=== PATIENT | female | born 1990 | race Caucasian/White ===

== ENCOUNTER 2016-12-24 16:10 | Emergency (ER) | payer OTHER ==
[~2016-12-24] VITALS: Ht 175.3 cm; Wt 129.2 kg
[2016-12-24 16:13] VITALS: BP 152/95; PULSE 90; TEMP 36.6; O2SAT 100; Ht 175.3 cm; Wt 129.2 kg
[2016-12-24] MEDS ORDERED: LIDO2SOL19 PO (16:28)
[2016-12-24] MEDS ORDERED: LIDOCAINE HCL 2% VISC SOLN 20 ML UDC MT ONE (17:00)
--- NOTE | 2016-12-25 18:35 | EMERGENCY ROOM VISIT NOTE ---
ED Visit Note First contact with patient: 16:19 CHIEF COMPLAINT: Left lower Dental pain HISTORY OF PRESENT ILLNESS: This 26-year-old white female patient has had persistent left lower gum pain for last 2 weeks. She denies any trauma. She had dental extractions approximate 2 weeks ago. She had a follow-up appointment with her dentist. She was told that the swelling in her gumline would go down. As it has come down, she has noticed that there is a white spot along her gumline. She believes there is a bone protruding from her gumline. She states it is painful and she can barely eat. She has not been back to see her dentist. She denies any drainage. No fevers or chills. The pain is now steady and severe. She denies facial swelling, chills, sweats, or fever. No nausea or vomiting. No foul taste. Pain is 8.5/10. REVIEW OF SYSTEMS: Head: No headache, injury or neck pain. Throat: No sore throat, dysphagia, or hoarseness. Neck: No stiffness, or swelling. Respiratory: No cough, change in sputum, wheezes, hemoptysis, shortness of breath, or stridor. PMH: Supplemental sheet was reviewed. Previous Surgeries: Dental surgery for extraction, wisdom tooth extraction, appendectomy Medical history: Significant for skin problems, asthma, and stomach ulcers Family history: Significant for diabetes, heart disease, hypertension, and cancer. Current medications: None Allergies: Penicillin SOCIAL HISTORY: Patient lives at home with her boyfriend. Employed at [employer]. Tobacco use of a pack per day. No EtOH use. PHYSICAL EXAM: Vital Signs: Temp 36.6 pulse 90 BP 152/95 respirations 18 O2 sat 100% on room air. General: Well-developed, well-nourished, obese young white female, in no acute distress. She does not appear in any discomfort. She is sitting on a bed. Alert and oriented. Skin: Warm and dry with good turgor. No rashes or lesions. No ecchymosis or erythema. The patient is not diaphoretic. No abrasions. HEENT: Normocephalic atraumatic. Eyes PERRLA, EOMI. No conjunctiva or scleral injection. Nares patent bilaterally without turbinate enlargement. No significant drainage. No epistaxis. Oropharynx without erythema or exudate. Uvula midline, oral mucosa moist. No lesions present. She is missing several teeth. Her left lower gum line has a well- healed surgical scar. There is a punctate area in the lower gumline where her tooth used to be. It does appear as though there is a small white spot that does not brush off. It is a pinhole-type lesion. Nothing is expressible. There is no drainage. No edema or pointing. It is nonfluctuant. Surrounding teeth are not loose. There is no facial swelling, cervical or submandibular lymphadenopathy. DIAGNOSIS: Dental pain DISCHARGE INSTRUCTIONS & TREATMENT: The patient was educated regarding today's findings. Conservative care measures were discussed. She was reassured that I do not suspect infection at this time. I am not sure what the white hole is related to. It does not seem likely that it would be the underlying mandible. She was prescribed lidocaine 2% viscous solution to be applied to the gumline up to 4 times a day for pain relief. Continue with Tylenol and Motrin. See her dentist as soon as possible for definitive care. [place] gargles after every meal. Continue to brush her teeth. Current/Historical Medications Scheduled Lidocaine Hcl (Mouth-Throat) (Lidocaine Viscous), 5 ML PO QID Vital Signs Date Time Temp Pulse Resp B/P Pulse Ox O2 Delivery O2 Flow Rate FiO2 12/24/16 16:13 36.6 90 18 152/95 100 Room Air Medications Administered Medications (Trade) Dose Ordered Sig/Cata Route Start Time Stop Time Status Last Admin Dose Admin Lidocaine HCl (Viscous Lidocaine 2% Soln) 20 ml NOW ONCE MT 12/24/16 17:00 12/24/16 17:00 DC 12/24/16 16:55 20 ML Departure Information Impression Primary Impression: Pain, dental Dispostion Home / Self-Care Condition GOOD Prescriptions Lidocaine Hcl (Mouth-Throat) (LIDOCAINE VISCOUS) 2 % Suzi 5 ML PO QID, #100 ML Prov: Jose Hoffman,P.A. 12/24/16 Forms WORK / SCHOOL INSTRUCTIONS, HOME CARE DOCUMENTATION FORM, MOTRIN USE, TYLENOL USE, IMPORTANT VISIT INFORMATION Patient Instructions My [facility] Additional Instructions Apply viscous lidocaine topically to the gumline every 6 hours as needed for pain Follow-up with your dentist or PCP this week for reexamination and to discuss further care You may elect to see a different dentist if desired
== END 2016-12-24 16:57 | disposition home or self-care (01) ==
LOC: C.EDB 16:12 → C.EDD 16:57
DX: K08.89 Other specified disorders of teeth and supporting structures (principal)

== ENCOUNTER → 2017-02-14 | Outpatient (CLI) | payer OTHER ==
[2017-02-14 16:37] LABS: BASO % 0.5 %; BASO ABS # 0.05 K/uL (0-0.2); COMPLETE YES; EOS % 2.8 %; HEMATOCRIT 39.4 % (37-47); IG% 0.2 %; LYMPH % 25.4 %; LYMPH ABS # 2.53 K/uL (1.2-3.4); MEAN CELL VOLUME 89.5 fL (80-100); MEAN CORPUSCULAR HEMOGLOBIN 29.1 pg (25-34); MEAN CORPUSCULAR HGB CONC 32.5 g/dl (32-36); MEAN PLATELET VOLUME 9.5 fL (7.4-10.4); MONO % 7.6 %; NEUT % 63.5 %; PLATELET COUNT 319 K/uL (130-400); WHITE BLOOD COUNT 9.98 K/uL (4.8-10.8)
== END | disposition home or self-care (01) ==
LOC: C.LAB1850 15:18
PROVIDERS: ATTEND Obstetrics & Gynecology
DX: O99.330 Smoking (tobacco) complicating pregnancy, unspecified trimester (principal); Z3A.00 Weeks of gestation of pregnancy not specified

== ENCOUNTER → 2017-02-14 | Outpatient (CLI) | payer OTHER ==
[2017-02-14 17:59] LABS: URINE APPEARANCE CLEAR (CLEAR); URINE BILIRUBIN NEG (NEG); URINE COLOR YELLOW; URINE NITRITE NEG (NEG); URINE PH 6.5 (4.5-7.5); UROBILINOGEN NEG (NEG)
[2017-02-14 18:01] LABS: MANUAL MICROSCOPIC REQUIRED? NO; REVIEW REQ? NO
[2017-02-17 02:00] LABS: CHLAMYDIA TRACH RNA*** DETECTED (NOT DETECTED); GC (NEIS GONORRHOEAE)RNA** NOT DETECTED (NOT DETECTED)
== END | disposition home or self-care (01) ==
LOC: C.LABSPEC 17:32
PROVIDERS: ATTEND Obstetrics & Gynecology
DX: O99.330 Smoking (tobacco) complicating pregnancy, unspecified trimester (principal); Z3A.00 Weeks of gestation of pregnancy not specified

== ENCOUNTER → 2017-03-14 | Outpatient (CLI) | payer OTHER ==
[2017-03-17 02:56] LABS: CHLAMYDIA TRACH RNA*** NOT DETECTED (NOT DETECTED); GC (NEIS GONORRHOEAE)RNA** NOT DETECTED (NOT DETECTED)
== END | disposition home or self-care (01) ==
LOC: C.LABSPEC 14:02
PROVIDERS: ATTEND Obstetrics & Gynecology
DX: O98.819 Other maternal infectious and parasitic diseases complicating pregnancy, unspecified trimester (principal)

== ENCOUNTER → 2017-04-18 | Outpatient (CLI) | payer OTHER ==
[2017-04-18 15:17] LABS: GTGD 50 Grams
[2017-04-20 15:09] LABS: AFP CONCENTRATION 31.8 NG/ML; AFP MULTIPLE OF MEDIAN 1.35; AFPTS GESTATIONAL AGE 16.4 WEEKS; AFPTS INSULIN DEP DIABETIC? NO; AFPTS MATERNAL WT 283 LBS; ALPHA-FETOPROTEIN RACE CAUCASIAN=W; ESTRIOL MULTIPLE OF MEDIAN 1.04; HISTORY OF NTD NO; INHIBIN A 231 PG/ML; REPEAT SAMPLE? NO; hCG MULTIPLE OF MEDIAN 1.49
== END | disposition home or self-care (01) ==
LOC: C.LAB1850 10:05
PROVIDERS: ATTEND Obstetrics & Gynecology
DX: Z34.02 Encounter for supervision of normal first pregnancy, second trimester (principal)

== ENCOUNTER → 2017-07-16 | Outpatient (CLI) | payer OTHER ==
[2017-07-16 18:02] LABS: HEMATOCRIT 34.8 % (37-47)
[2017-07-16 18:36] LABS: URINE APPEARANCE CLEAR (CLEAR); URINE BILIRUBIN NEG (NEG); URINE COLOR YELLOW; URINE EPITHELIAL CELL AUTO >30 /lpf (0-5); URINE NITRITE NEG (NEG); URINE SPECIFIC GRAVITY 1.017 (1.000-1.030); UROBILINOGEN NEG (NEG)
[2017-07-16 18:37] LABS: MANUAL MICROSCOPIC REQUIRED? NO; REVIEW REQ? NO
[2017-07-16 19:16] LABS: GTGD 50 Grams
== END | disposition home or self-care (01) ==
LOC: C.LAB1850 16:26
PROVIDERS: ATTEND Obstetrics & Gynecology
DX: Z34.02 Encounter for supervision of normal first pregnancy, second trimester (principal)

== ENCOUNTER → 2017-08-16 | Outpatient (CLI) | payer OTHER | END | disposition home or self-care (01) | LOC: C.CPL 10:11 | PROVIDERS: ATTEND Obstetrics & Gynecology | DX: O26.92 Pregnancy related conditions, unspecified, second trimester (principal); Z3A.00 Weeks of gestation of pregnancy not specified ==

== ENCOUNTER → 2017-08-29 | Outpatient (CLI) | payer BC | END | disposition home or self-care (01) | LOC: C.LAB1850 13:51 | PROVIDERS: ATTEND Obstetrics & Gynecology | DX: Z34.03 Encounter for supervision of normal first pregnancy, third trimester (principal) ==

== ENCOUNTER → 2017-09-12 | Outpatient (CLI) | payer BC | END | disposition home or self-care (01) | LOC: C.LABSPEC 15:51 | PROVIDERS: ATTEND Obstetrics & Gynecology | DX: Z34.03 Encounter for supervision of normal first pregnancy, third trimester (principal) ==

== ENCOUNTER 2017-09-21 10:26 | Inpatient (IN) | payer BC ==
[~2017-09-21] VITALS: Ht 170.2 cm; Wt 127.0 kg
[2017-09-21] MEDS ORDERED: LACTATED RINGER'S 1000ML 1,000 ML IV PRN (11:32)
[2017-09-21] MEDS ORDERED: LACTATED RINGER'S 1000ML 500 ML IV PRN ×2 (11:46→16:27)
[2017-09-21 11:57] LABS: HEMATOCRIT 34.9 % (37-47); HEMOGLOBIN 11.7 g/dL (12.0-16.0); MEAN CELL VOLUME 92.3 fL (80-100); MEAN CORPUSCULAR HGB CONC 33.5 g/dl (32-36); MEAN PLATELET VOLUME 11.1 fL (7.4-10.4); PLATELET COUNT 218 K/uL (130-400); RED CELL DISTRIBUTION WIDTH CV 13.5 % (11.5-14.5); RED CELL DISTRIBUTION WIDTH SD 45.4 fL (36.4-46.3); WHITE BLOOD COUNT 9.62 K/uL (4.8-10.8)
[2017-09-21] MEDS ORDERED: OXYTOCIN 30 UNITS/500ML NSS IV PRN (12:00)
[2017-09-21 12:09] VITALS: Ht 170.2 cm; Wt 127.0 kg
[2017-09-21] MEDS ORDERED: HYDR-3983 PO (12:11)
[2017-09-21] MEDS ORDERED: PRENTAB26 PO (12:11)
[2017-09-21] MEDS ORDERED: PENICILLIN G POTASSIUM IV 6 MU in DEXTROSE 5% 250ML 250 ML IV ONE (12:15)
[2017-09-21] MEDS: LACTATED RINGER'S 1000ML 1,000 ML IV SCH ×2 (12:34→16:09)
[2017-09-21] MEDS ORDERED: BUPIVACAINE 0.25% 30 ML VIAL ONE (15:12)
[2017-09-21] MEDS ORDERED: EpHEDrine SULFATE INJ 50 MG/ML AMP ONE (15:12)
[2017-09-21] MEDS ORDERED: FENTANYL CITRATE INJ 50 MCG/1 ML 2 ML VIAL ONE (15:12)
[2017-09-21] MEDS ORDERED: FENTANYL 2MCG/ML ROPIV 1.25MG/ML 100ML BAG EPI ONE (15:13)
[2017-09-21] MEDS ORDERED: NALOXONE HCL INJ 1 MG in SODIUM CHLORIDE 0.9% 1000ML 1,000 ML IV PRN (16:27)
[2017-09-21] MEDS ORDERED: DiphenhydrAMINE HCL 50 MG/ML VIAL IV PRN (16:30)
[2017-09-21] MEDS ORDERED: ONDANSETRON INJ 2 MG/ML 2 ML VIAL IV PRN (16:30)
[2017-09-21] MEDS ORDERED: EpHEDrine SULFATE INJ 50 MG/ML AMP IV PRN (16:30)
[2017-09-21] MEDS ORDERED: NALOXONE HCL INJ 0.4 MG/1 ML VIAL/CARP IV PRN (16:30)
[2017-09-21] MEDS ORDERED: PROMETHAZINE HCL INJ 6.25 MG in SODIUM CHLORIDE 0.9% 50ML 50 ML IV PRN (16:30)
[2017-09-21] MEDS ORDERED: NALBUPHINE HCL INJ 10 MG/ML AMP IV PRN (16:30)
[2017-09-21] MEDS: PENICILLIN G POTASSIUM IV 3 MU in DEXTROSE 5% 100ML 100 ML IV PRN ×2 (16:34→20:33)
[2017-09-21] MEDS: FENTANYL 2MCG/ML ROPIV 1.25MG/ML 100ML BAG EPI PRN ×2 (19:07→22:51)
[2017-09-21] MEDS ORDERED: ACETAMINOPHEN 500 MG TAB PO SCH (23:15)
[2017-09-22] MEDS: PENICILLIN G POTASSIUM IV 3 MU in DEXTROSE 5% 100ML 100 ML IV PRN (00:55)
[2017-09-22] MEDS: LACTATED RINGER'S 1000ML 1,000 ML IV SCH (03:32)
[2017-09-22] MEDS ORDERED: LANOLIN OINT EXT PRN (05:00)
[2017-09-22] MEDS ORDERED: IBUPROFEN 600 MG TAB PO PRN (05:00)
[2017-09-22] MEDS ORDERED: SUPERCREAM 0.870 % 15GM JAR EXT PRN (05:00)
[2017-09-22] MEDS ORDERED: BENZOCAINE 20% AER SPR 82.5 GM CAN EXT PRN (05:00)
[2017-09-22] MEDS ORDERED: HYDROCORTISONE ACETATE 25 MG SUPP PR PRN (05:00)
[2017-09-22] MEDS: OXYCODONE/ACETAMINOPHEN 5-325 TAB PO PRN ×4 (06:07→21:10)
--- NOTE | 2017-09-22 06:35 | Discharge Instructions ---
Discharge Instructions Date of Service Sep 22, 2017. Admission Reason for Admission: Spontaneous Rupture Of Amniotic Membranes Discharge Discharge Diagnosis / Problem: Vaginal Delivery Discharge Goals Goal(s): Routine recovery after delivery Medications Continue Dispensed Medications: supercream, dermaplast, tucks, lansinoh Activity Recommendations Activity Limitations: per Instructions/Follow-up section . Instructions / Follow-Up Instructions / Follow-Up ACTIVITY RECOMMENDATIONS: * Gradual return to full activity over the next 2-3 weeks. * No lifting - nothing heavier than baby over the next 2-3 weeks. * Do not engage in vigorous exercise, sexual activity or sports until cleared by your physician. * Do not drive or operate any motorized equipment until cleared by your physician. * You may shower/bathe daily. MEDICATIONS: For discomfort or pain, you may use Acetaminophen (Tylenol), Ibuprofen (Advil), or Naproxen (Aleve) following the package directions. For constipation you may use Colace following the package directions. BREAST CARE: If you are not breast feeding: * Wear a supportive bra 24 hours a day for one to two weeks. * Avoid stimulating your breasts and nipples as much as possible during the first few weeks after delivery. * When taking a shower, have the warm water hit your back, not breasts. * When your breasts feel full, apply ice packs. Usually three to four times a day helps ease the discomfort. * Take a mild pain medication (Tylenol / Motrin) when you are uncomfortable. If breast feeding: * Use breast milk to lubricate nipples. Lansinoh cream may be used for sore nipples. You do not need to remove cream prior to breast feeding. If using a different brand of cream, check the label for directions regarding removal of cream prior to nursing. * Wear a supportive bra. * If having problems with breasts or breast feeding, call a income tax consultant or your health care provider. EPISIOTOMY CARE: After delivery, if you have an episiotomy (stitches), the following steps will ease discomfort and aid healing. * For the first 24 hours after delivery, place ice packs next to your episiotomy to help reduce swelling. * After the first 24 hour-period, sitz baths, either portable or in the tub, are suggested. A shower with a shower arm sprayed over the episiotomy may be comforting. * [place] care should be done after each voiding and bowel movement. Squirt warm water from a plastic bottle over the perineum (region of the body between the anus and urinary opening) and pat dry. * Use Dermoplast to ease discomfort. Shake container. [place] directly over the episiotomy. Place a Tucks on a clean sanitary pad next to your episiotomy. SPECIAL CARE INSTRUCTIONS: When you are discharged from the hospital, it is important for you to follow the instructions listed below: * During the first week at home, you should be able to care for yourself and your baby. In addition, the usual light household activities are encouraged. * Limit your activities to the way you feel. Do not try to clean the house or move furniture. Be sensible. * If you actively engage in sports and have done so up until the time of your delivery, you may resume these activities as soon as you feel able. This may take up to one month or even longer. Use good judgment. * Continue to take your vitamins for at least six weeks after the of your baby. * Your diet need not be limited unless you were on a special diet before your delivery. Breast-feeding mothers need around 2500 calories per day and at least 64-80 ounces of fluid per day (8 to 10 glasses). * You should eat foods from the four major food groups. Crash diets or fad diets are to be avoided. Eating lean meats, fresh fruits and vegetables, low-fat dairy products, high fiber foods and a regular exercise program, will help you get back to your pre- weight without putting your health at risk. * Constipation is sometimes a problem after delivery. Take a mild laxative as needed. If breast feeding, Milk of Magnesia is acceptable to use. You may use a suppository or Fleets enema if no episiotomy. * A daily shower or tub bath is suggested. Be sure to thoroughly and gently dry the perineum. * A bloody vaginal discharge will usually continue until around four weeks post . A small amount of bleeding may continue for as long as six weeks. Vaginal discharge changes from the bright red bleeding after delivery to pink then brownish and finally yellowish-pink before becoming white and disappearing. * Bleeding may increase with activity. Your first period may come in 4-8 weeks. If you are breast feeding, your period may be delayed even longer. * [place] (sex) can begin whenever both you and your partner feel comfortable and do not have any form of genital infection. It is recommended that you wait at least six weeks for internal and external healing to occur. If you have questions, please talk to your health care practitioner. A condom should be used to prevent infection and . * Foreplay, gentle intercourse and lubrication is very important the first several times to prevent pain. A water-based lubricant such as K-Y jelly or Astroglide may be used. * If you have RH negative blood and your baby is RH positive, you will receive RHOGAM by injection prior to discharge. The nurse will give you a card to keep with you that has the date and place that you received RHOGAM after delivery. * During your care, you had a Rubella screen done to check for the presence of rubella antibodies in your blood. If your test was negative, you will receive a Rubella vaccine prior to discharge. This vaccine may cause a fever, soreness at the injection site and flu-like symptoms. If these symptoms persist, notify your health care practitioner. is not advised for one month after a Rubella vaccine. * Verbalizes understanding of car seat law as reviewed with patient nursing. * Car Seat hand-out given and reviewed with patient by nursing. * Shaken baby information reviewed with patient by nursing. Call you doctor if: * Heavy bleeding (saturating several pads an hour) or passing clots the size of your fist. * A fever >101 degrees F (38.3 degrees C) on two occasions four hours apart and /or chills. * Unusual pain in the pelvic or vaginal areas. * "Baby Blues" lasting longer than two weeks. If you have any questions or concerns, call your health care practitioner at . FOLLOW UP VISIT: * Please call the office at to schedule a 6 week examination. It is important you keep this appointment. It is important for you to make arrangements for either yearly or twice yearly check-ups thereafter. Current Hospital Diet Patient's current hospital diet: Regular OB Diet Discharge Diet Recommended Diet: Regular Diet Pending Studies Studies pending at discharge: no Medical Emergencies . Who to Call and When: Medical Emergencies: If at any time you feel your situation is an emergency, please call 911 immediately. . Non-Emergent Contact Non-Emergency issues call your: Primary Care Provider . . "Provider Documentation" section prepared by Tessy Hernandez. . VTE Core Measure Inpt VTE Proph given/why not?: Treatment not indicated
--- NOTE | 2017-09-22 07:05 | DELIVERY SUMMARY ---
DATE OF OPERATION: 09/22/2017 PRE-DELIVERY DIAGNOSES: 1. A 26-year-old G1, P0 at 38 weeks 6 days. 2. Patient reported outcome measures. 3. Group B strep carrier. 4. History of Chlamydia infection during . 5. Tobacco user. 6. Rubella nonimmune. 7. Noncompliance with care. DIAGNOSES: Same. PROCEDURE: Spontaneous vaginal delivery. FINDINGS: Viable female , Apgars 8 and 9, weight pending. Please see nursery records. SURGEON: Halle Denny DO. ESTIMATED BLOOD LOSS: 300 mL. DESCRIPTION OF DELIVERY: The patient presented after spontaneous rupture of membranes on September 21 at 7:00 a.m. She then elected to walk the hallways and wait for contractions. At 6 hours later, this did not started, so she was started on Pitocin. She then progressed to complete with epidural anesthesia and she began to push. After approximately 2-1/2 hours of pushing, she spontaneously vaginally delivered viable female from the cephalic presentation. The head delivered in the right occiput anterior position. The anterior shoulder and the posterior shoulder were delivered, followed by the body. Nuchal cord was wrapped around the body. The baby was placed on mother's abdomen. Spontaneous cry was heard. The cord was doubly clamped and cut. A segment was retained for cord gases. Cord blood was obtained. The placenta then delivered spontaneously intact with a 3-vessel cord. Pitocin was given. The uterus became firm. The uterus and vagina were cleared of all clots and debris. The cervix, vagina and perineum were inspected and no lacerations were noted except a small superficial left vaginal laceration that was bleeding and therefore was repaired with running stitches of 3-0 Vicryl. Excellent hemostasis was observed. The patient tolerated the delivery well. Sponge, instrument and needle counts were correct at the conclusion of the delivery x2. I attest to the content of the Intraoperative Record and any orders documented therein. Any exceptions are noted below. MTDD
--- NOTE | 2017-09-22 08:09 | Anesthesia Procedure Note ---
Anesthesia Epidural Removal Nt Date & Time Sep 22, 2017 at 08:08 Vital Signs Pain Intensity: 5.0 Notes Mental Status: alert / awake / arousable, participated in evaluation Nausea / Vomiting: adequately controlled Pain: adequately controlled Airway Patency, RR, SpO2: stable & adequate BP & HR: stable & adequate Hydration State: stable & adequate Neuraxial Anesthesia: was administered Anesthetic Complications: no major complications apparent, pt satisfied with anesthetic care Epidural: removed without complications, with tip intact
[2017-09-22 08:15] VITALS: BP 134/79; PULSE 86; TEMP 37
[2017-09-22] MEDS: DOCUSATE SODIUM 100 MG CAP PO SCH ×2 (08:30→20:00)
[2017-09-22] MEDS: PRENATAL VITAMIN TAB PO SCH (08:30)
[2017-09-22 13:30] VITALS: BP 143/87; PULSE 88; TEMP 36.8
[2017-09-22 15:30] VITALS: BP 134/83; PULSE 78; TEMP 36.4
[2017-09-22 19:00] VITALS: BP 135/87; PULSE 92; TEMP 36.5
[2017-09-22] MEDS ORDERED: NURSING VERBAL MED ORDER ONE (22:30)
[2017-09-22 23:25] VITALS: BP 115/73; PULSE 91; TEMP 36.6
[2017-09-23 04:20] VITALS: BP 120/75; PULSE 66; TEMP 36.5
[2017-09-23] MEDS: OXYCODONE/ACETAMINOPHEN 5-325 TAB PO PRN ×4 (05:19→23:26)
[2017-09-23 07:52] LABS: HEMATOCRIT 30.6 % (37-47); HEMOGLOBIN 10.3 g/dL (12.0-16.0)
[2017-09-23 08:15] VITALS: BP 118/74; PULSE 74; TEMP 36.9
[2017-09-23] MEDS: DOCUSATE SODIUM 100 MG CAP PO SCH ×2 (08:18→22:17)
[2017-09-23] MEDS: PRENATAL VITAMIN TAB PO SCH (08:18)
[2017-09-23] MEDS ORDERED: MEASLES, MUMPS & RUBELLA VIRUS VIAL SQ. ONE (09:00)
--- NOTE | 2017-09-23 09:36 | Progress Note ---
Subjective Sep 23, 2017. Subjective conversation w/ patient, physical exam Ambulation: ambulating normally Voiding: no voiding problems Diet Tolerance: Regular Diet Lochia: Small Feeding Type: Bottle Feeding Pain: no pain issues. Comment: concerned about baby not going home tomorrow due to concern made for withdrawal. she took 2 norco due to tooth pull about 10d before delivery. Objective Vital Signs Date Time Temp Pulse Resp B/P (MAP) Pulse Ox O2 Delivery O2 Flow Rate FiO2 09/23/17 04:20 36.5 66 16 120/75 (90) Room Air 09/22/17 23:25 Room Air 09/22/17 23:25 36.6 91 18 115/73 (87) Room Air 09/22/17 19:00 36.5 92 20 135/87 (103) Room Air 09/22/17 19:00 Room Air 09/22/17 15:30 36.4 78 18 134/83 (100) Room Air 09/22/17 15:30 Room Air 09/22/17 13:30 36.8 88 14 143/87 (105) Room Air Physical Exam General Appearance: WELL-APPEARING, WD/WN, NO APPARENT DISTRESS Respiratory/Chest: lungs clear Cardiovascular: regular rate, rhythm Abdomen: non tender, soft Fundus: Firm, Relation to Umbilicus (2 down) Extremities: non-tender Laboratory Results Last 24 Hours Test 09/23/17 07:19 Hemoglobin 10.3 g/dL Hematocrit 30.6 % Assessment and Plan Problem List Medical Problems: (1) Pain, dental Status: Acute Post- Day#: 1 Continue Routine Care: doing well, stable, discussed evaluation of baby and see will plan to just see what peds thinks tomorrow. she is a smoker but declined nictotine patches. routine care.
[2017-09-23 15:25] VITALS: BP 147/92; PULSE 66; TEMP 36.9
[2017-09-23] MEDS ORDERED: BISACODYL 5 MG TABEC PO SCH (20:00)
[2017-09-23 23:25] VITALS: BP 131/83; PULSE 85; TEMP 36.6; O2SAT 100
[2017-09-24] MEDS: OXYCODONE/ACETAMINOPHEN 5-325 TAB PO PRN ×2 (04:50→08:05)
--- NOTE | 2017-09-24 06:21 | Progress Note ---
Subjective Sep 24, 2017. Subjective conversation w/ patient (Patient seen and examined at bedside) Ambulation: ambulating normally Voiding: no voiding problems Diet Tolerance: Regular Diet Lochia: Small Feeding Type: Bottle Feeding Pain: Patient reports no constant pain, just mild occasional cramping. Review of Systems Constitutional: No fever, No chills, No sweats Respiratory: No cough, No shortness of breath Cardiac: No chest pain, No edema Abdomen: No pain, No nausea, No vomiting Female : No dysuria Objective Vital Signs Date Time Temp Pulse Resp B/P (MAP) Pulse Ox O2 Delivery O2 Flow Rate FiO2 09/23/17 23:25 36.6 85 16 131/83 (99) 100 Room Air 09/23/17 23:25 100 Room Air 09/23/17 15:25 Room Air 09/23/17 15:25 36.9 66 20 147/92 (110) Room Air 09/23/17 08:15 36.9 74 20 118/74 (89) Physical Exam General Appearance: WELL-APPEARING, WD/WN, NO APPARENT DISTRESS Respiratory/Chest: chest non-tender, lungs clear, normal breath sounds, no respiratory distress, no accessory muscle use Cardiovascular: regular rate, rhythm, no edema Abdomen: normal bowel sounds, non tender, soft Fundus: Firm, Non-Tender, Relation to Umbilicus (3 below) Extremities: normal inspection, no pedal edema, no calf tenderness Laboratory Results Last 24 Hours Test 09/23/17 07:19 Hemoglobin 10.3 g/dL Hematocrit 30.6 % Medications Current Inpatient Medications Medications (Trade) Dose Ordered Sig/Cata Route Start Time Stop Time Status Last Admin Dose Admin Lactated Ringer's 500 ml @ 999 mls/hr Q31M PRN IV 09/21/17 11:46 10/21/17 11:45 Benzocaine (Dermoplast Aero Spr) 1 appln PRN PRN EXT 09/22/17 05:00 10/22/17 04:59 Cocaine HCl (Supercream 0.870% Cr) BID PRN EXT 09/22/17 05:00 10/06/17 04:59 Hydrocortisone Acetate (Anusol Hc Supp) 25 mg BID PRN HI 09/22/17 05:00 10/22/17 04:59 Lanolin (Lanolin Oint) PRN PRN EXT 09/22/17 05:00 10/22/17 04:59 Prenat Multivit/ [place]/Iron/Folic Ac ( Vitamin Tab) 1 tab DAILY PO 09/22/17 08:00 10/22/17 07:59 09/23/17 08:18 1 TAB Ibuprofen (Motrin Tab) 600 mg Q4H PRN PO 09/22/17 05:00 10/22/17 04:59 09/23/17 08:18 600 MG Oxycodone/ Acetaminophen (Percocet 5-325mg Tab) 1 tab Q4H PRN PO 09/22/17 05:00 10/06/17 04:59 09/24/17 04:50 1 TAB Docusate Sodium (coLACE CAP) 100 mg BID PO 09/22/17 08:00 10/22/17 07:59 09/23/17 22:17 100 MG Assessment and Plan Problem List Medical Problems: (1) Pain, dental Status: Acute Post- Day#: 2 Continue Routine Care: 26 year old s/p NVD day 2 - patient doing very well clinically - A+, GBS +, rubella equivocal, chlamydia positive (treated with abx x2 days just before delivery) - MMR ordered - vitals reviewed and wnl - Hgb stable at 10.3 yesterday - continue to encourage ambulation, monitor lochia and analgesia prn - pt was concerned about possible withdrawal in baby given exposure to [place] 10 days before delivery (she took them for a tooth extraction) however she states her baby has been cleared by peds for d/c - discharge instructions reviewed as pt ready for d/c today Mary PGY 1 Resident Physician Supervision Note: I was present with Dr. Hernandez during the history and exam. I discussed the case with the resident and agree with the findings and plan as documented in the note. Any exceptions or clarifications are listed here: Doing well, ready for discharge. baby's disposition is per ped and pt knows it. instructions reviewed, f/u 6wks. enc pt to think about her control plan. Documented By: Brandee Lopez Resident Tracking Resident Involvement: Resident Care Provided Care Provided: OB Delivery
[2017-09-24 07:20] VITALS: BP 136/84; PULSE 74; TEMP 37.1; O2SAT 94
[2017-09-24] MEDS: DOCUSATE SODIUM 100 MG CAP PO SCH (08:05)
[2017-09-24] MEDS: PRENATAL VITAMIN TAB PO SCH (08:05)
== END 2017-09-24 11:45 | disposition home or self-care (01) | DRG 775 ==
LOC: C.OPB 10:26 → C.LD 10:28 → C.OPB 11:37 → C.LD 11:37 → C.OBG 09-22 06:56
PROVIDERS: ADMIT Obstetrics & Gynecology; ATTEND Obstetrics & Gynecology
PROC: 0HQ9XZZ Repair Perineum Skin, External Approach (ICD-10-PCS; principal; 2017-09-22)
PROC: 10E0XZZ Delivery of Products of Conception, External Approach (ICD-10-PCS; principal; 2017-09-22)
DX: O99.824 Streptococcus B carrier state complicating childbirth (principal); O69.81X0 Labor and delivery complicated by cord around neck, without compression, not applicable or unspecified; O70.0 First degree perineal laceration during delivery; Z3A.38 38 weeks gestation of pregnancy; Z37.0 Single live birth; O99.334 Smoking (tobacco) complicating childbirth; F17.200 Nicotine dependence, unspecified, uncomplicated

== ENCOUNTER 2017-10-14 12:10 | Emergency (ER) | payer BC, OTHER ==
[~2017-10-14] VITALS: Ht 172.7 cm; Wt 123.5 kg
[~2017-10-14 12:10] MED LIST: PRENTAB26 PO
[2017-10-14] MEDS ORDERED: KETAMINE HCL INJ 50 MG/ML 10 ML VIAL IV ONE (12:12)
[2017-10-14] MEDS ORDERED: ROCURONIUM BROMIDE 10 MG/ML 10 ML VIAL IV ONE (12:12)
[2017-10-14] MEDS ORDERED: CEFTRIAXONE SOD INJ 2,000 MG in DEXTROSE 5% 50ML 50 ML IV STA (12:41)
[2017-10-14] MEDS ORDERED: SODIUM CHLORIDE 0.9% 1000ML 2,000 ML IV STA (12:41)
[2017-10-14] MEDS ORDERED: VANCOMYCIN IV 1,000 MG in SODIUM CHLORIDE 0.9% 250ML 250 ML IV STA (12:41)
[2017-10-14] MEDS ORDERED: DEXAMETHASONE INJ 10 MG in SYRINGE 0 ML IV STA (12:41)
[2017-10-14] MEDS ORDERED: VANCOMYCIN CONSULT ACTIVE PRN ×2 (12:45→17:15)
--- NOTE | 2017-10-14 12:46 | EMERGENCY ROOM VISIT NOTE ---
History Report prepared by Joleen: Bk Weaver Under the Supervision of: Dr. Laci Ashby M.D. First contact with patient: 12:21 Chief Complaint: FEVER Stated Complaint: HEADPAIN History of Present Illness The patient is a 26 year old white female with a past medical history of recent and vaginal who presents to the ED with a cc of constant fever beginning yesterday. She rates her discomfort as an 8/10 in severity. The patient is accompanied by her mother who states that the patient developed headaches starting five days ago. She reports that the patient started to lose her appetite three days ago. Mom states the patient developed neck and back pain yesterday that worsened throughout the day. She reports that the patient started to went to [place] last night where she was given a shot. She reports the patient was also given Tramadol to go home, which she has been taking. Mom reports that when the patient got home she was "delusional". She reports the patient was able to walk but was wobbling. Mom reports the patient became confused today and did not know who her mother was. Positive fever, headache, pale, easily bruising, confused, slurred speech, influenza shot, tobacco use. Negative alcohol or drug use, abdominal pain. Mom reports the patient recently vaginally gave to a child a couple of weeks ago. She reports the baby did not have any problems following the delivery and was able to go home. Source of History: patient, family Onset: yesterday Position: other (weakness) Symptom Intensity: 8/10 Timing: constant Associated Symptoms: + fevers, + headache, + neck pain, + back pain, No abdominal pain Note: Associated symptoms: slurred speech, confusion, pale, easily bruising Review of Systems See HPI for pertinent positives and negatives. A total of ten systems were reviewed and were otherwise negative. Past Medical & Surgical Medical Problems: (1) Altered mental status (2) Positive GBS test (3) with 38 completed weeks gestation (4) Spontaneous rupture of amniotic membranes Family History Patient reports no known family medical history. Social History Smoking Status: Current Every Day Smoker Marital Status: single Housing Status: lives with family Current/Historical Medications No Active Prescriptions or Reported Meds Allergies Coded Allergies: NO KNOWN DRUG ALLERGIES (Verified Allergy, Unknown, none, 10/14/17) Physical Exam Vital Signs Date Time Temp Pulse Resp B/P (MAP) Pulse Ox O2 Delivery O2 Flow Rate FiO2 10/14/17 20:46 116 20 125/80 95 18 20:35 120 23 95 18 20:31 135/87 10/14/17 20:20 122 24 94 18 20:16 133/72 10/14/17 20:05 122 20 93 18 20:01 137/90 10/14/17 19:50 119 20 95 18 19:45 119 19 154/93 95 10/14/17 19:31 170/106 18 19:30 110 18 96 18 19:16 170/110 10/14/17 19:15 109 16 97 10/14/17 19:10 108 16 98 10/14/17 19:05 107 16 163/106 96 10/14/17 19:00 108 16 96 10/14/17 18:55 110 16 96 10/14/17 18:50 114 17 96 10/14/17 18:45 60 10/14/17 18:45 122 0 98 10/14/17 18:40 119 25 100 18 18:37 152/92 18 18:35 102 37 100 10/14/17 18:25 96 98 10/14/17 18:20 98 52 99 10/14/17 18:18 98 26 156/100 100 Nasal Cannula 2.0 10/14/17 18:16 156/100 10/14/17 18:15 101 52 99 10/14/17 18:10 101 28 99 10/14/17 18:05 100 42 98 10/14/17 18:01 160/92 18 18:00 101 28 98 18 17:30 97 30 149/98 96 Nasal Cannula 2.0 10/14/17 15:46 87 40 109/74 94 Nasal Cannula 2.0 10/14/17 15:13 36.8 94 30 121/71 95 Nasal Cannula 2.0 10/14/17 14:35 93 30 112/66 96 Nasal Cannula 2.0 10/14/17 14:13 37.0 103 32 121/55 97 Nasal Cannula 4.0 10/14/17 13:12 109 30 137/68 100 Nasal Cannula 4.0 10/14/17 12:59 100 Nasal Cannula 4.0 10/14/17 12:38 119 10/14/17 12:15 39.3 120 35 134/64 98 Nasal Cannula 4.0 Physical Exam GENERAL: Easily arousable, NAD HENT: Normocephalic, small bruise to R chin EYES: Normal conjunctiva. Sclera non-icteric. PERRL. Questionable effort with not moving b/l eyes to L or R well. No proptosis, no hyphema, no hypopyon. NECK:Nuchal rigidity present RESPIRATORY: CTAB, no rhonchi, wheezing, crackles CARDIAC: tachy, regular, no MRG ABDOMEN: Soft, NTND, BS+ MSK: No chest wall TTP, no LE edema NEURO: GCS 15, moves all 4s on command but w/ notable weakness of LUE and LLE compared to RUE/LLE, follows all commands, questionable dysarthria. SKIN: No rash or jaundice noted. PELVIC: Purulent foul smelling yellow discharge diffusely. Unable to visualize cervix. Mild CMT. Medical Decision & Procedures ER Provider Diagnostic Interpretation: Radiology results as stated below per my review and radiologist interpretation: CT HEAD WITHOUT CONTRAST (CT) CLINICAL HISTORY: Altered mental status FEVER COMPARISON STUDY: No previous studies for comparison. TECHNIQUE: Axial CT of the brain is performed from the vertex to the skull base. IV contrast was not administered for this examination. A dose lowering technique was utilized adhering to the principles of ALARA. CT DOSE: FINDINGS: No intra or extra-axial mass lesions are visualized. There is no CT evidence of acute cortical infarction. There is no evidence of midline shift. There is no acute hemorrhage. No calvarial fractures are visualized. There is no evidence of pathologic ventricular dilatation. There is no evidence of acute sinusitis IMPRESSION: No acute intracranial findings Electronically signed by: Suraj Jerome M.D. 10/14/2017 2:33 PM Dictated Date/Time: 10/14/2017 2:32 PM CHEST ONE VIEW PORTABLE CLINICAL HISTORY: Fever, sepsis COMPARISON STUDY: No previous studies for comparison. FINDINGS: The heart is normal in size. There is a suboptimal inspiration with bronchovascular crowding at the lung bases. There is no failure. There is no lobar consolidation. There are no pleural effusions.[ IMPRESSION: Suboptimal inspiration with hypoventilatory changes at the lung bases Electronically signed by: Suraj Jerome M.D. 10/14/2017 1:08 PM Dictated Date/Time: 10/14/2017 1:[address] SCAN OF THE ABDOMEN AND PELVIS WITHOUT CONTRAST CLINICAL HISTORY: Fever. Acute renal injury. patient. COMPARISON STUDY: No previous studies for comparison. TECHNIQUE: CT scan of the abdomen and pelvis was performed from the lung bases to the proximal femurs. Images are reviewed in the axial, sagittal, and coronal planes. IV contrast was not administered for this examination. A dose lowering technique was utilized adhering to the principles of ALARA. CT DOSE: 3194.13 mGy.cm FINDINGS: Lower chest: There are bibasal airspace opacities, atelectatic versus inflammatory Liver: The unenhanced liver is normal in size, contour, and attenuation. There is no intrahepatic biliary ductal dilatation. Gallbladder: Unremarkable. Spleen: The spleen is mildly enlarged measuring 13.6 cm Pancreas: Unremarkable. Adrenal glands: Unremarkable. Kidneys: No renal, ureteral, or bladder calculi are visualized. There is no hydronephrosis Bowel: There are no transition zones indicate bowel obstruction. There is no acute diverticulitis. There are no findings to indicate acute appendicitis. Peritoneum: There is no intraperitoneal free air or abdominal ascites. Vasculature: The abdominal aorta is normal in course and caliber. Adenopathy: None. Pelvic viscera: The uterus is enlarged. There are few air droplets present within the lower uterine segment. Skeletal structures: No destructive osseous lesions are seen. IMPRESSION: 1. No evidence of bowel obstruction. No evidence of free air 2. Mild splenomegaly 3. Bibasilar airspace opacities, atelectatic versus pneumonia 4. uterus. A few nonspecific air droplets are visualized within the lower uterine segment Electronically signed by: Suraj Jerome M.D. 10/14/2017 2:38 PM Dictated Date/Time: 10/14/2017 2:34 PM MRI OF THE BRAIN WITHOUT AND WITH IV CONTRAST CLINICAL HISTORY: Left upper extremity and lower extremity weakness. COMPARISON STUDY: Head CT October 14, 2017. TECHNIQUE: Utilizing a 1.5 Marissa magnet and dedicated coil, multiplanar, multiecho imaging of the brain was performed pre and postcontrast administration. IV administration of 12.5 mL of Gadavist contrast was uneventful. FINDINGS: The diffusion-weighted sequence demonstrates innumerable small foci of increased signal intensity, predominantly within the bilateral cerebellar hemispheres as well as the bilateral occipital lobes. The small size of these foci may correlation with the ADC map difficult. However, at least several of these appear to represent true restricted diffusion. Note is made of a 5 mm hyperintense focus within the right frontal lobe which demonstrates restricted diffusion. No abnormal enhancement is identified within these foci. There is minimal mass effect with slight sulcal swelling. There is no evidence for hemorrhagic conversion. There is a focus of restricted diffusion within the splenium of the corpus callosum. Note is made of a 1.6 cm T2 hyperintense nonenhancing focus within the left thalamus. There is no abnormal parenchymal enhancement. There is also increased T2 signal within the brainstem with multiple foci of signal abnormality. There is trace fluid within the bilateral mastoid air cells. There is apparent loss of flow-void of the left vertebral artery. Calvarial signal is maintained. A left maxillary sinus mucous retention cyst is noted. Ventricular system is normal. Basilar cisterns are patent. There are no extraaxial collections. IMPRESSION: Innumerable foci of signal abnormality predominantly within the bilateral occipital lobes and bilateral cerebellar hemispheres with involvement of the brainstem, left thalamus and splenium of the corpus callosum. Several of these foci demonstrate restricted diffusion without enhancement. Apparent loss of the left vertebral artery flow-void raises the possibility of vessel occlusion/dissection. A CTA of the head and neck is recommended. The findings within the brain could reflect varying ages of infarcts and a vascular etiology such as thrombosis/dissection or vasculitis is favored. However, ADEM is within the differential as well as posterior reversible encephalopathy syndrome. Additionally, an infectious process such as Listeria rhomboencephalitis could have this appearance. Discussed with Dr. Ashby at time of dictation. Electronically signed by: Pierre Foster M.D. 10/14/2017 6:31 PM Dictated Date/Time: 10/14/2017 5:26 PM CHEST ONE VIEW PORTABLE CLINICAL HISTORY: post intubation COMPARISON STUDY: Chest radiograph October 14, 2017 at 12:58 PM. FINDINGS: Tip of endotracheal tube is 2.2 cm above the lewis. There is no pneumothorax or pleural effusion. Lung volumes remain diminished. There are increased perihilar and bibasilar markings. There is no evidence for pulmonary edema. IMPRESSION: 1. Tip of endotracheal tube 2.2 cm above the lewis. 2. Apparent perihilar and bibasilar opacities which could represent normal vessels or atelectasis on this hypoventilatory study. However, an infectious process could appear similar. Electronically signed by: Pierre Foster M.D. 10/14/2017 7:22 PM Dictated Date/Time: 10/14/2017 7:20 PM Laboratory Results 10/14/17 12:25 Red Blood Count 3.86, Mean Corpuscular Volume 84.5, Mean Corpuscular Hemoglobin 30.3, Mean Corpuscular Hemoglobin Concent 35.9, Mean Platelet Volume 12.6, Neutrophils (%) (Auto) 90.3, Lymphocytes (%) (Auto) 4.3, Monocytes (%) (Auto) 4.7, Eosinophils (%) (Auto) 0.0, Basophils (%) (Auto) 0.1, Neutrophils # (Auto) 8.81, Lymphocytes # (Auto) 0.42, Monocytes # (Auto) 0.46, Eosinophils # (Auto) 0.00, Basophils # (Auto) 0.01 10/14/17 12:25 Test 10/14/17 12:25 10/14/17 12:27 10/14/17 12:39 10/14/17 12:41 White Blood Count 9.76 K/uL (4.8-10.8) Red Blood Count 3.86 M/uL (4.2-5.4) Hemoglobin 11.7 g/dL (12.0-16.0) Hematocrit 32.6 % (37-47) Mean Corpuscular Volume 84.5 fL (80-100) Mean Corpuscular Hemoglobin 30.3 pg (25-34) Mean Corpuscular Hemoglobin Concent 35.9 g/dl (32-36) Platelet Count 55 K/uL (130-400) Mean Platelet Volume 12.6 fL (7.4-10.4) Neutrophils (%) (Auto) 90.3 % Lymphocytes (%) (Auto) 4.3 % Monocytes (%) (Auto) 4.7 % Eosinophils (%) (Auto) 0.0 % Basophils (%) (Auto) 0.1 % Neutrophils # (Auto) 8.81 K/uL (1.4-6.5) Lymphocytes # (Auto) 0.42 K/uL (1.2-3.4) Monocytes # (Auto) 0.46 K/uL (0.11-0.59) Eosinophils # (Auto) 0.00 K/uL (0-0.5) Basophils # (Auto) 0.01 K/uL (0-0.2) RDW Standard Deviation 41.7 fL (36.4-46.3) RDW Coefficient of Variation 13.5 % (11.5-14.5) Immature Granulocyte % (Auto) 0.6 % Immature Granulocyte # (Auto) 0.06 K/uL (0.00-0.02) Toxic Granulation 1+ Toxic Vacuolation 2+ Dohle Bodies 1+ Platelet Estimate DECREASED Prothrombin Time 12.3 SECONDS (9.0-12.0) Prothromb Time International Ratio 1.2 (0.9-1.1) Activated Partial Thromboplast Time 30.7 SECONDS (21.0-31.0) Partial Thromboplastin Ratio 1.2 Est Creatinine Clear Calc Drug Dose 64.2 ml/min Estimated GFR () 46.4 Estimated GFR (Non- 40.0 BUN/Creatinine Ratio 16.4 (10-20) Calcium Level 8.1 mg/dl (8.5-10.1) Total Bilirubin 1.1 mg/dl (0.2-1) Direct Bilirubin 0.8 mg/dl (0-0.2) Aspartate Amino Transf (AST/SGOT) 89 U/L (15-37) Alanine Aminotransferase (ALT/SGPT) 54 U/L (12-78) Alkaline Phosphatase 228 U/L (45-117) Total Creatine Kinase 984 U/L (26-192) Troponin I < 0.015 ng/ml (0-0.045) Total Protein 6.5 gm/dl (6.4-8.2) Albumin 2.1 gm/dl (3.4-5.0) Lipase 59 U/L (73-393) Bedside Lactic Acid Venous 2.61 mmol/L (0.90-1.70) Bedside Hemoglobin 11.2 g/dl (12.0-16.0) Bedside Hematocrit 33 % (37-47) Bedside Sodium 131 mEq/L (135-144) Bedside Potassium 3.0 mEq/L (3.3-5.0) Bedside Chloride 90 mEq/L (101-112) Bedside Total CO2 27 mEq/l (24-31) Anion Gap 18.0 mmol/L (16-25) Bedside Blood Urea Nitrogen 29 mg/dl (7-18) Bedside Creatinine 1.8 mg/dl (0.6-1.3) Bedside Glucose (other) 123 mg/dl (70-99) Bedside Ionized Calcium (Jennifer) 1.01 mmol/l (1.12-1.32) Urine Color DK YELLOW Urine Appearance CLOUDY (CLEAR) Urine pH 5.0 (4.5-7.5) Urine Specific [place] 1.019 (1.000-1.030) Urine Protein 2+ (NEG) Urine Glucose (UA) NEG (NEG) Urine Ketones TRACE (NEG) Urine Occult Blood 3+ (NEG) Urine Nitrite POS (NEG) Urine Bilirubin NEG (NEG) Urine Urobilinogen POS (NEG) Urine Leukocyte Esterase SMALL (NEG) Urine WBC (Auto) 5-10 /hpf (0-5) Urine RBC (Auto) 5-10 /hpf (0-4) Urine Hyaline Casts (Auto) 10-30 /lpf (0-5) Urine Epithelial Cells (Auto) 20-30 /lpf (0-5) Urine Bacteria (Auto) 4+ (NEG) Urine Crystals TALC (NONE PRSENT) Urine Pathogenic Casts 0-3 GRANULAR CASTS /lpf (0) Test 10/14/17 12:48 10/14/17 14:42 10/14/17 16:33 10/14/17 17:02 Influenza Type A Antigen Neg for Influ A (NEG) Influenza Type B Antigen Neg for Influ B (NEG) Lactic Acid Level 1.5 mmol/L (0.4-2.0) Urine Opiates Screen NEG (NEG) Urine Methadone, Qualitative NEG (NEG) Urine Barbiturates NEG (NEG) Urine Phencyclidine (PCP) Level NEG (NEG) Ur Amphetamine/Methamphetamine NEG (NEG) MDMA (Ecstasy) Screen NEG (NEG) Urine Benzodiazepines Screen NEG (NEG) Urine Cocaine Metabolite NEG (NEG) Urine Marijuana (THC) NEG (NEG) Test 10/14/17 19:36 Venous Blood pH 7.35 (7.36-7.41) Venous Blood Partial Pressure CO2 48 mmHg (38.0-50.0) Venous Blood Partial Pressure O2 198 mmHg Venous Blood HCO3 26 mmol/L Venous Blood Oxygen Saturation 99.3 % Venous Blood Base Excess 0.1 mEq/L Date/Time Source Procedure Growth Status 10/14/17 15:40 Cervix Swab Trichomonas Preparation - Final Complete Laboratory results reviewed by me Medications Administered Medications (Trade) Dose Ordered Sig/Cata Route Start Time Stop Time Status Last Admin Dose Admin Vancomycin HCl 1000 mg/Sodium Chloride 270 ml @ 125 mls/hr ONE STAT IV 10/14/17 12:41 10/14/17 14:50 DC 10/14/17 13:58 125 MLS/HR Sodium Chloride 2,000 ml @ 999 mls/hr Q2H1M STAT IV 10/14/17 12:41 10/14/17 14:41 DC 10/14/17 12:52 999 MLS/HR Dexamethasone Sodium Phosphate 10 mg/Syringe 2.5 ml @ 1 mls/min NOW STAT IV 10/14/17 12:41 10/14/17 12:45 DC 10/14/17 13:07 1 MLS/MIN Ceftriaxone Sodium 2000 mg/ Dextrose 70 ml @ 100 mls/hr NOW STAT IV 10/14/17 12:41 10/14/17 13:22 DC 10/14/17 13:07 100 MLS/HR Lorazepam (Ativan Inj) 2 mg STK-MED ONCE .ROUTE 10/14/17 17:10 10/14/17 17:11 DC 10/14/17 17:10 1 MG Potassium Chloride 10 meq/ Prmx 100 ml @ 100 mls/hr Q1H IV 10/14/17 20:30 10/15/17 00:29 10/14/17 20:41 100 MLS/HR Miscellaneous (Rapid Sequence Induction Bag) 1 ea STK-MED ONCE N/A 10/14/17 18:25 10/14/17 18:26 DC 10/14/17 18:25 1 EA Ketamine HCl (Ketalar Steri-Vial Inj) 100 mg NOW STAT IV 10/14/17 18:44 10/14/17 18:48 DC 10/14/17 18:39 100 MG Rocuronium [place] (Zemuron Inj) 100 mg ONE STAT IV 10/14/17 18:44 10/14/17 18:48 DC 10/14/17 18:39 100 MG Fentanyl Citrate 250 ml @ 50 mls/hr Q5H PRN IV 10/14/17 18:45 10/28/17 18:44 10/14/17 19:38 50 MLS/HR Clindamycin Phosphate 600 mg/ Dextrose 54 ml @ 100 mls/hr 2000 ONCE IV 10/14/17 20:00 10/14/17 20:32 DC 10/14/17 19:38 100 MLS/HR Midazolam HCl 250 ml @ 0 mls/hr Q0M STAT IV 10/14/17 19:07 10/14/17 19:09 DC 10/14/17 19:37 4 MLS/HR Procedure Endotracheal Intubation Indication altered mental status. The patient was on 100% oxygen via NRB prior to the procedure. Suction, airway equipment, RSI drugs, respiratory equipment, and appropriate personnel were prepared prior to the initiation of the procedure. A time out was taken. Induction was performed with 100 mg of Ketamine and paralyzed with 100 mg of Rocuronium. After observing the clinical benefit of the medications, the airway was easily visualized utilizing a mac 4 blade. A 7.5 size ETT tube was placed atraumatically to 23 cm using standard technique. The cuff inflated without signs of malfunction. There were bilateral breath sounds, positive colormetric change, no gastric sounds, a good capnography waveform, and post procedure pulse oximetry was 89%. Improved with bagging to 100% Post intubation sedation and paralysis was administered using Fentanyl Citrate. There were no complications. ECG Per My Interpretation Indication: altered mental status Rate (beats per minute): 110 Rhythm: sinus tachycardia Findings: other (Normal intervals, normal axis, No STS or TWI changes) ED Course 1235: The patient was evaluated in room B08. A complete history and physical exam was performed. 1517: I reevaluated the patient and she still has left sided weakness. 1523: I discussed the patients condition with Dr. Rodrigues, [facility] Hospitalist. She reports that an LP can be done later and to have a tox screen done first. She understands the patients conditions and agrees to evaluate the patient. 1546: I discussed the patients case with Dr. Lomas, [facility] RECOATER. She reports the patient may have endomyometritis. She is concerned about the patients condition given the signs and symptoms. Dr. Lomas suggests giving Gentamicin and will be on consult. 1556: I discussed the patients case with Dr. Conde, [facility] Neurology. He reports to get an MRI and to continue a broad spectrum. He reports to hold off on the LP. 1745: I discussed the patients case with Dr. Foster [facility] Sheet Mill Supervisor. He reports the patient could be experiencing a dissection and thrombosis infarct. 1807: I reevaluated the patient and I will perform an intubation. 1837: I performed an endotracheal intubation. See procedure notes for further detail. 1907: I reevaluated the patient and her vitals are stable. 1924: I discussed the patients case with Dr. Myers, [facility] Sheet [employer] Supervisor. He understands the patients condition and agrees to accept the patient. The patient will be further evaluated. Medical Decision Triage Nursing notes reviewed. The patient is a 26 year old white female with a past medical history of recent and vaginal who presents to the ED with a cc of constant fever beginning yesterday. The patient's presentation and history were concerning for etiologies such as viral syndrome, otitis, pharyngitis, pneumonia, influenza, meningitis, urinary tract infection, sepsis, bacteremia, as well as others were entertained. Patient seen and evaluated at the bedside. Patient w/ noted dysarthria and L sided deficits. Family concerned for gait instability yesterday. Given ill defined time of onset patient not a candidate for tPA. Patient w/ fever, back pain, neck pain. Patient w/ mild lower ab TTP. Cath urine obtained. Patient covered w/ BS abx at meningitic doses, blood/urine clx, blood work, CT brain, CXR. Patient blood work shows chronic stable anemia. Thrombocytopenia noted. No spontaneous bleeding by scant bruising noted. ZOILA vs ZOILA on CKD, no baseline noted. Patient recently post 3 weeks prior, , was GBS and chlamydia + prior. noted, no complications and no complication to mother/child. Pelvic performed, speculum inserted and noted diffuse foul smelling discharge. Concern for post- infection. UA also grossly + for infection. Ob consulted. Recommend additional coverage to cover for endomyometritis. After further discussion possible HELLP syndrome given the constellation of symptoms and lab results. Hospitalist and neuro involved. Neuro agreed w/ MRI. Avoided CTAs initially given kidney dysfunction. Patient w/ worsening resp status. Suctioned and repositioned. I did discuss the patient's case w/ the glass curvature gauger. Believes patient should be transferred and intubated. Patient moved to B1 w/ RT and nursing. patient intubated on first pass w/o complication w/ 7.5 ETT at 23cm at the teeth. Patient did desat even in this short time to 89 % but improved to 100% w/ baggin. Placed on the vent. CXR, vbg and fentanyl/ versed gtts ordered. Patient VBG looks well. No resp acidosis or hypercarbia. O2 titrated to prevent hyperoxia. MRI concernign for multiple areas of subacute/ acute infarct. Did discuss w/ glass curvature gauger again who suggested TTP more likely than HELLP. I did initiate transfer to [facility]. I spoke w/ glass curvature gauger who agreed to accept patient. Potassium repleted. Patient transferred to [facility]. Medication Reconcilliation Current Medication List: was personally reviewed by me Blood Pressure Screening Patient's blood pressure: Elevated blood pressure Referred to Hospitalist Consults Time Called: 152 Consulting Physician: Dr. Rodrigues, [facility] Hospitalist Returned Call: [phone] I discussed the patients condition with Dr. Rodrigues [facility] Hospitalist. She reports that an LP can be done later and to have a tox screen done first. She understands the patients conditions and agrees to evaluate the patient. Additional Consults: Time Called: 1546 Consulted Physician: Dr. Lomas, [facility] RECOATER Returned Call: [phone] Additional Comments: I discussed the patients case with Dr. Lomas, [facility] RECOATER. She reports the patient may have endomyometritis. She is concerned about the patients condition given the signs and symptoms. Dr. Lomas suggests giving Gentamicin and will be on consult. Time Called: 1553 Consulted Physician: Dr. Conde, [facility] Neurology Returned Call: [phone] Additional Comments: I discussed the patients case with Dr. Conde, [facility] Neurology. He reports to get an MRI and to continue a broad spectrum. He reports to hold off on the LP. 1744: I discussed the patients case with Dr. Foster [facility] [employer] Supervisor. He reports the patient could be experiencing a dissection and thrombosis infarct. 1924: [facility]. He understands the patients condition and agrees to accept the patient. The patient will be further evaluated. Impression Primary Impression: CVA (cerebral vascular accident) Additional Impressions: HELLP (hemolytic anemia/elev liver enzymes/low platelets in ) Thrombocytopenia TTP (thrombotic thrombocytopenic purpura) Vaginal discharge Anemia Hypokalemia Critical Care I have personally spent greater than 125 minutes of critical care time in the direct management of this patient. This includes bedside care, interpretation of diagnostic studies, and testing, discussion with consultants, patient, and family members, and other required patient management activities. This 125 minutes is in excess of all separately billable procedures. Scribe Attestation The scribe's documentation has been prepared under my direction and personally reviewed by me in its entirety. I confirm that the note above accurately reflects all work, treatment, procedures, and medical decision making performed by me. Departure Information Dispostion Transfer Acute Care Facility Prescriptions No Active Prescriptions or Reported Meds Referrals No Doctor, Assigned (PCP) Patient Instructions [facility] Problem Qualifiers Primary Impression: CVA (cerebral vascular accident) CVA mechanism: embolism Precerebral and cerebral artery: unspecified precerebral artery Qualified Codes: I63.10 - Cerebral infarction due to embolism of unspecified precerebral artery Additional Impressions: HELLP (hemolytic anemia/elev liver enzymes/low platelets in ) Trimester: unspecified trimester Qualified Codes: O14.20 - HELLP syndrome ( HELLP), unspecified trimester Anemia Anemia type: unspecified type Qualified Codes: D64.9 - Anemia, unspecified
[2017-10-14 12:51] LABS: ISTAT CREATININE 1.8 mg/dl (0.6-1.3); ISTAT IONIZED CALCIUM 1.01 mmol/l (1.12-1.32)
[2017-10-14 12:58] LABS: ALBUMIN 2.1 gm/dl (3.4-5.0); ALT/SGPT 54 U/L (12-78); BLOOD UREA NITROGEN 29 mg/dl (7-18); CALCIUM 8.1 mg/dl (8.5-10.1); CARBON DIOXIDE 28 mmol/L (21-32); CREATININE 1.74 mg/dl (0.60-1.20); GLUCOSE 115 mg/dl (70-99); LIPASE 59 U/L (73-393); SODIUM 130 mmol/L (136-145)
[2017-10-14 12:59] VITALS: O2SAT 100
[2017-10-14 13:01] LABS: INR 1.2 (0.9-1.1); PTT PATIENT 30.7 SECONDS (21.0-31.0)
[2017-10-14 13:03] LABS: ALKALINE PHOSPHATASE 228 U/L (45-117); AST/SGOT 89 U/L (15-37); TOTAL PROTEIN 6.5 gm/dl (6.4-8.2)
--- NOTE | 2017-10-14 13:09 | DIAGNOSTIC IMAGING REPORT ---
CHEST ONE VIEW PORTABLE CLINICAL HISTORY: Fever, sepsis COMPARISON STUDY: No previous studies for comparison. FINDINGS: The heart is normal in size. There is a suboptimal inspiration with bronchovascular crowding at the lung bases. There is no failure. There is no lobar consolidation. There are no pleural effusions.[ IMPRESSION: Suboptimal inspiration with hypoventilatory changes at the lung bases Electronically signed by: Suraj Jerome M.D. 10/14/2017 1:08 PM Dictated Date/Time: 10/14/2017 1:08 PM
[2017-10-14 13:10] LABS: HEMATOCRIT 32.6 % (37-47); HEMOGLOBIN 11.7 g/dL (12.0-16.0); MEAN CELL VOLUME 84.5 fL (80-100); MEAN CORPUSCULAR HEMOGLOBIN 30.3 pg (25-34); MEAN CORPUSCULAR HGB CONC 35.9 g/dl (32-36); MEAN PLATELET VOLUME 12.6 fL (7.4-10.4); PLATELET COUNT 55 K/uL (130-400); RED CELL DISTRIBUTION WIDTH CV 13.5 % (11.5-14.5); RED CELL DISTRIBUTION WIDTH SD 41.7 fL (36.4-46.3); WHITE BLOOD COUNT 9.76 K/uL (4.8-10.8)
[2017-10-14 13:13] LABS: BASO % 0.1 %; BASO ABS # 0.01 K/uL (0-0.2); IG# 0.06 K/uL (0.00-0.02); LYMPH % 4.3 %; LYMPH ABS # 0.42 K/uL (1.2-3.4); MONO % 4.7 %; MONO ABS # 0.46 K/uL (0.11-0.59); NEUT % 90.3 %; NEUT ABS # 8.81 K/uL (1.4-6.5)
[2017-10-14 13:26] VITALS: Ht 172.7 cm; Wt 123.5 kg
[2017-10-14 14:34] LABS: INFLUENZA B ANTIGEN Neg for Influ B (NEG)
--- NOTE | 2017-10-14 14:34 | DIAGNOSTIC IMAGING REPORT ---
CT HEAD WITHOUT CONTRAST (CT) CLINICAL HISTORY: Altered mental status FEVER COMPARISON STUDY: No previous studies for comparison. TECHNIQUE: Axial CT of the brain is performed from the vertex to the skull base. IV contrast was not administered for this examination. A dose lowering technique was utilized adhering to the principles of ALARA. CT DOSE: FINDINGS: No intra or extra-axial mass lesions are visualized. There is no CT evidence of acute cortical infarction. There is no evidence of midline shift. There is no acute hemorrhage. No calvarial fractures are visualized. There is no evidence of pathologic ventricular dilatation. There is no evidence of acute sinusitis IMPRESSION: No acute intracranial findings Electronically signed by: Suraj Jerome M.D. 10/14/2017 2:33 PM Dictated Date/Time: 10/14/2017 2:32 PM
--- NOTE | 2017-10-14 14:39 | DIAGNOSTIC IMAGING REPORT ---
CT SCAN OF THE ABDOMEN AND PELVIS WITHOUT CONTRAST CLINICAL HISTORY: Fever. Acute renal injury. patient. COMPARISON STUDY: No previous studies for comparison. TECHNIQUE: CT scan of the abdomen and pelvis was performed from the lung bases to the proximal femurs. Images are reviewed in the axial, sagittal, and coronal planes. IV contrast was not administered for this examination. A dose lowering technique was utilized adhering to the principles of ALARA. CT DOSE: 3194.13 mGy.cm FINDINGS: Lower chest: There are bibasal airspace opacities, atelectatic versus inflammatory Liver: The unenhanced liver is normal in size, contour, and attenuation. There is no intrahepatic biliary ductal dilatation. Gallbladder: Unremarkable. Spleen: The spleen is mildly enlarged measuring 13.6 cm Pancreas: Unremarkable. Adrenal glands: Unremarkable. Kidneys: No renal, ureteral, or bladder calculi are visualized. There is no hydronephrosis Bowel: There are no transition zones indicate bowel obstruction. There is no acute diverticulitis. There are no findings to indicate acute appendicitis. Peritoneum: There is no intraperitoneal free air or abdominal ascites. Vasculature: The abdominal aorta is normal in course and caliber. Adenopathy: None. Pelvic viscera: The uterus is enlarged. There are few air droplets present within the lower uterine segment. Skeletal structures: No destructive osseous lesions are seen. IMPRESSION: 1. No evidence of bowel obstruction. No evidence of free air 2. Mild splenomegaly 3. Bibasilar airspace opacities, atelectatic versus pneumonia 4. uterus. A few nonspecific air droplets are visualized within the lower uterine segment Electronically signed by: Suraj Jerome M.D. 10/14/2017 2:38 PM Dictated Date/Time: 10/14/2017 2:34 PM
[2017-10-14] MEDS ORDERED: D5NSS + 20MEQ KCL 1,000 ML IV SCH (16:57)
[2017-10-14] MEDS ORDERED: PHARMACIST DISCHARGE MED REC CONSULT PRN (17:00)
[2017-10-14] MEDS ORDERED: ONDANSETRON INJ 2 MG/ML 2 ML VIAL IV PRN (17:00)
[2017-10-14] MEDS ORDERED: MAGNESIUM HYDROXIDE SUSP 30 ML UDC PO PRN (17:00)
[2017-10-14] MEDS ORDERED: ACETAMINOPHEN 325 MG TAB PO PRN (17:00)
[2017-10-14] MEDS ORDERED: GENTAMICIN INJ 440 MG in DEXTROSE 5% 100ML 100 ML IV ONE (17:00)
[2017-10-14] MEDS ORDERED: LORAZEPAM 2 MG/ML 1 ML VIAL ONE (17:10)
[2017-10-14] MEDS ORDERED: CEFTRIAXONE SOD INJ 1 GM in DEXTROSE 5% ADD-VANTAGE 50ML 50 ML IV SCH (17:15)
[2017-10-14] MEDS ORDERED: DEXTROSE 5% IV SCH (17:15)
[2017-10-14] MEDS ORDERED: GENTAMICIN CONSULT ACTIVE PRN (17:15)
[2017-10-14] MEDS ORDERED: GENTAMICIN IV SCH (17:15)
[2017-10-14] MEDS ORDERED: CLINDAMYCIN IV 600 MG in DEXTROSE 5% 50ML 50 ML IV SCH (17:30)
--- NOTE | 2017-10-14 17:33 | History and Physical ---
History & Physical Date & Time of Service: Oct 14, 2017 at 17:04 Chief Complaint: Headpain Primary Care Physician: No Doctor, Assigned History of Present Illness Source: family 26 y/o F who was brought to the ED by her family for L sided weakness. Pt is s/ p on 09/22 at [facility]. She had a usual course of labor and she and baby were d/ c'd home healthy and without complications. Pt was noted to be a GBS carrier and mother states that she received an IV abx pre-delivery. It is noted in the chart that there was a dx of chlamydia, however family was not aware of this and mother states that pt did not take any abx during her and that she went to pt's appts with her and did not hear mention of any abx use. Family states that early this week, pt noted that she was having back and neck pain. She felt that she had "slept wrong" initially, however this persisted so her boyfriend took her to [facility] ED last night. She was given "some sort of shot for pain, maybe a muscle relaxer" and d/c'd home with a script for toradol which she has been taking today. When they arrived home, boyfriend said pt could not walk well and he had to "practically carry her" into the house. He states that she walked into the ED at [facility] herself. During the night, pt complained of being cold, however around 6am her boyfriend noted that she was hot and sweating. Mother states pt has been pale for the last 2 days. She has not eaten much. Boyfriend says she was drinking fluids today but that her last meal was Sunday night at [email or web address] for dinner. He states she was having difficulty swallowing last night. Today, mother noted that her speech was slurred and soft. Pt started to not be able to use her L hand. Pt was also confused. Pt did not have any sort of tears or excessive blood loss with . She is not . She continues to smoke. Pt was not able to contribute to this conversation. Family denies pt c/o SOB, chest pain, abd pain, n/v/c/d, LE pain or swelling. ED reports foul smelling vaginal discharge on exam. Per [employer], pt was chlamydia + on 02/14/17. She was prescribed abx and her SERENITY was later neg. On dx, it was recommended that boyfriend be treated as well. Pt was again noted + for chlamydia on 09/12/17 and was again given abx and advised for partner to be treated. Past Medical/Surgical History Chlamydia in 09/22/17 Family History Family history was reviewed; no changes noted. Social History Smoking Status: Current Every Day Smoker Alcohol Use: none Drug Use: none Marital Status: single Allergies Coded Allergies: NO KNOWN DRUG ALLERGIES (Verified Allergy, Unknown, none, 10/14/17) Home Medications No Active Prescriptions or Reported Meds Review of Systems Pertinent positives and negatives reviewed in HPI--all others negative Physical Exam Vital Signs Date Time Temp Pulse Resp B/P (MAP) Pulse Ox O2 Delivery O2 Flow Rate FiO2 10/14/17 15:46 87 40 109/74 94 Nasal Cannula 2.0 10/14/17 15:13 36.8 94 30 121/71 95 Nasal Cannula 2.0 10/14/17 14:35 93 30 112/66 96 Nasal Cannula 2.0 10/14/17 14:13 37.0 103 32 121/55 97 Nasal Cannula 4.0 10/14/17 13:12 109 30 137/68 100 Nasal Cannula 4.0 10/14/17 12:59 100 Nasal Cannula 4.0 10/14/17 12:38 119 10/14/17 12:15 39.3 120 35 134/64 98 Nasal Cannula 4.0 General Appearance: no apparent distress, + obese Head: normocephalic, atraumatic Eyes: normal inspection, sclerae normal Respiratory/Chest: normal breath sounds, no respiratory distress Cardiovascular: regular rate, rhythm, no edema Abdomen/GI: non tender, soft Extremities/Musculoskelatal: no calf tenderness, no pedal edema Neurologic/Psych: + pertinent finding (pt attempted to answer "yes" when asked if she was Ms Villavicencio, attempted to stick out tongue. No effort for b/l au pair strength testing, no gaze alteration when spoken to) Skin: warm/dry, + pallor Diagnostics Laboratory Results Results Past 24 Hours Test 10/14/17 12:25 10/14/17 12:27 10/14/17 12:39 10/14/17 12:41 Range/Units White Blood Count 9.76 4.8-10.8 K/uL Red Blood Count 3.86 4.2-5.4 M/uL Hemoglobin 11.7 12.0-16.0 g/dL Hematocrit 32.6 37-47 % Mean Corpuscular Volume 84.5 80-100 fL Mean Corpuscular Hemoglobin 30.3 25-34 pg Mean Corpuscular Hemoglobin Concent 35.9 32-36 g/dl Platelet Count 55 130-400 K/uL Mean Platelet Volume 12.6 7.4-10.4 fL Neutrophils (%) (Auto) 90.3 % Lymphocytes (%) (Auto) 4.3 % Monocytes (%) (Auto) 4.7 % Eosinophils (%) (Auto) 0.0 % Basophils (%) (Auto) 0.1 % Neutrophils # (Auto) 8.81 1.4-6.5 K/uL Lymphocytes # (Auto) 0.42 1.2-3.4 K/uL Monocytes # (Auto) 0.46 0.11-0.59 K/uL Eosinophils # (Auto) 0.00 0-0.5 K/uL Basophils # (Auto) 0.01 0-0.2 K/uL RDW Standard Deviation 41.7 36.4-46.3 fL RDW Coefficient of Variation 13.5 11.5-14.5 % Immature Granulocyte % (Auto) 0.6 % Immature Granulocyte # (Auto) 0.06 0.00-0.02 K/uL Toxic Granulation 1+ Toxic Vacuolation 2+ Dohle Bodies 1+ Platelet Estimate DECREASED Prothrombin Time 12.3 9.0-12.0 SECONDS Prothromb Time International Ratio 1.2 0.9-1.1 Activated Partial Thromboplast Time 30.7 21.0-31.0 SECONDS Partial Thromboplastin Ratio 1.2 Sodium Level 130 136-145 mmol/L Potassium Level 3.0 3.5-5.1 mmol/L Chloride Level 92 98-107 mmol/L Carbon Dioxide Level 28 21-32 mmol/L Anion Gap 9.0 18.0 16-25 mmol/L Blood Urea Nitrogen 29 7-18 mg/dl Creatinine 1.74 0.60-1.20 mg/dl Est Creatinine Clear Calc Drug Dose 64.2 ml/min Estimated GFR () 46.4 Estimated GFR (Non- 40.0 BUN/Creatinine Ratio 16.4 10-20 Random Glucose 115 70-99 mg/dl Calcium Level 8.1 8.5-10.1 mg/dl Total Bilirubin 1.1 0.2-1 mg/dl Direct Bilirubin 0.8 0-0.2 mg/dl Aspartate Amino Transf (AST/SGOT) 89 15-37 U/L Alanine Aminotransferase (ALT/SGPT) 54 12-78 U/L Alkaline Phosphatase 228 45-117 U/L Total Creatine Kinase 984 26-192 U/L Troponin I < 0.015 0-0.045 ng/ml Total Protein 6.5 6.4-8.2 gm/dl Albumin 2.1 3.4-5.0 gm/dl Lipase 59 73-393 U/L Bedside Lactic Acid Venous 2.61 0.90-1.70 mmol/L Bedside Hemoglobin 11.2 12.0-16.0 g/dl Bedside Hematocrit 33 37-47 % Bedside Sodium 131 135-144 mEq/L Bedside Potassium 3.0 3.3-5.0 mEq/L Bedside Chloride 90 101-112 mEq/L Bedside Total CO2 27 24-31 mEq/l Bedside Blood Urea Nitrogen 29 7-18 mg/dl Bedside Creatinine 1.8 0.6-1.3 mg/dl Bedside Glucose (other) 123 70-99 mg/dl Bedside Ionized Calcium (Jennifer) 1.01 1.12-1.32 mmol/l Urine Color DK YELLOW Urine Appearance CLOUDY CLEAR Urine pH 5.0 4.5-7.5 Urine Specific [place] 1.019 1.000-1.030 Urine Protein 2+ NEG Urine Glucose (UA) NEG NEG Urine Ketones TRACE NEG Urine Occult Blood 3+ NEG Urine Nitrite POS NEG Urine Bilirubin NEG NEG Urine Urobilinogen POS NEG Urine Leukocyte Esterase SMALL NEG Urine WBC (Auto) 5-10 0-5 /hpf Urine RBC (Auto) 5-10 0-4 /hpf Urine Hyaline Casts (Auto) 10-30 0-5 /lpf Urine Epithelial Cells (Auto) 20-30 0-5 /lpf Urine Bacteria (Auto) 4+ NEG Urine Crystals TALC NONE PRSENT Urine Pathogenic Casts 0-3 GRANULAR CASTS 0 /lpf Test 10/14/17 12:48 10/14/17 14:42 10/14/17 16:57 10/14/17 17:02 Range/Units Influenza Type A Antigen Neg for Influ A NEG Influenza Type B Antigen Neg for Influ B NEG Venous Blood pH 7.48 7.36-7.41 Venous Blood Partial Pressure CO2 34 38.0-50.0 mmHg Venous Blood Partial Pressure O2 68 mmHg Venous Blood HCO3 24 mmol/L Venous Blood Oxygen Saturation 92.7 % Venous Blood Base Excess 1.1 mEq/L Lactic Acid Level 1.5 0.4-2.0 mmol/L Microbiology Results 10/14/17 Blood Culture, Received Pending 10/14/17 Blood Culture, Received Pending 10/14/17 Urine Culture, Received Pending Diagnostic Radiology CT AP neg for acute CT head: neg for acute CXR: neg for acute Impression Assessment and Plan 26 y/o F who was admitted on 10/14 for AMS AMS: infectious vs post- CVA Multiple dx of chlamydia during with foul smelling vaginal discharge noted, unclear whether boyfriend was treated however family states they do not think pt was on any abx during her Neck/back pain and trouble swallowing, unable to obtain LP due to low platelets Monitor on vanco/ceftriaxone for now, OB recs for gentamicin for possible endomyometritis UTI noted, cx pending Blood cx pending CT head neg, MRI pending OB and neuro c/s pending ECHO pending t/c MRA, CTA however renal function will not allow at this time Flu neg, trop neg Hb is stable Neuro checks Lactic acid elevated on arrival, however WNL s/p IVF Febrile with WBC WNL HypoK, hypoNa: replace and monitor ARF: IVF and monitor Thrombocytopenia: in the setting of recent , monitor Other: SCDs for DVT proph given above NPO for now Level of Care Telemetry VTE Prophylaxis VTE Risk Assessment Done? Y/N: Yes Risk Level: Low
[2017-10-14] MEDS ORDERED: RAPID SEQUENCE INDUCTION BAG ONE (18:25)
--- NOTE | 2017-10-14 18:33 | DIAGNOSTIC IMAGING REPORT ---
MRI OF THE BRAIN WITHOUT AND WITH IV CONTRAST CLINICAL HISTORY: Left upper extremity and lower extremity weakness. COMPARISON STUDY: Head CT October 14, 2017. TECHNIQUE: Utilizing a 1.5 Marissa magnet and dedicated coil, multiplanar, multiecho imaging of the brain was performed pre and postcontrast administration. IV administration of 12.5 mL of Gadavist contrast was uneventful. FINDINGS: The diffusion-weighted sequence demonstrates innumerable small foci of increased signal intensity, predominantly within the bilateral cerebellar hemispheres as well as the bilateral occipital lobes. The small size of these foci may correlation with the ADC map difficult. However, at least several of these appear to represent true restricted diffusion. Note is made of a 5 mm hyperintense focus within the right frontal lobe which demonstrates restricted diffusion. No abnormal enhancement is identified within these foci. There is minimal mass effect with slight sulcal swelling. There is no evidence for hemorrhagic conversion. There is a focus of restricted diffusion within the splenium of the corpus callosum. Note is made of a 1.6 cm T2 hyperintense nonenhancing focus within the left thalamus. There is no abnormal parenchymal enhancement. There is also increased T2 signal within the brainstem with multiple foci of signal abnormality. There is trace fluid within the bilateral mastoid air cells. There is apparent loss of flow-void of the left vertebral artery. Calvarial signal is maintained. A left maxillary sinus mucous retention cyst is noted. Ventricular system is normal. Basilar cisterns are patent. There are no extraaxial collections. IMPRESSION: Innumerable foci of signal abnormality predominantly within the bilateral occipital lobes and bilateral cerebellar hemispheres with involvement of the brainstem, left thalamus and splenium of the corpus callosum. Several of these foci demonstrate restricted diffusion without enhancement. Apparent loss of the left vertebral artery flow-void raises the possibility of vessel occlusion/dissection. A CTA of the head and neck is recommended. The findings within the brain could reflect varying ages of infarcts and a vascular etiology such as thrombosis/dissection or vasculitis is favored. However, ADEM is within the differential as well as posterior reversible encephalopathy syndrome. Additionally, an infectious process such as Listeria rhomboencephalitis could have this appearance. Discussed with Dr. Ashby at time of dictation. Electronically signed by: Pierre Foster M.D. 10/14/2017 6:31 PM Dictated Date/Time: 10/14/2017 5:26 PM
[2017-10-14] MEDS ORDERED: FENTANYL CITRATE INJ 50 MCG/1 ML 2 ML VIAL ONE (18:43)
[2017-10-14] MEDS ORDERED: KETAMINE HCL INJ 50 MG/ML 10 ML VIAL IV STA (18:44)
[2017-10-14] MEDS ORDERED: ROCURONIUM BROMIDE 10 MG/ML 5 ML VIAL IV STA (18:44)
[2017-10-14] MEDS ORDERED: MIDAZOLAM HCL 5 MG/ML 2ML VIAL ONE (18:44)
[2017-10-14] MEDS ORDERED: MIDAZOLAM HCL 1 MG/ML 2ML VIAL IV STA (18:44)
[2017-10-14] MEDS ORDERED: FENTANYL 1250MCG/250ML NSS 250 ML IV PRN (18:45)
--- NOTE | 2017-10-14 18:58 | Critical Care Consultation ---
Critical Care Consultation Date of Consultation: Oct 14, 2017. Attending Physician: Reason for Consultation: Altered mental status History of Present Illness Dear Dr. Ashby: Thank you for your kind referral of Mrs. stoll to critical care service. This is a 26-year-old young female who is 3 weeks , presented earlier to an outside hospital with neck pain accompanied also with fever at home. The patient according to the family who were at the bedside, received an injection which they did not know what it was. The patient was sent home in which for the past 24 hours his mental status has been noted to be more confused and the patient started becoming more weak and unable even to move her right side. The patient was brought to the ED for further evaluation. In the ED the patient was literally unresponsive, barely arousable to tactile but not to verbal, she was not verbal and aphasic. The patient underwent workup in the ED including full chemistry labs as well as CBC UA and MRI. The patient could not give me a review of system. According to the family who were at the bedside, the patient was completely healthy up until a few days ago. The patient did not have any nausea or vomiting, she does not complain of any abdominal pain, she did have weakness on her part of her body, focal neurologic deficits was noted, the patient did not have any dysuria, pyuria. But she does have history of UTIs in the past. Her workup in the ED also revealed UTI, vulvar infection, possible thrombophlebitis noted. The patient underwent an MRI of the head for altered mental status, and the results were pending at the time of this dictation. The family were at the bedside and requested transferring her to [facility]. However, the patient mental status does not allow her to be transferred without secured airway. The patient was having difficulty even clearing up her secretions and the patient is in need for intubation. Family History Patient reports no known family medical history. Social History Smoking Status: Current Every Day Smoker Alcohol Use: none Drug Use: none Marital Status: single Housing Status: lives with family Allergies Coded Allergies: NO KNOWN DRUG ALLERGIES (Verified Allergy, Unknown, none, 10/14/17) Home Medications No Active Prescriptions or Reported Meds Current Inpatient Medications Current Inpatient Medications Medications (Trade) Dose Ordered Sig/Cata Route Start Time Stop Time Status Last Admin Dose Admin Miscellaneous Information (Consult) 1 ea UD PRN N/A 10/14/17 12:45 11/13/17 12:44 Miscellaneous Information (Pharmacist Discharge Med Rec Consult) 1 ea UD PRN N/A 10/14/17 17:00 11/13/17 16:59 Potassium Chloride/Dextrose/ Sod Cl 1,000 ml @ 125 mls/hr Q8H IV 10/14/17 16:57 11/13/17 16:56 UNV Acetaminophen (Tylenol Tab) 650 mg Q4H PRN PO 10/14/17 17:00 11/13/17 16:59 Magnesium Hydroxide (Milk Of Magnesia Susp) 30 ml Q12H PRN PO 10/14/17 17:00 11/13/17 16:59 Ondansetron HCl (Zofran Inj) 4 mg Q6H PRN IV 10/14/17 17:00 11/13/17 16:59 Clindamycin Phosphate 600 mg/ Dextrose 54 ml @ 100 mls/hr Q8H IV 10/14/17 17:30 10/24/17 17:29 UNV Vancomycin HCl 1000 mg/Sodium Chloride 270 ml @ 125 mls/hr Q12 IV 10/14/17 21:00 10/24/17 20:59 UNV Miscellaneous Information (Consult) 1 [facility] PRN N/A 10/14/17 17:15 11/13/17 17:14 Ceftriaxone Sodium 1 gm/ Dextrose 50 ml @ 100 mls/hr Q24H IV 10/14/17 17:15 10/24/17 17:14 UNV Gentamicin Sulfate 125 mg/ Dextrose 103.125 ml @ 100 mls/ hr Q8H IV 10/14/17 17:15 10/24/17 17:14 UNV Miscellaneous Information (Consult) 1 ea PRN N/A 10/14/17 17:15 11/13/17 17:14 Potassium Chloride 40 meq/ Prmx 100 ml @ 50 mls/hr NOW STAT IV 10/14/17 17:30 10/14/17 19:29 UNV Review of Systems Not obtainable at this point. Physical Exam Date Time Temp Pulse Resp B/P (MAP) Pulse Ox O2 Delivery O2 Flow Rate FiO2 10/14/17 18:18 98 26 156/100 100 Nasal Cannula 2.0 10/14/17 17:30 97 30 149/98 96 Nasal Cannula 2.0 10/14/17 15:46 87 40 109/74 94 Nasal Cannula 2.0 10/14/17 15:13 36.8 94 30 121/71 95 Nasal Cannula 2.0 10/14/17 14:35 93 30 112/66 96 Nasal Cannula 2.0 10/14/17 14:13 37.0 103 32 121/55 97 Nasal Cannula 4.0 10/14/17 13:12 109 30 137/68 100 Nasal Cannula 4.0 10/14/17 12:59 100 Nasal Cannula 4.0 10/14/17 12:38 119 10/14/17 12:15 39.3 120 35 134/64 98 Nasal Cannula 4.0 General Appearance: moderate distress Eyes: PERRLA ENT: other (gurgling upper airway from secretions.) Neck: other (painful neck to movement. Meningismus was noted.) Respiratory: rhonchi Cardiovasular: regular rate/rhythm, normal S1S2, no M/G/R Abdomen: non tender, no masses, no guarding Upper Extremities: other (edema noted) Neuro: other (confused does not respond except to tactile, aphasic at the moment, she does have significant weakness on the right.) Reflexes: patellar (R) (2+), patellar (L) (2+) Laboratory Results Last 24 Hours Test 10/14/17 12:25 10/14/17 12:27 10/14/17 12:39 10/14/17 12:41 White Blood Count 9.76 K/uL Red Blood Count 3.86 M/uL Hemoglobin 11.7 g/dL Hematocrit 32.6 % Mean Corpuscular Volume 84.5 fL Mean Corpuscular Hemoglobin 30.3 pg Mean Corpuscular Hemoglobin Concent 35.9 g/dl Platelet Count 55 K/uL Mean Platelet Volume 12.6 fL Neutrophils (%) (Auto) 90.3 % Lymphocytes (%) (Auto) 4.3 % Monocytes (%) (Auto) 4.7 % Eosinophils (%) (Auto) 0.0 % Basophils (%) (Auto) 0.1 % Neutrophils # (Auto) 8.81 K/uL Lymphocytes # (Auto) 0.42 K/uL Monocytes # (Auto) 0.46 K/uL Eosinophils # (Auto) 0.00 K/uL Basophils # (Auto) 0.01 K/uL RDW Standard Deviation 41.7 fL RDW Coefficient of Variation 13.5 % Immature Granulocyte % (Auto) 0.6 % Immature Granulocyte # (Auto) 0.06 K/uL Toxic Granulation 1+ Toxic Vacuolation 2+ Dohle Bodies 1+ Platelet Estimate DECREASED Prothrombin Time 12.3 SECONDS Prothromb Time International Ratio 1.2 Activated Partial Thromboplast Time 30.7 SECONDS Partial Thromboplastin Ratio 1.2 Sodium Level 130 mmol/L Potassium Level 3.0 mmol/L Chloride Level 92 mmol/L Carbon Dioxide Level 28 mmol/L Anion Gap 9.0 mmol/L 18.0 mmol/L Blood Urea Nitrogen 29 mg/dl Creatinine 1.74 mg/dl Est Creatinine Clear Calc Drug Dose 64.2 ml/min Estimated GFR () 46.4 Estimated GFR (Non- 40.0 BUN/Creatinine Ratio 16.4 Random Glucose 115 mg/dl Calcium Level 8.1 mg/dl Total Bilirubin 1.1 mg/dl Direct Bilirubin 0.8 mg/dl Aspartate Amino Transf (AST/SGOT) 89 U/L Alanine Aminotransferase (ALT/SGPT) 54 U/L Alkaline Phosphatase 228 U/L Total Creatine Kinase 984 U/L Troponin I < 0.015 ng/ml Total Protein 6.5 gm/dl Albumin 2.1 gm/dl Lipase 59 U/L Bedside Lactic Acid Venous 2.61 mmol/L Bedside Hemoglobin 11.2 g/dl Bedside Hematocrit 33 % Bedside Sodium 131 mEq/L Bedside Potassium 3.0 mEq/L Bedside Chloride 90 mEq/L Bedside Total CO2 27 mEq/l Bedside Blood Urea Nitrogen 29 mg/dl Bedside Creatinine 1.8 mg/dl Bedside Glucose (other) 123 mg/dl Bedside Ionized Calcium (Jennifer) 1.01 mmol/l Urine Color DK YELLOW Urine Appearance CLOUDY Urine pH 5.0 Urine Specific [place] 1.019 Urine Protein 2+ Urine Glucose (UA) NEG Urine Ketones TRACE Urine Occult Blood 3+ Urine Nitrite POS Urine Bilirubin NEG Urine Urobilinogen POS Urine Leukocyte Esterase SMALL Urine WBC (Auto) 5-10 /hpf Urine RBC (Auto) 5-10 /hpf Urine Hyaline Casts (Auto) 10-30 /lpf Urine Epithelial Cells (Auto) 20-30 /lpf Urine Bacteria (Auto) 4+ Urine Crystals TALC Urine Pathogenic Casts 0-3 GRANULAR CASTS /lpf Test 10/14/17 12:48 10/14/17 14:42 10/14/17 16:33 10/14/17 17:02 Influenza Type A Antigen Neg for Influ A Influenza Type B Antigen Neg for Influ B Venous Blood pH 7.48 Venous Blood Partial Pressure CO2 34 mmHg Venous Blood Partial Pressure O2 68 mmHg Venous Blood HCO3 24 mmol/L Venous Blood Oxygen Saturation 92.7 % Venous Blood Base Excess 1.1 mEq/L Lactic Acid Level 1.5 mmol/L Urine Opiates Screen NEG Urine Methadone, Qualitative NEG Urine Barbiturates NEG Urine Phencyclidine (PCP) Level NEG Ur Amphetamine/Methamphetamine NEG MDMA (Ecstasy) Screen NEG Urine Benzodiazepines Screen NEG Urine Cocaine Metabolite NEG Urine Marijuana (THC) NEG Diagnostic Results Labs are consistent with platelets of 55, UA is positive sediment, BUN/ creatinine are elevated, LFTs slightly elevated, normal coags, MRI is pending. Assessment & Plan #1 this is HELLP syndrome versus HUS versus TTP until proven otherwise. The patient has 4 out of 5 of the pentad. #2 UTI, concerns for Escherichia coli which usually precipitate HUS. The patient presented also with what appeared to be pelvic inflammatory disease. #3 3 weeks with elevated BUN/creatinine consistent with the above. Plan: #1 intubated the patient, the patient could not maintain her airways at this point. #2 obtained ADAMST 13 level. #3 the patient will need treatment with plasmapheresis versus IVIG . #4 obtain LDH. #5 in case of worsening kidney function and patient become oliguric, CVVHD will be needed. #6 agree with broad-spectrum antibiotics, targeting gram-negative bacilli such as Escherichia coli. #7 monitor her platelets closely. #8 most of her thrombotic events could be related to TTP versus HUS. #9 she would need ICU monitoring. #10 due to lack of some of the services mentioned above, and family request, agree with transferring the patient to [facility]. Case discussed with Dr. Ashby, with the ER staff, with the family, critical care time spent with the patient was 45 minutes.
[2017-10-14] MEDS ORDERED: MIDAZOLAM 125MG/250ML D5W 250 ML IV STA (19:07)
--- NOTE | 2017-10-14 19:23 | DIAGNOSTIC IMAGING REPORT ---
CHEST ONE VIEW PORTABLE CLINICAL HISTORY: post intubation COMPARISON STUDY: Chest radiograph October 14, 2017 at 12:58 PM. FINDINGS: Tip of endotracheal tube is 2.2 cm above the lewis. There is no pneumothorax or pleural effusion. Lung volumes remain diminished. There are increased perihilar and bibasilar markings. There is no evidence for pulmonary edema. IMPRESSION: 1. Tip of endotracheal tube 2.2 cm above the lewis. 2. Apparent perihilar and bibasilar opacities which could represent normal vessels or atelectasis on this hypoventilatory study. However, an infectious process could appear similar. Electronically signed by: Pierre Foster M.D. 10/14/2017 7:22 PM Dictated Date/Time: 10/14/2017 7:20 PM
[2017-10-14] MEDS ORDERED: GENTAMICIN IV ONE (19:30)
[2017-10-14] MEDS ORDERED: DEXTROSE 5% IV ONE (19:30)
--- NOTE | 2017-10-14 19:40 | GYNECOLOGICAL CONSULTATION ---
DATE OF CONSULTATION: 10/14/2017 CHIEF COMPLAINT: Headache, blurry vision and altered mental status. HISTORY OF PRESENT ILLNESS: This is a 26-year-old G1, P1, recently delivered by normal spontaneous vaginal delivery on 09/22/2017 here at [facility]. She is brought in today by her parents and boyfriend with the above acute complaints. She was delivered by Dr. Denny with whom I have spoken this evening. Her course of care shortly stated involved PPROM with GBS+ status , followed by 6 hours of expectant management with ambulation, treatment with appropriate antibiotics for the GBS, followed by induction of labor, followed by an uncomplicated spontaneous vaginal delivery without significant lacerations, without hemorrhages or unusual course. The patient and were both discharged in good condition with the usual discharge instructions on day 2. The patient's family including her mother and father and her partner accompany her here today. The family provides history as Naima is currently nonverbal. I am told she was recently medicated with ativan 1mg for an MRI and was previously able to speak. Discussion in the room reveals that Naima felt well when she went home from her delivery. She and her partner did have unprotected sex multiple times between going home and now. The boyfriend admits to awareness of the chlamydial infection that was detected and treated multiple times during the antecedent . The family states that Naima had begun feeling relatively unwell about five days prior, starting with complaints of headache, upper back ache, and blurred vision. The last food she had taken in was [employer] on Sunday night, almost 48 hours ago, and she has had no appetite since. Yesterday evening the boyfriend took Naima to [facility], and although we do not have records to review today, they relate that she was given a shot which they believe was for pain and might have been either toradol or a muscle relaxer. They admit that they became frustrated with the long time it took to receive care and left AMA. However they also tell me they were given a paper that showed the working diagnosis as "whiplash." After arriving home from [place], the boyfriend stated that the patient worsened, becoming unable to walk with a steady gait. This was a change, as she had walked herself into the ER at [place]. The patient was also diaphoretic, pale, complaining of difficulty swallowing, noticing slurred soft speech, and she then became unable to use her left hand as well as experienced some confusion and inability to identify family members. Therefore, the family brought the patient here to [facility]. They specifically deny witnessing any tonic-clonic seizures at home. Note that a code sepsis was called overhead when the patient arrived here (at the time I was in the hospital for other reasons and was not involved in her care, but I did hear the overhead page). She was initially worked up by the Emergency Department. I was contacted by the Emergency Department at 1546 and I spoke with Dr. Laci Ashby at that time. His presentation to me was focused on his working diagnosis of endomyometritis complicated by sepsis with possible secondary renal and neurologic injury. We discussed at that time that typically we manage endomyometritis with triple antibiotics including Gentamicin. However, given the finding of acute kidney injury in this patient, I ultimately recommended using clindamycin with vancomycin and avoiding gentamicin to take her renal function into account. A short while later after the patient was returned to her room from MRI, I was able to physically examine the patient myself in the ER. PAST MEDICAL HISTORY: Includes a recent term spontaneous vaginal delivery complicated by premature rupture of membranes, group B strep positivity and recurring Chlamydia infection. H/O varicella and appendicitis. PAST SURGICAL HISTORY: Appendectomy, wisdom tooth extraction. FAMILY HISTORY: Diabetes, father with hypertension and mother with renal tumor. SOCIAL HISTORY: This is a current everyday smoker, living at home with her 3-week-old baby and her boyfriend. CURRENT MEDICATIONS: PNV. Note that course of azithromycin was the most recent treatment for her Chlamydia. CURRENT ALLERGIES: None are known. PHYSICAL EXAMINATION: Review of vital signs here in the Emergency Department shows that the patient has had 2-4L of oxygen and pulse ox ranging from 94-100% on room air, generally trending downwards. She has become both more tachypneic and less saturated over her admission. Her blood pressure has gradually been dropping from 134/64 to now 109/74, her pulse has also gradually been dropping from 120 down to 87, her temperature initially was 39.3 and following medication is currently afebrile at 36.8. The patient's lab results are reviewed and they are notable for a white count of 9.76, hemoglobin of 11.7 and platelets notably low at 55. The patient's comprehensive metabolic panel shows significant kidney injury with a creatinine of 1.74 and a BUN of 29. She is hyponatremic and hypokalemic as well. Her AST is elevated to 89, her ALT is normal at 54. Her venous gases are significantly abnormal. A cath urine sample also shows trace ketones, significant occult blood, nitrites and significant numbers of both red and white blood cells. Here in the ER, she did receive a dose of ceftriaxone as well as vancomycin. Additionally, she was given dexamethasone and sodium chloride solution. Exam - Please note that at the time of my exam, the patient had recently been medicated with 1mg Ativan for her MRI. GENERAL: She is seated semi-Kwong's with her eyes closed, but partially opens them to aggressive vocal or tactile stimuli. She is resting limp and not emoting or interacting verbally. SKIN: Warm, dry, without obvious rash. HEART: She has a normal pulse and regular rhythm. LUNGS: She has significant upper airway rattles and is demonstrating a deep wet cough which the patient's family states is new. It is not productive of sputum and the nurse states that she has just recently provided suction to assist with secretion management, which the patient seems to be struggling with. ABDOMEN: Soft. There are no palpable masses; however, with palpation of the midline lower quadrants, there is a grimace elicited on the patient's face and purposeful movement of the right upper extremity to push me away. VAGINA: Deferred due to patient condition and inability to cooperate at this time. However, there is a mild notable odor in the pelvic region. The Emergency Department exam performed earlier was also notable for copious foul discharge from the vagina per Dr. Ashby. Imaging is reviewed and shows tiny foci of air in the MAYDA which are nonspecific for either normal findings vs infectious process. There is small lochia on the pads. NEUROLOGIC: The patient is either significantly compromised or medicated and it is difficult to discern which; however, she is able to respond to a sternal rub with purposeful movement of the right upper extremity to brush me away. There is no purposeful movement of the LUE at the time of my exam. She produces a moan in response to painful stimuli but is nonverbal. Reflex testing shows upgoing Babinski on the left and downgoing in the right foot. The patient's ability to participate in the neuro exam at this time is limited at best. I am therefore unable to meaningfully assess matchbook maker strength. Imaging is reviewed. To summarize jiménez findings, chest shows atelectasis but no consolidating PNA and no PE. Abdomen shows vs infectious findings in the uterus which are relatively nonspecific, and does not identify pelvic thrombi. MRI of the brain shows multiple focal ischemic infarcts, primarily concentrated in the posterior (cerebellum and occipital) regions, but including at least some frontal and temporal events. There is midline shift. There is also question of a filling defect representing embolus in one vertebral artery. ASSESSMENT AND PLAN: This is a 26-year-old G1, P1, delivered 22 days ago via normal spontaneous vaginal delivery, presents currently with concerns for a diffuse vs lateralizing neurologic event. There are many possible etiologies. I cannot r/ o endomyometritis, urinary tract infection, possible sepsis. She may have had an embolic event, given her status and being a smoker. However in my opinion the greatest concern is for HELLP / severe preeclampsia that had actually begun several days ago, and gone unrecognized until now, leading to PRES with significant cerebral edema and compromised neurologic status. Her laboratory abnormalities including the low platelets and abnormalities in the liver and kidney functions suggest that as long ago at 5 or 6 days when she first began reporting headaches, she was experiencing the onset of hypertensive disease. Records of what occurred at [place] are not available to me, so I cannot compare labs or vitals from yesterday to today; however, one possibility is that the patient developed severe preeclampsia and HELLP syndrome which then led to PRES. Sepsis could also be a cause of multi-organ damage, and she was febrile, however I feel it's more likely that the fever was a secondary response to brain injury as the WBC is normal, and fever is often produced as an early symptom of acute brain injury. Septic pelvic thrombophlebitis is also not excluded at this time, and as stated above, the patient does have clot risk factors. It may be worth considering doppler studies if there is truly felt to be an embolus in the vertebral artery , to allow for endovascular basket placement. I have discussed the patient in depth with the Emergency Department staff including Dr. Laci Ashby. I have shared with him my differential, and my opinion that this patient merits transfer to a tertiary center that can provide neurosurgical care. I have also contacted Dr. Denny, the delivering physician, to ask if she has any insights that can be added to the current situation. At this time, from a gynecologic perspective, I feel I am limited to providing such broad-spectrum antibiotic coverage as would be compatible with her renal function, to ensure that any endometritis that might present is addressed, and will defer to the neurologic specialists for management of what is likely her most pressing issue; namely HELLP with PRES. MTDD
[2017-10-14] MEDS ORDERED: CLINDAMYCIN IV 600 MG in DEXTROSE 5% 50ML 50 ML IV ONE (20:00)
[2017-10-14] MEDS ORDERED: POTASSIUM CHLR 10 MEQ / WTR 10 MEQ in PREMIXED WATER 100 ML IV SCH (20:30)
[2017-10-14] MEDS ORDERED: VANCOMYCIN IV 1,000 MG in SODIUM CHLORIDE 0.9% 250ML 250 ML IV SCH (21:00)
[2017-10-14 22:30] VITALS: BP 144/90; PULSE 108; TEMP 36.8; O2SAT 98
[2017-10-15 07:19] LABS: HEMOGLOBIN A1C 5.7 % (4.5-5.6)
--- NOTE | 2017-10-16 13:08 | Pharmacy Progress Note ---
ED Pharmacist Culture FollowUp Date of Service: Oct 16, 2017. Patient presented to [facility] with fever, headache, neck pain, back pain, confusion and unsteady gait and She had recently given on 09/22/17 She was initially admitted to [facility] for infectious vs post- CVA, thrombocytopenia, endomyometritis, sepsis, possible HELLP syndrome, possible PRES Ultimately she was transferred to [facility]. ED real estate legal secretary forwarded latest culture results to me today (gram stain of genital cx and urine cx results) I contacted [facility] and spoke with Michelle. The patient is still located there in the ICU and she gave me the fax number for the unit and requested the results be faxed over: fax # [phone]. I faxed over the urine cx, genital gram stain, blood cx's and trich prep results to the above fax number.
== END 2017-10-14 22:30 | disposition short-term general hospital (02) ==
LOC: EDBD 12:10 → C.EDB 12:11 → ENRESERV 17:29 → CANBEDREQ 19:08 → C.EDB 22:30
DX: O14.25 HELLP syndrome, complicating the puerperium (principal); O99.43 Diseases of the circulatory system complicating the puerperium; I67.83 Posterior reversible encephalopathy syndrome; F17.210 Nicotine dependence, cigarettes, uncomplicated; O99.335 Smoking (tobacco) complicating the puerperium; M31.1 Thrombotic microangiopathy; O86.13 Vaginitis following delivery; D64.9 Anemia, unspecified; O99.03 Anemia complicating the puerperium; E87.6 Hypokalemia; O99.285 Endocrine, nutritional and metabolic diseases complicating the puerperium; O86.20 Urinary tract infection following delivery, unspecified

== ENCOUNTER 2017-11-10 09:46 | Inpatient (IN) | payer BC, OTHER ==
[~2017-11-10] VITALS: Ht 172.7 cm; Wt 103.3 kg
[2017-11-10] MEDS ORDERED: SODIUM CHLORIDE 0.9% 1000ML 1,000 ML IV STA (09:53)
[2017-11-10] MEDS ORDERED: ONDANSETRON INJ 2 MG/ML 2 ML VIAL IV STA (09:53)
[2017-11-10 10:07] LABS: BASO % 0.2 %; BASO ABS # 0.01 K/uL (0-0.2); EOS % 2.5 %; EOS ABS # 0.11 K/uL (0-0.5); HEMATOCRIT 35.7 % (37-47); HEMOGLOBIN 11.9 g/dL (12.0-16.0); IG# 0.01 K/uL (0.00-0.02); LYMPH % 27.1 %; LYMPH ABS # 1.17 K/uL (1.2-3.4); MEAN CORPUSCULAR HGB CONC 33.3 g/dl (32-36); MEAN PLATELET VOLUME 9.2 fL (7.4-10.4); MONO ABS # 0.39 K/uL (0.11-0.59); NEUT ABS # 2.63 K/uL (1.4-6.5); PLATELET COUNT 256 K/uL (130-400); RED CELL DISTRIBUTION WIDTH SD 50.7 fL (36.4-46.3); WHITE BLOOD COUNT 4.32 K/uL (4.8-10.8)
--- NOTE | 2017-11-10 10:22 | DIAGNOSTIC IMAGING REPORT ---
CHEST ONE VIEW PORTABLE CLINICAL HISTORY: ABDOMINAL PAIN/GI pain COMPARISON STUDY: 10/14/2017 FINDINGS: Small left perihilar parenchymal infiltrate. Lungs otherwise appear clear. Diaphragms are smooth. IMPRESSION: Small left perihilar parenchymal infiltrate. Lungs otherwise are clear. The above report was generated using voice recognition software. It may contain grammatical, syntax or spelling errors. Electronically signed by: Dhruv Albert M.D. 11/10/2017 10:21 AM Dictated Date/Time: 11/10/2017 10:20 AM
[2017-11-10] MEDS ORDERED: ALUMSUS2 PO (10:27)
[2017-11-10] MEDS ORDERED: GABA100C13 PO (10:27)
[2017-11-10] MEDS ORDERED: MELA1TAB5 PO (10:27)
[2017-11-10] MEDS ORDERED: HPRIS5MX SC (10:27)
[2017-11-10] MEDS ORDERED: LCTX PO (10:27)
[2017-11-10] MEDS ORDERED: SODIINJ24 IV (10:27)
[2017-11-10] MEDS ORDERED: TRAM-10 PO (10:27)
[2017-11-10] MEDS ORDERED: PARO1TAB27 PO (10:27)
[2017-11-10] MEDS ORDERED: ACET-1256 PO (10:27)
[2017-11-10] MEDS ORDERED: MERO1INJ2 IV (10:27)
[2017-11-10 10:34] LABS: ALBUMIN 2.4 gm/dl (3.4-5.0); ALKALINE PHOSPHATASE 922 U/L (45-117); ALT/SGPT 515 U/L (12-78); AST/SGOT 488 U/L (15-37); BLOOD UREA NITROGEN 8 mg/dl (7-18); CALCIUM 8.7 mg/dl (8.5-10.1); CARBON DIOXIDE 27 mmol/L (21-32); CREATININE 0.45 mg/dl (0.60-1.20); GLUCOSE 78 mg/dl (70-99); LIPASE 491 U/L (73-393); POTASSIUM 4.2 mmol/L (3.5-5.1); SODIUM 139 mmol/L (136-145)
[2017-11-10 10:35] LABS: TOTAL PROTEIN 6.6 gm/dl (6.4-8.2)
--- NOTE | 2017-11-10 11:09 | DIAGNOSTIC IMAGING REPORT ---
GALLBLADDER-ABD LIMITED CLINICAL HISTORY: ABDOMINAL PAIN/GI pain TECHNIQUE: Ultrasound COMPARISON STUDY: None FINDINGS: Fatty infiltration of liver. Mild intrahepatic biliary ductal prominence. Gallbladder contains multiple gallstones. Mild gallbladder wall edema. Trace pericholecystic fluid. Common bile duct 12 mm. Right kidney is negative for necrosis. IMPRESSION: 1. Multiple gallstones. 2. Trace pericholecystic fluid. 3. Biliary ductal dilatation raising the possibility of choledocholithiasis 4. Fatty infiltration of liver. The above report was generated using voice recognition software. It may contain grammatical, syntax or spelling errors. Electronically signed by: Dhruv Albert M.D. 11/10/2017 11:08 AM Dictated Date/Time: 11/10/2017 11:06 AM
[2017-11-10] MEDS ORDERED: PIPERACILLIN/TAZOBACTAM 3.375 GM/100ML D5W IV STA (11:55)
[2017-11-10 12:30] VITALS: O2SAT 96; Ht 172.7 cm; Wt 103.3 kg
--- NOTE | 2017-11-10 12:59 | History and Physical ---
History & Physical Date & Time of Service: Nov 10, 2017 at 12:42 Chief Complaint: Abd Pain Primary Care Physician: Jose Gan D.O. History of Present Illness Source: patient, family 26 years old female who had an uneventful delivery on September 22, 2017. Patient was discharged home after her delivery and 3 weeks later she developed severe headache pain. 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 Patient had multiple bilateral septic emboli to the brain with left-sided weakness, ataxia and diplopia. Patient was admitted to the hospital MRI of cervical spine showed osteomyelitis C1-5. Patient was placed on meropenem 1 g every 8 hours and discharged to rehab. She was advancing appropriately in rehab until last night. She developed abdominal pain stabbing in character moderate to severe in intensity. She said that her pain was all over her belly was not localized on the right upper quadrant. Pain was referred to her back no other associated symptoms. No relieving or aggravating factors. Patient was brought to the hospital and imaging showed a possible early evolving cholecystitis with gallbladder stone. Past Medical/Surgical History Medical Problems: (1) Altered mental status (2) Pain, dental (3) Positive GBS test (4) with 38 completed weeks gestation (5) Spontaneous rupture of amniotic membranes Family History Patient reports no known family medical history. Social History Smoking Status: Never Smoker Drug Use: none Marital Status: single Allergies Coded Allergies: NO KNOWN DRUG ALLERGIES (Verified Allergy, Unknown, none, 10/14/17) Home Medications Scheduled Acetaminophen (Tylenol), 500 MG PO Q4H Gabapentin (Neurontin), 100 MG PO HS Heparin Sod (Porcine) (Heparin Sq), 5,000 UNITS SC BID Lactobacillus Acidophilus (Floranex), 1 TAB PO BIDM Melatonin (Kp Melatonin), 3 MG PO HS Meropenem (Meropenem), 2,000 MG IV Q8 Paroxetine (Paxil), 20 MG PO DAILY Sodium Chloride Flush (Normal Saline I.v. Flush), 10 ML IV QS Scheduled PRN Aluminum/Magnesium/Simeth (Maalox Max Susp), 30 ML PO Q4 PRN for GAS Tramadol (Ultram), 50 MG PO Q6H PRN for Pain Review of Systems Review of system Constitutional: No fever / no chills / no sweats / no weakness / no fatigue Eyes: no blurring of vision / no eye pain / no discharge / no redness ENT: no hearing loss / no epistaxis /no swallowing problems Respiratory: no cough / no wheezing / no SOB / no hemoptysis Cardiovascular: no Chest pain / no lower extremity edema / no palpitation Abdomen: Abdominal pain as described in HPI Musculoskeletal: no joint pain / no muscle pain / no joint swelling Genitourinary: no dysuria / no incontinence / no urinary retention Neurologic: no focal weakness / no numbness/tingling / no ataxia Psychiatric: no depression symptoms / no anxiety / no insomnia Endocrine: no excessive thirst / no excessive urination Hematologic: no abnormal bleeding / no bruising / no LN swelling Skin: No rash / no pallor Physical Exam Vital Signs Date Time Temp Pulse Resp B/P (MAP) Pulse Ox O2 Delivery O2 Flow Rate FiO2 11/10/17 10:15 77 18 128/70 96 Room Air 11/10/17 10:06 36.9 88 18 125/76 95 Room Air 11/10/17 09:52 80 Physical examination General patient appears to be comfortable, not in acute distress HEENT: Atraumatic , normocephalic /no jaundice /no pallor /anicteric /no dry mucous membrane /normal external ear inspection Neck: Supple /no swelling /central trach Heart: S1/S2 normal/regular rate and rhythm/no gallop /no rub /no murmur Lungs: Clear to auscultation bilaterally/normal chest with expansion/no rhonchi/ no rales/no wheezing/no use of accessory muscles of respiration Abdomen: Soft/nontender/no guarding/no rebound/no organomegaly/no pulsatile mass (she already received pain medications and her abdominal exam is completely normal) Musculoskeletal: No swelling/no edema/no tenderness/normal range of motion Neuro exam: Awake alert oriented 3/cranial nerves II through XII appear to be intact left pupil is 1 mm bigger than right pupil, both are adequately reactive to light, patient does have left-sided weakness strength is 3/5 in lower extremity and 1/5 left upper extremity Psychiatric evaluation: No depressed mood/normal affect Skin: No rash on exposed skin area/no erythema Extremity: Normal pulse/no pitting edema/no clubbing or cyanosis Endocrine/lymphatic: No obvious lymphadenopathy /no lymphedema Diagnostics Laboratory Results Results Past 24 Hours Test 11/10/17 10:00 11/10/17 12:20 Range/Units White Blood Count 4.32 4.8-10.8 K/uL Red Blood Count 3.84 4.2-5.4 M/uL Hemoglobin 11.9 12.0-16.0 g/dL Hematocrit 35.7 37-47 % Mean Corpuscular Volume 93.0 80-100 fL Mean Corpuscular Hemoglobin 31.0 25-34 pg Mean Corpuscular Hemoglobin Concent 33.3 32-36 g/dl Platelet Count 256 130-400 K/uL Mean Platelet Volume 9.2 7.4-10.4 fL Neutrophils (%) (Auto) 61.0 % Lymphocytes (%) (Auto) 27.1 % Monocytes (%) (Auto) 9.0 % Eosinophils (%) (Auto) 2.5 % Basophils (%) (Auto) 0.2 % Neutrophils # (Auto) 2.63 1.4-6.5 K/uL Lymphocytes # (Auto) 1.17 1.2-3.4 K/uL Monocytes # (Auto) 0.39 0.11-0.59 K/uL Eosinophils # (Auto) 0.11 0-0.5 K/uL Basophils # (Auto) 0.01 0-0.2 K/uL RDW Standard Deviation 50.7 36.4-46.3 fL RDW Coefficient of Variation 15.0 11.5-14.5 % Immature Granulocyte % (Auto) 0.2 % Immature Granulocyte # (Auto) 0.01 0.00-0.02 K/uL Sodium Level 139 136-145 mmol/L Potassium Level 4.2 3.5-5.1 mmol/L Chloride Level 106 98-107 mmol/L Carbon Dioxide Level 27 21-32 mmol/L Anion Gap 6.0 3-11 mmol/L Blood Urea Nitrogen 8 7-18 mg/dl Creatinine 0.45 0.60-1.20 mg/dl Est Creatinine Clear Calc Drug Dose 240.3 ml/min Estimated GFR () > 150.0 Estimated GFR (Non- 139.3 BUN/Creatinine Ratio 18.3 10-20 Random Glucose 78 70-99 mg/dl Calcium Level 8.7 8.5-10.1 mg/dl Total Bilirubin 0.8 0.2-1 mg/dl Direct Bilirubin 0.5 0-0.2 mg/dl Aspartate Amino Transf (AST/SGOT) 488 15-37 U/L Alanine Aminotransferase (ALT/SGPT) 515 12-78 U/L Alkaline Phosphatase 922 45-117 U/L Total Protein 6.6 6.4-8.2 gm/dl Albumin 2.4 3.4-5.0 gm/dl Lipase 491 73-393 U/L Urine Color YELLOW Urine Appearance CLEAR CLEAR Urine pH 8.0 4.5-7.5 Urine Specific [place] 1.011 1.000-1.030 Urine Protein NEG NEG Urine Glucose (UA) NEG NEG Urine Ketones NEG NEG Urine Occult Blood NEG NEG Urine Nitrite NEG NEG Urine Bilirubin NEG NEG Urine Urobilinogen NEG NEG Urine Leukocyte Esterase SMALL NEG Urine WBC (Auto) 1-5 0-5 /hpf Urine RBC (Auto) 0-4 0-4 /hpf Urine Hyaline Casts (Auto) 1-5 0-5 /lpf Urine Epithelial Cells (Auto) 20-30 0-5 /lpf Urine Bacteria (Auto) NEG NEG Urine Test NEG NEG Diagnostic Radiology GALLBLADDER-ABD LIMITED CLINICAL HISTORY: ABDOMINAL PAIN/GI pain TECHNIQUE: Ultrasound COMPARISON STUDY: None FINDINGS: Fatty infiltration of liver. Mild intrahepatic biliary ductal prominence. Gallbladder contains multiple gallstones. Mild gallbladder wall edema. Trace pericholecystic fluid. Common bile duct 12 mm. Right kidney is negative for necrosis. IMPRESSION: 1. Multiple gallstones. 2. Trace pericholecystic fluid. 3. Biliary ductal dilatation raising the possibility of choledocholithiasis 4. Fatty infiltration of liver. The above report was generated using voice recognition software. It may contain grammatical, syntax or spelling errors. Impression Assessment and Plan 26 years old female with a recent history of bilateral multiple embolic stroke and osteomyelitis C1-5. Presented from rehab with abdominal pain, ultrasound showed Multiple gallstones with Biliary ductal dilatation raising the possibility of choledocholithiasis and possible early evolving cholecystitis. 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 difficile prevention Pain management Antiemetic DVT prophylaxis Pepcid for GI prophylaxis Resuscitation Status VTE Prophylaxis Will order VTE Prophylaxis: Yes
[2017-11-10] MEDS ORDERED: ALUMINUM/MAGNESIUM/SIMETH (MAALOX MAX) 30 ML UDC PO PRN ×2 (13:00→14:15)
[2017-11-10] MEDS ORDERED: FAMOTIDINE 20MG/5ML IV PUSH IV STA (13:05)
[2017-11-10] MEDS ORDERED: ONDANSETRON INJ 2 MG/ML 2 ML VIAL IV PRN ×2 (13:15→14:15)
--- NOTE | 2017-11-10 13:49 | EMERGENCY ROOM VISIT NOTE ---
History Report prepared by Joleen: Chaz Dao Under the Supervision of: Dr. Christopher Atwood D.O. First contact with patient: 09:57 Stated Complaint: ABD PAIN History of Present Illness The patient is a 26 year old female who presents to the Emergency Room with complaints of abdominal pain that began 12 hours ago. She was given Maalox with minimal improvement of her pain. She reports diffuse abdominal tenderness to palpation and nausea. She was seen on 10/14/2017 for a fever and headache. She was transferred to [facility] and diagnosed with infectious thromboembolic disease either related to her recent dental infection or giving . She was sent over from [facility] where she has been at since 11/03/2017. Dr. 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 He reported that her alkaline phosphatase was elevated yesterday but she has not had a fever or elevated WBC count. She was having some right sided abdominal pain but this has resolved. He sent the patient over for ultrasound of the gallbladder. Per her parents, the patient has a hole in her heart and states that the patient might have preeclampsia when she was seen at [facility]. At [facility], they were unable to determine the timeline of her meningitis and strokes. Source of History: patient Onset: 12 hours ago Position: abdomen Quality: other (tenderness) Timing: constant Modifying Factors (Relieving): other (minimal improvement with Maalox) Associated Symptoms: + fevers, + headache, + nausea, + abdominal pain Review of Systems See HPI for pertinent positives & negatives. A total of 10 systems reviewed and were otherwise negative. Past Medical & Surgical Medical Problems: (1) Altered mental status (2) Positive GBS test (3) with 38 completed weeks gestation (4) Spontaneous rupture of amniotic membranes Family History Patient reports no known family medical history. Social History Smoking Status: Current Every Day Smoker Drug Use: none Marital Status: single Housing Status: lives with family Current/Historical Medications Scheduled Acetaminophen (Tylenol), 500 MG PO Q4H Gabapentin (Neurontin), 100 MG PO HS Heparin Sod (Porcine) (Heparin Sq), 5,000 UNITS SC BID Lactobacillus Acidophilus (Floranex), 1 TAB PO BIDM Melatonin (Kp Melatonin), 3 MG PO HS Meropenem (Meropenem), 2,000 MG IV Q8 Paroxetine (Paxil), 20 MG PO DAILY Sodium Chloride Flush (Normal Saline I.v. Flush), 10 ML IV QS Scheduled PRN Aluminum/Magnesium/Simeth (Maalox Max Susp), 30 ML PO Q4 PRN for GAS Tramadol (Ultram), 50 MG PO Q6H PRN for Pain Allergies Coded Allergies: NO KNOWN DRUG ALLERGIES (Verified Allergy, Unknown, none, 10/14/17) Physical Exam Vital Signs Date Time Temp Pulse Resp B/P (MAP) Pulse Ox O2 Delivery O2 Flow Rate FiO2 11/10/17 13:05 71 11/10/17 12:48 74 16 121/69 97 Room Air 11/10/17 12:30 96 Room Air 11/10/17 10:15 77 18 128/70 96 Room Air 11/10/17 10:06 36.9 88 18 125/76 95 Room Air 11/10/17 09:52 80 Physical Exam CONSTITUTIONAL/VITAL SIGNS: Reviewed / noted above. GENERAL: Non-toxic in appearance. INTEGUMENTARY: Warm, dry, and [place]. HEAD: Normocephalic. EYES: without scleral icterus or trauma. ENT/OROPHARYNX: clear and moist. LYMPHADENOPATHY/NECK: Is supple without lymphadenopathy or meningismus. RESPIRATORY: Lungs clear and equal. CARDIOVASCULAR: Regular rate and rhythm. GI/ABDOMEN: Soft and mildly tender diffusely. No organomegaly or pulsatile mass. No rebound or guarding. Normal bowel sounds. EXTREMITIES: Warm and well perfused. BACK: No CVA tenderness. NEUROLOGICAL: Intact without focal deficits. PSYCHIATRIC: normal affect. MUSCULOSKELETAL: Normally developed with good muscle tone. Medical Decision & Procedures ER Provider Diagnostic Interpretation: Radiology results as stated below per my review and radiologist interpretation: CHEST ONE VIEW PORTABLE CLINICAL HISTORY: ABDOMINAL PAIN/GI pain COMPARISON STUDY: 10/14/2017 FINDINGS: Small left perihilar parenchymal infiltrate. Lungs otherwise appear clear. Diaphragms are smooth. IMPRESSION: Small left perihilar parenchymal infiltrate. Lungs otherwise are clear. The above report was generated using voice recognition software. It may contain grammatical, syntax or spelling errors. Electronically signed by: Dhruv Albert M.D. 11/10/2017 10:21 AM Dictated Date/Time: 11/10/2017 10:20 AM GALLBLADDER-ABD LIMITED CLINICAL HISTORY: ABDOMINAL PAIN/GI pain TECHNIQUE: Ultrasound COMPARISON STUDY: None FINDINGS: Fatty infiltration of liver. Mild intrahepatic biliary ductal prominence. Gallbladder contains multiple gallstones. Mild gallbladder wall edema. Trace pericholecystic fluid. Common bile duct 12 mm. Right kidney is negative for necrosis. IMPRESSION: 1. Multiple gallstones. 2. Trace pericholecystic fluid. 3. Biliary ductal dilatation raising the possibility of choledocholithiasis 4. Fatty infiltration of liver. The above report was generated using voice recognition software. It may contain grammatical, syntax or spelling errors. Electronically signed by: Dhruv Albert M.D. 11/10/2017 11:08 AM Dictated Date/Time: 11/10/2017 11:06 AM Laboratory Results 11/10/17 10:00 Red Blood Count 3.84, Mean Corpuscular Volume 93.0, Mean Corpuscular Hemoglobin 31.0, Mean Corpuscular Hemoglobin Concent 33.3, Mean Platelet Volume 9.2, Neutrophils (%) (Auto) 61.0, Lymphocytes (%) (Auto) 27.1, Monocytes (%) (Auto) 9.0, Eosinophils (%) (Auto) 2.5, Basophils (%) (Auto) 0.2, Neutrophils # (Auto) 2.63, Lymphocytes # (Auto) 1.17, Monocytes # (Auto) 0.39, Eosinophils # (Auto) 0.11, Basophils # (Auto) 0.01 11/10/17 10:00 Test 11/10/17 10:00 11/10/17 12:20 White Blood Count 4.32 K/uL (4.8-10.8) Red Blood Count 3.84 M/uL (4.2-5.4) Hemoglobin 11.9 g/dL (12.0-16.0) Hematocrit 35.7 % (37-47) Mean Corpuscular Volume 93.0 fL (80-100) Mean Corpuscular Hemoglobin 31.0 pg (25-34) Mean Corpuscular Hemoglobin Concent 33.3 g/dl (32-36) Platelet Count 256 K/uL (130-400) Mean Platelet Volume 9.2 fL (7.4-10.4) Neutrophils (%) (Auto) 61.0 % Lymphocytes (%) (Auto) 27.1 % Monocytes (%) (Auto) 9.0 % Eosinophils (%) (Auto) 2.5 % Basophils (%) (Auto) 0.2 % Neutrophils # (Auto) 2.63 K/uL (1.4-6.5) Lymphocytes # (Auto) 1.17 K/uL (1.2-3.4) Monocytes # (Auto) 0.39 K/uL (0.11-0.59) Eosinophils # (Auto) 0.11 K/uL (0-0.5) Basophils # (Auto) 0.01 K/uL (0-0.2) RDW Standard Deviation 50.7 fL (36.4-46.3) RDW Coefficient of Variation 15.0 % (11.5-14.5) Immature Granulocyte % (Auto) 0.2 % Immature Granulocyte # (Auto) 0.01 K/uL (0.00-0.02) Anion Gap 6.0 mmol/L (3-11) Est Creatinine Clear Calc Drug Dose 240.3 ml/min Estimated GFR () > 150.0 Estimated GFR (Non- 139.3 BUN/Creatinine Ratio 18.3 (10-20) Calcium Level 8.7 mg/dl (8.5-10.1) Total Bilirubin 0.8 mg/dl (0.2-1) Direct Bilirubin 0.5 mg/dl (0-0.2) Aspartate Amino Transf (AST/SGOT) 488 U/L (15-37) Alanine Aminotransferase (ALT/SGPT) 515 U/L (12-78) Alkaline Phosphatase 922 U/L (45-117) Total Protein 6.6 gm/dl (6.4-8.2) Albumin 2.4 gm/dl (3.4-5.0) Lipase 491 U/L (73-393) Urine Color YELLOW Urine Appearance CLEAR (CLEAR) Urine pH 8.0 (4.5-7.5) Urine Specific [place] 1.011 (1.000-1.030) Urine Protein NEG (NEG) Urine Glucose (UA) NEG (NEG) Urine Ketones NEG (NEG) Urine Occult Blood NEG (NEG) Urine Nitrite NEG (NEG) Urine Bilirubin NEG (NEG) Urine Urobilinogen NEG (NEG) Urine Leukocyte Esterase SMALL (NEG) Urine WBC (Auto) 1-5 /hpf (0-5) Urine RBC (Auto) 0-4 /hpf (0-4) Urine Hyaline Casts (Auto) 1-5 /lpf (0-5) Urine Epithelial Cells (Auto) 20-30 /lpf (0-5) Urine Bacteria (Auto) NEG (NEG) Urine Test NEG (NEG) Laboratory results as stated above per my review. Medications Administered Medications (Trade) Dose Ordered Sig/Cata Route Start Time Stop Time Status Last Admin Dose Admin Sodium Chloride 1,000 ml @ 999 mls/hr Q1H1M STAT IV 11/10/17 09:53 11/10/17 10:53 DC 11/10/17 10:14 999 MLS/HR Piperacillin Sod/ Tazobactam Sod (Zosyn Iv) 3.375 gm NOW STAT IV 11/10/17 11:55 11/10/17 11:56 DC 11/10/17 12:09 3.375 GM ED Course 0953: Zofran Inj 4mg IV; Sodium Chloride 1000 ml @ 999 mls/hr IV. 0957: Previous medical records were reviewed. The patient was evaluated in room A12. A complete history and physical examination was performed. 1140: I checked on the patient and she is resting comfortably. I informed her of her radiographic findings and lab results. 1155: Zosyn Iv 3.375 gm IV. 1220: Discussed the patient's case with Dr. Hood. The patient will be evaluated for further treatment and disposition. 1230: On reevaluation, the patient is resting comfortably. I discussed the results and findings with the patient. She verbalized agreement of the treatment plan. I spoke with Dr. Hood of the [facility] Hospitalist Service. The patient will be evaluated for further management and care. Medical Decision Differential considered: pancreatitis, hepatitis, or acute cholecystitis, AAA, UTI, pyelonephritis, kidney stones, appendicitis, diverticulitis, shingles, bowel obstruction mesenteric ischemia, intussusception,hernia, ovarian torsion, ruptured ovarian cyst,ectopic , . This is a 26-year-old female who presents to the ED from [facility] was concerned about a gallbladder issue. The patient presents with some right upper quadrant abdominal pain. This is been going on for a couple of days now. She actually reports that her pain is now subsided. Her physical exam as noted above. She has some mild tenderness diffusely but otherwise no significant abnormalities. Ultrasound of the gallbladder reveals trace pericholecystic fluid as well as gallstones and biliary ductal dilatation concerning for choledocholithiasis. CBC is unremarkable, liver function tests and alkaline phosphatase are elevated. The patient will be seen by the hospitalist service for further inpatient evaluation and care. She was treated with IV Zosyn, IV fluids and IV Zofran. Medication Reconcilliation Current Medication List: was personally reviewed by me Blood Pressure Screening Patient's blood pressure: Normal blood pressure Blood pressure disposition: Did not require urgent referral Consults Time Called: 1218 Consulting Physician: Dr. Hood Returned Call: 1220 Discussed the patient's case. The patient will be evaluated for further treatment and disposition. Impression Primary Impression: Choledocholithiasis with acute cholecystitis with obstruction Scribe Attestation The scribe's documentation has been prepared under my direction and personally reviewed by me in its entirety. I confirm that the note above accurately reflects all work, treatment, procedures, and medical decision making performed by me. Departure Information Referrals No Doctor, Assigned (PCP)
[2017-11-10] MEDS ORDERED: MEROPENEM IV SCH (14:00)
[2017-11-10] MEDS ORDERED: ACETAMINOPHEN 325 MG TAB PO PRN (14:15)
[2017-11-10] MEDS ORDERED: MAGNESIUM HYDROXIDE SUSP 30 ML UDC PO PRN (14:15)
[2017-11-10] MEDS ORDERED: ZOLPIDEM TARTRATE 5 MG TAB PO PRN ×2 (14:15)
[2017-11-10] MEDS ORDERED: POLYETHYLENE (MIRALAX) 17 GM PACK PO PRN (15:45)
[2017-11-10] MEDS ORDERED: SODIUM CHLORIDE 0.9% 10ML FLUSH IV SCH (16:00)
[2017-11-10] MEDS ORDERED: FAMOTIDINE IV INJ 20 MG in SYRINGE 3 ML IV SCH (16:00)
[2017-11-10 16:40] VITALS: O2SAT 97
--- NOTE | 2017-11-10 16:42 | DIAGNOSTIC IMAGING REPORT ---
MRCP CLINICAL HISTORY: gaall stones choledocholithiasis TECHNIQUE: Multiaxial MRI acquisition COMPARISON STUDY: Gallbladder ultrasound 11/10/2017 FINDINGS: Multiple gallstones within the gallbladder lumen. Moderate wall edema of the gallbladder Liver is uniform. Spleen kidneys are unremarkable. There is mild biliary ductal distention of the intra as well as extrahepatic bile ducts. Reformatted images suggests possibility of 1 and/or 2 small gallstones in the distal common bile duct. Bowel pattern is nonobstructive. Pancreas is uniform. There is no dilatation of the pancreatic duct. IMPRESSION: 1. Findings consistent with gallstones within a thickened or edematous gallbladder wall. 2. Appearance is consistent with that of acute cholecystitis. 3. Biliary ductal prominence with probable distal common duct choledocholithiasis. The above report was generated using voice recognition software. It may contain grammatical, syntax or spelling errors. Electronically signed by: Dhruv Albert M.D. 11/10/2017 4:41 PM Dictated Date/Time: 11/10/2017 4:37 PM
[2017-11-10] MEDS: LACTOBACILLUS ACIDOPHILUS (FLORANEX) TAB PO SCH (16:47)
[2017-11-10] MEDS: ACETAMINOPHEN 500 MG TAB PO SCH ×3 (16:47→23:39)
[2017-11-10] MEDS: OXYCODONE/ACETAMINOPHEN 5-325 TAB PO PRN ×2 (18:52→23:48)
[2017-11-10] MEDS: IMIPENEM/CILASTATIN IV 500 MG in D5W 100ML IV SCH ×2 (19:15→23:39)
[2017-11-10 19:45] VITALS: O2SAT 97
[2017-11-10] MEDS ORDERED: NON-FORMULARY MEDICATION (Melatonin (Kp Melatonin) 3 MG) PO SCH (21:00)
[2017-11-10] MEDS: GABAPENTIN 100 MG CAP PO SCH (21:04)
[2017-11-10] MEDS: HEPARIN SOD 5000 UNIT/0.5 ML CARP SC SCH (21:11)
[2017-11-10 23:14] VITALS: BP 125/82; PULSE 88; TEMP 36.9; O2SAT 95
[2017-11-11] MEDS: ACETAMINOPHEN 500 MG TAB PO SCH ×6 (04:21→23:30)
[2017-11-11] MEDS: TRAMADOL HCL 50 MG TAB PO PRN ×3 (04:37→16:26)
[2017-11-11] MEDS: IMIPENEM/CILASTATIN IV 500 MG in D5W 100ML IV SCH ×4 (05:40→23:30)
[2017-11-11 06:13] LABS: BASO % 0.6 %; BASO ABS # 0.03 K/uL (0-0.2); EOS % 3.7 %; EOS ABS # 0.18 K/uL (0-0.5); HEMATOCRIT 32.2 % (37-47); HEMOGLOBIN 10.8 g/dL (12.0-16.0); IG# 0.03 K/uL (0.00-0.02); LYMPH % 49.4 %; LYMPH ABS # 2.39 K/uL (1.2-3.4); MEAN CELL VOLUME 92.8 fL (80-100); MEAN CORPUSCULAR HEMOGLOBIN 31.1 pg (25-34); MEAN CORPUSCULAR HGB CONC 33.5 g/dl (32-36); MEAN PLATELET VOLUME 8.9 fL (7.4-10.4); MONO % 9.1 %; MONO ABS # 0.44 K/uL (0.11-0.59); NEUT % 36.6 %; NEUT ABS # 1.77 K/uL (1.4-6.5); PLATELET COUNT 260 K/uL (130-400); RED CELL DISTRIBUTION WIDTH SD 50.7 fL (36.4-46.3); WHITE BLOOD COUNT 4.84 K/uL (4.8-10.8)
[2017-11-11 06:50] LABS: ALBUMIN 2.4 gm/dl (3.4-5.0); ALT/SGPT 520 U/L (12-78); AST/SGOT 376 U/L (15-37); BLOOD UREA NITROGEN 8 mg/dl (7-18); CALCIUM 8.5 mg/dl (8.5-10.1); CARBON DIOXIDE 26 mmol/L (21-32); CREATININE 0.47 mg/dl (0.60-1.20); GLUCOSE 89 mg/dl (70-99); POTASSIUM 4.1 mmol/L (3.5-5.1); SODIUM 140 mmol/L (136-145); TOTAL PROTEIN 6.5 gm/dl (6.4-8.2)
[2017-11-11 06:51] LABS: ALKALINE PHOSPHATASE 920 U/L (45-117)
[2017-11-11 07:40] VITALS: BP 134/84; PULSE 86; TEMP 36.6; O2SAT 95
[2017-11-11] MEDS: LACTOBACILLUS ACIDOPHILUS (FLORANEX) TAB PO SCH ×2 (08:25→16:25)
[2017-11-11] MEDS: PAROXETINE 20 MG TAB PO SCH (08:25)
[2017-11-11] MEDS: OXYCODONE/ACETAMINOPHEN 5-325 TAB PO PRN ×2 (08:25→23:30)
[2017-11-11] MEDS: FAMOTIDINE IV INJ 20 MG in SYRINGE 3 ML IV SCH (08:26)
[2017-11-11] MEDS: HEPARIN SOD 5000 UNIT/0.5 ML CARP SC SCH ×2 (08:30→19:48)
--- NOTE | 2017-11-11 10:04 | Pre-Operative Consultation ---
History General Date of Service: Nov 11, 2017. HPI HPI: The patient is a 26 year old female being seen with CBD stones and elevated LFTs with possible cholecystitis. Currently she does not complain of pain. She came to ED complaining of abdominal pain that began yesterday. She also has associated nausea without vomiting. 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 Her pain was right sided abdominal pain but this has resolved. He sent the patient over for ultrasound of the gallbladder which showed likely CBD stones and cholecystitis. Historian: patient, parent Procedure Urgency: Acute Risk Assessment Daily beta kristy use?: No Problem List Medical Problems: (1) Choledocholithiasis with acute cholecystitis with obstruction Status: Acute (2) Pain, dental Status: Acute Medical & Surgical History Past Medical History: CVA/TIA/stroke (septic emboli via PFO), other (pre- eclampsia; h/o meningitis with possible absecss) Past Surgical History: appendectomy Family History Family History: gallbladder disease Social History Hx Tobacco Use In Past Year?: Yes Smoking Status: Current Every Day Smoker Drug Use: none Marital status: single Allergies Allergies: Coded Allergies: NO KNOWN DRUG ALLERGIES (Verified Allergy, Unknown, none, 10/14/17) Medications Current Inpatient Medications Current Inpatient Medications Medications (Trade) Dose Ordered Sig/Cata Route Start Time Stop Time Status Last Admin Dose Admin Acetaminophen (Tylenol Tab) 500 mg Q4 PO 11/10/17 16:00 12/10/17 15:59 11/11/17 04:21 500 MG Al Hydrox/Mg Hydrox/Simethicone (Maalox Max Susp) 30 ml Q4H PRN PO 11/10/17 13:00 12/10/17 12:59 Gabapentin (Neurontin Cap) 100 mg HS PO 11/10/17 21:00 12/10/17 20:59 11/10/17 21:04 100 MG Heparin Sodium (Porcine) (Heparin Sq 5000 Unit/0.5ml) 5,000 unit BID SC 11/10/17 21:00 12/10/17 20:59 11/11/17 08:30 5,000 UNIT Lactobacillus Acidophilus (Floranex Tab) 1 tab BIDM PO 11/10/17 17:45 12/10/17 17:59 3/25/18 08:25 1 TAB Paroxetine HCl (pAXil TAB) 20 mg DAILY PO 11/11/17 09:00 12/11/17 08:59 11/11/17 08:25 20 MG Tramadol HCl (Ultram Tab) 50 mg Q6H PRN PO 11/10/17 13:00 12/10/17 12:59 11/11/17 04:37 50 MG Acetaminophen (Tylenol Tab) 650 mg Q8H PRN PO 11/10/17 14:15 12/10/17 14:14 Al Hydrox/Mg Hydrox/Simethicone (Maalox Max Susp) 15 ml Q4H PRN PO 11/10/17 14:15 12/10/17 14:14 Magnesium Hydroxide (Milk Of Magnesia Susp) 30 ml Q6H PRN PO 11/10/17 14:15 12/10/17 14:14 Polyethylene (Miralax Powder Packet) 17 gm DAILY PRN PO 11/10/17 15:45 12/10/17 15:44 Zolpidem Tartrate (Ambien Tab) 5 mg HSZ PRN PO 11/10/17 14:15 12/10/17 14:14 Ondansetron HCl (Zofran Inj) 4 mg Q6H PRN IV 11/10/17 14:15 12/10/17 14:14 Zolpidem Tartrate (Ambien Tab) 5 mg HSZ PRN PO 11/10/17 14:15 12/10/17 14:14 Morphine Sulfate (MoRPHine SULFATE INJ) 2 mg Q4H PRN IV 11/10/17 14:15 11/24/17 14:14 Oxycodone/ Acetaminophen (Percocet 5-325mg Tab) 1 tab Q4H PRN PO 11/10/17 14:15 11/24/17 14:14 11/11/17 08:25 1 TAB Famotidine 20 mg/ Syringe 5 ml @ 2.5 mls/min DAILY IV 11/11/17 09:00 12/11/17 08:59 11/11/17 08:26 2.5 MLS/MIN Imipenem/ Cilastatin Sodium 500 mg/Dextrose 110 ml @ 110 mls/hr Q6 IV 11/10/17 18:45 11/26/17 23:59 11/11/17 05:40 110 MLS/HR Heparin Sodium (Porcine) (Heparin 10 Unit/ ml 5 ml Flush) 5 ml PRN PRN FLUSH 11/10/17 21:00 12/10/17 20:59 11/11/17 08:30 5 ML Review of Systems Review of Systems Constitutional: denies chills, denies diaphoresis, denies fever, weakness Eyes: reports: no symptoms ENT: reports: no symptoms reported Cardiovascular: denies: chest pain, chest tightness, chest pressure Respiratory: denies: cough, short of breath, stridor, cyanosis Gastrointestinal: abdominal pain, denies constipation, denies diarrhea, nausea , denies vomiting Genitourinary - Female: reports: no symptoms Musculoskeletal: back pain, denies joint pain, denies joint swelling Integumentary: denies change in hair/nails, denies dryness, denies lumps, denies rash Neurologic: reports: focal weakness Psychiatric: reports: no symptoms Endocrine: no symptoms Hematologic / Lymphatic: no symptoms Allergic / Immunologic: no symptoms Physical Exam Physical Exam General Appearance: + WD/WN, No distress Ears, Nose, Throat: + normal ENT inspection Neck: No tracheal deviation, No lymphadenophy, No stiffness, No tenderness Respiratory: No decreased breath sounds, No rhonchi, No stridor, No wheezing Cardiovascular: + systolic murmur, No tachycardia, No gallop/S3, No diastolic murmur, No gallop/S4, No bradycardia Abdomen: No abnormal bowel sounds, No rebound, No tenderness, No distension, No hernia, No organomegaly, No guarding Extremities: No deformity, No swelling, No calf tenderness, No inflammation Neurologic/Psychiatric: + motor deficit/weakness, No disorientation, No sensory deficit Skin Characteristics: No diaphoresis, No pallor, No jaundice, No rash Lymphatic: No abnormal adenopathy Diagnostics Labs Labs Results Past 24 Hours Test 11/10/17 10:00 11/10/17 12:20 11/11/17 06:05 Range/Units White Blood Count 4.32 4.84 4.8-10.8 K/uL Red Blood Count 3.84 3.47 4.2-5.4 M/uL Hemoglobin 11.9 10.8 12.0-16.0 g/dL Hematocrit 35.7 32.2 37-47 % Mean Corpuscular Volume 93.0 92.8 80-100 fL Mean Corpuscular Hemoglobin 31.0 31.1 25-34 pg Mean Corpuscular Hemoglobin Concent 33.3 33.5 32-36 g/dl Platelet Count 256 260 130-400 K/uL Mean Platelet Volume 9.2 8.9 7.4-10.4 fL Neutrophils (%) (Auto) 61.0 36.6 % Lymphocytes (%) (Auto) 27.1 49.4 % Monocytes (%) (Auto) 9.0 9.1 % Eosinophils (%) (Auto) 2.5 3.7 % Basophils (%) (Auto) 0.2 0.6 % Neutrophils # (Auto) 2.63 1.77 1.4-6.5 K/uL Lymphocytes # (Auto) 1.17 2.39 1.2-3.4 K/uL Monocytes # (Auto) 0.39 0.44 0.11-0.59 K/uL Eosinophils # (Auto) 0.11 0.18 0-0.5 K/uL Basophils # (Auto) 0.01 0.03 0-0.2 K/uL RDW Standard Deviation 50.7 50.7 36.4-46.3 fL RDW Coefficient of Variation 15.0 15.0 11.5-14.5 % Immature Granulocyte % (Auto) 0.2 0.6 % Immature Granulocyte # (Auto) 0.01 0.03 0.00-0.02 K/uL Sodium Level 139 140 136-145 mmol/L Potassium Level 4.2 4.1 3.5-5.1 mmol/L Chloride Level 106 107 98-107 mmol/L Carbon Dioxide Level 27 26 21-32 mmol/L Anion Gap 6.0 7.0 3-11 mmol/L Blood Urea Nitrogen 8 8 7-18 mg/dl Creatinine 0.45 0.47 0.60-1.20 mg/dl Est Creatinine Clear Calc Drug Dose 240.3 230.1 ml/min Estimated GFR () > 150.0 > 150.0 Estimated GFR (Non- 139.3 137.3 BUN/Creatinine Ratio 18.3 17.4 10-20 Random Glucose 78 89 70-99 mg/dl Calcium Level 8.7 8.5 8.5-10.1 mg/dl Total Bilirubin 0.8 0.8 0.2-1 mg/dl Direct Bilirubin 0.5 0-0.2 mg/dl Aspartate Amino Transf (AST/SGOT) 488 376 15-37 U/L Alanine Aminotransferase (ALT/SGPT) 515 520 12-78 U/L Alkaline Phosphatase 922 920 45-117 U/L Total Protein 6.6 6.5 6.4-8.2 gm/dl Albumin 2.4 2.4 3.4-5.0 gm/dl Lipase 491 73-393 U/L Urine Color YELLOW Urine Appearance CLEAR CLEAR Urine pH 8.0 4.5-7.5 Urine Specific [place] 1.011 1.000-1.030 Urine Protein NEG NEG Urine Glucose (UA) NEG NEG Urine Ketones NEG NEG Urine Occult Blood NEG NEG Urine Nitrite NEG NEG Urine Bilirubin NEG NEG Urine Urobilinogen NEG NEG Urine Leukocyte Esterase SMALL NEG Urine WBC (Auto) 1-5 0-5 /hpf Urine RBC (Auto) 0-4 0-4 /hpf Urine Hyaline Casts (Auto) 1-5 0-5 /lpf Urine Epithelial Cells (Auto) 20-30 0-5 /lpf Urine Bacteria (Auto) NEG NEG Urine Test NEG NEG Lactic Acid Level 0.9 0.4-2.0 mmol/L Magnesium Level 2.3 1.8-2.4 mg/dl Globulin 4.1 2.5-4.0 gm/dl Albumin/Globulin Ratio 0.6 0.9-2 Diagnostic Radiology Diagnostic Radiology GALLBLADDER-ABD LIMITED CLINICAL HISTORY: ABDOMINAL PAIN/GI pain TECHNIQUE: Ultrasound COMPARISON STUDY: None FINDINGS: Fatty infiltration of liver. Mild intrahepatic biliary ductal prominence. Gallbladder contains multiple gallstones. Mild gallbladder wall edema. Trace pericholecystic fluid. Common bile duct 12 mm. Right kidney is negative for necrosis. IMPRESSION: 1. Multiple gallstones. 2. Trace pericholecystic fluid. 3. Biliary ductal dilatation raising the possibility of choledocholithiasis 4. Fatty infiltration of liver. MRCP CLINICAL HISTORY: gaall stones choledocholithiasis TECHNIQUE: Multiaxial MRI acquisition COMPARISON STUDY: Gallbladder ultrasound 11/10/2017 FINDINGS: Multiple gallstones within the gallbladder lumen. Moderate wall edema of the gallbladder Liver is uniform. Spleen kidneys are unremarkable. There is mild biliary ductal distention of the intra as well as extrahepatic bile ducts. Reformatted images suggests possibility of 1 and/or 2 small gallstones in the distal common bile duct. Bowel pattern is nonobstructive. Pancreas is uniform. There is no dilatation of the pancreatic duct. IMPRESSION: 1. Findings consistent with gallstones within a thickened or edematous gallbladder wall. 2. Appearance is consistent with that of acute cholecystitis. 3. Biliary ductal prominence with probable distal common duct choledocholithiasis. Impression Assessment and Plan Assessment and Plan Cholecystitis w/CBD stone --will need duct cleared with ERCP; if planned for AM may be able to coordinate simultaneous procedure depending on schedules of Juan Pablo BERNARD abx -NPO until seen by GI -no pain currently -suggest anesthesia evaluation with complex history; has had care in [place]
--- NOTE | 2017-11-11 12:01 | Family Medicine Progress Note ---
Progress Note Date of Service Nov 11, 2017. Subjective Pt evaluation today including: conversation w/ patient, conversation w/ family Spoke at length with pt and family, discussed results of MRCP that she does in fact have stone in the common bile duct and will need ERCP. Also discussed the cholecystitis, was in the room while Gen Mika Morris spoke with her, who will be coordinating lap choly in 1-3 days. Discussed her care at [place] where she was for a month dealing with her UTI with gram negative bacteremia and septic emboli to the brain 2/2 her PFO. Pt does not desire to go to [place] at this time. Pain is controlled on tramadol and percocet. Is NPO for now and says she is hungry. Otherwise no other complaints at this time, denies emesis or nausea, diarrhea or constipation. ROS See HPI for pertinent positives and negatives. Medications Current Inpatient Medications Medications (Trade) Dose Ordered Sig/Cata Route Start Time Stop Time Status Last Admin Dose Admin Acetaminophen (Tylenol Tab) 500 mg Q4 PO 11/10/17 16:00 12/10/17 15:59 11/11/17 04:21 500 MG Al Hydrox/Mg Hydrox/Simethicone (Maalox Max Susp) 30 ml Q4H PRN PO 11/10/17 13:00 12/10/17 12:59 Gabapentin (Neurontin Cap) 100 mg HS PO 11/10/17 21:00 12/10/17 20:59 11/10/17 21:04 100 MG Heparin Sodium (Porcine) (Heparin Sq 5000 Unit/0.5ml) 5,000 unit BID SC 11/10/17 21:00 12/10/17 20:59 11/11/17 08:30 5,000 UNIT Lactobacillus Acidophilus (Floranex Tab) 1 tab BIDM PO 11/10/17 17:45 12/10/17 17:59 11/11/17 08:25 1 TAB Paroxetine HCl (pAXil TAB) 20 mg DAILY PO 11/11/17 09:00 12/11/17 08:59 11/11/17 08:25 20 MG Tramadol HCl (Ultram Tab) 50 mg Q6H PRN PO 11/10/17 13:00 12/10/17 12:59 11/11/17 04:37 50 MG Acetaminophen (Tylenol Tab) 650 mg Q8H PRN PO 11/10/17 14:15 12/10/17 14:14 Al Hydrox/Mg Hydrox/Simethicone (Maalox Max Susp) 15 ml Q4H PRN PO 11/10/17 14:15 12/10/17 14:14 Magnesium Hydroxide (Milk Of Magnesia Susp) 30 ml Q6H PRN PO 11/10/17 14:15 12/10/17 14:14 Polyethylene (Miralax Powder Packet) 17 gm DAILY PRN PO 11/10/17 15:45 12/10/17 15:44 Zolpidem Tartrate (Ambien Tab) 5 mg HSZ PRN PO 11/10/17 14:15 12/10/17 14:14 Ondansetron HCl (Zofran Inj) 4 mg Q6H PRN IV 11/10/17 14:15 12/10/17 14:14 Zolpidem Tartrate (Ambien Tab) 5 mg HSZ PRN PO 11/10/17 14:15 12/10/17 14:14 Morphine Sulfate (MoRPHine SULFATE INJ) 2 mg Q4H PRN IV 11/10/17 14:15 11/24/17 14:14 Oxycodone/ Acetaminophen (Percocet 5-325mg Tab) 1 tab Q4H PRN PO 11/10/17 14:15 11/24/17 14:14 11/11/17 08:25 1 TAB Famotidine 20 mg/ Syringe 5 ml @ 2.5 mls/min DAILY IV 11/11/17 09:00 12/11/17 08:59 11/11/17 08:26 2.5 MLS/MIN Imipenem/ Cilastatin Sodium 500 mg/Dextrose 110 ml @ 110 mls/hr Q6 IV 11/10/17 18:45 11/26/17 23:59 11/11/17 05:40 110 MLS/HR Heparin Sodium (Porcine) (Heparin 10 Unit/ ml 5 ml Flush) 5 ml PRN PRN FLUSH 11/10/17 21:00 12/10/17 20:59 11/11/17 08:30 5 ML Objective Vital Signs Date Time Temp Pulse Resp B/P (MAP) Pulse Ox O2 Delivery O2 Flow Rate FiO2 11/11/17 07:45 Room Air 11/11/17 07:40 36.6 86 16 134/84 (101) 95 Room Air 11/10/17 23:30 Room Air 11/10/17 23:14 36.9 88 16 125/82 (96) 95 Room Air 11/10/17 19:45 97 Room Air 11/10/17 16:40 97 Room Air 11/10/17 14:49 36.9 103 19 125/71 97 18 14:41 103 19 125/71 11/10/17 14:36 72 16 11/10/17 14:31 73 15 11/10/17 14:26 63 15 11/10/17 14:21 72 16 11/10/17 14:16 72 16 11/10/17 14:11 68 14 11/10/17 14:06 76 14 11/10/17 14:01 66 19 11/10/17 13:56 63 14 11/10/17 13:51 72 18 11/10/17 13:46 68 16 11/10/17 13:41 66 17 11/10/17 13:36 68 16 11/10/17 13:31 70 19 11/10/17 13:26 72 18 11/10/17 13:21 71 17 11/10/17 13:16 70 18 11/10/17 13:11 70 17 11/10/17 13:06 72 17 11/10/17 13:05 71 11/10/17 12:48 74 16 121/69 97 Room Air 11/10/17 12:43 121/69 11/10/17 12:30 96 Room Air Physical Exam Notes: GENERAL: Awake, alert, well-appearing, in no distress HENT: Normocephalic, atraumatic. EYES: Normal conjunctiva. Sclera non-icteric. NECK: Supple. FROM. No JVD. RESPIRATORY: Clear to auscultation. CARDIAC: Regular rate, normal rhythm. Extremities warm and well perfused. Pulses equal. ABDOMEN: Soft, non-distended. No tenderness to palpation. No rebound or guarding. No masses. NEURO: Residual left arm and leg weakness. SKIN: No rash or jaundice noted. Laboratory Results 11/11/17 06:05 Red Blood Count 3.47, Mean Corpuscular Volume 92.8, Mean Corpuscular Hemoglobin 31.1, Mean Corpuscular Hemoglobin Concent 33.5, Mean Platelet Volume 8.9, Neutrophils (%) (Auto) 36.6, Lymphocytes (%) (Auto) 49.4, Monocytes (%) (Auto) 9.1, Eosinophils (%) (Auto) 3.7, Basophils (%) (Auto) 0.6, Neutrophils # (Auto) 1.77, Lymphocytes # (Auto) 2.39, Monocytes # (Auto) 0.44, Eosinophils # (Auto) 0.18, Basophils # (Auto) 0.03 11/11/17 06:05 Test 11/10/17 12:20 11/11/17 06:05 Urine Color YELLOW Urine Appearance CLEAR (CLEAR) Urine pH 8.0 (4.5-7.5) Urine Specific [place] 1.011 (1.000-1.030) Urine Protein NEG (NEG) Urine Glucose (UA) NEG (NEG) Urine Ketones NEG (NEG) Urine Occult Blood NEG (NEG) Urine Nitrite NEG (NEG) Urine Bilirubin NEG (NEG) Urine Urobilinogen NEG (NEG) Urine Leukocyte Esterase SMALL (NEG) Urine WBC (Auto) 1-5 /hpf (0-5) Urine RBC (Auto) 0-4 /hpf (0-4) Urine Hyaline Casts (Auto) 1-5 /lpf (0-5) Urine Epithelial Cells (Auto) 20-30 /lpf (0-5) Urine Bacteria (Auto) NEG (NEG) Urine Test NEG (NEG) White Blood Count 4.84 K/uL (4.8-10.8) Red Blood Count 3.47 M/uL (4.2-5.4) Hemoglobin 10.8 g/dL (12.0-16.0) Hematocrit 32.2 % (37-47) Mean Corpuscular Volume 92.8 fL (80-100) Mean Corpuscular Hemoglobin 31.1 pg (25-34) Mean Corpuscular Hemoglobin Concent 33.5 g/dl (32-36) Platelet Count 260 K/uL (130-400) Mean Platelet Volume 8.9 fL (7.4-10.4) Neutrophils (%) (Auto) 36.6 % Lymphocytes (%) (Auto) 49.4 % Monocytes (%) (Auto) 9.1 % Eosinophils (%) (Auto) 3.7 % Basophils (%) (Auto) 0.6 % Neutrophils # (Auto) 1.77 K/uL (1.4-6.5) Lymphocytes # (Auto) 2.39 K/uL (1.2-3.4) Monocytes # (Auto) 0.44 K/uL (0.11-0.59) Eosinophils # (Auto) 0.18 K/uL (0-0.5) Basophils # (Auto) 0.03 K/uL (0-0.2) RDW Standard Deviation 50.7 fL (36.4-46.3) RDW Coefficient of Variation 15.0 % (11.5-14.5) Immature Granulocyte % (Auto) 0.6 % Immature Granulocyte # (Auto) 0.03 K/uL (0.00-0.02) Anion Gap 7.0 mmol/L (3-11) Est Creatinine Clear Calc Drug Dose 230.1 ml/min Estimated GFR () > 150.0 Estimated GFR (Non- 137.3 BUN/Creatinine Ratio 17.4 (10-20) Lactic Acid Level 0.9 mmol/L (0.4-2.0) Calcium Level 8.5 mg/dl (8.5-10.1) Magnesium Level 2.3 mg/dl (1.8-2.4) Total Bilirubin 0.8 mg/dl (0.2-1) Aspartate Amino Transf (AST/SGOT) 376 U/L (15-37) Alanine Aminotransferase (ALT/SGPT) 520 U/L (12-78) Alkaline Phosphatase 920 U/L (45-117) Total Protein 6.5 gm/dl (6.4-8.2) Albumin 2.4 gm/dl (3.4-5.0) Globulin 4.1 gm/dl (2.5-4.0) Albumin/Globulin Ratio 0.6 (0.9-2) Assessment and Plan 26F here for intractable abdominal pain, admitted from rehab, ultrasound shows multiple gallstones with biliary ductal dilatation. MRCP confirms biliary ductal prominence with probably distal common duct choledocholithiasis. 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 Acute/early cholecystitis - Gen surg consulted -- plan for operation in 1-3 days pending anesthesia consult. If surgery not done tomorrow, there's a chance that removing the stone alone could aid in resolution of inflammation. Follow. - Anesthesia also consulted to review [facility] records. 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 ERCP tomorrow. NPO after midnight. Currently on clears diet. Resident Physician Supervision Note: I interviewed and examined the patient. Discussed with Dr. New and agree with findings and plan as documented in the note. Any exceptions or clarifications are listed here: None Documented By: Collin Byrne no pain no nausea, really wants geovanny treva. wasn't quite sure of what was going on - just noted "i have to have a surgery tomorrow" explained to pt and family in depth with drawings regarding current situation they expressed understanding vitals noted nad breathing unlabored no pallor or icterus, no abdominal pain no RUQ ttp cholecystitis/choledocholithiasis -stable -for ERCP and choley- GI and surgery planning otherwise as above Continued [facility] stay due to: other (awaiting surgery) Discharge planning: rehab hospital Resident Tracking Resident Involvement: Resident Care Provided Care Provided: Adult Hospital Medicine
--- NOTE | 2017-11-11 12:24 | Gastrointestinal Consultation ---
Gastrointestinal Consultation Date of Consultation: Nov 11, 2017 Attending Physician: Dr. Byrne Consulting Physician: Dr. Yepez Reason for Consultation: choledocholithiasis History of Present Illness Patient is a 26 year old female with a complicated history of post- (2017) septic embolic event with resultant CVA and osteomyelitis with some residual weakness who has been slowly improving ( on IV antibiotics - meropenam) until the day of presentation to the ER when she developed worsening abdominal pain. Labs and imaging workup in the ER are consistent with choledocholithiasis and cholecystitis. She is now pain free. No nausea or vomiting. On IV antibiotics. Seen by surgery who plan for possible cholecystectomy tomorrow if can be coordinated at time of the ERCP. Past Medical/Surgical History Medical Problems: (1) Choledocholithiasis with acute cholecystitis with obstruction Status: Acute (2) Pain, dental Status: Acute Past Medical History: as noted in HPI Past Surgical History: non-contributory Family History Patient reports no known family medical history. Social History Smoking Status: Current Every Day Smoker Drug Use: none Marital Status: single Housing Status: lives with family Allergies Coded Allergies: NO KNOWN DRUG ALLERGIES (Verified Allergy, Unknown, none, 10/14/17) Current Medications Home Meds and Scripts Medications Dose Route/Sig Max Daily Dose Days Date Category Dose Instructions Maalox Max Susp (Al Hydrox/Mg Hydrox/Simethicone) Susp 30 Ml PO Q4 PRN 11/10/17 Reported Neurontin (Gabapentin) 100 Mg Cap 100 Mg PO HS 11/10/17 Reported Heparin Sq (Heparin Sod (Porcine)) 5,000 Unit/0.5 Ml Inj 5,000 Units SC BID 11/10/17 Reported Normal Saline I.v. Flush (Sodium Chloride Flush) 0.9 % Inj 10 Ml IV QS 11/10/17 Reported Meropenem 1 Gm Inj 2,000 Mg IV Q8 11/10/17 Reported START DATE 11-03-17 STOP DATE 11-26-17 INFUSE OVER 30 MIN Paxil (Paroxetine HCl) 20 Mg Tab 20 Mg PO DAILY 11/10/17 Reported Floranex (Lactobacillus Acidophilus) 1 Tab Tab 1 Tab PO BIDM 11/10/17 Reported Ultram (Tramadol HCl) 50 Mg Tab 50 Mg PO Q6H PRN 11/10/17 Reported Kp Melatonin (Melatonin) 3 Mg Tab 3 Mg PO HS 11/10/17 Reported Tylenol (Acetaminophen) 500 Mg Tab 500 Mg PO Q4H 11/10/17 Reported Review of Systems 12 systems reviewed and negative except as noted Physical Exam Date Time Temp Pulse Resp B/P (MAP) Pulse Ox O2 Delivery O2 Flow Rate FiO2 11/11/17 07:45 Room Air 11/11/17 07:40 36.6 86 16 134/84 (101) 95 Room Air 11/10/17 23:30 Room Air 11/10/17 23:14 36.9 88 16 125/82 (96) 95 Room Air 11/10/17 19:45 97 Room Air 11/10/17 16:40 97 Room Air 11/10/17 14:49 36.9 103 19 125/71 97 11/10/17 14:41 103 19 125/71 11/10/17 14:36 72 16 11/10/17 14:31 73 15 11/10/17 14:26 63 15 11/10/17 14:21 72 16 11/10/17 14:16 72 16 11/10/17 14:11 68 14 11/10/17 14:06 76 14 11/10/17 14:01 66 19 11/10/17 13:56 63 14 11/10/17 13:51 72 18 11/10/17 13:46 68 16 11/10/17 13:41 66 17 11/10/17 13:36 68 16 11/10/17 13:31 70 19 11/10/17 13:26 72 18 11/10/17 13:21 71 17 11/10/17 13:16 70 18 11/10/17 13:11 70 17 11/10/17 13:06 72 17 11/10/17 13:05 71 11/10/17 12:48 74 16 121/69 97 Room Air 11/10/17 12:43 121/69 11/10/17 12:30 96 Room Air General Appearance: WD/WN, no apparent distress Eyes: normal inspection, PERRL ENT: normal ENT inspection, hearing grossly normal, pharynx normal Neck: supple, no adenopathy, no JVD Respiratory/Chest: chest non-tender, lungs clear, normal breath sounds Cardiovascular: regular rate, rhythm, no edema Abdomen: normal bowel sounds, non tender, soft Extremities: normal range of motion, non-tender, normal inspection, no pedal edema Neurologic/Psych: financial center manager II-XII nml as tested, alert, normal mood/affect, oriented x 3 Skin: normal color, no jaundice, warm/dry, no rash Laboratory Results Last 24 Hours Test 11/10/17 12:20 11/11/17 06:05 Urine Color YELLOW Urine Appearance CLEAR Urine pH 8.0 Urine Specific [place] 1.011 Urine Protein NEG Urine Glucose (UA) NEG Urine Ketones NEG Urine Occult Blood NEG Urine Nitrite NEG Urine Bilirubin NEG Urine Urobilinogen NEG Urine Leukocyte Esterase SMALL Urine WBC (Auto) 1-5 /hpf Urine RBC (Auto) 0-4 /hpf Urine Hyaline Casts (Auto) 1-5 /lpf Urine Epithelial Cells (Auto) 20-30 /lpf Urine Bacteria (Auto) NEG Urine Test NEG White Blood Count 4.84 K/uL Red Blood Count 3.47 M/uL Hemoglobin 10.8 g/dL Hematocrit 32.2 % Mean Corpuscular Volume 92.8 fL Mean Corpuscular Hemoglobin 31.1 pg Mean Corpuscular Hemoglobin Concent 33.5 g/dl Platelet Count 260 K/uL Mean Platelet Volume 8.9 fL Neutrophils (%) (Auto) 36.6 % Lymphocytes (%) (Auto) 49.4 % Monocytes (%) (Auto) 9.1 % Eosinophils (%) (Auto) 3.7 % Basophils (%) (Auto) 0.6 % Neutrophils # (Auto) 1.77 K/uL Lymphocytes # (Auto) 2.39 K/uL Monocytes # (Auto) 0.44 K/uL Eosinophils # (Auto) 0.18 K/uL Basophils # (Auto) 0.03 K/uL RDW Standard Deviation 50.7 fL RDW Coefficient of Variation 15.0 % Immature Granulocyte % (Auto) 0.6 % Immature Granulocyte # (Auto) 0.03 K/uL Sodium Level 140 mmol/L Potassium Level 4.1 mmol/L Chloride Level 107 mmol/L Carbon Dioxide Level 26 mmol/L Anion Gap 7.0 mmol/L Blood Urea Nitrogen 8 mg/dl Creatinine 0.47 mg/dl Est Creatinine Clear Calc Drug Dose 230.1 ml/min Estimated GFR () > 150.0 Estimated GFR (Non- 137.3 BUN/Creatinine Ratio 17.4 Random Glucose 89 mg/dl Lactic Acid Level 0.9 mmol/L Calcium Level 8.5 mg/dl Magnesium Level 2.3 mg/dl Total Bilirubin 0.8 mg/dl Aspartate Amino Transf (AST/SGOT) 376 U/L Alanine Aminotransferase (ALT/SGPT) 520 U/L Alkaline Phosphatase 920 U/L Total Protein 6.5 gm/dl Albumin 2.4 gm/dl Globulin 4.1 gm/dl Albumin/Globulin Ratio 0.6 Impression Patient is a 26 year old female with recent complicated post- (2/3) course including 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 Plan - Continue IV antibiotics. - NPO after MN tonight for ERCP tomorrow.l - Gi consult team will discuss timing with surgery tomorrow AM.
[2017-11-11 15:47] VITALS: BP 129/80; PULSE 91; TEMP 36.8; O2SAT 94
--- NOTE | 2017-11-11 19:01 | Progress Note ---
Progress Note Date of Service Nov 11, 2017. Progress Note Pt is a 26yo female who presented with RUQ abdominal pain who was found to have choledocholithiasis/acute cholecystitis and is scheduled for ERCP/Lap cholecystectomy tomorrow. Pt has a complicated medical history. She recently had an uncomplicated vaginal delivery on 09/22/17, but 3 weeks developed sepsis due to UTI, along with cervical spine c1-5 osteomyelitis, meningitis and abscess causing multiple septic emboli/infarct to brain secondary to PFO. Patient was hospitalized in [place] and was intubated for about 2 weeks. Tracheostomy was not done since she was able to be weaned off the vent. Pt now has left sided deficit/weakness of lower and upper extremities and only able to ambulate with assistance. No current airway/respiratory problems since her recent intubation. Pt and parents were unaware of PFO prior to this episode. She is currently anticoagulated with heparin and treated with superintendent container terminal Primaxin for her infection. Pt was seen at bedside along with her parents. Per parents, JUAN CARLOS was done in [place]. Spoke to hospitalist team who is trying to request her hospitalization/[facility] CARLOS records from [place]. Explained to parents that her [facility] CARLOS record would be helpful in giving us a better idea of her cardiac status prior to GA. Discussed with parents and patient plan of general anesthesia, placing arterial line, possible post-op intubation, for both ERCP and lap ashanti, including her high risk due to her recent stroke. Parents and patient understand the urgent nature of her condition and her comorbidities and agree to proceed. Consent was obtained. Pt was advised to be NPO after midnight except for sips of water with meds.
[2017-11-11] MEDS: GABAPENTIN 100 MG CAP PO SCH (19:49)
[2017-11-11 22:50] VITALS: BP 136/88; PULSE 82; TEMP 36.8; O2SAT 95
[2017-11-12] MEDS: ACETAMINOPHEN 500 MG TAB PO SCH ×6 (03:53→23:32)
[2017-11-12] MEDS: IMIPENEM/CILASTATIN IV 500 MG in D5W 100ML IV SCH ×4 (05:37→23:31)
[2017-11-12 06:41] LABS: BASO % 0.9 %; BASO ABS # 0.05 K/uL (0-0.2); EOS ABS # 0.23 K/uL (0-0.5); HEMATOCRIT 34.1 % (37-47); HEMOGLOBIN 11.4 g/dL (12.0-16.0); IG# 0.03 K/uL (0.00-0.02); LYMPH ABS # 2.29 K/uL (1.2-3.4); MEAN CELL VOLUME 92.4 fL (80-100); MEAN CORPUSCULAR HEMOGLOBIN 30.9 pg (25-34); MEAN CORPUSCULAR HGB CONC 33.4 g/dl (32-36); MEAN PLATELET VOLUME 9.2 fL (7.4-10.4); MONO % 9.4 %; MONO ABS # 0.54 K/uL (0.11-0.59); NEUT % 45.2 %; NEUT ABS # 2.59 K/uL (1.4-6.5); PLATELET COUNT 318 K/uL (130-400); RED CELL DISTRIBUTION WIDTH CV 14.9 % (11.5-14.5); RED CELL DISTRIBUTION WIDTH SD 50.1 fL (36.4-46.3); WHITE BLOOD COUNT 5.73 K/uL (4.8-10.8)
[2017-11-12] MEDS ORDERED: DiphenhydrAMINE INJ 25 MG in SYRINGE 0 ML IV PRN (07:00)
[2017-11-12 07:07] LABS: ALBUMIN 2.4 gm/dl (3.4-5.0); CALCIUM 8.8 mg/dl (8.5-10.1); CREATININE 0.57 mg/dl (0.60-1.20)
[2017-11-12 07:11] LABS: TOTAL PROTEIN 6.6 gm/dl (6.4-8.2)
[2017-11-12] MEDS: DiphenhydrAMINE HCL 50 MG/ML VIAL IV PRN (07:34)
[2017-11-12 07:41] VITALS: BP 135/91; PULSE 79; TEMP 36.8; O2SAT 95
--- NOTE | 2017-11-12 09:22 | Family Medicine Progress Note ---
Progress Note Date of Service Nov 12, 2017. Subjective Pt evaluation today including: conversation w/ patient, conversation w/ family Met with patient, mom, and dad this morning. Patient notes minimal to no pain at present. Denies any N/V. Says her left-sided weakness feels at (new) baseline. No particular patient concerns. Mother asks about the scheduling of the ERCP in combination with potential gallbladder surgery. Father asks about if the patient's low back rash is due to a change in antibiotics upon arrival here from [facility]. Otherwise no other particular parental concerns. Constitutional: No fever, No chills Respiratory: No cough, No shortness of breath Cardiovascular: No chest pain, No edema Abdomen: No pain (denies), No nausea, No vomiting Neurologic: + weakness (left-sided, baseline) Psychiatric: + depression symptoms (baseline) Skin: + rash (lower back) Medications Current Inpatient Medications Medications (Trade) Dose Ordered Sig/Cata Route Start Time Stop Time Status Last Admin Dose Admin Acetaminophen (Tylenol Tab) 500 mg Q4 PO 11/10/17 16:00 12/10/17 15:59 11/12/17 07:34 500 MG Al Hydrox/Mg Hydrox/Simethicone (Maalox Max Susp) 30 ml Q4H PRN PO 11/10/17 13:00 12/10/17 12:59 Gabapentin (Neurontin Cap) 100 mg HS PO 11/10/17 21:00 12/10/17 20:59 11/11/17 19:49 100 MG Heparin Sodium (Porcine) (Heparin Sq 5000 Unit/0.5ml) 5,000 unit BID SC 11/10/17 21:00 12/10/17 20:59 11/11/17 19:48 5,000 UNIT Lactobacillus Acidophilus (Floranex Tab) 1 tab BIDM PO 11/10/17 17:45 12/10/17 17:59 11/11/17 16:25 1 TAB Paroxetine HCl (pAXil TAB) 20 mg DAILY PO 11/11/17 09:00 12/11/17 08:59 11/11/17 08:25 20 MG Tramadol HCl (Ultram Tab) 50 mg Q6H PRN PO 11/10/17 13:00 12/10/17 12:59 11/11/17 16:26 50 MG Acetaminophen (Tylenol Tab) 650 mg Q8H PRN PO 11/10/17 14:15 12/10/17 14:14 Al Hydrox/Mg Hydrox/Simethicone (Maalox Max Susp) 15 ml Q4H PRN PO 11/10/17 14:15 12/10/17 14:14 Magnesium Hydroxide (Milk Of Magnesia Susp) 30 ml Q6H PRN PO 11/10/17 14:15 12/10/17 14:14 Polyethylene (Miralax Powder Packet) 17 gm DAILY PRN PO 11/10/17 15:45 12/10/17 15:44 Zolpidem Tartrate (Ambien Tab) 5 mg HSZ PRN PO 11/10/17 14:15 12/10/17 14:14 Ondansetron HCl (Zofran Inj) 4 mg Q6H PRN IV 11/10/17 14:15 12/10/17 14:14 Zolpidem Tartrate (Ambien Tab) 5 mg HSZ PRN PO 11/10/17 14:15 12/10/17 14:14 Morphine Sulfate (MoRPHine SULFATE INJ) 2 mg Q4H PRN IV 11/10/17 14:15 11/24/17 14:14 Oxycodone/ Acetaminophen (Percocet 5-325mg Tab) 1 tab Q4H PRN PO 11/10/17 14:15 11/24/17 14:14 11/11/17 23:30 1 TAB Famotidine 20 mg/ Syringe 5 ml @ 2.5 mls/min DAILY IV 11/11/17 09:00 12/11/17 08:59 11/11/17 08:26 2.5 MLS/MIN Imipenem/ Cilastatin Sodium 500 mg/Dextrose 110 ml @ 110 mls/hr Q6 IV 11/10/17 18:45 11/26/17 23:59 11/12/17 05:37 110 MLS/HR Heparin Sodium (Porcine) (Heparin 10 Unit/ ml 5 ml Flush) 5 ml PRN PRN FLUSH 11/10/17 21:00 12/10/17 20:59 11/12/17 07:43 5 ML Diphenhydramine HCl (Benadryl Cap) 25 mg Q6 PRN PO 11/11/17 19:30 12/11/17 19:29 Diphenhydramine HCl (Benadryl Inj) 25 mg BID PRN IV 11/12/17 07:00 12/12/17 06:59 11/12/17 07:34 25 MG Objective Vital Signs Date Time Temp Pulse Resp B/P (MAP) Pulse Ox O2 Delivery O2 Flow Rate FiO2 11/12/17 07:41 36.8 79 16 135/91 (106) 95 Room Air 11/11/17 23:35 Room Air 11/11/17 22:50 36.8 82 16 136/88 (104) 95 Room Air 11/11/17 15:47 36.8 91 18 129/80 (96) 94 Room Air 11/11/17 15:20 Room Air Physical Exam Notes: General Appearance: Awake, alert & oriented, sitting up and getting hair combed , comfortable in general, NAD. CV: +S1S2 RRR, no murmur. No peripheral edema. Pulm: Clear to auscultation throughout. Abdomen: +BS, soft, very minimal RUQ tender to palpation, non-tender to percussion, non-distended. Extremities: No pedal edema or calf tenderness. Moving all extremities naturally and easily. Neuro: Minimal to no sanitation inspector strength in left hand but sensation grossly present. Right hand sanitation inspector strength fair. Can move toes bilaterally. Lines: PIV. Laboratory Results 11/12/17 05:40 Red Blood Count 3.69, Mean Corpuscular Volume 92.4, Mean Corpuscular Hemoglobin 30.9, Mean Corpuscular Hemoglobin Concent 33.4, Mean Platelet Volume 9.2, Neutrophils (%) (Auto) 45.2, Lymphocytes (%) (Auto) 40.0, Monocytes (%) (Auto) 9.4, Eosinophils (%) (Auto) 4.0, Basophils (%) (Auto) 0.9, Neutrophils # (Auto) 2.59, Lymphocytes # (Auto) 2.29, Monocytes # (Auto) 0.54, Eosinophils # (Auto) 0.23, Basophils # (Auto) 0.05 11/12/17 05:40 Test 11/12/17 05:40 White Blood Count 5.73 K/uL (4.8-10.8) Red Blood Count 3.69 M/uL (4.2-5.4) Hemoglobin 11.4 g/dL (12.0-16.0) Hematocrit 34.1 % (37-47) Mean Corpuscular Volume 92.4 fL (80-100) Mean Corpuscular Hemoglobin 30.9 pg (25-34) Mean Corpuscular Hemoglobin Concent 33.4 g/dl (32-36) Platelet Count 318 K/uL (130-400) Mean Platelet Volume 9.2 fL (7.4-10.4) Neutrophils (%) (Auto) 45.2 % Lymphocytes (%) (Auto) 40.0 % Monocytes (%) (Auto) 9.4 % Eosinophils (%) (Auto) 4.0 % Basophils (%) (Auto) 0.9 % Neutrophils # (Auto) 2.59 K/uL (1.4-6.5) Lymphocytes # (Auto) 2.29 K/uL (1.2-3.4) Monocytes # (Auto) 0.54 K/uL (0.11-0.59) Eosinophils # (Auto) 0.23 K/uL (0-0.5) Basophils # (Auto) 0.05 K/uL (0-0.2) RDW Standard Deviation 50.1 fL (36.4-46.3) RDW Coefficient of Variation 14.9 % (11.5-14.5) Immature Granulocyte % (Auto) 0.5 % Immature Granulocyte # (Auto) 0.03 K/uL (0.00-0.02) Anion Gap 7.0 mmol/L (3-11) Est Creatinine Clear Calc Drug Dose 189.7 ml/min Estimated GFR () 149.3 Estimated GFR (Non- 128.8 BUN/Creatinine Ratio 15.9 (10-20) Calcium Level 8.8 mg/dl (8.5-10.1) Total Bilirubin 0.8 mg/dl (0.2-1) Aspartate Amino Transf (AST/SGOT) 292 U/L (15-37) Alanine Aminotransferase (ALT/SGPT) 515 U/L (12-78) Alkaline Phosphatase 931 U/L (45-117) Total Protein 6.6 gm/dl (6.4-8.2) Albumin 2.4 gm/dl (3.4-5.0) Globulin 4.2 gm/dl (2.5-4.0) Albumin/Globulin Ratio 0.6 (0.9-2) Lipase 282 U/L (73-393) Assessment and Plan 26 yo female admitted on 10Nov2017 from [facility] for intractable abdominal pain. PMH: Recent multiple septic brain emboli with residual left sided weakness, Cervical spine osteomyelitis C1-5 Choledocholithiasis, cholecystitis: As noted on 24Oct MRCP. LFTs have serially improved. GI onboard, on track for ERCP today. Surgery onboard, they wish to defer cholecystectomy for 2-3 weeks s/p ERCP (see their note). - Tramadol prn and percocet prn for pain. Recent multiple septic brain emboli with residual left sided weakness; Cervical spine osteomyelitis C1-5: S/p [id number] post-. Reportedly total planned antibiotic course for eight weeks (mid-November) but possible MRI before this. H& P notes she was on meropenem 2 grams IV q8h but this morning on turnover is on Imipenem/Cilastatin IV q6h. Patient and father wonder if new mild rash is related to this antibiotic switch. - Consulted ID for their antibiotic advice going forward. - Benadryl prn for mild rash. Monitoring the same. - Gabapentin q HS. Depression: On home paroxetine. Code status: Full code. Diet: NPO prior to ERCP. DVT prophy: Heparin BID. PT/OT: OT recommended continued rehab.. PT eval pending. Disbo: Pending GI and ID eval. Case management onboard. Likely back to [facility] upon discharge. Resident Tracking Resident Involvement: Resident Care Provided Care Provided: Adult Hospital Medicine (inpatient) Assessment/Plan Resident Physician Supervision Note: I was present with Dr. Nelson during the history and exam. I discussed the case with the resident and agree with the findings and plan as documented in the note. Any exceptions or clarifications are listed here. Pt complains of mild diffuse abdominal pain and loose BM. Family concerned re: scheduling of procedures in the setting of anesthesia, but per GI/Surgical consultation, will do ERCP and abstain from surgery if possible. At present, will continue abx therapy, but C/S ID to determine more appropriate regimen in the face of ?reaction v. new onset dermatitis of other origin.
[2017-11-12] MEDS: PAROXETINE 20 MG TAB PO SCH (09:46)
[2017-11-12] MEDS: FAMOTIDINE IV INJ 20 MG in SYRINGE 3 ML IV SCH (09:46)
[2017-11-12] MEDS: LACTOBACILLUS ACIDOPHILUS (FLORANEX) TAB PO SCH ×2 (09:46→17:45)
[2017-11-12] MEDS: HEPARIN SOD 5000 UNIT/0.5 ML CARP SC SCH ×2 (09:52→21:40)
[2017-11-12] MEDS ORDERED: INDOMETHACIN 50 MG SUPP PR SCH (10:40)
--- NOTE | 2017-11-12 12:57 | Surgery Progress Note ---
Surgery Progress Note Date of Service Nov 12, 2017. Subjective + feeling well F/U CBD stone possible cholecystitis, pt denies abdominal pain, no nausea, no vomiting, pt tolerated regular diet, Objective Vital Signs: Date Time Temp Pulse Resp B/P (MAP) Pulse Ox O2 Delivery O2 Flow Rate FiO2 11/12/17 07:41 36.8 79 16 135/91 (106) 95 Room Air 11/12/17 07:15 Room Air 11/11/17 23:35 Room Air 11/11/17 22:50 36.8 82 16 136/88 (104) 95 Room Air 11/11/17 15:47 36.8 91 18 129/80 (96) 94 Room Air 11/11/17 15:20 Room Air General Appearance: WD/WN, no apparent distress Head: normocephalic Neck: supple, no JVD Respiratory/Chest: chest non-tender, lungs clear Cardiovascular: regular rate, rhythm, no edema, no gallop, no JVD, no murmur Abdomen: normal bowel sounds, non tender, non distended, soft, no organomegaly Extremities: normal range of motion (left side body weakness), non-tender, normal inspection Laboratory Results: Results Past 24 Hours Test 11/12/17 05:40 Range/Units White Blood Count 5.73 4.8-10.8 K/uL Red Blood Count 3.69 4.2-5.4 M/uL Hemoglobin 11.4 12.0-16.0 g/dL Hematocrit 34.1 37-47 % Mean Corpuscular Volume 92.4 80-100 fL Mean Corpuscular Hemoglobin 30.9 25-34 pg Mean Corpuscular Hemoglobin Concent 33.4 32-36 g/dl Platelet Count 318 130-400 K/uL Mean Platelet Volume 9.2 7.4-10.4 fL Neutrophils (%) (Auto) 45.2 % Lymphocytes (%) (Auto) 40.0 % Monocytes (%) (Auto) 9.4 % Eosinophils (%) (Auto) 4.0 % Basophils (%) (Auto) 0.9 % Neutrophils # (Auto) 2.59 1.4-6.5 K/uL Lymphocytes # (Auto) 2.29 1.2-3.4 K/uL Monocytes # (Auto) 0.54 0.11-0.59 K/uL Eosinophils # (Auto) 0.23 0-0.5 K/uL Basophils # (Auto) 0.05 0-0.2 K/uL RDW Standard Deviation 50.1 36.4-46.3 fL RDW Coefficient of Variation 14.9 11.5-14.5 % Immature Granulocyte % (Auto) 0.5 % Immature Granulocyte # (Auto) 0.03 0.00-0.02 K/uL Sodium Level 141 136-145 mmol/L Potassium Level 4.0 3.5-5.1 mmol/L Chloride Level 107 98-107 mmol/L Carbon Dioxide Level 27 21-32 mmol/L Anion Gap 7.0 3-11 mmol/L Blood Urea Nitrogen 9 7-18 mg/dl Creatinine 0.57 0.60-1.20 mg/dl Est Creatinine Clear Calc Drug Dose 189.7 ml/min Estimated GFR () 149.3 Estimated GFR (Non- 128.8 BUN/Creatinine Ratio 15.9 10-20 Random Glucose 75 70-99 mg/dl Calcium Level 8.8 8.5-10.1 mg/dl Total Bilirubin 0.8 0.2-1 mg/dl Aspartate Amino Transf (AST/SGOT) 292 15-37 U/L Alanine Aminotransferase (ALT/SGPT) 515 12-78 U/L Alkaline Phosphatase 931 45-117 U/L Total Protein 6.6 6.4-8.2 gm/dl Albumin 2.4 3.4-5.0 gm/dl Globulin 4.2 2.5-4.0 gm/dl Albumin/Globulin Ratio 0.6 0.9-2 Lipase 282 73-393 U/L Assessment & Plan base on pt have no abdominal pain, normal WBC, I talked to GI doctor, who will do ERCP today, Hold cholecystectomy now, pt is high risks for ERCP + lap ashanti a same time. pt and her family members also want to do ERCP first, wait 2-3 weeks to do cholecystectomy, They agree with the plan, will F/U
[2017-11-12] MEDS ORDERED: GLYCOPYRROLATE INJ 0.2 MG/ML VIAL ONE (13:07)
[2017-11-12] MEDS ORDERED: FENTANYL CITRATE INJ 50 MCG/1 ML 2 ML VIAL ONE (13:07)
[2017-11-12] MEDS ORDERED: PROPOFOL IV EMULSION 10 MG/ML 20 ML VIAL IV ONE (13:07)
[2017-11-12] MEDS ORDERED: LIDOCAINE HCL 2% 2 ML VIAL (20MG/ML) ONE (13:07)
[2017-11-12] MEDS ORDERED: MIDAZOLAM HCL 1 MG/ML 2ML VIAL ONE ×2 (13:07→14:31)
[2017-11-12] MEDS ORDERED: DEXAMETHASONE SOD INJ 4 MG/ML VIAL ONE (13:07)
[2017-11-12] MEDS ORDERED: NEOSTIGMINE METHYLSULFATE 5 MG/5 ML SYR ONE (13:07)
[2017-11-12] MEDS ORDERED: ONDANSETRON INJ 2 MG/ML 2 ML VIAL ONE (13:07)
[2017-11-12] MEDS ORDERED: PHENYLEPHRINE HCL INJ 10 MG/ML VIAL ONE (13:43)
[2017-11-12] MEDS ORDERED: ONDANSETRON INJ 2 MG/ML 2 ML VIAL IV PRN (13:45)
[2017-11-12] MEDS ORDERED: ATROPINE SULFATE 0.1 MG/ML 5ML SYR IV PRN (13:45)
[2017-11-12] MEDS ORDERED: FENTANYL CITRATE INJ 50 MCG/1 ML 2 ML VIAL IV PRN (13:45)
[2017-11-12] MEDS ORDERED: EpHEDrine SULFATE INJ 50 MG/ML AMP IV PRN (13:45)
[2017-11-12] MEDS ORDERED: HYDROmorphone INJ 1 MG/ML SYR IV PRN (13:45)
--- NOTE | 2017-11-12 14:05 | History & Physical Bridge Note ---
H&P Re-Evaluation Bridge Note: I have examined the patient, reviewed the History & Physical and in the interval since the performance of the History & Physical I have noted the following changes of clinical significance: No changes noted. Explained to the patient in details regarding risk, benefit and alternatives of ERCP and she agreed.
[2017-11-12] MEDS ORDERED: DexMEDEtomidine HCL IV 100 MCG/ML VIAL IV ONE (14:26)
[2017-11-12] MEDS ORDERED: INDOMETHACIN 50 MG SUPP PR STA (14:38)
--- NOTE | 2017-11-12 15:04 | Progress Note ---
Progress Note Date of Service Nov 12, 2017. Progress Note Arterial line placed in OR 3 prior to full sedation in preparation for ERCP with Dr. Grullon. Right wrist prepped with chlorhexidine and draped with sterile towels. Site infiltrated with 1 cc of 1% lidocaine. 20 G angiocath placed under sterile technique utilizing sterile gloves, surgical hats and masks. Catheter threaded using seldinger technique with return of pulsatile, bright red blood. Site covered with occlusive dressing and taped in place. Waveform consistent with correct arterial placement. After placement, fingers of right hand had normal perfusion. Patient tolerated procedure well without complications. Celine Godoy MD, PhD Anesthesiology
[2017-11-12] MEDS ORDERED: SODIUM CHLORIDE 0.9% INJ 10 ML VIAL ONE (15:23)
--- NOTE | 2017-11-12 15:30 | GI REPORT ---
Procedure Date: 11/12/2017 1:55 PM Procedure: ERCP Indications: For therapy of bile duct stone(s), Elevated liver enzymes Medicines: Monitored Anesthesia Care Complications: No immediate complications. Estimated Blood Loss: Estimated blood loss: none. Procedure: Pre-Anesthesia Assessment: - Prior to the procedure, a History and Physical was performed, and patient medications and allergies were reviewed. The patient is competent. The risks and benefits of the procedure and the sedation options and risks were discussed with the patient. All questions were answered and informed consent was obtained. Patient identification and proposed procedure were verified by the physician and the nurse in the procedure room. Mental Status Examination: alert and oriented. Airway Examination: normal oropharyngeal airway and neck mobility. Respiratory Examination: clear to auscultation. CV Examination: normal. ASA Grade Assessment: IV - A patient with severe systemic disease that is a constant threat to life. After reviewing the risks and benefits, the patient was deemed in satisfactory condition to undergo the procedure. The anesthesia plan was to use monitored anesthesia care (MAC). Immediately prior to administration of medications, the patient was re-assessed for adequacy to receive sedatives. The heart rate, respiratory rate, oxygen saturations, blood pressure, adequacy of pulmonary ventilation, and response to care were monitored throughout the procedure. The physical status of the patient was re-assessed after the procedure. After obtaining informed consent, the scope was passed under direct vision. Throughout the procedure, the patient's blood pressure, pulse, and oxygen saturations were monitored continuously. The Scope was introduced through the mouth, and advanced to the duodenum and used to inject contrast into the bile duct. The ERCP was accomplished without difficulty. The patient tolerated the procedure well. Findings: The cryptoanalysis teacher film was normal. The esophagus was successfully intubated under direct vision. The scope was advanced to a normal major papilla in the descending duodenum without detailed examination of the pharynx, larynx and associated structures, and upper GI tract. The upper GI tract was grossly normal. A Fusion Ultrashort (Acrobat) 0.035 inch x 185 cm wire was passed initially into the ventral pancreatic duct. The wire was kept in place. Another Fusion Ultrashort (Acrobat) 0.035 inch x 185 cm wire was passed into the biliary tree. The Fusion OMNI sphincterotome was passed over the guidewire and the bile duct was then deeply cannulated. Contrast was injected. The main bile duct was moderately dilated. The largest diameter was 10 mm. The middle third of the main bile duct contained filling defect(s) thought to be a stone. Biliary sphincterotomy was made with a monofilament Fusion OMNI sphincterotome using ERBE electrocautery. There was no post-sphincterotomy bleeding. The biliary tree was swept with a 10 mm balloon starting at the bifurcation. Many stones were removed. No stones remained. One 5 Fr by 7 cm plastic stent with a 3/4 external pigtail and no internal flaps was placed into the ventral pancreatic duct. Clear fluid flowed through the stent. The stent was in good position. One 10 Fr by 9 cm plastic stent with a single external flap and a single internal flap was placed into the common bile duct. Bile flowed through the stent. The stent was in good position. PD was not injected with contrast. Indomethacin 100mg rectally given after the procedure. Impression: - The entire main bile duct was moderately dilated. - A filling defect consistent with a stone was seen on the cholangiogram. - A biliary sphincterotomy was performed. - Choledocholithiasis was found. Complete removal was accomplished by biliary sphincterotomy and balloon extraction. - One plastic stent was placed into the ventral pancreatic duct. - One plastic stent was placed into the common bile duct. Recommendation: - [facility]. - Clear liquid diet today. - Follow up with surgery for cholecystectomy. - Monitor LFTs. - Repeat ERCP after Lap Adrienne likely in 8 weeks to remove stent. - Obtain Abdominal Xray in one week to assure spontaneous passage of the PD stent. Romario Grullon MD 11/12/2017 3:29:51 PM This report has been signed electronically. Note Initiated On: 11/12/2017 1:55 PM I attest to the content of the Intraoperative Record and orders documented therein, exceptions below
--- NOTE | 2017-11-12 15:39 | DIAGNOSTIC IMAGING REPORT ---
ERCP BILIARY DUCTAL CLINICAL HISTORY: 26 years-old Female presenting with EXPLORE DUCTS. TECHNIQUE: Fluoroscopy was provided for an intraoperative cholangiogram status post cholecystectomy. Contrast was injected through the cystic duct remnant. COMPARISON: MRCP from 11/10/2017. FINDINGS: The common bile duct is mildly dilated with evidence of a filling defect consistent with choledocholithiasis. Moderate diffuse intrahepatic biliary ductal dilatation. A common bile duct stent was placed at the conclusion of the procedure. Fluoroscopy dosage (mGy): 22.67. Fluoroscopy time: 77.1 seconds. Number of fluoroscopic spot images: 7. IMPRESSION: Fluoroscopy provided for an intraoperative cholangiogram demonstrating choledocholithiasis with intrahepatic and extra hepatic biliary ductal dilatation. Electronically signed by: Zafar Prajapati M.D. 11/12/2017 3:38 PM Dictated Date/Time: 11/12/2017 3:35 PM
--- NOTE | 2017-11-12 15:55 | Anesthesiology Progress Note ---
Anesthesia Post Op Note Date & Time Nov 12, 2017 at 15:53 Vital Signs Pain Intensity: 0 Vital Signs Past 12 Hours Date Time Temp Pulse Resp B/P (MAP) Pulse Ox O2 Delivery O2 Flow Rate FiO2 11/12/17 15:45 77 15 117/78 95 Nasal Cannula 2 11/12/17 15:36 36.5 80 18 121/74 96 Nasal Cannula 2 11/12/17 07:41 36.8 79 16 135/91 (106) 95 Room Air 11/12/17 07:15 Room Air Notes Mental Status: alert / awake / arousable, participated in evaluation Pt Amnestic to Procedure: Yes Nausea / Vomiting: adequately controlled Pain: adequately controlled Airway Patency, RR, SpO2: stable & adequate BP & HR: stable & adequate Hydration State: stable & adequate Anesthetic Complications: no major complications apparent Anesthetic Complications: Patient tolerated procedure extremely well without any concerning drops in blood pressure. Vital signs excellent in PACU and patient awake and conversant. Mentating appropriately and moving both LE and right upper extremity. Able to move 2 fingers on left upper extremity (preoperative baseline). Arterial line removed without complication.
--- NOTE | 2017-11-12 16:44 | [facility] Post Operative Brief Note ---
Immediate Operative Summary Operative Date Nov 12, 2017. Pre-Operative Diagnosis Common Bile Duct Stones Post-Operative Diagnosis Common Bile Duct Stones Procedure(s) Performed Endoscopic Retrograde Cholangiopancreatography with stent placement and stone removal Surgeon Dr. Grullon Exhibition Organiser Surgeon(s) none Estimated Blood Loss 0ml Findings Consistent with Post-Op Diagnosis Specimens none per surgeon Anesthesia Type MAC
--- NOTE | 2017-11-12 16:46 | Gastroenterology Progress Note ---
Gastroenterology Progress Note Patient underwent ERCP, CBD stones removed and plastic stent placed. Recommendations: Follow up with surgery for cholecystectomy. Repeat ERCP for stent removal after surgery will be arranged as outpatient.
[2017-11-12 16:50] VITALS: BP 107/75; PULSE 72; TEMP 36.4; O2SAT 97
[2017-11-12 17:19] VITALS: BP 114/76; PULSE 69; TEMP 36.5; O2SAT 99
[2017-11-12 18:21] VITALS: BP 112/72; PULSE 69; TEMP 36.7; O2SAT 99
[2017-11-12 19:05] VITALS: BP 110/72; PULSE 56; TEMP 36.4; O2SAT 97
[2017-11-12] MEDS ORDERED: NURSING VERBAL MED ORDER ONE (19:15)
[2017-11-12] MEDS: SODIUM CHLORIDE 0.9% 1000ML 1,000 ML IV SCH (19:26)
[2017-11-12] MEDS: GABAPENTIN 100 MG CAP PO SCH (21:38)
[2017-11-12] MEDS: OXYCODONE/ACETAMINOPHEN 5-325 TAB PO PRN (21:39)
[2017-11-12 23:05] VITALS: BP 113/72; PULSE 62; TEMP 36.5; O2SAT 95
[2017-11-13] MEDS: ACETAMINOPHEN 500 MG TAB PO SCH ×5 (03:35→21:19)
[2017-11-13 04:01] VITALS: BP 108/67; PULSE 67; TEMP 36.9; O2SAT 93
[2017-11-13] MEDS: IMIPENEM/CILASTATIN IV 500 MG in D5W 100ML IV SCH ×4 (05:43→23:29)
[2017-11-13] MEDS: SODIUM CHLORIDE 0.9% 1000ML 1,000 ML IV SCH ×2 (05:44→17:06)
[2017-11-13 07:28] VITALS: BP 123/76; PULSE 78; TEMP 36.8; O2SAT 92
[2017-11-13 07:42] LABS: BASO % 0.4 %; BASO ABS # 0.02 K/uL (0-0.2); EOS % 3.4 %; EOS ABS # 0.16 K/uL (0-0.5); HEMATOCRIT 32.7 % (37-47); HEMOGLOBIN 11.3 g/dL (12.0-16.0); IG# 0.02 K/uL (0.00-0.02); LYMPH % 41.6 %; LYMPH ABS # 1.94 K/uL (1.2-3.4); MEAN CELL VOLUME 90.8 fL (80-100); MEAN CORPUSCULAR HEMOGLOBIN 31.4 pg (25-34); MEAN CORPUSCULAR HGB CONC 34.6 g/dl (32-36); MONO % 9.9 %; MONO ABS # 0.46 K/uL (0.11-0.59); NEUT % 44.3 %; NEUT ABS # 2.06 K/uL (1.4-6.5); PLATELET COUNT 296 K/uL (130-400); RED CELL DISTRIBUTION WIDTH CV 14.6 % (11.5-14.5); RED CELL DISTRIBUTION WIDTH SD 48.1 fL (36.4-46.3); WHITE BLOOD COUNT 4.66 K/uL (4.8-10.8)
[2017-11-13 08:21] LABS: ALBUMIN 2.3 gm/dl (3.4-5.0); ALT/SGPT 318 U/L (12-78); BLOOD UREA NITROGEN 7 mg/dl (7-18); CARBON DIOXIDE 28 mmol/L (21-32); CREATININE 0.48 mg/dl (0.60-1.20); GLUCOSE 85 mg/dl (70-99); POTASSIUM 3.9 mmol/L (3.5-5.1); SODIUM 139 mmol/L (136-145)
[2017-11-13 08:24] LABS: ALKALINE PHOSPHATASE 794 U/L (45-117); AST/SGOT 92 U/L (15-37); TOTAL PROTEIN 6.3 gm/dl (6.4-8.2)
[2017-11-13] MEDS: LACTOBACILLUS ACIDOPHILUS (FLORANEX) TAB PO SCH ×2 (08:30→17:13)
[2017-11-13] MEDS: PAROXETINE 20 MG TAB PO SCH (08:30)
[2017-11-13] MEDS: HEPARIN SOD 5000 UNIT/0.5 ML CARP SC SCH ×2 (08:37→21:23)
[2017-11-13] MEDS: FAMOTIDINE IV INJ 20 MG in SYRINGE 3 ML IV SCH (08:38)
--- NOTE | 2017-11-13 08:52 | Family Medicine Progress Note ---
Progress Note Date of Service Nov 13, 2017. Subjective Pt evaluation today including: conversation w/ patient, conversation w/ family (mother) Found patient resting comfortably this morning. Says she is pain-free, including for her abdomen. Denies any N/V with PO intake. Says that the rash on her back and face still itches, is not painful, but benadryl seems to make it resolve. She does not volunteer any concerns, but on ROS says she has a mild generalized headache. No other acute c/o. Constitutional: No fever, No chills Respiratory: No cough, No shortness of breath Cardiovascular: No chest pain, No edema Abdomen: No pain, No nausea, No vomiting, No diarrhea Neurologic: + see HPI, + weakness (baseline) Skin: + rash Medications Current Inpatient Medications Medications (Trade) Dose Ordered Sig/Cata Route Start Time Stop Time Status Last Admin Dose Admin Acetaminophen (Tylenol Tab) 500 mg Q4 PO 11/10/17 16:00 12/10/17 15:59 11/13/17 07:09 500 MG Al Hydrox/Mg Hydrox/Simethicone (Maalox Max Susp) 30 ml Q4H PRN PO 11/10/17 13:00 12/10/17 12:59 Gabapentin (Neurontin Cap) 100 mg HS PO 11/10/17 21:00 12/10/17 20:59 11/12/17 21:38 100 MG Heparin Sodium (Porcine) (Heparin Sq 5000 Unit/0.5ml) 5,000 unit BID SC 11/10/17 21:00 12/10/17 20:59 11/13/17 08:37 5,000 UNIT Lactobacillus Acidophilus (Floranex Tab) 1 tab BIDM PO 11/10/17 17:45 12/10/17 17:59 11/13/17 08:30 1 TAB Paroxetine HCl (pAXil TAB) 20 mg DAILY PO 11/11/17 09:00 12/11/17 08:59 11/13/17 08:30 20 MG Tramadol HCl (Ultram Tab) 50 mg Q6H PRN PO 11/10/17 13:00 12/10/17 12:59 11/11/17 16:26 50 MG Acetaminophen (Tylenol Tab) 650 mg Q8H PRN PO 11/10/17 14:15 12/10/17 14:14 Magnesium Hydroxide (Milk Of Magnesia Susp) 30 ml Q6H PRN PO 11/10/17 14:15 12/10/17 14:14 Polyethylene (Miralax Powder Packet) 17 gm DAILY PRN PO 11/10/17 15:45 12/10/17 15:44 Zolpidem Tartrate (Ambien Tab) 5 mg HSZ PRN PO 11/10/17 14:15 12/10/17 14:14 Ondansetron HCl (Zofran Inj) 4 mg Q6H PRN IV 11/10/17 14:15 12/10/17 14:14 Zolpidem Tartrate (Ambien Tab) 5 mg HSZ PRN PO 11/10/17 14:15 12/10/17 14:14 Morphine Sulfate (MoRPHine SULFATE INJ) 2 mg Q4H PRN IV 11/10/17 14:15 11/24/17 14:14 Oxycodone/ Acetaminophen (Percocet 5-325mg Tab) 1 tab Q4H PRN PO 11/10/17 14:15 11/24/17 14:14 11/12/17 21:39 1 TAB Famotidine 20 mg/ Syringe 5 ml @ 2.5 mls/min DAILY IV 11/11/17 09:00 12/11/17 08:59 11/13/17 08:38 2.5 MLS/MIN Imipenem/ Cilastatin Sodium 500 mg/Dextrose 110 ml @ 110 mls/hr Q6 IV 11/10/17 18:45 11/26/17 23:59 11/13/17 05:43 110 MLS/HR Heparin Sodium (Porcine) (Heparin 10 Unit/ ml 5 ml Flush) 5 ml PRN PRN FLUSH 11/10/17 21:00 12/10/17 20:59 11/12/17 09:58 5 ML Diphenhydramine HCl (Benadryl Cap) 25 mg Q6 PRN PO 11/11/17 19:30 12/11/17 19:29 11/13/17 07:09 25 MG Diphenhydramine HCl (Benadryl Inj) 25 mg BID PRN IV 11/12/17 07:00 12/12/17 06:59 11/12/17 07:34 25 MG Sodium Chloride 1,000 ml @ 100 mls/hr Q10H IV 11/12/17 16:15 12/12/17 16:14 11/13/17 05:44 100 MLS/HR Objective Vital Signs Date Time Temp Pulse Resp B/P (MAP) Pulse Ox O2 Delivery O2 Flow Rate FiO2 11/13/17 08:15 Room Air 11/13/17 07:28 36.8 78 16 123/76 (92) 92 Room Air 11/13/17 04:01 36.9 67 17 108/67 (81) 93 Room Air 11/12/17 23:35 Room Air 11/12/17 23:05 36.5 62 17 113/72 (86) 95 Room Air 11/12/17 19:05 36.4 56 18 110/72 (85) 97 Room Air 11/12/17 18:21 36.7 69 14 112/72 (85) 99 Nasal Cannula 2.0 11/12/17 17:19 36.5 69 16 114/76 (89) 99 11/12/17 16:50 36.4 72 16 107/75 (86) 97 Ambu-Bag 2.0 11/12/17 16:10 Nasal Cannula 2.0 11/12/17 16:10 Nasal Cannula 2.0 11/12/17 15:55 36.5 76 16 107/73 96 Nasal Cannula 2 11/12/17 15:45 77 15 117/78 95 Nasal Cannula 2 11/12/17 15:36 36.5 80 18 121/74 96 Nasal Cannula 2 Physical Exam Notes: General Appearance: Awake, alert & oriented, comfortable in general, NAD. CV: +S1S2 RRR, no murmur. No peripheral edema. Pulm: Clear to auscultation throughout. Abdomen: +BS, soft, non-tender to palpation and percussion, non-distended. Extremities: No pedal edema or calf tenderness. Neuro: Minimal to no desktop publisher strength in left hand but sensation grossly present. Right hand desktop publisher strength fair. Can move toes bilaterally. Lines: PIV. Laboratory Results 11/13/17 07:13 Red Blood Count 3.60, Mean Corpuscular Volume 90.8, Mean Corpuscular Hemoglobin 31.4, Mean Corpuscular Hemoglobin Concent 34.6, Mean Platelet Volume 9.0, Neutrophils (%) (Auto) 44.3, Lymphocytes (%) (Auto) 41.6, Monocytes (%) (Auto) 9.9, Eosinophils (%) (Auto) 3.4, Basophils (%) (Auto) 0.4, Neutrophils # (Auto) 2.06, Lymphocytes # (Auto) 1.94, Monocytes # (Auto) 0.46, Eosinophils # (Auto) 0.16, Basophils # (Auto) 0.02 11/13/17 07:13 Test 11/13/17 07:13 White Blood Count 4.66 K/uL (4.8-10.8) Red Blood Count 3.60 M/uL (4.2-5.4) Hemoglobin 11.3 g/dL (12.0-16.0) Hematocrit 32.7 % (37-47) Mean Corpuscular Volume 90.8 fL (80-100) Mean Corpuscular Hemoglobin 31.4 pg (25-34) Mean Corpuscular Hemoglobin Concent 34.6 g/dl (32-36) Platelet Count 296 K/uL (130-400) Mean Platelet Volume 9.0 fL (7.4-10.4) Neutrophils (%) (Auto) 44.3 % Lymphocytes (%) (Auto) 41.6 % Monocytes (%) (Auto) 9.9 % Eosinophils (%) (Auto) 3.4 % Basophils (%) (Auto) 0.4 % Neutrophils # (Auto) 2.06 K/uL (1.4-6.5) Lymphocytes # (Auto) 1.94 K/uL (1.2-3.4) Monocytes # (Auto) 0.46 K/uL (0.11-0.59) Eosinophils # (Auto) 0.16 K/uL (0-0.5) Basophils # (Auto) 0.02 K/uL (0-0.2) RDW Standard Deviation 48.1 fL (36.4-46.3) RDW Coefficient of Variation 14.6 % (11.5-14.5) Immature Granulocyte % (Auto) 0.4 % Immature Granulocyte # (Auto) 0.02 K/uL (0.00-0.02) Anion Gap 6.0 mmol/L (3-11) Est Creatinine Clear Calc Drug Dose 225.3 ml/min Estimated GFR () > 150.0 Estimated GFR (Non- 136.3 BUN/Creatinine Ratio 13.6 (10-20) Calcium Level 9.0 mg/dl (8.5-10.1) Total Bilirubin 0.5 mg/dl (0.2-1) Aspartate Amino Transf (AST/SGOT) 92 U/L (15-37) Alanine Aminotransferase (ALT/SGPT) 318 U/L (12-78) Alkaline Phosphatase 794 U/L (45-117) Total Protein 6.3 gm/dl (6.4-8.2) Albumin 2.3 gm/dl (3.4-5.0) Globulin 4.0 gm/dl (2.5-4.0) Albumin/Globulin Ratio 0.6 (0.9-2) Assessment and Plan 26 yo female admitted on [id number] from [facility] for intractable abdominal pain. 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 LFTs have serially improved. Underwent ERCP on , now s/p CBD stones removed and plastic stent placement. - Will need outpatient follow up and eventual stent replacement. - Surgery onboard, they wish to defer cholecystectomy for 2-3 weeks s/p ERCP ( see their note). - Tramadol prn and percocet prn for pain. 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 Reportedly total planned antibiotic course for eight weeks (mid-November) but possible MRI before this (if ID chooses a prolonged course). H&P notes she was on meropenem 2 grams IV q8h but this morning on turnover is on Imipenem/Cilastatin IV q6h. Patient and father wonder if new mild rash is related to this antibiotic switch. - Consulted ID for their antibiotic advice going forward. They recommended obtaining CT head and c-spine as part of prior workup, so ordered the same. --- Specifically would also like thoughts on if a -penem will cover for cholecystitis as well. Thank you! - Benadryl prn for mild rash. Monitoring the same. - Gabapentin q HS. Depression: On home paroxetine. Code status: Full code. Diet: Low fat diet. DVT prophy: Heparin BID. PT/OT: OT recommended continued rehab.. PT eval pending. Disbo: Pending GI and ID eval. Case management onboard. Likely back to [facility] upon discharge. Resident Tracking Resident Involvement: Resident Care Provided Care Provided: Adult Hospital Medicine (inpatient) Assessment/Plan Resident Physician Supervision Note: I was present with Dr. Nelson during the history and exam. I discussed the case with the resident and agree with the findings and plan as documented in the note. Any exceptions or clarifications are listed here. Pt states that abdominal pain has resolved. Slight b/l frontal headache this AM which has also resolved. Not requiring pain medications today. Tolerating diet well, would like chips. Continue abx therapy for septic emboli and repeat CT ID recommendations.
--- NOTE | 2017-11-13 09:25 | Medical Consult ---
Consultation Date of Consultation: Nov 13, 2017. Attending Physician: Oneil Christianson MD Reason for Consultation: Antibiotic recommendations, history of septic emboli History of Present Illness 26-year-old female with complicated medical history since September after uneventful delivery, when after several weeks patient developed severe headaches and was found to have positive blood cultures for fusobacterium, urinary tract infection with Enterobacter, and evidence of septic RN HEMO DIALYSIS emboli. She was transferred to [facility], and was treated for bacterial meningitis as well as for cervical spine osteomyelitis, organisms not known at present time, and was discharged to [facility] for further management. She has been maintained on meropenem since [facility] admission. Over the day or 2 prior to her admission, she developed severe right upper quadrant pain, and was subsequently found to have evidence of cholecystitis and biliary obstruction. She has now undergone ERCP with stent placement, with significant improvement in her abdominal pain. She has been treated with IV imipenem. She has developed a rash on her lower back, now receiving Benadryl. Feeling much improved, eating well, and is afebrile. Past Medical/Surgical History Medical Problems: (1) Choledocholithiasis with acute cholecystitis with obstruction Status: Acute (2) Pain, dental Status: Acute Medical Problems: (1) Altered mental status (2) Positive GBS test (3) with 38 completed weeks gestation (4) Spontaneous rupture of amniotic membranes Family History Patient reports no known family medical history. Social History Smoking Status: Current Every Day Smoker Drug Use: none Marital Status: single Housing Status: lives with family Allergies Coded Allergies: NO KNOWN DRUG ALLERGIES (Verified Allergy, Unknown, none, 10/14/17) Current Inpatient Medications Current Inpatient Medications Medications (Trade) Dose Ordered Sig/Cata Route Start Time Stop Time Status Last Admin Dose Admin Acetaminophen (Tylenol Tab) 500 mg Q4 PO 11/10/17 16:00 12/10/17 15:59 11/13/17 07:09 500 MG Al Hydrox/Mg Hydrox/Simethicone (Maalox Max Susp) 30 ml Q4H PRN PO 11/10/17 13:00 12/10/17 12:59 Gabapentin (Neurontin Cap) 100 mg HS PO 11/10/17 21:00 12/10/17 20:59 11/12/17 21:38 100 MG Heparin Sodium (Porcine) (Heparin Sq 5000 Unit/0.5ml) 5,000 unit BID SC 11/10/17 21:00 12/10/17 20:59 11/13/17 08:37 5,000 UNIT Lactobacillus Acidophilus (Floranex Tab) 1 tab BIDM PO 11/10/17 17:45 12/10/17 17:59 11/13/17 08:30 1 TAB Paroxetine HCl (pAXil TAB) 20 mg DAILY PO 11/11/17 09:00 12/11/17 08:59 11/13/17 08:30 20 MG Tramadol HCl (Ultram Tab) 50 mg Q6H PRN PO 11/10/17 13:00 12/10/17 12:59 11/11/17 16:26 50 MG Acetaminophen (Tylenol Tab) 650 mg Q8H PRN PO 11/10/17 14:15 12/10/17 14:14 Magnesium Hydroxide (Milk Of Magnesia Susp) 30 ml Q6H PRN PO 11/10/17 14:15 12/10/17 14:14 Polyethylene (Miralax Powder Packet) 17 gm DAILY PRN PO 11/10/17 15:45 12/10/17 15:44 Zolpidem Tartrate (Ambien Tab) 5 mg HSZ PRN PO 11/10/17 14:15 12/10/17 14:14 Ondansetron HCl (Zofran Inj) 4 mg Q6H PRN IV 11/10/17 14:15 12/10/17 14:14 Zolpidem Tartrate (Ambien Tab) 5 mg HSZ PRN PO 11/10/17 14:15 12/10/17 14:14 Morphine Sulfate (MoRPHine SULFATE INJ) 2 mg Q4H PRN IV 11/10/17 14:15 11/24/17 14:14 Oxycodone/ Acetaminophen (Percocet 5-325mg Tab) 1 tab Q4H PRN PO 11/10/17 14:15 11/24/17 14:14 11/12/17 21:39 1 TAB Famotidine 20 mg/ Syringe 5 ml @ 2.5 mls/min DAILY IV 11/11/17 09:00 12/11/17 08:59 11/13/17 08:38 2.5 MLS/MIN Imipenem/ Cilastatin Sodium 500 mg/Dextrose 110 ml @ 110 mls/hr Q6 IV 11/10/17 18:45 11/26/17 23:59 11/13/17 05:43 110 MLS/HR Heparin Sodium (Porcine) (Heparin 10 Unit/ ml 5 ml Flush) 5 ml PRN PRN FLUSH 11/10/17 21:00 12/10/17 20:59 11/12/17 09:58 5 ML Diphenhydramine HCl (Benadryl Cap) 25 mg Q6 PRN PO 11/11/17 19:30 12/11/17 19:29 11/13/17 07:09 25 MG Diphenhydramine HCl (Benadryl Inj) 25 mg BID PRN IV 11/12/17 07:00 12/12/17 06:59 11/12/17 07:34 25 MG Sodium Chloride 1,000 ml @ 100 mls/hr Q10H IV 11/12/17 16:15 12/12/17 16:14 11/13/17 05:44 100 MLS/HR Review of Systems All systems were reviewed and are negative except as per HPI Physical Exam Date Time Temp Pulse Resp B/P (MAP) Pulse Ox O2 Delivery O2 Flow Rate FiO2 11/13/17 08:15 Room Air 11/13/17 07:28 36.8 78 16 123/76 (92) 92 Room Air 11/13/17 04:01 36.9 67 17 108/67 (81) 93 Room Air 11/12/17 23:35 Room Air 11/12/17 23:05 36.5 62 17 113/72 (86) 95 Room Air 11/12/17 19:05 36.4 56 18 110/72 (85) 97 Room Air 11/12/17 18:21 36.7 69 14 112/72 (85) 99 Nasal Cannula 2.0 11/12/17 17:19 36.5 69 16 114/76 (89) 99 11/12/17 16:50 36.4 72 16 107/75 (86) 97 Ambu-Bag 2.0 11/12/17 16:10 Nasal Cannula 2.0 11/12/17 16:10 Nasal Cannula 2.0 11/12/17 15:55 36.5 76 16 107/73 96 Nasal Cannula 2 11/12/17 15:45 77 15 117/78 95 Nasal Cannula 2 11/12/17 15:36 36.5 80 18 121/74 96 Nasal Cannula 2 General Appearance: WD/WN, no apparent distress Head: normocephalic, atraumatic Eyes: normal inspection, EOMI, sclerae normal ENT: normal ENT inspection, hearing grossly normal, pharynx normal Neck: supple, no adenopathy, thyroid normal, trachea midline Respiratory/Chest: chest non-tender, lungs clear, normal breath sounds, no respiratory distress Cardiovascular: regular rate, rhythm, no gallop, no murmur Abdomen/GI: normal bowel sounds, soft, no organomegaly, + tenderness (Right upper quadrant) Back: normal inspection, no CVA tenderness Extremities/Musculoskelatal: normal inspection, no calf tenderness, non-tender Neurologic/Psych: alert, normal mood/affect, oriented x 3 Skin: normal color, warm/dry, + pertinent finding (Maculopapular rash on lower back) Lymphatic: no adenopathy Laboratory Results Last 24 Hours Test 11/13/17 07:13 White Blood Count 4.66 K/uL Red Blood Count 3.60 M/uL Hemoglobin 11.3 g/dL Hematocrit 32.7 % Mean Corpuscular Volume 90.8 fL Mean Corpuscular Hemoglobin 31.4 pg Mean Corpuscular Hemoglobin Concent 34.6 g/dl Platelet Count 296 K/uL Mean Platelet Volume 9.0 fL Neutrophils (%) (Auto) 44.3 % Lymphocytes (%) (Auto) 41.6 % Monocytes (%) (Auto) 9.9 % Eosinophils (%) (Auto) 3.4 % Basophils (%) (Auto) 0.4 % Neutrophils # (Auto) 2.06 K/uL Lymphocytes # (Auto) 1.94 K/uL Monocytes # (Auto) 0.46 K/uL Eosinophils # (Auto) 0.16 K/uL Basophils # (Auto) 0.02 K/uL RDW Standard Deviation 48.1 fL RDW Coefficient of Variation 14.6 % Immature Granulocyte % (Auto) 0.4 % Immature Granulocyte # (Auto) 0.02 K/uL Sodium Level 139 mmol/L Potassium Level 3.9 mmol/L Chloride Level 105 mmol/L Carbon Dioxide Level 28 mmol/L Anion Gap 6.0 mmol/L Blood Urea Nitrogen 7 mg/dl Creatinine 0.48 mg/dl Est Creatinine Clear Calc Drug Dose 225.3 ml/min Estimated GFR () > 150.0 Estimated GFR (Non- 136.3 BUN/Creatinine Ratio 13.6 Random Glucose 85 mg/dl Calcium Level 9.0 mg/dl Total Bilirubin 0.5 mg/dl Aspartate Amino Transf (AST/SGOT) 92 U/L Alanine Aminotransferase (ALT/SGPT) 318 U/L Alkaline Phosphatase 794 U/L Total Protein 6.3 gm/dl Albumin 2.3 gm/dl Globulin 4.0 gm/dl Albumin/Globulin Ratio 0.6 Patient Name: MAGDA SELLERS Unit Number: [id number] Dictated: 11/10/171105 Transcribed: 11/10/17 110 MS Printed Date/Time: [~ rep prt dt]/[~ rep prt tm] [~ rep ct labl] - [~ rep ct ivnm] [facility] [place] [address] Dictated: 11/10/171105 Transcribed: 11/10/17 1106 MS Printed Date/Time: [~ rep prt dt]/[~ rep prt tm] [~ rep ct labl] - [~ rep ct ivnm] GALLBLADDER-ABD LIMITED CLINICAL HISTORY: ABDOMINAL PAIN/GI pain TECHNIQUE: Ultrasound COMPARISON STUDY: None FINDINGS: Fatty infiltration of liver. Mild intrahepatic biliary ductal prominence. Gallbladder contains multiple gallstones. Mild gallbladder wall edema. Trace pericholecystic fluid. Common bile duct 12 mm. Right kidney is negative for necrosis. IMPRESSION: 1. Multiple gallstones. 2. Trace pericholecystic fluid. 3. Biliary ductal dilatation raising the possibility of choledocholithiasis 4. Fatty infiltration of liver. The above report was generated using voice recognition software. It may contain grammatical, syntax or spelling errors. Electronically signed by: Dhruv Albert M.D. 11/10/2017 11:08 AM Dictated Date/Time: 11/10/2017 11:06 AM The status of this report is Signed. Draft = Not yet reviewed or approved by Radiologist. Signed = Reviewed and approved by Radiologist. <AttendingPhy></AttendingPhy> <FamilyPhy>Jose Gan D.O.</FamilyPhy> < PrimaryPhy>Jose Gan D.O.</PrimaryPhy> <UnitNumber>[id number]</UnitNumber > <VisitNumber>[id number]</VisitNumber> <PatientName>MAGDA SELLERS</ PatientName> <DateOfBirth>1990</DateOfBirth> <Location>[facility]</Location> < ServiceDate>11/10/17</ServiceDate> <MNE>ESINDI</MNE> <OrderingPhy>Christopher Atwood D.O.</OrderingPhy> <OrderingPhyMNE>f rep ord dr marin</OrderingPhyMNE> < DictatingPhyMNE>f rep dict dr marin</DictatingPhyMNE> <CCListMNE>f rep ct mne</ CCListMNE> <AdmittingPhyMNE>f pt admit dr marin</AdmittingPhyMNE> <AttendingPhyMNE >f pt attend dr marin</AttendingPhyMNE> <ConsultingPhyMNE>f pt consult dr marin</ConsultingPhyMNE> <FamilyPhyMNE>f pt fam dr marin</FamilyPhyMNE> <OtherPhyMNE>f pt other dr marin</OtherPhyMNE> < PrimaryPhyMNE>f pt prim care dr marin</PrimaryPhyMNE> <ReferringPhyMNE>f pt referring dr marin</ReferringPhyMNE> Assessment & Plan 26-year-old female with complicated recent past medical history including septic RN HEMO DIALYSIS emboli, bacterial meningitis, osteomyelitis of the cervical spine, on therapy with meropenem, now with biliary obstruction and cholecystitis status post ERCP and stenting. Patient can be continued on imipenem which will provide same coverage as her prior meropenem. Would continue Benadryl and follow rash for now is does not seem to be spreading. Patient needs follow-up CT scanning of the head and cervical spine to assess response to her therapy. Would consider obtaining this while in hospital. Will discuss with all involved. Will follow.
--- NOTE | 2017-11-13 11:18 | Surgery Progress Note ---
Surgery Progress Note Date of Service Nov 13, 2017. Subjective Post OP Day: 1 (s/p ERCP with biliary stent and pancreatic stent placement with sphincterotomy) + feeling well, + diet (tolerated clear liquids), No complaints, No chest pain, No SOB, No bowel movement, No flatus, No nausea, No vomiting Objective Vital Signs: Date Time Temp Pulse Resp B/P (MAP) Pulse Ox O2 Delivery O2 Flow Rate FiO2 11/13/17 08:15 Room Air 11/13/17 07:28 36.8 78 16 123/76 (92) 92 Room Air 11/13/17 04:01 36.9 67 17 108/67 (81) 93 Room Air 11/12/17 23:35 Room Air 11/12/17 23:05 36.5 62 17 113/72 (86) 95 Room Air 11/12/17 19:05 36.4 56 18 110/72 (85) 97 Room Air 11/12/17 18:21 36.7 69 14 112/72 (85) 99 Nasal Cannula 2.0 11/12/17 17:19 36.5 69 16 114/76 (89) 99 11/12/17 16:50 36.4 72 16 107/75 (86) 97 Ambu-Bag 2.0 11/12/17 16:10 Nasal Cannula 2.0 11/12/17 16:10 Nasal Cannula 2.0 11/12/17 15:55 36.5 76 16 107/73 96 Nasal Cannula 2 11/12/17 15:45 77 15 117/78 95 Nasal Cannula 2 11/12/17 15:36 36.5 80 18 121/74 96 Nasal Cannula 2 General Appearance: WD/WN, no apparent distress Head: normocephalic, atraumatic Neck: trachea midline Respiratory/Chest: lungs clear, normal breath sounds, no respiratory distress, no accessory muscle use Cardiovascular: regular rate, rhythm, no murmur Abdomen: normal bowel sounds, non tender, non distended, soft, no organomegaly Laboratory Results: Results Past 24 Hours Test 11/13/17 07:13 Range/Units White Blood Count 4.66 4.8-10.8 K/uL Red Blood Count 3.60 4.2-5.4 M/uL Hemoglobin 11.3 12.0-16.0 g/dL Hematocrit 32.7 37-47 % Mean Corpuscular Volume 90.8 80-100 fL Mean Corpuscular Hemoglobin 31.4 25-34 pg Mean Corpuscular Hemoglobin Concent 34.6 32-36 g/dl Platelet Count 296 130-400 K/uL Mean Platelet Volume 9.0 7.4-10.4 fL Neutrophils (%) (Auto) 44.3 % Lymphocytes (%) (Auto) 41.6 % Monocytes (%) (Auto) 9.9 % Eosinophils (%) (Auto) 3.4 % Basophils (%) (Auto) 0.4 % Neutrophils # (Auto) 2.06 1.4-6.5 K/uL Lymphocytes # (Auto) 1.94 1.2-3.4 K/uL Monocytes # (Auto) 0.46 0.11-0.59 K/uL Eosinophils # (Auto) 0.16 0-0.5 K/uL Basophils # (Auto) 0.02 0-0.2 K/uL RDW Standard Deviation 48.1 36.4-46.3 fL RDW Coefficient of Variation 14.6 11.5-14.5 % Immature Granulocyte % (Auto) 0.4 % Immature Granulocyte # (Auto) 0.02 0.00-0.02 K/uL Sodium Level 139 136-145 mmol/L Potassium Level 3.9 3.5-5.1 mmol/L Chloride Level 105 98-107 mmol/L Carbon Dioxide Level 28 21-32 mmol/L Anion Gap 6.0 3-11 mmol/L Blood Urea Nitrogen 7 7-18 mg/dl Creatinine 0.48 0.60-1.20 mg/dl Est Creatinine Clear Calc Drug Dose 225.3 ml/min Estimated GFR () > 150.0 Estimated GFR (Non- 136.3 BUN/Creatinine Ratio 13.6 10-20 Random Glucose 85 70-99 mg/dl Calcium Level 9.0 8.5-10.1 mg/dl Total Bilirubin 0.5 0.2-1 mg/dl Aspartate Amino Transf (AST/SGOT) 92 15-37 U/L Alanine Aminotransferase (ALT/SGPT) 318 12-78 U/L Alkaline Phosphatase 794 45-117 U/L Total Protein 6.3 6.4-8.2 gm/dl Albumin 2.3 3.4-5.0 gm/dl Globulin 4.0 2.5-4.0 gm/dl Albumin/Globulin Ratio 0.6 0.9-2 Assessment & Plan POD # 1 s/p ERCP with sphincterotomy, biliary and pancreatic stent placement for Choledocholithiasis -vitals stable -improvement in LFTS, t. bili wnl - no abdominal pain, afebrile, no leukocytosis Plan: Plan for outpatient cholecystectomy in a few weeks, follow-up in surgical office with Dr. Guaman in 2 weeks to schedule cholecystectomy Return to [facility] as soon as possible to resume PT Advance diet per GI Continue current medical management Our services signing off, call with concerns Dr. Guaman has seen and examined patient, agrees with above
--- NOTE | 2017-11-13 11:19 | Consultant Recommendations ---
Service Engineer Recommendations Date of Service Nov 13, 2017. Service Engineer Recommendations Follow-up surgical office with Dr. Guaman in 2 weeks, please call office at [phone] to make an appointment to discuss scheduling of outpatient cholecystectomy. Plan for cholecystectomy prior to biliary stent removal (GI recommends removal in 8 weeks) Avoid fatty/greasy meals up until gallbladder removal.
--- NOTE | 2017-11-13 11:32 | Gastroenterology Progress Note ---
Progress Note Date of Service: Nov 13, 2017 Subjective Pt evaluation today including: conversation w/ patient, physical exam, chart review, lab review, review of studies, review of inpatient medication list Ms. Villavicencio is a 26 yr old female patient who is one day post ERCP with sphincterotomy and stone extraction. Also with acute cholecystitis and surgery is following. No pain since prior to admission. Hungry. LFTs improved today: T Bili 0.5, AST 92 (down from 488), ALT 18 (down from 520 ), Alk Phos 794 (down from 922). Review of Systems Constitutional: No fever Respiratory: No cough Cardiac: No chest pain Abdomen: + see HPI, No pain, No nausea, No vomiting, No diarrhea, No constipation, No GI bleeding Female : No dysuria Neuro: No memory loss Psych: No depression symptoms Heme: No abnormal bleeding/bruising Endo: No fatigue Skin: No rash, No jaundice Medications Current Inpatient Medications Medications (Trade) Dose Ordered Sig/Acta Route Start Time Stop Time Status Last Admin Dose Admin Acetaminophen (Tylenol Tab) 500 mg Q4 PO 11/10/17 16:00 12/10/17 15:59 11/13/17 07:09 500 MG Al Hydrox/Mg Hydrox/Simethicone (Maalox Max Susp) 30 ml Q4H PRN PO 11/10/17 13:00 12/10/17 12:59 Gabapentin (Neurontin Cap) 100 mg HS PO 11/10/17 21:00 12/10/17 20:59 11/12/17 21:38 100 MG Heparin Sodium (Porcine) (Heparin Sq 5000 Unit/0.5ml) 5,000 unit BID SC 11/10/17 21:00 12/10/17 20:59 11/13/17 08:37 5,000 UNIT Lactobacillus Acidophilus (Floranex Tab) 1 tab BIDM PO 11/10/17 17:45 12/10/17 17:59 11/13/17 08:30 1 TAB Paroxetine HCl (pAXil TAB) 20 mg DAILY PO 11/11/17 09:00 12/11/17 08:59 11/13/17 08:30 20 MG Tramadol HCl (Ultram Tab) 50 mg Q6H PRN PO 11/10/17 13:00 12/10/17 12:59 11/11/17 16:26 50 MG Acetaminophen (Tylenol Tab) 650 mg Q8H PRN PO 11/10/17 14:15 12/10/17 14:14 Magnesium Hydroxide (Milk Of Magnesia Susp) 30 ml Q6H PRN PO 11/10/17 14:15 12/10/17 14:14 Polyethylene (Miralax Powder Packet) 17 gm DAILY PRN PO 11/10/17 15:45 12/10/17 15:44 Zolpidem Tartrate (Ambien Tab) 5 mg HSZ PRN PO 11/10/17 14:15 12/10/17 14:14 Ondansetron HCl (Zofran Inj) 4 mg Q6H PRN IV 11/10/17 14:15 12/10/17 14:14 Zolpidem Tartrate (Ambien Tab) 5 mg HSZ PRN PO 11/10/17 14:15 12/10/17 14:14 Morphine Sulfate (MoRPHine SULFATE INJ) 2 mg Q4H PRN IV 11/10/17 14:15 11/24/17 14:14 Oxycodone/ Acetaminophen (Percocet 5-325mg Tab) 1 tab Q4H PRN PO 11/10/17 14:15 11/24/17 14:14 11/12/17 21:39 1 TAB Famotidine 20 mg/ Syringe 5 ml @ 2.5 mls/min DAILY IV 11/11/17 09:00 12/11/17 08:59 11/13/17 08:38 2.5 MLS/MIN Imipenem/ Cilastatin Sodium 500 mg/Dextrose 110 ml @ 110 mls/hr Q6 IV 11/10/17 18:45 11/26/17 23:59 11/13/17 05:43 110 MLS/HR Heparin Sodium (Porcine) (Heparin 10 Unit/ ml 5 ml Flush) 5 ml PRN PRN FLUSH 11/10/17 21:00 12/10/17 20:59 11/12/17 09:58 5 ML Diphenhydramine HCl (Benadryl Cap) 25 mg Q6 PRN PO 11/11/17 19:30 12/11/17 19:29 11/13/17 07:09 25 MG Diphenhydramine HCl (Benadryl Inj) 25 mg BID PRN IV 11/12/17 07:00 12/12/17 06:59 11/12/17 07:34 25 MG Sodium Chloride 1,000 ml @ 100 mls/hr Q10H IV 11/12/17 16:15 12/12/17 16:14 11/13/17 05:44 100 MLS/HR Objective Vital Signs Date Time Temp Pulse Resp B/P (MAP) Pulse Ox O2 Delivery O2 Flow Rate FiO2 11/13/17 08:15 Room Air 11/13/17 07:28 36.8 78 16 123/76 (92) 92 Room Air 11/13/17 04:01 36.9 67 17 108/67 (81) 93 Room Air 11/12/17 23:35 Room Air 11/12/17 23:05 36.5 62 17 113/72 (86) 95 Room Air 11/12/17 19:05 36.4 56 18 110/72 (85) 97 Room Air 11/12/17 18:21 36.7 69 14 112/72 (85) 99 Nasal Cannula 2.0 11/12/17 17:19 36.5 69 16 114/76 (89) 99 11/12/17 16:50 36.4 72 16 107/75 (86) 97 Ambu-Bag 2.0 11/12/17 16:10 Nasal Cannula 2.0 11/12/17 16:10 Nasal Cannula 2.0 11/12/17 15:55 36.5 76 16 107/73 96 Nasal Cannula 2 11/12/17 15:45 77 15 117/78 95 Nasal Cannula 2 11/12/17 15:36 36.5 80 18 121/74 96 Nasal Cannula 2 Physical Exam General Appearance: no apparent distress Neck: thyroid normal, no JVD Respiratory/Chest: chest non-tender Cardiovascular: regular rate, rhythm, no JVD, no murmur Abdomen: non tender, soft Extremities: non-tender, no pedal edema Neurologic/Psych: alert, normal mood/affect, oriented x 3 Skin: no jaundice Laboratory Results Last 24 Hours Test 11/13/17 07:13 White Blood Count 4.66 K/uL Red Blood Count 3.60 M/uL Hemoglobin 11.3 g/dL Hematocrit 32.7 % Mean Corpuscular Volume 90.8 fL Mean Corpuscular Hemoglobin 31.4 pg Mean Corpuscular Hemoglobin Concent 34.6 g/dl Platelet Count 296 K/uL Mean Platelet Volume 9.0 fL Neutrophils (%) (Auto) 44.3 % Lymphocytes (%) (Auto) 41.6 % Monocytes (%) (Auto) 9.9 % Eosinophils (%) (Auto) 3.4 % Basophils (%) (Auto) 0.4 % Neutrophils # (Auto) 2.06 K/uL Lymphocytes # (Auto) 1.94 K/uL Monocytes # (Auto) 0.46 K/uL Eosinophils # (Auto) 0.16 K/uL Basophils # (Auto) 0.02 K/uL RDW Standard Deviation 48.1 fL RDW Coefficient of Variation 14.6 % Immature Granulocyte % (Auto) 0.4 % Immature Granulocyte # (Auto) 0.02 K/uL Sodium Level 139 mmol/L Potassium Level 3.9 mmol/L Chloride Level 105 mmol/L Carbon Dioxide Level 28 mmol/L Anion Gap 6.0 mmol/L Blood Urea Nitrogen 7 mg/dl Creatinine 0.48 mg/dl Est Creatinine Clear Calc Drug Dose 225.3 ml/min Estimated GFR () > 150.0 Estimated GFR (Non- 136.3 BUN/Creatinine Ratio 13.6 Random Glucose 85 mg/dl Calcium Level 9.0 mg/dl Total Bilirubin 0.5 mg/dl Aspartate Amino Transf (AST/SGOT) 92 U/L Alanine Aminotransferase (ALT/SGPT) 318 U/L Alkaline Phosphatase 794 U/L Total Protein 6.3 gm/dl Albumin 2.3 gm/dl Globulin 4.0 gm/dl Albumin/Globulin Ratio 0.6 Assessment and Plan Ms. Villavicencio is a 26 yr old female with acute cholecystitis, who is post procedure day #1 from ERCP with sphincterotomy and stone extraction. Plan: 1. Should be on total 10 days of antibiotics for acute cholecystitis - but will defer to surgery and primary hospitalist. 2. Low fat, regular consistency diet. 3. If tolerates eating then no GI contraindication to discharge. Would follow LFTs as an OP in 1-2 weeks and continue to follow periodically to resolution. I performed a history and physical examination of the patient, including specifically on physical exam - no abdominal tenderness. I have discussed the patient's management with SHARLA Dawson. Please refer to the nurse practitioner's note for the documented findings and plan of care. Will arrange for repeat ERCP as outpatient once cholecystectomy is done. Will get abdomen Xray in 1-2 weeks to check for passage of the PD stent.
[2017-11-13 12:04] VITALS: BP 131/81; PULSE 85; O2SAT 97
[2017-11-13 15:08] VITALS: BP 116/66; PULSE 85; TEMP 36.7; O2SAT 95
--- NOTE | 2017-11-13 16:11 | DIAGNOSTIC IMAGING REPORT ---
HEAD WITHOUT CONTRAST (CT) CT DOSE: 1037.66 mGy.cm HISTORY: Mental status change Hx septic emboli with CVA, interval eval TECHNIQUE: Multiaxial CT images of the head were performed without the use of intravenous contrast. A dose lowering technique was utilized adhering to the principles of ALARA. Comparison: 10/14/2017 Findings: The paranasal sinuses and mastoid air cells are clear. The calvarium is intact. Interval development of low density lesions involving the right frontal and left posterior parietal lobe. There is also involvement of the left occipital lobe out. There is no significant vasogenic edema. There is no midline shift. The ventricular system remains unremarkable. Impression: 1. Interval development of low density lesions involving the right frontal, left posterior parietal and left occipital lobe. 2. No evidence for acute intracranial hemorrhage. 3. No evidence for midline shift. 4. Differential is as noted previously, including multifocal infarcts, vasculitis, or a number of additional possibilities described previously. The above report was generated using voice recognition software. It may contain grammatical, syntax or spelling errors. Electronically signed by: Dhruv Albert M.D. 11/13/2017 4:10 PM Dictated Date/Time: 11/13/2017 4:05 PM
--- NOTE | 2017-11-13 16:15 | DIAGNOSTIC IMAGING REPORT ---
CT OF THE CERVICAL SPINE CLINICAL HISTORY: Neurological deficit. COMPARISON STUDY: No previous studies for comparison. CT DOSE: TECHNIQUE: CT scan of the cervical spine was performed from the skull base to the thoracic inlet. Images are reviewed in the axial, sagittal, and coronal planes. IV contrast was not administered for this examination. A dose lowering technique was utilized adhering to the principles of ALARA. FINDINGS: There are bilateral mastoid effusions The visualized portions of the lung apices reveal no evidence of pneumothorax. The prevertebral soft tissues are normal. No fractures or subluxations are visualized. There is a 5 mm sclerotic lesion within the posterior elements of the C2 vertebra, likely are presenting a bone island. There is slight straightening of the normal cervical lordosis. If there is clinical concern over the presence of cord or disc pathology, an MRI would be recommended in follow-up IMPRESSION: 1. No evidence of acute fracture or traumatic subluxation 2. No evidence of bony foraminal stenosis. No evidence of bony spinal stenosis. 3. Bilateral mastoid effusions Electronically signed by: Suraj Jerome M.D. 11/13/2017 4:14 PM Dictated Date/Time: 11/13/2017 4:08 PM
[2017-11-13] MEDS: OXYCODONE/ACETAMINOPHEN 5-325 TAB PO PRN ×2 (17:12→21:19)
[2017-11-13] MEDS: GABAPENTIN 100 MG CAP PO SCH (21:19)
[2017-11-13 23:18] VITALS: BP 116/69; PULSE 87; TEMP 36.9; O2SAT 93
[2017-11-14] MEDS ORDERED: NURSING DECISION MEDICATION ORDER SCH (02:00)
[2017-11-14] MEDS: ACETAMINOPHEN 500 MG TAB PO SCH ×6 (03:45→20:00)
[2017-11-14] MEDS: SODIUM CHLORIDE 0.9% 1000ML 1,000 ML IV SCH ×2 (04:40→16:21)
[2017-11-14] MEDS: IMIPENEM/CILASTATIN IV 500 MG in D5W 100ML IV SCH ×3 (05:31→18:00)
[2017-11-14] MEDS: OXYCODONE/ACETAMINOPHEN 5-325 TAB PO PRN ×3 (05:31→17:45)
--- NOTE | 2017-11-14 06:13 | Family Medicine Progress Note ---
Progress Note Date of Service Nov 14, 2017. Subjective Pt evaluation today including: conversation w/ patient, conversation w/ family (mother) Found patient resting comfortably in the bedside chair. She denies any acute concerns, including any abdominal pain or N/V. Says her generalized headache remains but is improved with tylenol, perhaps overall improved from yesterday. Denies any new focal weakness, numbness, or tingling. Says her abdomen continues to be pain-free and that she is hungry. No other acute patient concerns. Constitutional: No fever, No chills Respiratory: No cough, No shortness of breath Cardiovascular: No chest pain, No edema Abdomen: No pain, No nausea, No vomiting Neurologic: + weakness, + numbness/tingling Medications Current Inpatient Medications Medications (Trade) Dose Ordered Sig/Cata Route Start Time Stop Time Status Last Admin Dose Admin Acetaminophen (Tylenol Tab) 500 mg Q4 PO 11/10/17 16:00 12/10/17 15:59 11/13/17 21:19 500 MG Al Hydrox/Mg Hydrox/Simethicone (Maalox Max Susp) 30 ml Q4H PRN PO 11/10/17 13:00 12/10/17 12:59 Gabapentin (Neurontin Cap) 100 mg HS PO 11/10/17 21:00 12/10/17 20:59 11/13/17 21:19 100 MG Heparin Sodium (Porcine) (Heparin Sq 5000 Unit/0.5ml) 5,000 unit BID SC 11/10/17 21:00 12/10/17 20:59 11/13/17 21:23 5,000 UNIT Lactobacillus Acidophilus (Floranex Tab) 1 tab BIDM PO 11/10/17 17:45 12/10/17 17:59 11/13/17 17:13 1 TAB Paroxetine HCl (pAXil TAB) 20 mg DAILY PO 11/11/17 09:00 12/11/17 08:59 11/13/17 08:30 20 MG Tramadol HCl (Ultram Tab) 50 mg Q6H PRN PO 11/10/17 13:00 12/10/17 12:59 11/11/17 16:26 50 MG Acetaminophen (Tylenol Tab) 650 mg Q8H PRN PO 11/10/17 14:15 12/10/17 14:14 Magnesium Hydroxide (Milk Of Magnesia Susp) 30 ml Q6H PRN PO 11/10/17 14:15 12/10/17 14:14 Polyethylene (Miralax Powder Packet) 17 gm DAILY PRN PO 11/10/17 15:45 12/10/17 15:44 Zolpidem Tartrate (Ambien Tab) 5 mg HSZ PRN PO 11/10/17 14:15 12/10/17 14:14 Ondansetron HCl (Zofran Inj) 4 mg Q6H PRN IV 11/10/17 14:15 12/10/17 14:14 Zolpidem Tartrate (Ambien Tab) 5 mg HSZ PRN PO 11/10/17 14:15 12/10/17 14:14 Morphine Sulfate (MoRPHine SULFATE INJ) 2 mg Q4H PRN IV 11/10/17 14:15 11/24/17 14:14 Oxycodone/ Acetaminophen (Percocet 5-325mg Tab) 1 tab Q4H PRN PO 11/10/17 14:15 11/24/17 14:14 11/14/17 05:31 1 TAB Famotidine 20 mg/ Syringe 5 ml @ 2.5 mls/min DAILY IV 11/11/17 09:00 12/11/17 08:59 11/13/17 08:38 2.5 MLS/MIN Imipenem/ Cilastatin Sodium 500 mg/Dextrose 110 ml @ 110 mls/hr Q6 IV 11/10/17 18:45 11/26/17 23:59 11/14/17 05:31 110 MLS/HR Heparin Sodium (Porcine) (Heparin 10 Unit/ ml 5 ml Flush) 5 ml PRN PRN FLUSH 11/10/17 21:00 12/10/17 20:59 11/12/17 09:58 5 ML Diphenhydramine HCl (Benadryl Cap) 25 mg Q6 PRN PO 11/11/17 19:30 12/11/17 19:29 11/14/17 05:31 25 MG Diphenhydramine HCl (Benadryl Inj) 25 mg BID PRN IV 11/12/17 07:00 12/12/17 06:59 11/12/17 07:34 25 MG Sodium Chloride 1,000 ml @ 100 mls/hr Q10H IV 11/12/17 16:15 12/12/17 16:14 11/14/17 04:40 100 MLS/HR Objective Vital Signs Date Time Temp Pulse Resp B/P (MAP) Pulse Ox O2 Delivery O2 Flow Rate FiO2 11/13/17 23:30 Room Air 11/13/17 23:18 36.9 87 18 116/69 (85) 93 Room Air 11/13/17 15:45 Room Air 11/13/17 15:08 36.7 85 18 116/66 (83) 95 Room Air 11/13/17 12:04 85 18 131/81 (98) 97 Room Air 11/13/17 08:15 Room Air 11/13/17 07:28 36.8 78 16 123/76 (92) 92 Room Air Physical Exam Notes: General Appearance: Awake, alert & oriented, comfortable in general, NAD. CV: +S1S2 RRR, no murmur. No peripheral edema. Pulm: Clear to auscultation throughout. Abdomen: +BS, soft, non-tender to palpation and percussion, non-distended. Extremities: No pedal edema or calf tenderness. Neuro: Minimal to no rubble placer strength in left hand but sensation grossly present. Right hand rubble placer strength fair. Can move toes bilaterally. Lines: PIV. Laboratory Results 11/14/17 06:02 Red Blood Count 3.35, Mean Corpuscular Volume 92.5, Mean Corpuscular Hemoglobin 31.3, Mean Corpuscular Hemoglobin Concent 33.9, Mean Platelet Volume 9.0, Neutrophils (%) (Auto) 40.0, Lymphocytes (%) (Auto) 45.8, Monocytes (%) (Auto) 9.4, Eosinophils (%) (Auto) 3.8, Basophils (%) (Auto) 0.6, Neutrophils # (Auto) 1.91, Lymphocytes # (Auto) 2.19, Monocytes # (Auto) 0.45, Eosinophils # (Auto) 0.18, Basophils # (Auto) 0.03 11/14/17 06:02 Test 11/14/17 06:02 White Blood Count 4.78 K/uL (4.8-10.8) Red Blood Count 3.35 M/uL (4.2-5.4) Hemoglobin 10.5 g/dL (12.0-16.0) Hematocrit 31.0 % (37-47) Mean Corpuscular Volume 92.5 fL (80-100) Mean Corpuscular Hemoglobin 31.3 pg (25-34) Mean Corpuscular Hemoglobin Concent 33.9 g/dl (32-36) Platelet Count 278 K/uL (130-400) Mean Platelet Volume 9.0 fL (7.4-10.4) Neutrophils (%) (Auto) 40.0 % Lymphocytes (%) (Auto) 45.8 % Monocytes (%) (Auto) 9.4 % Eosinophils (%) (Auto) 3.8 % Basophils (%) (Auto) 0.6 % Neutrophils # (Auto) 1.91 K/uL (1.4-6.5) Lymphocytes # (Auto) 2.19 K/uL (1.2-3.4) Monocytes # (Auto) 0.45 K/uL (0.11-0.59) Eosinophils # (Auto) 0.18 K/uL (0-0.5) Basophils # (Auto) 0.03 K/uL (0-0.2) RDW Standard Deviation 49.0 fL (36.4-46.3) RDW Coefficient of Variation 14.6 % (11.5-14.5) Immature Granulocyte % (Auto) 0.4 % Immature Granulocyte # (Auto) 0.02 K/uL (0.00-0.02) Anion Gap 7.0 mmol/L (3-11) Est Creatinine Clear Calc Drug Dose 220.7 ml/min Estimated GFR () > 150.0 Estimated GFR (Non- 135.4 BUN/Creatinine Ratio 19.1 (10-20) Calcium Level 8.4 mg/dl (8.5-10.1) Total Bilirubin 0.5 mg/dl (0.2-1) Aspartate Amino Transf (AST/SGOT) 36 U/L (15-37) Alanine Aminotransferase (ALT/SGPT) 199 U/L (12-78) Alkaline Phosphatase 634 U/L (45-117) Total Protein 6.0 gm/dl (6.4-8.2) Albumin 2.3 gm/dl (3.4-5.0) Globulin 3.7 gm/dl (2.5-4.0) Albumin/Globulin Ratio 0.6 (0.9-2) Assessment and Plan 26 yo female admitted on 10Nov2017 from [facility] for intractable abdominal pain. 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 LFTs have serially improved. Underwent ERCP on , now s/p CBD stones removed and plastic stent placement. - Will need outpatient follow up and eventual stent replacement. - Surgery onboard, they wish to defer cholecystectomy for 2-3 weeks s/p ERCP ( see their note). - Tramadol prn (last ) and percocet prn (overnight) for pain. 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 Reportedly total planned antibiotic course for eight weeks (mid-November) but possible MRI before this (if ID chooses a prolonged course). H&P notes she was on meropenem 2 grams IV q8h but this morning on turnover is on Imipenem/Cilastatin IV q6h. Patient and father wonder if new mild rash is related to this antibiotic switch. - Consulted ID for their antibiotic advice going forward. They recommended the following imaging as part of ongoing workup: CT c-spine noted some mastoid effusions but the remainder was unremarkable. CT head noted interval development of multiple lesions (which were discussed with patient and her mother). Symptomatically patient has a mild headache but no noted new focal neuro deficits. Will need continued ID and neuro follow-up while in rehab. --- Specifically would also like thoughts on if a -[facility] will cover for cholecystitis as well. Thank you! - Benadryl prn for mild rash. Monitoring the same. - Gabapentin q HS. Depression: On home paroxetine. Code status: Full code. Diet: Low fat diet. DVT prophy: Heparin BID. PT/OT: Both recommended continued rehab. Disbo: Likely back to [facility] upon discharge, per case management working on insurance authorization. Resident Tracking Resident Involvement: Resident Care Provided Care Provided: Adult Hospital Medicine (inpatient) Assessment/Plan Resident Physician Supervision Note: I was present with Dr. Nelson during the history and exam. I discussed the case with the resident and agree with the findings and plan as documented in the note. Any exceptions or clarifications are listed here. Abdominal pain remains resolved and pt tolerated a handful of potato chips overnight without issue. Mild b/l frontal headache resolved with pain medication this AM. Repeat CT head shows further areas of embolisation, family expresses concern regarding presence of PFO. Reviewed initial causes of symptoms and suspected cervical source. Per ID recommendations, continue abx therapy for septic emboli and monitor.
[2017-11-14 06:33] LABS: BASO % 0.6 %; BASO ABS # 0.03 K/uL (0-0.2); EOS % 3.8 %; EOS ABS # 0.18 K/uL (0-0.5); HEMOGLOBIN 10.5 g/dL (12.0-16.0); IG# 0.02 K/uL (0.00-0.02); LYMPH % 45.8 %; LYMPH ABS # 2.19 K/uL (1.2-3.4); MEAN CELL VOLUME 92.5 fL (80-100); MEAN CORPUSCULAR HEMOGLOBIN 31.3 pg (25-34); MEAN CORPUSCULAR HGB CONC 33.9 g/dl (32-36); MONO % 9.4 %; MONO ABS # 0.45 K/uL (0.11-0.59); NEUT ABS # 1.91 K/uL (1.4-6.5); PLATELET COUNT 278 K/uL (130-400); RED CELL DISTRIBUTION WIDTH CV 14.6 % (11.5-14.5); WHITE BLOOD COUNT 4.78 K/uL (4.8-10.8)
[2017-11-14 07:09] LABS: ALBUMIN 2.3 gm/dl (3.4-5.0); ALT/SGPT 199 U/L (12-78); AST/SGOT 36 U/L (15-37); BLOOD UREA NITROGEN 9 mg/dl (7-18); CALCIUM 8.4 mg/dl (8.5-10.1); CARBON DIOXIDE 24 mmol/L (21-32); CREATININE 0.49 mg/dl (0.60-1.20); GLUCOSE 94 mg/dl (70-99); POTASSIUM 3.9 mmol/L (3.5-5.1); SODIUM 141 mmol/L (136-145)
[2017-11-14 07:12] LABS: ALKALINE PHOSPHATASE 634 U/L (45-117)
[2017-11-14 07:27] VITALS: BP 130/82; PULSE 70; TEMP 36.9; O2SAT 95
[2017-11-14] MEDS: PAROXETINE 20 MG TAB PO SCH (09:00)
[2017-11-14] MEDS: LACTOBACILLUS ACIDOPHILUS (FLORANEX) TAB PO SCH ×2 (09:00→17:45)
[2017-11-14] MEDS: HEPARIN SOD 5000 UNIT/0.5 ML CARP SC SCH ×2 (09:05→21:30)
[2017-11-14] MEDS: FAMOTIDINE IV INJ 20 MG in SYRINGE 3 ML IV SCH (09:29)
--- NOTE | 2017-11-14 09:45 | Discharge Instructions ---
Discharge Instructions Date of Service Nov 14, 2017. Admission Reason for Admission: Choledocholithiasis With Acute Cholecystitis Discharge Discharge Diagnosis / Problem: Choledocholithiasis, Acute cholecystitis Discharge Goals Goal(s): Decrease discomfort, Learn about illness Activity Recommendations Activity Limitations: per Instructions/Follow-up section . Instructions / Follow-Up Instructions / Follow-Up You were admitted to the hospital for choledocholithiasis (gallstones within a tube that can cause a lot of pain and inflammation) and acute cholecystitis ( inflammation of your gallbladder). You underwent a procedure called an ERCP by the gastroenterologists (GI doctors) to help remove these stones, including placement of a stent. You were also seen by general surgery who recommends you have your gallbladder removed in the near future. Because of your ongoing headaches and concerns for new findings on your head CT and MRI scans, you are being transferred to [facility] in [place] for further evaluation and care. General background information from this hospitalization: - You are recommended to be on a low fat, regular consistency diet. The GI doctors recommend you get repeat blood work (LFTs) and abdominal x-ray in 1-2 weeks after discharge. They also recommend you remain on antibiotics for your gallbladder, though that may be covered by the antibiotics for your previously- diagnosed septic emboli. Please follow up in their clinic for further care of your gallbladder. - The general surgeon recommended to have your gallbladder removed. Please follow up with Dr. Guaman in two weeks (from date of your ERCP) to arrange for this. - The infectious disease doctors saw you and recommended you have CT scans here. The scan of your head showed evidence of new emboli in your head. It is very important that you continue to follow up with infectious disease and neurology for monitoring and care of this. - Return to the emergency department if you have any new severe abdominal pains , ongoing vomiting or diarrhea, any new neurological symptoms (such as new weakness or numbness or difficulty moving an extremity), or any other emergent concerns. Current Hospital Diet Patient's current hospital diet: Low Fat Diet Discharge Diet Recommended Diet: Low Fat Diet Procedures Procedures Performed: Endoscopic Retrograde Cholangiopancreatography with stent placement and stone removal Pending Studies Studies pending at discharge: no Laboratory Results Hemoglobin A1c Test 10/14/17 12:25 Range/Units Estimated Average Glucose 117 mg/dl Hemoglobin A1c 5.7 H 4.5-5.6 % Medical Emergencies . Who to Call and When: Medical Emergencies: If at any time you feel your situation is an emergency, please call 911 immediately. . Non-Emergent Contact Non-Emergency issues call your: Primary Care Provider, Neurologist . Certified Control Systems Technician Recommendations Certified Control Systems Technician Recommendations: Follow-up surgical office with Dr. Guaman in 2 weeks, please call office at to make an appointment to discuss scheduling of outpatient cholecystectomy. Plan for cholecystectomy prior to biliary stent removal (GI recommends removal in 8 weeks) Avoid fatty/greasy meals up until gallbladder removal.
[2017-11-14 15:07] VITALS: BP 123/77; PULSE 81; TEMP 36.9; O2SAT 95
[2017-11-14] MEDS ORDERED: MoRPHine SULFATE 4 MG/ML 1 ML CARP\\VIAL ONE (19:53)
[2017-11-14] MEDS: GABAPENTIN 100 MG CAP PO SCH (21:30)
[2017-11-14] MEDS: DiphenhydrAMINE HCL 50 MG/ML VIAL IV PRN (22:00)
[2017-11-14 22:56] VITALS: BP 120/76; PULSE 84; TEMP 36.9; O2SAT 95
[2017-11-15] MEDS: IMIPENEM/CILASTATIN IV 500 MG in D5W 100ML IV SCH ×3 (00:13→11:31)
[2017-11-15] MEDS: ACETAMINOPHEN 500 MG TAB PO SCH ×5 (00:14→15:46)
[2017-11-15] MEDS ORDERED: GADAVIST IV PRN (03:15)
[2017-11-15] MEDS: SODIUM CHLORIDE 0.9% 1000ML 1,000 ML IV SCH (04:22)
[2017-11-15] MEDS ORDERED: NURSING VERBAL MED ORDER ONE (05:00)
--- NOTE | 2017-11-15 06:44 | DIAGNOSTIC IMAGING REPORT ---
CT HEAD WITHOUT CONTRAST (CT) CLINICAL HISTORY: Severe headache COMPARISON STUDY: 11/13/2017 TECHNIQUE: Axial CT of the brain is performed from the vertex to the skull base. IV contrast was not administered for this examination. A dose lowering technique was utilized adhering to the principles of ALARA. CT DOSE: 679.75 mGycm FINDINGS: There are areas of white matter edema within the right frontal lobe and left occipital lobe. These remain similar to the preceding study. Mild generalized cerebral edema cannot be excluded as there is sulcal effacement. There is no midline shift. There is no acute hemorrhage. An MRI is recommended in follow-up. There is no evidence of pathologic ventricular dilatation. There are trace mastoid effusions IMPRESSION: 1. New areas of vasogenic edema within the right frontal lobe and left occipital lobe. Given that these were not present on the 2017 study, these are unlikely neoplastic. An infectious etiology must be considered. MRI is recommended in follow-up. Electronically signed by: Suraj Jerome M.D. 11/15/2017 6:43 AM Dictated Date/Time: 11/15/2017 6:40 AM
[2017-11-15 07:37] VITALS: BP 135/86; PULSE 80; TEMP 36.8; O2SAT 95
[2017-11-15] MEDS: MoRPHine SULFATE 2 MG/ML CARP IV PRN ×2 (07:57→13:13)
--- NOTE | 2017-11-15 08:06 | DIAGNOSTIC IMAGING REPORT ---
BRAIN COMBO CLINICAL HISTORY: new acute onset left frontal KULKARNI, recommended by radiologist COMPARISON STUDY: 10/14/2017. TECHNIQUE: Utilizing a 1.5 Marissa magnet and dedicated coil, multiplanar, multiecho imaging of the brain was performed pre and postcontrast administration. IV administration of 9.5 mL of Gadavist contrast was uneventful. FINDINGS: Significant variable appearance compared to the prior study. Diffusion-weighted images show persistent foci of subacute restricted diffusion primarily of the left occipital region, bilateral cerebellar hemispheres, and right periventricular region. The T2 images show multiple foci of increased signal grossly similar in distribution although a somewhat progressive in the left occipital and right periventricular region. There is no significant midline shift. Postcontrast images are significantly different compared to the prior study. There are multiple foci of diffuse punctate postcontrast enhancement throughout both cerebellar hemispheres, pontine medullary region, occipital lobes as well as right paraventricular region. There is no significant and/or only a trace amount of meningeal enhancement. There are findings of mild mucosal thickening of the mastoid air cells. There is trace amount of mucosal thickening of the left lateral frontal sinuses. Diagnostic considerations are as noted previously. Possibility of a nonspecific infectious process, however must perhaps be increased in likelihood. A neoplastic process is considered unlikely given this appearance. An atypical demyelinating disorder is to be less likely as well given this appearance. IMPRESSION: 1. Waxing and waning foci of increased signal throughout the brainstem, cerebellar hemispheres, as well as brain 2. The overall study, however suggests a considerable progression of enhancing foci throughout the brain 3. The appearance is nonspecific, although a multifocal process of infectious etiology must initially be the diagnosis of exclusion, to include atypical infectious etiology such as a fungal entity. A demyelinating or neoplastic process is considered much less likely, with all additional entities noted on the prior study remaining as diagnostic possibilities. 4. If not already performed, consideration may be given to a potential lumbar puncture for diagnostic purposes. The above report was generated using voice recognition software. It may contain grammatical, syntax or spelling errors. Electronically signed by: Dhruv Albert M.D. 11/15/2017 8:04 AM Dictated Date/Time: 11/15/2017 7:39 AM
--- NOTE | 2017-11-15 08:11 | Family Medicine Progress Note ---
Progress Note Date of Service Nov 15, 2017. Subjective Pt evaluation today including: conversation w/ patient, conversation w/ family (mother) Found patient resting comfortably in the bed. Reviewed last evening's and overnight events / imaging. This morning, patient notes no acute pains or concerns. Says her headache has completely resolved. Denies any new focal neuro deficits, e.g. weakness or numbness or facial/swallow/speak issues. Says her abdomen also remains pain-free, denying any N/V and says she can tolerate PO well. Her mother asks about what is the next step in workup given the patient's neuro imaging overnight. Constitutional: No fever, No chills Respiratory: No cough, No shortness of breath Cardiovascular: No chest pain, No edema Abdomen: No pain, No nausea, No vomiting, No diarrhea Neurologic: + weakness, + numbness/tingling Medications Current Inpatient Medications Medications (Trade) Dose Ordered Sig/Cata Route Start Time Stop Time Status Last Admin Dose Admin Acetaminophen (Tylenol Tab) 500 mg Q4 PO 11/10/17 16:00 12/10/17 15:59 11/15/17 04:22 500 MG Al Hydrox/Mg Hydrox/Simethicone (Maalox Max Susp) 30 ml Q4H PRN PO 11/10/17 13:00 12/10/17 12:59 Gabapentin (Neurontin Cap) 100 mg HS PO 11/10/17 21:00 12/10/17 20:59 11/14/17 21:30 100 MG Heparin Sodium (Porcine) (Heparin Sq 5000 Unit/0.5ml) 5,000 unit BID SC 11/10/17 21:00 12/10/17 20:59 11/14/17 09:05 5,000 UNIT Lactobacillus Acidophilus (Floranex Tab) 1 tab BIDM PO 11/10/17 17:45 12/10/17 17:59 11/14/17 09:00 1 TAB Paroxetine HCl (pAXil TAB) 20 mg DAILY PO 11/11/17 09:00 12/11/17 08:59 11/14/17 09:00 20 MG Tramadol HCl (Ultram Tab) 50 mg Q6H PRN PO 11/10/17 13:00 12/10/17 12:59 11/11/17 16:26 50 MG Acetaminophen (Tylenol Tab) 650 mg Q8H PRN PO 11/10/17 14:15 12/10/17 14:14 Magnesium Hydroxide (Milk Of Magnesia Susp) 30 ml Q6H PRN PO 11/10/17 14:15 12/10/17 14:14 Polyethylene (Miralax Powder Packet) 17 gm DAILY PRN PO 11/10/17 15:45 12/10/17 15:44 Zolpidem Tartrate (Ambien Tab) 5 mg HSZ PRN PO 11/10/17 14:15 12/10/17 14:14 Ondansetron HCl (Zofran Inj) 4 mg Q6H PRN IV 11/10/17 14:15 12/10/17 14:14 11/14/17 19:55 4 MG Zolpidem Tartrate (Ambien Tab) 5 mg HSZ PRN PO 11/10/17 14:15 12/10/17 14:14 Morphine Sulfate (MoRPHine SULFATE INJ) 2 mg Q4H PRN IV 11/10/17 14:15 11/24/17 14:14 11/15/17 07:57 2 MG Oxycodone/ Acetaminophen (Percocet 5-325mg Tab) 1 tab Q4H PRN PO 11/10/17 14:15 11/24/17 14:14 11/14/17 17:45 1 TAB Famotidine 20 mg/ Syringe 5 ml @ 2.5 mls/min DAILY IV 11/11/17 09:00 12/11/17 08:59 11/14/17 09:29 2.5 MLS/MIN Imipenem/ Cilastatin Sodium 500 mg/Dextrose 110 ml @ 110 mls/hr Q6 IV 11/10/17 18:45 11/26/17 23:59 11/15/17 05:56 110 MLS/HR Heparin Sodium (Porcine) (Heparin 10 Unit/ ml 5 ml Flush) 5 ml PRN PRN FLUSH 11/10/17 21:00 12/10/17 20:59 11/12/17 09:58 5 ML Diphenhydramine HCl (Benadryl Cap) 25 mg Q6 PRN PO 11/11/17 19:30 12/11/17 19:29 11/14/17 16:25 25 MG Diphenhydramine HCl (Benadryl Inj) 25 mg BID PRN IV 11/12/17 07:00 12/12/17 06:59 11/14/17 22:00 25 MG Sodium Chloride 1,000 ml @ 100 mls/hr Q10H IV 11/12/17 16:15 12/12/17 16:14 11/15/17 04:22 100 MLS/HR Gadobutrol (Gadavist) 10 mmol UD PRN IV 11/15/17 03:15 11/19/17 03:14 Objective Vital Signs Date Time Temp Pulse Resp B/P (MAP) Pulse Ox O2 Delivery O2 Flow Rate FiO2 11/15/17 07:37 36.8 80 19 135/86 (102) 95 Room Air 11/15/17 00:30 Room Air 11/14/17 22:56 36.9 84 16 120/76 (91) 95 Room Air 11/14/17 15:25 Room Air 11/14/17 15:07 36.9 81 16 123/77 (92) 95 Room Air Physical Exam Notes: General Appearance: Awake, alert & oriented, smiling, comfortable in general, NAD. CV: +S1S2 RRR, no murmur. No peripheral edema. Pulm: Clear to auscultation throughout. Abdomen: +BS, soft, non-tender to palpation and percussion, non-distended. Extremities: No pedal edema or calf tenderness. Neuro: Minimal to no doper strength in left hand but sensation grossly present. Right hand doper strength fair. Can move legs bilaterally. Lines: PIV. Laboratory Results 11/15/17 08:06 Red Blood Count 3.47, Mean Corpuscular Volume 91.4, Mean Corpuscular Hemoglobin 30.8, Mean Corpuscular Hemoglobin Concent 33.8, Mean Platelet Volume 8.9, Neutrophils (%) (Auto) 49.2, Lymphocytes (%) (Auto) 37.9, Monocytes (%) (Auto) 8.3, Eosinophils (%) (Auto) 3.4, Basophils (%) (Auto) 0.8, Neutrophils # (Auto) 2.60, Lymphocytes # (Auto) 2.00, Monocytes # (Auto) 0.44, Eosinophils # (Auto) 0.18, Basophils # (Auto) 0.04 11/15/17 08:06 Test 11/15/17 08:06 White Blood Count 5.28 K/uL (4.8-10.8) Red Blood Count 3.47 M/uL (4.2-5.4) Hemoglobin 10.7 g/dL (12.0-16.0) Hematocrit 31.7 % (37-47) Mean Corpuscular Volume 91.4 fL (80-100) Mean Corpuscular Hemoglobin 30.8 pg (25-34) Mean Corpuscular Hemoglobin Concent 33.8 g/dl (32-36) Platelet Count 271 K/uL (130-400) Mean Platelet Volume 8.9 fL (7.4-10.4) Neutrophils (%) (Auto) 49.2 % Lymphocytes (%) (Auto) 37.9 % Monocytes (%) (Auto) 8.3 % Eosinophils (%) (Auto) 3.4 % Basophils (%) (Auto) 0.8 % Neutrophils # (Auto) 2.60 K/uL (1.4-6.5) Lymphocytes # (Auto) 2.00 K/uL (1.2-3.4) Monocytes # (Auto) 0.44 K/uL (0.11-0.59) Eosinophils # (Auto) 0.18 K/uL (0-0.5) Basophils # (Auto) 0.04 K/uL (0-0.2) RDW Standard Deviation 48.3 fL (36.4-46.3) RDW Coefficient of Variation 14.5 % (11.5-14.5) Immature Granulocyte % (Auto) 0.4 % Immature Granulocyte # (Auto) 0.02 K/uL (0.00-0.02) Anion Gap 6.0 mmol/L (3-11) Est Creatinine Clear Calc Drug Dose 230.1 ml/min Estimated GFR () > 150.0 Estimated GFR (Non- 137.3 BUN/Creatinine Ratio 10.8 (10-20) Calcium Level 8.5 mg/dl (8.5-10.1) Total Bilirubin 0.4 mg/dl (0.2-1) Aspartate Amino Transf (AST/SGOT) 26 U/L (15-37) Alanine Aminotransferase (ALT/SGPT) 136 U/L (12-78) Alkaline Phosphatase 564 U/L (45-117) Total Protein 6.2 gm/dl (6.4-8.2) Albumin 2.3 gm/dl (3.4-5.0) Globulin 3.9 gm/dl (2.5-4.0) Albumin/Globulin Ratio 0.6 (0.9-2) Assessment and Plan IN PROGRESS 26 yo female admitted on [id number] from [facility] for intractable abdominal pain. 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 LFTs have serially improved. Underwent ERCP on , now s/p CBD stones removed and plastic stent placement. Recommended 10 total days of antibiotic coverage for the cholecystitis - Will need outpatient follow up and eventual stent replacement, as well as outpatient x-ray 1-2 weeks s/p ERCP (see their note). - Surgery onboard, they wish to defer cholecystectomy for 2-3 weeks s/p ERCP ( see their note). - Tramadol prn (last ) and percocet prn (last ) for pain. 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 Reportedly total planned antibiotic course for eight weeks (mid-November). H&P notes she was on meropenem 2 grams IV q8h prior to admit, here is on Imipenem/Cilastatin IV q6h. Did develop a mild rash around same time of start, but controlled with benadryl prn. - Consulted ID (see their notes) who recommended CT head and CT C-spine (see reads from scans on ). Evidence of new lesions on head, though c-spine rather unremarkable. On evening of patient had a severe headache, so repeat CT head then MRI obtained, the latter showing evidence of new focal edema of possible infectious origin (see reads). Patient received morphine for her KULKARNI, which subsequently completely resolved. No new focal neuro deficits. - Neuro consulted on for their expert opinion given acute findings. Also considering transfer to [facility] as well. Depression: On home paroxetine. Code status: Full code. Diet: Low fat diet. DVT prophy: Heparin BID. PT/OT: Both recommended continued rehab. Disbo: Pending, possible transfer to [place] vs [facility]. Case management has been working on insurance authorization for latter. Resident Tracking Resident Involvement: Resident Care Provided Care Provided: Adult Hospital Medicine (inpatient)
[2017-11-15] MEDS: LACTOBACILLUS ACIDOPHILUS (FLORANEX) TAB PO SCH (08:29)
[2017-11-15] MEDS: PAROXETINE 20 MG TAB PO SCH (08:29)
--- NOTE | 2017-11-15 08:29 | Discharge Summary ---
Discharge Summary Date of Service Nov 13, 2017. Discharge Summary Admission Date: Nov 10, 2017 at 14:04 Discharge Date: Nov 15, 2017 Discharge Disposition: Acute care facility Principal Diagnosis: Choledocholithiasis Problems/Secondary Diagnoses: - Acute cholecystitis - S/p septic emboli and left sided weakness - Depression Procedures: 10Nov2017 - GALLBLADDER-ABD LIMITED IMPRESSION: 1. Multiple gallstones. 2. Trace pericholecystic fluid. 3. Biliary ductal dilatation raising the possibility of choledocholithiasis 4. Fatty infiltration of liver. 10Nov2017 - CHEST ONE VIEW PORTABLE IMPRESSION: Small left perihilar parenchymal infiltrate. Lungs otherwise are clear. 10Nov2017 - MRCP IMPRESSION: 1. Findings consistent with gallstones within a thickened or edematous gallbladder wall. 2. Appearance is consistent with that of acute cholecystitis. 3. Biliary ductal prominence with probable distal common duct choledocholithiasis. 10Nov2017 - ERCP Impression: - The entire main bile duct was moderately dilated. - A filling defect consistent with a stone was seen on the cholangiogram. - A biliary sphincterotomy was performed. - Choledocholithiasis was found. Complete removal was accomplished by biliary sphincterotomy and balloon extraction. - One plastic stent was placed into the ventral pancreatic duct. - One plastic stent was placed into the common bile duct. 13Nov2017 - HEAD WITHOUT CONTRAST (CT) Impression: 1. Interval development of low density lesions involving the right frontal, left posterior parietal and left occipital lobe. 2. No evidence for acute intracranial hemorrhage. 3. No evidence for midline shift. 4. Differential is as noted previously, including multifocal infarcts, vasculitis, or a number of additional possibilities described previously. 13Nov2017 - CT OF THE CERVICAL SPINE IMPRESSION: 1. No evidence of acute fracture or traumatic subluxation 2. No evidence of bony foraminal stenosis. No evidence of bony spinal stenosis. 3. Bilateral mastoid effusions 15Nov2017 - MRI BRAIN COMBO TECHNIQUE: Utilizing a 1.5 Marissa magnet and dedicated coil, multiplanar, multiecho imaging of the brain was performed pre and postcontrast administration. IV administration of 9.5 mL of Gadavist contrast was uneventful. IMPRESSION: 1. Waxing and waning foci of increased signal throughout the brainstem, cerebellar hemispheres, as well as brain 2. The overall study, however suggests a considerable progression of enhancing foci throughout the brain 3. The appearance is nonspecific, although a multifocal process of infectious etiology must initially be the diagnosis of exclusion, to include atypical infectious etiology such as a fungal entity. A demyelinating or neoplastic process is considered much less likely, with all additional entities noted on the prior study remaining as diagnostic possibilities. 4. If not already performed, consideration may be given to a potential lumbar puncture for diagnostic purposes. [id number] - CAROTID DOPPLER NECK ART IMPRESSION: No hemodynamically significant stenosis seen within the carotid arteries. Consultations: Gastroenterology Assessment and Plan on 11/13/171734 Ms. Villavicencio is a 26 yr old female with acute cholecystitis, who is post procedure day #1 from ERCP with sphincterotomy and stone extraction. Plan: 1. Should be on total 10 days of antibiotics for acute cholecystitis - but will defer to surgery and primary hospitalist. 2. Low fat, regular consistency diet. 3. If tolerates eating then no GI contraindication to discharge. Would follow LFTs as an OP in 1-2 weeks and continue to follow periodically to resolution. I performed a history and physical examination of the patient, including specifically on physical exam - no abdominal tenderness. I have discussed the patient's management with SHARLA Dawson. Please refer to the nurse practitioner's note for the documented findings and plan of care. Will arrange for repeat ERCP as outpatient once cholecystectomy is done. Will get abdomen Xray in 1-2 weeks to check for passage of the PD stent. <Electronically signed by Parris Thorne> <Electronically signed by Romario Grullon M.D.> Signed: 11/13/171131 Signed: 11/13/171734 General surgery Assessment & Plan on 11/13/17 1134 POD # 1 s/p ERCP with sphincterotomy, biliary and pancreatic stent placement for Choledocholithiasis -vitals stable -improvement in LFTS, t. bili wnl - no abdominal pain, afebrile, no leukocytosis Plan: Plan for outpatient cholecystectomy in a few weeks, follow-up in surgical office with Dr. Guaman in 2 weeks to schedule cholecystectomy Return to [facility] as soon as possible to resume PT Advance diet per GI Continue current medical management Our services signing off, call with concerns Dr. Guaman has seen and examined patient, agrees with above <Electronically signed by Estela Dent PA-C> <Electronically signed by Madisyn Guaman MD> Signed: 11/13/17 1118 Signed: 11/13/17 1134 Infectious Disease note on Nov 13, 2017 History of Present Illness 26-year-old female with complicated medical history since September after uneventful delivery, when after several weeks patient developed severe headaches and was found to have positive blood cultures for fusobacterium, urinary tract infection with Enterobacter, and evidence of septic STORY[employer]IST emboli. She was transferred to [facility], and was treated for bacterial meningitis as well as for cervical spine osteomyelitis, organisms not known at present time, and was discharged to [facility] for further management. She has been maintained on meropenem since our [facility] admission. Over the day or 2 prior to her admission, she developed severe right upper quadrant pain, and was subsequently found to have evidence of cholecystitis and biliary obstruction. She has now undergone ERCP with stent placement, with significant improvement in her abdominal pain. She has been treated with IV imipenem. She has developed a rash on her lower back, now receiving Benadryl. Feeling much improved, eating well, and is afebrile. Assessment & Plan 26-year-old female with complicated recent past medical history including septic ST[employer]IST emboli, bacterial meningitis, osteomyelitis of the cervical spine, on therapy with meropenem, now with biliary obstruction and cholecystitis status post ERCP and stenting. Patient can be continued on imipenem which will provide same coverage as her prior meropenem. Would continue Benadryl and follow rash for now is does not seem to be spreading. Patient needs follow-up CT scanning of the head and cervical spine to assess response to her therapy. Would consider obtaining this while in hospital. Will discuss with all involved. Will follow. 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 Plan Recommended to treating resident this morning to get a follow-up transthoracic echocardiogram to rule out cardiac vegetations for continued source of septic emboli. If echocardiogram is unremarkable, then would proceed with a transesophageal echocardiogram. Also recommended ultrasound of the carotids for stroke workup Recommend having infectious disease consult follow-up regarding management and further investigation for septic emboli source and treatment. May need to consider repeating blood cultures and lumbar puncture to make sure that we are treating underlying cause correctly, but would leave this up to infectious disease consult at this time. Need to get additional records from [facility] to document what treatment and investigation has been previously done. Specifically any cultures (blood or CSF ), CTA or MRA of the head and neck, and any other testing that they have done. Patient likely needs a repeat CTA of her head and neck regardless considering that the mother reports that there may have been a dissection previously noted. Considering that her underlying etiology is likely septic emboli, there is no clear recommendations regarding antiplatelets or anticoagulation, and ischemic strokes from septic emboli are at high risk for hemorrhagic conversion, making antiplatelets and anticoagulation relatively contraindicated unless there is another indication for those medications. I will place some additional labs including workup for anticardiolipin antibodies, homocystine and lupus anticoagulants for other causes for easy clotting in the setting of septic emboli. Thank you for allowing me to participate in this patient's care. If there is any questions or concerns, feel free to call/page me. Addendum: Spoke with treating physician resident regarding care and recommendations. He also spoke to infectious disease consult Dr. Gomez. Overall feeling is due to the complexity of her case and the fact that her original workup was at [facility], it is felt that she would be best treated and cared for at [facility]. Medication Reconciliation New Medications: Diphenhydramine HCl (Diphenhydramine HCl) 50 Mg/Ml Inj 25 MG IV BID PRN for ITCHING for 30 Days, #30 UNITS 0 Refills Continued Medications: Acetaminophen (Tylenol) 500 Mg Tab 500 MG PO Q4H Gabapentin (Neurontin) 100 Mg Cap 100 MG PO HS Melatonin (Kp Melatonin) 3 Mg Tab 3 MG PO HS Meropenem (Meropenem) 1 Gm Inj 2000 MG IV Q8 START DATE 11-03-17 STOP DATE 11-26-17 INFUSE OVER 30 MIN Paroxetine (Paxil) 20 Mg Tab 20 MG PO DAILY Tramadol (Ultram) 50 Mg Tab 50 MG PO Q6H PRN for Pain Discontinued Medications: Aluminum/Magnesium/Simeth (Maalox Max Susp) Susp 30 ML PO Q4 PRN for GAS Heparin Sod (Porcine) (Heparin Sq) 5,000 Unit/0.5 Ml Inj 5000 UNITS SC BID Lactobacillus Acidophilus (Floranex) 1 Tab Tab 1 TAB PO BIDM Sodium Chloride Flush (Normal Saline I.v. Flush) 0.9 % Inj 10 ML IV QS Discharge Exam General Appearance: Awake, alert & oriented, smiling, comfortable in general, NAD. CV: +S1S2 RRR, no murmur. No peripheral edema. Pulm: Clear to auscultation throughout. Abdomen: +BS, soft, non-tender to palpation and percussion, non-distended. Extremities: No pedal edema or calf tenderness. Neuro: Minimal to no women's apparel salesperson strength in left hand but sensation grossly present. Right hand women's apparel salesperson strength fair. Can move legs bilaterally. Lines: PIV. Review of Systems: Constitutional: No fever, No chills Respiratory: No cough, No shortness of breath Cardiovascular: No edema Abdomen: No nausea, No vomiting, No diarrhea Neurologic: + weakness, + numbness/tingling Hospital Course HPI at time of admission on Nov 10, 2017 at 12:42 26 years old female who had an uneventful delivery on September 22, 2017. Patient was discharged home after her delivery and 3 weeks later she developed severe headache pain. 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 Patient had multiple bilateral septic emboli to the brain with left-sided weakness, ataxia and diplopia. Patient was admitted to the hospital MRI of cervical spine showed osteomyelitis C1-5. Patient was placed on meropenem 1 g every 8 hours and discharged to rehab. She was advancing appropriately in rehab until last night. She developed abdominal pain stabbing in character moderate to severe in intensity. She said that her pain was all over her belly was not localized on the right upper quadrant. Pain was referred to her back no other associated symptoms. No relieving or aggravating factors. Patient was brought to the hospital and imaging showed a possible early evolving cholecystitis with gallbladder stone. Transfer summary on morning of 15Nov2017 26 yo female admitted on 10Nov[address] [facility] for intractable abdominal pain. 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 LFTs have serially improved. Underwent ERCP on , now s/p CBD stones removed and plastic stent placement. Recommended 10 total days of antibiotic coverage for the cholecystitis - Will need outpatient follow up and eventual stent replacement, as well as outpatient x-ray 1-2 weeks s/p ERCP (see their note). - Surgery onboard, they wish to defer cholecystectomy for 2-3 weeks s/p ERCP ( see their note). - Tramadol prn (last ) and Percocet prn (last ) for pain. Recent multiple septic brain emboli with residual left sided weakness; Cervical spine osteomyelitis C1-5: S/p [id number] post-. Reportedly total planned antibiotic course for eight weeks (mid-November). H&P notes she was on meropenem 2 grams IV q8h prior to admit, here is on Imipenem/Cilastatin IV q6h. Did develop a mild rash around same time of start, but controlled with benadryl prn. - Consulted ID (see their notes) who recommended CT head and CT C-spine (see reads from scans on ). Evidence of new lesions on head, though c-spine rather unremarkable. On evening of patient had a severe headache, so repeat CT head then MRI obtained, the latter showing evidence of new focal edema of possible infectious origin (see imaging reads). Patient received morphine for her KULKARNI, which subsequently completely resolved. No new focal neuro deficits. Concerns about where her septic emboli are coming from with worsening neuro swelling. - On discussion with ID on morning of transfer, they recommended transfer for higher level of care, back to [facility] where her prior workup and related medical records are available. - Neuro consulted on for their expert opinion given acute findings, though their workup had not yet started at time of transfer. Also considering transfer to [facility] as well. Depression: On home paroxetine. Total Time Spent: Greater than 30 minutes This includes examination of the patient, discharge planning, medication reconciliation, and communication with other providers. Discharge Instructions Please refer to the electronic Patient Visit Report (Discharge Instructions) for additional information. Additional Copies To Romario Grullon M.D.; Jose Gan D.O.; Madisyn Guaman .MD Resident Tracking Resident Involvement: Resident Care Provided Care Provided: Adult [facility] (inpatient) Assessment/Plan Resident Physician Supervision Note: I was present with Dr. Nelson during the history and exam. I discussed the case with the resident and agree with the findings and plan as documented in the note. Any exceptions or clarifications are listed here. Overnight, patient complained of 13/10 headache, prompting repeat of imaging from previous. CT shows new vasogenic edema and the MRI shows concerning lesions similar to previous. After discussion w/ ID and neurology, decision was made that further evaluation and management at the tertiary center of initial evaluation under same neurology service (Dr. Camacho) would be warranted and transfer engaged. Family concerned about PFO on echocardiogram and potential involvement in worsening symptoms. Clinically, pt appears well with stable left sided weakness LUE > LLE and no abdominal TTP, tolerating POI well. Agree w/ transfer for further assessment of underlying condition. Continue present abx regimen.
[2017-11-15] MEDS: FAMOTIDINE IV INJ 20 MG in SYRINGE 3 ML IV SCH (08:30)
[2017-11-15 08:31] LABS: BASO % 0.8 %; BASO ABS # 0.04 K/uL (0-0.2); EOS % 3.4 %; EOS ABS # 0.18 K/uL (0-0.5); HEMATOCRIT 31.7 % (37-47); HEMOGLOBIN 10.7 g/dL (12.0-16.0); IG# 0.02 K/uL (0.00-0.02); LYMPH % 37.9 %; MEAN CELL VOLUME 91.4 fL (80-100); MEAN CORPUSCULAR HEMOGLOBIN 30.8 pg (25-34); MEAN CORPUSCULAR HGB CONC 33.8 g/dl (32-36); MEAN PLATELET VOLUME 8.9 fL (7.4-10.4); MONO % 8.3 %; MONO ABS # 0.44 K/uL (0.11-0.59); NEUT % 49.2 %; PLATELET COUNT 271 K/uL (130-400); RED CELL DISTRIBUTION WIDTH CV 14.5 % (11.5-14.5); RED CELL DISTRIBUTION WIDTH SD 48.3 fL (36.4-46.3); WHITE BLOOD COUNT 5.28 K/uL (4.8-10.8)
[2017-11-15] MEDS: HEPARIN SOD 5000 UNIT/0.5 ML CARP SC SCH (08:38)
[2017-11-15 08:57] LABS: ALBUMIN 2.3 gm/dl (3.4-5.0); ALT/SGPT 136 U/L (12-78); BLOOD UREA NITROGEN 5 mg/dl (7-18); CALCIUM 8.5 mg/dl (8.5-10.1); CARBON DIOXIDE 27 mmol/L (21-32); CREATININE 0.47 mg/dl (0.60-1.20); GLUCOSE 76 mg/dl (70-99); POTASSIUM 3.8 mmol/L (3.5-5.1); SODIUM 141 mmol/L (136-145)
[2017-11-15 09:00] LABS: ALKALINE PHOSPHATASE 564 U/L (45-117); AST/SGOT 26 U/L (15-37); TOTAL PROTEIN 6.2 gm/dl (6.4-8.2)
--- NOTE | 2017-11-15 09:54 | DIAGNOSTIC IMAGING REPORT ---
CAROTID DOPPLER NECK ART HISTORY: Mental status change new septic emboli COMPARISON: None. TECHNIQUE: Real-time, grayscale, and color Doppler sonography of the carotid arteries was performed. Imaging reviewed in the transverse and longitudinal planes. All measurements were calculated based on NASCET criteria. FINDINGS: Antegrade flow is seen in the bilateral vertebral arteries. The brachial pressures are hemodynamically similar. The peak systolic velocity within the right ICA is 93. The right systolic ratio is 0.9. The peak systolic velocity within the left ICA is 121. The left systolic ratio is 1.2. IMPRESSION: No hemodynamically significant stenosis seen within the carotid arteries. The above report was generated using voice recognition software. It may contain grammatical, syntax or spelling errors. Electronically signed by: Dhruv Albert M.D. 11/15/2017 9:53 AM Dictated Date/Time: 11/15/2017 9:51 AM
--- NOTE | 2017-11-15 10:04 | Neurology Consultation ---
Neurology Consultation Date of Consultation: Nov 15, 2017. Attending Physician: Oneil Christianson MD Primary Care Physician: Jose Gan D.O. Reason for Consultation: Consultation for progressive septic emboli ischemic stroke History of Present Illness Source: patient, parent, hospital records This is a 26-year-old female who presented with signs and symptoms of acute cholecystitis. Patient had recently been evaluated in September for septic emboli ischemic strokes 3 weeks . At that time she had left hemiplegia and ataxia. Unfortunately do not have all the reports from [facility] to review where the majority of her workup was done. Mother did provide discharge summary for me to review. At [facility] she was noted to have cervical epidural fluid and multiple abscesses in the cervical spine and brain consistent with septic emboli. Reports at least one of her cultures grew out fusobactrem. Mother also reports that some cultures grew out bacteria consistent with dental caries which the patient did have a tooth pulled 3 days before delivery. Per discharge summary from [facility], JUAN CARLOS was unremarkable with no signs of vegetations. The patient was noted to have a PFO. 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 [facility] also did a MRI of the T-spine which was unremarkable. MRI of L-spine was reported to have enhancement of the cauda equina at L4-L5 consistent with infection. MRI of the pelvis was unremarkable. The patient was treated with meropenem. Per [facility] H&P patient reportedly had a lumbar puncture that was positive for meningitis with her I do not have the specific results to review and do not know specifically what was grown out. [facility] report says that a CTA noted a left vertebral occlusion, although the mother reports that she was told that she had a vertebral dissection. 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 Patient was also noted to have an enterococcus UTI and septic arthritis. Mother reports that patient seemed to have recurrence of headaches and fevers starting about a week ago. MRI of the brain done this morning report and images reviewed by myself and reviewed with MRI October 14. There does appear to be progression of septic emboli ischemic changes. Overall appearance does appear to be consistent with septic emboli or infection with very rounded lesions in multiple territories. Recent labs of noted LFTs trending down. Platelets are unremarkable. Past Medical/Surgical History Medical Problems: (1) Choledocholithiasis with acute cholecystitis with obstruction Status: Acute (2) Pain, dental Status: Acute Before recent event no significant medical history Family History Denies any significant family history Social History Patient is staying with her parents. Boyfriend is reportedly no longer in the picture. History of tobacco use. No reported current alcohol or drug use. Drug Use: none Marital Status: single Housing Status: lives with family Allergies Coded Allergies: NO KNOWN DRUG ALLERGIES (Verified Allergy, Unknown, none, 10/14/17) Current Inpatient Medications Current Inpatient Medications Medications (Trade) Dose Ordered Sig/Cata Route Start Time Stop Time Status Last Admin Dose Admin Acetaminophen (Tylenol Tab) 500 mg Q4 PO 11/10/17 16:00 12/10/17 15:59 11/15/17 04:22 500 MG Al Hydrox/Mg Hydrox/Simethicone (Maalox Max Susp) 30 ml Q4H PRN PO 11/10/17 13:00 12/10/17 12:59 Gabapentin (Neurontin Cap) 100 mg HS PO 11/10/17 21:00 12/10/17 20:59 11/14/17 21:30 100 MG Heparin Sodium (Porcine) (Heparin Sq 5000 Unit/0.5ml) 5,000 unit BID SC 11/10/17 21:00 12/10/17 20:59 11/15/17 08:38 5,000 UNIT Lactobacillus Acidophilus (Floranex Tab) 1 tab BIDM PO 11/10/17 17:45 12/10/17 17:59 11/15/17 08:29 1 TAB Paroxetine HCl (pAXil TAB) 20 mg DAILY PO 11/11/17 09:00 12/11/17 08:59 11/15/17 08:29 20 MG Tramadol HCl (Ultram Tab) 50 mg Q6H PRN PO 11/10/17 13:00 12/10/17 12:59 11/11/17 16:26 50 MG Acetaminophen (Tylenol Tab) 650 mg Q8H PRN PO 11/10/17 14:15 12/10/17 14:14 Magnesium Hydroxide (Milk Of Magnesia Susp) 30 ml Q6H PRN PO 11/10/17 14:15 12/10/17 14:14 Polyethylene (Miralax Powder Packet) 17 gm DAILY PRN PO 11/10/17 15:45 12/10/17 15:44 Zolpidem Tartrate (Ambien Tab) 5 mg HSZ PRN PO 11/10/17 14:15 12/10/17 14:14 Ondansetron HCl (Zofran Inj) 4 mg Q6H PRN IV 11/10/17 14:15 12/10/17 14:14 11/14/17 19:55 4 MG Zolpidem Tartrate (Ambien Tab) 5 mg HSZ PRN PO 11/10/17 14:15 12/10/17 14:14 Morphine Sulfate (MoRPHine SULFATE INJ) 2 mg Q4H PRN IV 11/10/17 14:15 11/24/17 14:14 11/15/17 07:57 2 MG Oxycodone/ Acetaminophen (Percocet 5-325mg Tab) 1 tab Q4H PRN PO 11/10/17 14:15 11/24/17 14:14 11/14/17 17:45 1 TAB Famotidine 20 mg/ Syringe 5 ml @ 2.5 mls/min DAILY IV 11/11/17 09:00 12/11/17 08:59 11/15/17 08:30 2.5 MLS/MIN Imipenem/ Cilastatin Sodium 500 mg/Dextrose 110 ml @ 110 mls/hr Q6 IV 11/10/17 18:45 11/26/17 23:59 11/15/17 05:56 110 MLS/HR Heparin Sodium (Porcine) (Heparin 10 Unit/ ml 5 ml Flush) 5 ml PRN PRN FLUSH 11/10/17 21:00 12/10/17 20:59 11/12/17 09:58 5 ML Diphenhydramine HCl (Benadryl Cap) 25 mg Q6 PRN PO 11/11/17 19:30 12/11/17 19:29 11/14/17 16:25 25 MG Diphenhydramine HCl (Benadryl Inj) 25 mg BID PRN IV 11/12/17 07:00 12/12/17 06:59 11/14/17 22:00 25 MG Sodium Chloride 1,000 ml @ 100 mls/hr Q10H IV 11/12/17 16:15 12/12/17 16:14 11/15/17 04:22 100 MLS/HR Gadobutrol (Gadavist) 10 mmol UD PRN IV 11/15/17 03:15 11/19/17 03:14 Review of Systems Complete review of systems otherwise negative except for the above-noted in HPI Physical Exam Vital Signs (Past 24 Hrs): Date Time Temp Pulse Resp B/P (MAP) Pulse Ox O2 Delivery O2 Flow Rate FiO2 11/15/17 07:37 36.8 80 19 135/86 (102) 95 Room Air 11/15/17 00:30 Room Air 11/14/17 22:56 36.9 84 16 120/76 (91) 95 Room Air 11/14/17 15:25 Room Air 11/14/17 15:07 36.9 81 16 123/77 (92) 95 Room Air Gen.: Patient is alert and oriented in no acute distress lying in bed Heart: Regular rate and rhythm Extremities: No gross deformities or rashes noted Neurological examination: Mental status: Patient is alert and oriented to person place and time. Able to give his own history. Attention concentration normal for the situation. Remote and recent memory intact Speech is fluent without any dysarthria or aphasia noted Cranial nerves: Funduscopic examination was difficult to visualize, but no papilledema seen. Pupils equally round and reactive to light. Extraocular muscles intact without nystagmus. No facial asymmetry noted. Facial sensation intact. Tongue deviates to the left and there is signs of muscle atrophy on the left. Good palatal elevation. Good shoulder shrug bilaterally. Hearing grossly intact voice. Strength: 5/5 both proximal and distal in right upper and lower extremity. Left upper extremity proximally is 0/5. 3/5 in wrist extension and flexion. Finger flexion and extension 2/5 with some flexion contraction of the fingers. Left lower extremity proximal strength 3/5 and distally 4/5. Sensation: Grossly intact to light touch in all extremities Deep tendon reflexes: +1 in bilateral biceps and patellar. Coordination: Patient has good finger to nose without dysmetria on the right and was unable to perform on the left due to severe weakness. Good heel to esteban bilaterally. Station within the bed is normal. Laboratory Results Past 24 Hours: 11/15/17 08:06 Red Blood Count 3.47, Mean Corpuscular Volume 91.4, Mean Corpuscular Hemoglobin 30.8, Mean Corpuscular Hemoglobin Concent 33.8, Mean Platelet Volume 8.9, Neutrophils (%) (Auto) 49.2, Lymphocytes (%) (Auto) 37.9, Monocytes (%) (Auto) 8.3, Eosinophils (%) (Auto) 3.4, Basophils (%) (Auto) 0.8, Neutrophils # (Auto) 2.60, Lymphocytes # (Auto) 2.00, Monocytes # (Auto) 0.44, Eosinophils # (Auto) 0.18, Basophils # (Auto) 0.04 11/15/17 08:06 Test 11/15/17 08:06 White Blood Count 5.28 K/uL (4.8-10.8) Red Blood Count 3.47 M/uL (4.2-5.4) Hemoglobin 10.7 g/dL (12.0-16.0) Hematocrit 31.7 % (37-47) Mean Corpuscular Volume 91.4 fL (80-100) Mean Corpuscular Hemoglobin 30.8 pg (25-34) Mean Corpuscular Hemoglobin Concent 33.8 g/dl (32-36) Platelet Count 271 K/uL (130-400) Mean Platelet Volume 8.9 fL (7.4-10.4) Neutrophils (%) (Auto) 49.2 % Lymphocytes (%) (Auto) 37.9 % Monocytes (%) (Auto) 8.3 % Eosinophils (%) (Auto) 3.4 % Basophils (%) (Auto) 0.8 % Neutrophils # (Auto) 2.60 K/uL (1.4-6.5) Lymphocytes # (Auto) 2.00 K/uL (1.2-3.4) Monocytes # (Auto) 0.44 K/uL (0.11-0.59) Eosinophils # (Auto) 0.18 K/uL (0-0.5) Basophils # (Auto) 0.04 K/uL (0-0.2) RDW Standard Deviation 48.3 fL (36.4-46.3) RDW Coefficient of Variation 14.5 % (11.5-14.5) Immature Granulocyte % (Auto) 0.4 % Immature Granulocyte # (Auto) 0.02 K/uL (0.00-0.02) Anion Gap 6.0 mmol/L (3-11) Est Creatinine Clear Calc Drug Dose 230.1 ml/min Estimated GFR () > 150.0 Estimated GFR (Non- 137.3 BUN/Creatinine Ratio 10.8 (10-20) Calcium Level 8.5 mg/dl (8.5-10.1) Total Bilirubin 0.4 mg/dl (0.2-1) Aspartate Amino Transf (AST/SGOT) 26 U/L (15-37) Alanine Aminotransferase (ALT/SGPT) 136 U/L (12-78) Alkaline Phosphatase 564 U/L (45-117) Total Protein 6.2 gm/dl (6.4-8.2) Albumin 2.3 gm/dl (3.4-5.0) Globulin 3.9 gm/dl (2.5-4.0) Albumin/Globulin Ratio 0.6 (0.9-2) Imaging As noted above in HPI Impression This is a 26-year-old female with progression of septic emboli and complication of multi-territory ischemic stroke secondary to septic emboli. Plan Recommended to treating resident this morning to get a follow-up transthoracic echocardiogram to rule out cardiac vegetations for continued source of septic emboli. If echocardiogram is unremarkable, then would proceed with a transesophageal echocardiogram. Also recommended ultrasound of the carotids for stroke workup Recommend having infectious disease consult follow-up regarding management and further investigation for septic emboli source and treatment. May need to consider repeating blood cultures and lumbar puncture to make sure that we are treating underlying cause correctly, but would leave this up to infectious disease consult at this time. Need to get additional records from [facility] to document what treatment and investigation has been previously done. Specifically any cultures (blood or CSF ), CTA or MRA of the head and neck, and any other testing that they have done. Patient likely needs a repeat CTA of her head and neck regardless considering that the mother reports that there may have been a dissection previously noted. Considering that her underlying etiology is likely septic emboli, there is no clear recommendations regarding antiplatelets or anticoagulation, and ischemic strokes from septic emboli are at high risk for hemorrhagic conversion, making antiplatelets and anticoagulation relatively contraindicated unless there is another indication for those medications. I will place some additional labs including workup for anticardiolipin antibodies, homocystine and lupus anticoagulants for other causes for easy clotting in the setting of septic emboli. Thank you for allowing me to participate in this patient's care. If there is any questions or concerns, feel free to call/page me. Addendum: Spoke with treating physician resident regarding care and recommendations. He also spoke to infectious disease consult Dr. Gomez. Overall feeling is due to the complexity of her case and the fact that her original workup was at [facility], it is felt that she would be best treated and cared for at [facility].
[2017-11-15] MEDS ORDERED: OPTIRAY 320 IV PRN (10:15)
[2017-11-15] MEDS ORDERED: [UNRECOGNIZED DRUG - OTHER] IV (10:19)
[2017-11-15] MEDS: OXYCODONE/ACETAMINOPHEN 5-325 TAB PO PRN ×2 (11:34→15:45)
[2017-11-15 14:08] VITALS: BP 135/86; PULSE 80; TEMP 36.8; O2SAT 95
[2017-11-15] MEDS ORDERED: PERFLUTREN LIPID MICROSPHERE (DEFINITY) IV ONE (14:56)
[2017-11-15 15:10] VITALS: BP 135/88; PULSE 79; TEMP 36.7; O2SAT 97
--- NOTE | 2017-11-15 15:20 | ECHOCARDIOGRAM REPORT ---
*NOTICE TO RECEIVING LIBERTARIAN AGENCY This information is strictly Confidential and protected under [place] law. [place] law prohibits you from making any further disclosure of this information unless further disclosure is expressly permitted by the written consent of the person to whom it pertains or is authorized by law. A general authorization for the release of medical or other information is not sufficient for this purpose. Hospital accepts no responsibility if the information is made available to any other person, INCLUDING THE PATIENT. Interpretation Summary * Name: MAGDA SELLERS Study Date: 11/15/2017 02:09 PM BP: 135/86 mmHg * Patient Location: C.SYNTHETIC PLASTERER\S\W355\S\2 HR: 80 * : 1990 (M/d/yyyy) Gender: Female Height: 67 in * Age: 26 yrs Ethnicity: CA Weight: 227 lb * Ordering Physician: Lian Doty * Referring Physician: Self, Referred * Performed By: Frances Raymundo RDCS * * Reason For Study: Septic Emboli * BSA: 2.1 m2 * -- Conclusions -- * 1. Normal LV size. Mild concentric LVH. * 2. Normal LV systolic function. LVEF 55-60 %. No regional wall motion abnormalities. No LV thrombus. * 3. Normal RV size and function. * 4. No significant valvular pathology. * 5. Saline contrast study limited but no clear intra-atrial shunt. Procedure Details * A complete two-dimensional transthoracic echocardiogram was performed (2D, M-mode, Doppler and color flow Doppler). * The study was technically difficult. * The study was technically difficult, but visualization was adequate with the administration of Definity ultrasound contrast. * There were technical limitations due to patient'spoor positioning * A saline contrast injection was performed to assess for cardiac shunting. * The injection was performed through an intravenous line in the left arm. * The attending nurse who injected the saline contrast was Katrina Napoles RN. * A total of 20 cc of agitated saline was given. * A contrast injection of Definity was performed to improve assessment of LV function. * Contrast was injected into an intravenous site in the left arm. * One vial of Definity ultrasound contrast was diluted in normal saline to a total volume of 10 ml. A total of '2' ml of solution was administered during imaging. * Lot # [id number] of Definity utilized for procedure. * Expiration date 1Apr19. * The attending nurse who injected the contrast agent was Katrina Napoles RN. Left Ventricle * The left ventricle is grossly normal size. * There is mild concentric left ventricular hypertrophy. * Ejection Fraction = 55-60%. * No regional wall motion abnormalities noted. Right Ventricle * The right ventricle is grossly normal size. * The right ventricular systolic function is normal as assessed by tricuspid annular plane systolic excursion (TAPSE) (normal >1.5 cm). Mitral Valve * The mitral valve is grossly normal. * There is no vegetation seen on the mitral valve. * There is no mitral valve stenosis. * There is trace mitral regurgitation. Tricuspid Valve * There is trace tricuspid regurgitation. Aortic Valve * The aortic valve opens well. * The aortic valve is trileaflet. * There is no aortic valvular vegetation. * No hemodynamically significant valvular aortic stenosis. * There is no significant aortic regurgitation. Pulmonic Valve * The pulmonary valve is inadequately visualized, but the Doppler data is adequate for interpretation. * Pulmonic stenosis is absent. Pericardium/Pleural * There is no pericardial effusion. MMode 2D Measurements and Calculations IVSd 1.1 cm IVSs 1.2 cm LVIDd 4.2 cm LVIDs 2.8 cm LVPWd 1.3 cm LVPWs 1.8 cm IVS/LVPW 0.82 FS 32.9 % EDV(Teich) 80.6 ml ESV(Teich) 30.8 ml EF(Teich) 61.8 % EDV(cubed) 76.5 ml ESV(cubed) 23.1 ml EF(cubed) 69.8 % % IVS thick 10.9 % % LVPW thick 32.6 % LV mass(C)d 182.4 grams LV mass(C)dI 85.5 grams/m\S\2 LV mass(C)s 144.6 grams LV mass(C)sI 67.8 grams/m\S\2 SV(Teich) 49.7 ml SI(Teich) 23.3 ml/m\S\2 SV(cubed) 53.4 ml SI(cubed) 25.0 ml/m\S\2 Ao root diam 2.9 cm Ao root area 6.6 cm\S\2 ACS 2.0 cm LA dimension 3.4 cm LA/Ao 1.2 LVAd ap4 33.0 cm\S\2 LVLd ap4 8.1 cm EDV(MOD-sp4) 113.6 ml EDV(sp4-el) 114.8 ml LVAs ap4 15.7 cm\S\2 LVLs ap4 6.7 cm ESV(MOD-sp4) 31.1 ml ESV(sp4-el) 31.3 ml EF(MOD-sp4) 72.6 % EF(sp4-el) 72.8 % LVAd ap2 31.5 cm\S\2 LVLd ap2 7.8 cm EDV(MOD-sp2) 104.9 ml EDV(sp2-el) 108.0 ml LVAs ap2 13.9 cm\S\2 LVLs ap2 6.6 cm ESV(MOD-sp2) 24.6 ml ESV(sp2-el) 24.7 ml EF(MOD-sp2) 76.6 % EF(sp2-el) 77.2 % LVLd %diff -3.48 % EDV(MOD-bp) 109.2 ml LVLs %diff -1.11 % ESV(MOD-bp) 27.7 ml EF(MOD-bp) 74.7 % SV(MOD-sp4) 82.5 ml SI(MOD-sp4) 38.7 ml/m\S\2 SV(MOD-sp2) 80.3 ml SI(MOD-sp2) 37.6 ml/m\S\2 SV(MOD-bp) 81.5 ml SI(MOD-bp) 38.2 ml/m\S\2 SV(sp4-el) 83.6 ml SI(sp4-el) 39.2 ml/m\S\2 SV(sp2-el) 83.3 ml SI(sp2-el) 39.1 ml/m\S\2 Doppler Measurements and Calculations MV E max margaret 108.5 cm/sec MV A max margaret 80.1 cm/sec MV E/A 1.4 MV dec time 0.29 sec Ao V2 max 164.8 cm/sec Ao max PG 10.9 mmHg Ao max PG (full) 6.1 mmHg LV V1 max PG 4.8 mmHg LV V1 max 109.6 cm/sec PA V2 max 120.4 cm/sec PA max PG 5.8 mmHg TR max margaret 234.9 cm/sec
[2017-11-17 23:31] LABS: ANTICARDIOLIPID AB IGA <11 APL (< = 11)
--- NOTE | 2017-12-07 07:11 | EDITING REQUIRED CODING QUERY ---
CODING QUERY To promote full compliance with coding requirements relating to patient care, provider participation is requested in all cases of military professional uncertainty. Please assist us with the question(s) below: Coding Question(s): There is documentation on the Progress Note beginning 11/14/17 and on the 11/15/17 Neurology Consult and on the Discharge Summary of headache and repeat CT imaging with findings. There is documentation of previous ischemic stroke and it is not clear if there is possible new ischemic stroke. Please clarify below, in your clinical opinion. ( X ) There is possible new stroke ( ) There is no new stroke Physician's Response(s): Possible new stroke. Thank you Stephanie Horn Principal Diagnosis: "_that condition established after study, to be chiefly responsible for occasioning the admission of the patient to the hospital for care." Co-Existing Principal Diagnosis: "_when two or more diagnoses equally meet the criteria for principal diagnosis as determined by the circumstances of admission, diagnostic work up, and/or therapy provided, and the Alphabetic Index, Tabular List, or another coding guideline does not provide sequencing direction, any one of the diagnoses may be sequenced first." "When the physician has documented what appears to be a current diagnosis in the body of the record, but has not included the diagnosis in the final diagnostic statement, the physician should be asked whether the diagnosis should be added." (Source Coding [facility] 2 QTR90. p3-4)
== END 2017-11-15 16:30 | disposition short-term general hospital (02) | DRG 444 ==
LOC: C.EDA 09:46 → EDBD 09:46 → C.MSW 14:04 → ENRESERV 14:17
PROVIDERS: ADMIT Internal Medicine; ATTEND Family Medicine
PROC: BF11YZZ Fluoroscopy of Biliary and Pancreatic Ducts using Other Contrast (ICD-10-PCS; 2017-11-12)
PROC: 03HY33Z Insertion of Infusion Device into Upper Artery, Percutaneous Approach (ICD-10-PCS; 2017-11-12)
PROC: 0FC98ZZ Extirpation of Matter from Common Bile Duct, Via Natural or Artificial Opening Endoscopic (ICD-10-PCS; principal; 2017-11-12 19:45)
PROC: 0F798DZ Dilation of Common Bile Duct with Intraluminal Device, Via Natural or Artificial Opening Endoscopic (ICD-10-PCS; principal; 2017-11-12 19:45)
PROC: 0F7D8DZ Dilation of Pancreatic Duct with Intraluminal Device, Via Natural or Artificial Opening Endoscopic (ICD-10-PCS; principal; 2017-11-12 19:45)
DX: K80.43 Calculus of bile duct with acute cholecystitis with obstruction (principal); I63.8 Other cerebral infarction; G93.6 Cerebral edema; I69.354 Hemiplegia and hemiparesis following cerebral infarction affecting left non-dominant side; M46.22 Osteomyelitis of vertebra, cervical region; Q21.1 Atrial septal defect; I76 Septic arterial embolism; I74.8 Embolism and thrombosis of other arteries; R51 Headache; R21 Rash and other nonspecific skin eruption; F32.9 Major depressive disorder, single episode, unspecified; F17.200 Nicotine dependence, unspecified, uncomplicated; Z51.81 Encounter for therapeutic drug level monitoring; Z79.899 Other long term (current) drug therapy; Z79.01 Long term (current) use of anticoagulants; Z79.2 Long term (current) use of antibiotics; Z86.69 Personal history of other diseases of the nervous system and sense organs; Z87.440 Personal history of urinary (tract) infections; Z86.19 Personal history of other infectious and parasitic diseases; Z22.330 Carrier of Group B streptococcus; Z87.59 Personal history of other complications of pregnancy, childbirth and the puerperium

== ENCOUNTER → 2018-03-20 | Outpatient (CLI) | payer OTHER ==
[~2018-03-20] MED LIST changes: +ACET-1256 PO
[2018-03-20 16:16] LABS: BASO % 0.3 %; BASO ABS # 0.03 K/uL (0-0.2); EOS % 3.8 %; EOS ABS # 0.37 K/uL (0-0.5); HEMATOCRIT 33.3 % (37-47); HEMOGLOBIN 11.5 g/dL (12.0-16.0); IG# 0.03 K/uL (0.00-0.02); LYMPH % 25.1 %; LYMPH ABS # 2.42 K/uL (1.2-3.4); MEAN CELL VOLUME 86.3 fL (80-100); MEAN CORPUSCULAR HEMOGLOBIN 29.8 pg (25-34); MEAN CORPUSCULAR HGB CONC 34.5 g/dl (32-36); MONO % 7.2 %; NEUT % 63.3 %; NEUT ABS # 6.11 K/uL (1.4-6.5); PLATELET COUNT 296 K/uL (130-400); RED CELL DISTRIBUTION WIDTH CV 14.8 % (11.5-14.5); RED CELL DISTRIBUTION WIDTH SD 45.7 fL (36.4-46.3); WHITE BLOOD COUNT 9.66 K/uL (4.8-10.8)
== END | disposition home or self-care (01) ==
LOC: C.LAB1850 14:54
PROVIDERS: ATTEND Obstetrics & Gynecology
DX: Z34.81 Encounter for supervision of other normal pregnancy, first trimester (principal)

== ENCOUNTER → 2018-03-20 | Outpatient (CLI) | payer OTHER | END | disposition home or self-care (01) | LOC: C.PAPS 18:08 | PROVIDERS: ATTEND Obstetrics & Gynecology | DX: Z12.4 Encounter for screening for malignant neoplasm of cervix (principal) ==

== ENCOUNTER → 2018-04-11 | Outpatient (CLI) | payer OTHER ==
[2018-04-11 16:41] LABS: ALBUMIN 2.9 gm/dl (3.4-5.0); ALKALINE PHOSPHATASE 83 U/L (45-117); ALT/SGPT 13 U/L (12-78); AST/SGOT 7 U/L (15-37); BLOOD UREA NITROGEN 9 mg/dl (7-18); CALCIUM 8.5 mg/dl (8.5-10.1); CARBON DIOXIDE 23 mmol/L (21-32); GLUCOSE 81 mg/dl (70-99); SODIUM 138 mmol/L (136-145); TOTAL PROTEIN 6.7 gm/dl (6.4-8.2)
== END | disposition home or self-care (01) ==
LOC: C.LAB 13:08
PROVIDERS: ATTEND Obstetrics & Gynecology
DX: Z86.73 Personal history of transient ischemic attack (TIA), and cerebral infarction without residual deficits (principal)

== ENCOUNTER 2020-01-26 07:38 | Inpatient (IN) ==
[2020-01-26] MEDS ORDERED: OXYTOCIN 30 UNITS/500 ML BAG IV PRN ×3 (08:05→23:32)
--- NOTE | 2020-01-26 08:20 | History & Physical Report ---
Date of Service January 26, 2020 Assessment & Plan (1) Supervision of high risk , antepartum: Patient is a 29 yo here for elective IOL. -Patients history is complicated by non-compliance with appointments. -GBS -, Bloodtype A+ -Pitocin for contraction augmentation -Patient desires epidural; will consult anaesthesia when contractions become painful -Anticipate vaginal delivery. History of Present Illness Chief Complaint: IOL Primary Care Provider: Jose Carroll Patient is a 29 year old at 39w 2d by 12 week US 07/22/19 presenting today for elective induction of labor. Patient has had a complicated by non-compliance to attend OB appointments, Cardiology, or Neurology appointments. She had no showed multiple appointments to [facility] for follow- up echo which she finally completed on 12/30/19 which was WNL. She has been taking prenatals and Flonase for her allergies. She continues to feel baby move. She has not had any contractions, loss/gush of fluid, vaginal blood loss. 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 Labs -Blood type: A+ -Antibody screen: Negative -Hgb: 11.5 -Hct: 34.6 -Rubella: Immune -VDRL/RPR: Nonreactive -Gonorrhea: Not detected -Chlamydia: Not detected -HIV: Negative -HbSAg: Negative -GBS: Negative -Glucose tolerance x2: GTT 1 hour 160 -Cell Free DNA Screening: Negative -Maternal Serum AFP: Negative Allergies Allergy/AdvReac Type Severity Reaction Status Date / Time Penicillins AdvReac Mild NAUSEA/VOMI Verified 01/26/20 08:25 TING Home Medications Home Medications Medication Instructions Recorded Confirmed Type acetone (urine) test #50 ea 08/21/19 01/15/20 Rx blood sugar diagnostic #120 ea 08/21/19 01/15/20 Rx blood-glucose meter #1 ea 08/21/19 01/15/20 Rx lancets 33 gauge #100 ea 08/21/19 01/15/20 Rx prenat.vits,sujata,[id number]-[id number]-[id number] 1 tab PO DAILY #90 tab 09/18/19 01/26/20 Rx Patient History Social History Preferred Language: Tamaz[place] Communication Ability: Effective Centrifuge Separator Tender Required: No Beliefs That Will Affect Care: None marital status: Single marital status details: fob Remy Feliz (22) Current Living Situation: Parent Current Living Situation Comment: lives with parents and 2 children. parents have custody of oldest daughter current occupational status: unemployed Other Information That Helps Us Care for You: No Feels Safe at Home: Yes Safety Concerns: Feels Safe At This Time Smoking Status: Current every day smoker Tobacco Type: cigarettes ; Age Started Using Tobacco: 14 ; Cigarettes Per Day: 1/2 pack daily ; Do You Dip or Chew Tobacco: No ; Second Hand Exposure: No ; Tobacco Cessation Education Requested by Patient: No Hx Alcohol Use: No Hx Substance Use: No Review of Systems no fever, no chills and no weakness no worsening vision no dizziness no cough and no dyspnea no chest pain, no dyspnea and no palpitations no abdominal pain, no nausea, no vomiting, no constipation and no diarrhea/loose stools no dysuria and no hematuria no headache(s) Physical Exam Constitutional: WD/WN, vitals as above + morbidly obese Eyes: PERRL, conjunctivae normal, anicteric sclerae ENMT: external ear and nose normal, oropharynx normal Neck: normal visual inspection Respiratory: normal respiratory effort, lungs clear to auscultation Cardiovascular: Rate/Rhythm: regular rate and regular rhythm Heart Sounds: normal S1 and normal S2; no murmur Extremities: + edema (+1) Gastrointestinal (Abdomen): Inspection/Auscultation: + abdomen distended (Gravid) and normal bowel sounds Percussion/Palpation: abdomen soft; abdomen nontender Musculoskeletal: no cyanosis or clubbing, extremities motor strength 5/5 Neurologic: patellar DTR's 2+ bilat, sensation intact Psychiatric: A+Ox3, euthymic affect Genitourinary: OB Exam Abdomen: + fundal height (Term), + heart tones, + vertex and + estimated weight (7 lbs) Cervical Exam conducted by Dr. Denny Results & Data Vital Signs (Past 12 Hours) Vital Signs Pulse BP 01/26/20 07:55 110 H 122/58 L Code Status & VTE Plan VTE Prophylaxis Plan VTE Prophylaxis will be ordered: No Reason for no VTE drug order: Contraindicated Monitoring External Monitor Cat 1 Supervising Physician Co-Signing Physician Notes Resident Physician Supervision Note: I interviewed and examined the patient. Discussed with Dr. Sheth and agree with findings and plan as documented in the note. Any exceptions or clarifications are listed here: Cervical exam /-4. Soft/mid. As discussed with Dr Dye - will start pitocin for IOL. Documented By: Halle Denny, DO Resident Activity Tracking Resident Involvement: Resident Care Provided Care Provided: OB Delivery
[2020-01-26 08:39] LABS: Hematocrit (blood only) 34.5 % (37-47); Hemoglobin 11.3 g/dL (12.0-16.0); Mean Corpuscular Hemoglobin 29.7 pg (25-34); Mean Corpuscular Volume 90.8 fL (80-100); Mean Platelet Volume 10.3 fL (7.4-10.4); Platelet Count 232 K/uL (130-400); RDW Coefficient of Variation 14.5 % (11.5-14.5); RDW Standard Deviation 47.5 fL (36.4-46.3); White Blood Count 11.35 K/uL (4.8-10.8)
[2020-01-26 09:12] LABS: Mean Corpuscular Hgb Conc 32.8 g/dL (32-36)
[2020-01-26] MEDS: LACTATED RINGER'S 1,000 ML IV PRN ×3 (09:17→19:19)
[2020-01-26] MEDS ORDERED: BUPIVACAINE 0.25% 30 ML VIAL ONE (12:54)
[2020-01-26] MEDS ORDERED: ePHEDrine sulfate 50 MG/ML AMP ONE (12:54)
[2020-01-26] MEDS ORDERED: fentaNYL citrate 100 MCG/2 ML VIAL ONE (12:54)
[2020-01-26] MEDS ORDERED: fentaNYL 2MCG/ML ROPIV 1.25MG/ML 100 ML BAG EPI ONE (12:55)
--- NOTE | 2020-01-26 13:06 | Anesthesiology Consultation ---
Date of Service January 26, 2020 Assessment & Plan Chart Review Chart Review: Acceptable Risk for Labor Epidural Consults Requested none ASA ASA3 Proposed Anesthesia Anesthesia Type: Labor Epidural Risk / Benefits Reviewed With: PT / POA / Parent / Guardian, Accepts Plan and Informed Consent Obtained History Height/Weight Height: 5 ft 6 in Weight: 173.726 kg Allergies Allergy/AdvReac Type Severity Reaction Status Date / Time Penicillins AdvReac Mild NAUSEA/VOMI Verified 01/26/20 08:25 TING Medications Home Medications Medication Instructions Recorded Confirmed Last Taken acetone (urine) test #50 ea 08/21/19 01/15/20 Unknown blood sugar diagnostic #120 ea 08/21/19 01/15/20 Unknown blood-glucose meter #1 ea 08/21/19 01/15/20 Unknown lancets 33 gauge #100 ea 08/21/19 01/15/20 Unknown prenat.vits,sujata,not-pier-pcnfd 1 tab PO DAILY #90 tab 09/18/19 01/26/20 01/26/20 06:30 Active Medications Generic Name Dose Route Start Last Admin Trade Name Freq PRN Reason Stop Dose Admin Lactated Ringer's 1,000 mls @ 125 mls/hr 01/26/20 08:05 01/26/20 09:17 Lr IV 01/28/20 08:04 125 mls/hr .Q8H PRN Administration L&D Protocol Protocol Oxytocin 30 units in 500 mls @ 11 mls/hr 01/26/20 08:11 01/26/20 12:20 Pitocin IV 01/28/20 08:10 0.66 units/hr .Q24H PRN 11 mls/hr Labor Induction/Augmentation Titration Protocol 0.66 UNITS/HR Past Medical History Medical History Altered mental status Anxiety Cholecystitis CVA (cerebral vascular accident) Per neurology 05/2018, "History of sepsis and meningitis likely secondary to dental abscess and relative immunosuppression with / post- status causing septic emboli / 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 Depression Encounter for pre-operative examination Fungemia GERD (gastroesophageal reflux disease) NO MEDS History of chicken pox Meningitis spinal 09/2017 --> TREATED AT [facility]. 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, would not recommend closure for stroke risk reduction." Positive GBS test with 38 completed weeks gestation PROM (premature rupture of membranes) Scoliosis Sepsis SOBOE (shortness of breath on exertion) Symptomatic cholelithiasis Exercise / Class Metabolic Activity III < 4 Walking/Shop/Light housework Past Family History Family History Father Diabetes mellitus, type 2 Hypertension Past Surgical History Surgical History History of appendectomy History of ERCP 02/19/2019 [facility] History of tooth extraction WISDOM TEETH S/P cholecystectomy Past Anesthesia History No Hx of Anesthesia Complications and No Family Hx of Anesthesia Complications History of PONV No Hx of PONV and No Hx of Motion Sickness Social History Smoking Status: Current every day smoker tobacco type: cigarettes Smoking cigarettes per day: 1/2 pack daily Do You Dip or Chew Tobacco: No Hx Alcohol Use: No Hx Substance Use: No substance use type: does not use Physical Exam Vital Signs Last Vital Signs Temp 97.9 F 01/26/20 11:49 Pulse 84 01/26/20 12:18 Resp 20 01/26/20 12:18 BP 128/63 01/26/20 12:18 ENMT Mouth: + dentures (Upper) Thyromental Distance: > or= 3.5 Finger Breadths Mallampati Class: II Neck normal visual inspection Respiratory normal respiratory effort Auscultation: lungs clear to auscultation bilaterally Cardiovascular Rate/Rhythm: regular rate and regular rhythm Testing Laboratory Results 01/26/20 08:19
[2020-01-26] MEDS ORDERED: fentaNYL 2MCG/ML ROPIV 1.25MG/ML 100 ML BAG EPI PRN (13:08)
[2020-01-26] MEDS ORDERED: NALBUPHINE HCL INJ 10 MG/ML AMP IV PRN (13:08)
[2020-01-26] MEDS ORDERED: NALOXONE HCL 1 MG in SODIUM CHLORIDE 0.9% 1000ML 1,000 ML IV PRN (13:08)
[2020-01-26] MEDS ORDERED: ePHEDrine sulfate 50 MG/ML AMP IV PRN (13:08)
[2020-01-26] MEDS ORDERED: ONDANSETRON INJ 2 MG/ML 2 ML VIAL IV PRN (13:08)
[2020-01-26] MEDS ORDERED: NALOXONE HCL 0.4 MG/1 ML VIAL/CARP IV PRN (13:08)
[2020-01-26] MEDS ORDERED: DiphenhydrAMINE HCL 50 MG/ML VIAL IV PRN (13:08)
--- NOTE | 2020-01-26 14:17 | Labor Progress Brief Note ---
Date of Service January 26, 2020 Subjective Reason For Note: Routine Evaluation Assessment & Plan (1) Diet controlled gestational diabetes mellitus (GDM), antepartum: 29yo at 39.2 weeks GA. 1. Fetus: Cat 1 2. Labor: Oxytocin/ AROM clr 3. GBS negative 4. Vitals WNL 5. GDM: continue BG Epidural placed (2) Obesity affecting , antepartum: (3) CVA (cerebral vascular accident): Physical Exam Genitourinary: Manual OB Exam: + cervical dilation 3 cm, + cervical effacement 50%, + station high and + amniotic fluid clear OB Exam Monitor Tracing: + scalp electrode used, + external uterine monitor used, + category I and + normal FHT variability; no early decelerations present, no late decelerations present and no variable decelerations Results & Data Vital Signs (Past 12 Hours) Vital Signs Temp Pulse Resp BP Pulse Ox 01/26/20 14:13 93 H 125/85 01/26/20 14:09 94 H 95 01/26/20 14:04 100 H 96 01/26/20 13:59 96 H 93 01/26/20 13:54 100 H 127/63 95 01/26/20 13:50 100 H 130/58 L 01/26/20 13:49 98 H 95 01/26/20 13:46 97 H 94 01/26/20 13:44 36.9 C 100 H 20 95 01/26/20 13:42 193 H 112/59 L 01/26/20 13:40 107 H 115/57 L 01/26/20 13:39 105 H 95 01/26/20 13:38 107 H 117/58 L 01/26/20 13:37 110 H 113/66 01/26/20 13:34 101 H 110/55 L 95 01/26/20 13:33 106 H 114/55 L 01/26/20 13:29 107 H 97 01/26/20 13:28 101 H 134/77 01/26/20 13:24 98 H 97 01/26/20 13:19 100 H 98 01/26/20 13:15 97 H 135/82 01/26/20 13:14 100 H 98 01/26/20 13:09 98 H 97 01/26/20 12:18 84 20 128/63 06/08/20 11:49 36.6 C 20 06/08/20 11:26 100 H 128/67 01/26/20 10:22 99 H 139/72 01/26/20 09:18 96 H 127/69 01/26/20 08:03 36.8 C 01/26/20 07:55 110 H 122/58 L Coding Level of Care Code None Diagnoses Diet controlled gestational diabetes mellitus (GDM), antepartum O24.410 Obesity affecting , antepartum O99.210 CVA (cerebral vascular accident) I63.9
[2020-01-26] MEDS ORDERED: ACETAMINOPHEN 325 MG TAB PO STA (14:33)
[2020-01-26] MEDS ORDERED: ACETAMINOPHEN 325 MG TAB PO PRN (20:38)
--- NOTE | 2020-01-26 22:08 | Labor Progress Brief Note ---
Date of Service January 26, 2020 Subjective Reason For Note: Routine Evaluation Assessment & Plan (1) Diet controlled gestational diabetes mellitus (GDM), antepartum: 29yo at 39.2 weeks GA. 1. Fetus: Cat 1 2. Labor: Complete. Will labor down for 45-60 minutes. Oxytocin/ AROM clr 3. GBS negative 4. Vitals WNL 5. GDM: continue BG Epidural placed (2) Obesity affecting , antepartum: (3) CVA (cerebral vascular accident): Physical Exam Genitourinary: Manual OB Exam: + cervical dilation 10 cm, + cervical effacement 100%, + station + 1 and + amniotic fluid clear OB Exam Monitor Tracing: + scalp electrode used, + intra-uterine pressure catheter used, + category I, + normal FHT variability and + variable decelerations (When pushing) Results & Data Vital Signs (Past 12 Hours) Vital Signs Temp Pulse Resp BP Pulse Ox 01/26/20 22:04 104 H 93 01/26/20 21:59 108 H 93 01/26/20 21:58 104 H 110/57 L 01/26/20 21:54 111 H 94 01/26/20 21:49 113 H 96 01/26/20 21:44 118 H 106/77 91 01/26/20 21:39 78 94 01/26/20 21:34 118 H 97 01/26/20 21:30 20 01/26/20 21:29 104 H 92/56 L 95 01/26/20 21:24 112 H 96 01/26/20 21:19 107 H 94 01/26/20 21:14 106 H 94 01/26/20 21:12 109 H 114/56 L 01/26/20 21:09 109 H 96 01/26/20 21:04 108 H 94 01/26/20 21:00 18 01/26/20 20:59 114 H 95 01/26/20 20:58 106 H 117/58 L 01/26/20 20:54 101 H 94 01/26/20 20:50 37.1 C 01/26/20 20:49 110 H 96 01/26/20 20:44 107 H 95 01/26/20 20:43 105 H 108/56 L 01/26/20 20:39 109 H 94 01/26/20 20:34 109 H 95 01/26/20 20:30 18 01/26/20 20:29 113 H 94 01/26/20 20:27 108 H 117/57 L 01/26/20 20:24 113 H 95 01/26/20 20:19 109 H 94 01/26/20 20:14 109 H 96 01/26/20 20:13 113 H 107/55 L 01/26/20 20:09 107 H 97 01/26/20 20:04 103 H 96 01/26/20 20:00 18 01/26/20 19:59 111 H 96 01/26/20 19:57 109 H 109/58 L 01/26/20 19:54 107 H 95 01/26/20 19:49 106 H 95 01/26/20 19:44 112 H 96 01/26/20 19:43 113 H 113/54 L 01/26/20 19:39 109 H 94 01/26/20 19:34 114 H 95 01/26/20 19:30 20 01/26/20 19:29 117 H 95 01/26/20 19:28 117 H 102/57 L 01/26/20 19:24 110 H 96 01/26/20 19:19 101 H 96 01/26/20 19:14 110 H 96 01/26/20 19:12 37.0 C 111 H 18 108/61 01/26/20 19:09 108 H 97 01/26/20 19:04 108 H 96 01/26/20 19:00 18 01/26/20 18:59 103 H 95 01/26/20 18:57 97 H 101/58 L 01/26/20 18:54 100 H 95 01/26/20 18:49 96 H 98 01/26/20 18:44 109 H 94 01/26/20 18:42 102 H 104/59 L 01/26/20 18:39 100 H 95 01/26/20 18:34 95 H 95 01/26/20 18:29 104 H 98 01/26/20 18:27 36.9 C 107 H 20 122/55 L 97 01/26/20 18:24 99 H 93 01/26/20 18:19 90 94 01/26/20 18:14 109 H 96 01/26/20 18:13 93 H 123/59 L 01/26/20 18:09 101 H 96 01/26/20 18:04 101 H 95 01/26/20 17:59 99 H 95 01/26/20 17:57 100 H 116/57 L 01/26/20 17:54 102 H 94 01/26/20 17:49 103 H 96 01/26/20 17:44 102 H 96 01/26/20 17:42 98 H 115/57 L 01/26/20 17:39 101 H 95 01/26/20 17:34 102 H 95 01/26/20 17:29 98 H 97 01/26/20 17:27 93 H 117/53 L 01/26/20 17:24 96 H 96 01/26/20 17:19 105 H 96 01/26/20 17:14 94 H 95 01/26/20 17:12 92 H 118/55 L 01/26/20 17:09 88 97 01/26/20 17:04 98 H 97 01/26/20 16:59 97 H 97 01/26/20 16:57 88 110/56 L 01/26/20 16:54 99 H 96 01/26/20 16:49 92 H 95 01/26/20 16:44 97 H 96 01/26/20 16:43 100 H 111/56 L 01/26/20 16:39 96 H 96 01/26/20 16:34 95 H 96 01/26/20 16:32 87 113/57 L 01/26/20 16:31 93 H 111/54 L 01/26/20 16:29 86 95 01/26/20 16:24 91 H 95 01/26/20 16:19 104 H 96 01/26/20 16:14 95 H 96 01/26/20 16:12 96 H 114/57 L 01/26/20 16:09 97 H 93 01/26/20 16:04 99 H 96 01/26/20 15:59 90 20 93 01/26/20 15:57 96 H 129/63 01/26/20 15:54 84 94 01/26/20 15:49 91 H 94 01/26/20 15:44 89 20 93 01/26/20 15:42 88 130/60 01/26/20 15:39 86 94 01/26/20 15:34 89 94 01/26/20 15:29 79 94 01/26/20 15:27 84 122/56 L 01/26/20 15:26 36.9 C 20 01/26/20 15:24 85 94 01/26/20 15:19 93 H 96 01/26/20 15:14 89 125/59 L 95 01/26/20 15:09 82 95 01/26/20 15:04 93 H 95 01/26/20 14:59 85 18 94 01/26/20 14:58 85 131/61 01/26/20 14:54 82 96 01/26/20 14:49 86 96 01/26/20 14:44 90 20 130/62 96 01/26/20 14:39 93 H 97 01/26/20 14:34 99 H 96 01/26/20 14:29 94 H 20 95 01/26/20 14:28 90 120/72 01/26/20 14:24 96 H 96 01/26/20 14:19 87 97 01/26/20 14:14 99 H 20 97 01/26/20 14:13 93 H 125/85 01/26/20 14:09 94 H 95 01/26/20 14:04 100 H 96 01/26/20 13:59 96 H 20 93 01/26/20 13:54 100 H 127/63 95 01/26/20 13:50 100 H 130/58 L 01/26/20 13:49 98 H 95 01/26/20 13:46 97 H 94 01/26/20 13:44 36.9 C 100 H 20 95 01/26/20 13:42 193 H 112/59 L 01/26/20 13:40 107 H 115/57 L 01/26/20 13:39 105 H 95 01/26/20 13:38 107 H 117/58 L 01/26/20 13:37 110 H 113/66 01/26/20 13:34 101 H 110/55 L 95 01/26/20 13:33 106 H 114/55 L 01/26/20 13:29 107 H 97 01/26/20 13:28 101 H 134/77 01/26/20 13:24 98 H 97 01/26/20 13:19 100 H 98 01/26/20 13:15 97 H 135/82 01/26/20 13:14 100 H 98 06/08/20 13:09 98 H 97 01/26/20 12:18 84 20 128/63 01/26/20 11:49 36.6 C 20 01/26/20 11:26 100 H 128/67 01/26/20 10:22 99 H 139/72 Coding Level of Care Code None Diagnoses Diet controlled gestational diabetes mellitus (GDM), antepartum O24.410 Obesity affecting , antepartum O99.210 CVA (cerebral vascular accident) I63.9
[2020-01-26] MEDS ORDERED: bisacodyL 10 MG SUPP PR PRN (23:32)
[2020-01-26] MEDS ORDERED: BENZOCAINE 20% AER SPR 82.5 GM CAN EXT PRN (23:32)
[2020-01-26] MEDS ORDERED: SUPERCREAM 0.870% 15 GM JAR EXT PRN (23:32)
[2020-01-26] MEDS ORDERED: HYDROCORTISONE ACETATE 25 MG SUPP PR PRN (23:32)
[2020-01-26] MEDS ORDERED: DIPHTHERIA/TETANUS/PERTUSSIS 0.5 ML SYR/VIAL IM ONE (23:32)
[2020-01-26] MEDS ORDERED: IBUPROFEN 600 MG TAB PO ONE (23:40)
--- NOTE | 2020-01-27 00:22 | Delivery Summary ---
DATE OF OPERATION: 01/26/2020 PROCEDURE: Normal spontaneous vaginal delivery. SURGEON: Chava Dye MD PREOPERATIVE DIAGNOSES: 1. Single intrauterine at 39 weeks' gestational age. 2. Gestational diabetes. 3. 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 4. Maternal PFO. 5. Morbid obesity with BMI greater than 60. POSTOPERATIVE DIAGNOSES: 1. Single intrauterine at 39 weeks' gestational age. 2. Gestational diabetes. 3. 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 4. Maternal PFO. 5. Morbid obesity with BMI greater than 60. 6. Status post delivery. ESTIMATED BLOOD LOSS: 300 mL. DRAINS: Kelly catheter, 400 mL at the end of case. COMPLICATIONS: None. FINDINGS: Viable male with weight pending and Apgars of 8 and 9 at 1 and 5 minutes respectively. DESCRIPTION OF PROCEDURE: The patient progressed to 10 cm dilated, 100% effaced, +1 station, pushed over intact perineum with epidural anesthesia and delivered a viable male infant, weight and Apgars as noted above. Head of the delivered in REJI position, rest to left transverse. Nuchal x1 was noted which was easily reduced. Body and shoulders quickly followed. was noted to be vigorous soon after delivery and 1-minute delayed cord clamping was initiated. The cord was then double clamped and cut. Cord blood was then obtained. Attention was then turned to deliver the placenta, which was delivered with 3-vessel cord and gentle cord traction. On inspection of perineum, vagina, and cervix, there were noted to be no lacerations. Both mother and were stable in the immediate post-delivery period. I attest to the content of the Intraoperative Record and any orders documented therein. Any exception s are noted below.
[2020-01-27] MEDS: ACETAMINOPHEN 325 MG TAB PO PRN ×4 (04:00→22:01)
[2020-01-27] MEDS: IBUPROFEN 600 MG TAB PO PRN ×4 (06:11→19:52)
--- NOTE | 2020-01-27 07:33 | Obstetrical Progress Note ---
Date of Service <Stoney Sheth DO - Last Filed: 01/27/20 07:36> January 27, 2020 Assessment & Plan <Stoney Sheth DO - Last Filed: 01/27/20 07:36> (1) : -PPD#1 -Vitals reviewed, WNL - GBS -, Blood Type A+ - Clinically stable. - Feels well today. No nausea with clear liquids and interested in eating, voiding well, ambulating well. - Pain well controlled. - Routine post- care - After discharge will have [address] Dye. Day #:: 1 Subjective <Stoney Sheth DO - Last Filed: 01/27/20 07:36> Ambulation: ambulating normally Voiding: no voiding problems Passing Gas:: Yes Diet Tolerance:: clear liquids Lochia:: Moderate Feeding Type:: bottle feeding Current Pain Level(1-10): 5 (improved with analgesics) Patient is a 29 PPD#1. Patient states that she is feeling well today and that her pain is well controlled. She has no other complaints at this time. Notes she has not had a chance to eat solids yet as she delivered near midnight the previous night, but has not had any nausea with liquids. Constitutional: no fever and no chills Respiratory: no cough, no dyspnea and no wheezing Cardiovascular: + edema; no chest pain, no dyspnea, no palpitations and no calf pain Breast: no breast pain Gastrointestinal: no abdominal pain, no nausea and no vomiting Genitourinary (female): no dysuria and no difficulty urinating Neurologic: no headache(s) Physical Exam <DO Lenny Dailey Last Filed: 01/27/20 07:36> Constitutional WD/WN, vitals as above Respiratory normal respiratory effort, lungs clear to auscultation Cardiovascular Rate/Rhythm: regular rate and regular rhythm Heart Sounds: normal S1 and normal S2; no click, no gallop, no murmur and no cardiac rub Extremities: + edema (+2); no calf tenderness Gastrointestinal (Abdomen) Inspection/Auscultation: abdomen normal to inspection and normal bowel sounds Percussion/Palpation: abdomen soft; abdomen nontender Genitourinary OB Exam Abdomen: + fundal height Fundus: + firm and + relation to umbilicus (3cm below); not tender and not boggy Results & Data <Stoney Sheth, DO - Last Filed: 01/27/20 07:36> Vital Signs (Past 12 Hours) Vital Signs Temp Pulse Pulse Pulse Resp BP BP 01/27/20 04:00 36.4 C L 90 16 130/74 01/27/20 01:45 37.0 C 105 H 16 01/27/20 01:31 37.0 C 107 H 16 119/71 01/27/20 01:16 104 H 18 111/61 01/27/20 01:01 106 H 18 143/65 H 01/27/20 00:51 102 H 150/72 H 01/27/20 00:46 96 H 16 158/100 H 01/27/20 00:31 123 H 18 143/74 H 01/27/20 00:16 102 H 16 159/83 H 01/27/20 00:10 107 H 165/87 H 01/27/20 00:01 105 H 18 159/111 H 01/26/20 23:49 100 H 16 139/79 01/26/20 23:34 115 H 01/26/20 23:30 36.9 C 113 H 18 136/67 01/26/20 23:29 118 H 01/26/20 23:24 110 H 01/26/20 23:20 20 01/26/20 23:19 109 H 01/26/20 23:16 113 H 01/26/20 23:14 112 H 124/57 L 01/26/20 23:09 107 H 01/26/20 23:08 101 H 01/26/20 23:04 103 H 01/26/20 23:01 104 H 01/26/20 23:00 18 01/26/20 22:59 98 H 116/57 L 01/26/20 22:56 36.8 C 110 H 01/26/20 22:54 102 H 01/26/20 22:49 102 H 01/26/20 22:48 96 H 01/26/20 22:44 95 H 01/26/20 22:43 95 H 01/26/20 22:42 93 H 110/57 L 01/26/20 22:39 93 H 01/26/20 22:38 96 H 01/26/20 22:34 97 H 01/26/20 22:32 89 01/26/20 22:30 18 01/26/20 22:29 102 H 01/26/20 22:27 94 H 111/59 L 01/26/20 22:24 108 H 01/26/20 22:22 88 01/26/20 22:19 103 H 01/26/20 22:14 103 H 01/26/20 22:13 99 H 109/65 01/26/20 22:09 106 H 01/26/20 22:04 104 H 01/26/20 22:00 18 01/26/20 21:59 108 H 01/26/20 21:58 104 H 110/57 L 01/26/20 21:54 111 H 01/26/20 21:49 113 H 01/26/20 21:44 118 H 106/77 01/26/20 21:39 78 01/26/20 21:34 118 H 01/26/20 21:30 20 01/26/20 21:29 104 H 92/56 L 01/26/20 21:24 112 H 01/26/20 21:19 107 H 01/26/20 21:14 106 H 01/26/20 21:12 109 H 114/56 L 01/26/20 21:09 109 H 01/26/20 21:04 108 H 01/26/20 21:00 18 01/26/20 20:59 114 H 01/26/20 20:58 106 H 117/58 L 01/26/20 20:54 101 H 01/26/20 20:50 37.1 C 01/26/20 20:49 110 H 01/26/20 20:44 107 H 01/26/20 20:43 105 H 108/56 L 01/26/20 20:39 109 H 01/26/20 20:34 109 H 01/26/20 20:30 18 01/26/20 20:29 113 H 01/26/20 20:27 108 H 117/57 L 01/26/20 20:24 113 H 01/26/20 20:19 109 H 01/26/20 20:14 109 H 01/26/20 20:13 113 H 107/55 L 01/26/20 20:09 107 H 01/26/20 20:04 103 H 01/26/20 20:00 18 01/26/20 19:59 111 H 01/26/20 19:57 109 H 109/58 L 01/26/20 19:54 107 H 01/26/20 19:49 106 H 01/26/20 19:44 112 H 01/26/20 19:43 113 H 113/54 L 01/26/20 19:39 109 H 01/26/20 19:34 114 H BP Pulse Ox 01/27/20 04:00 01/27/20 01:45 119/71 01/27/20 01:31 01/27/20 01:16 01/27/20 01:01 01/27/20 00:51 01/27/20 00:46 01/27/20 00:31 01/27/20 00:16 01/27/20 00:10 01/27/20 00:01 01/26/20 23:49 01/26/20 23:34 95 01/26/20 23:30 82 L 01/26/20 23:29 92 01/26/20 23:24 95 01/26/20 23:20 01/26/20 23:19 94 01/26/20 23:16 84 L 01/26/20 23:14 97 01/26/20 23:09 93 01/26/20 23:08 85 L 01/26/20 23:04 95 01/26/20 23:01 86 L 01/26/20 23:00 01/26/20 22:59 93 01/26/20 22:56 83 L 01/26/20 22:54 95 01/26/20 22:49 91 01/26/20 22:48 83 L 01/26/20 22:44 91 01/26/20 22:43 84 L 01/26/20 22:42 01/26/20 22:39 94 01/26/20 22:38 86 L 01/26/20 22:34 95 01/26/20 22:32 90 01/26/20 22:30 01/26/20 22:29 97 01/26/20 22:27 01/26/20 22:24 97 01/26/20 22:22 89 L 01/26/20 22:19 97 01/26/20 22:14 96 01/26/20 22:13 01/26/20 22:09 97 01/26/20 22:04 93 01/26/20 22:00 01/26/20 21:59 93 01/26/20 21:58 01/26/20 21:54 94 01/26/20 21:49 96 01/26/20 21:44 91 01/26/20 21:39 94 01/26/20 21:34 97 01/26/20 21:30 01/26/20 21:29 95 01/26/20 21:24 96 01/26/20 21:19 94 01/26/20 21:14 94 01/26/20 21:12 01/26/20 21:09 96 01/26/20 21:04 94 01/26/20 21:00 01/26/20 20:59 95 01/26/20 20:58 01/26/20 20:54 94 01/26/20 20:50 01/26/20 20:49 96 01/26/20 20:44 95 01/26/20 20:43 01/26/20 20:39 94 01/26/20 20:34 95 01/26/20 20:30 01/26/20 20:29 94 01/26/20 20:27 01/26/20 20:24 95 01/26/20 20:19 94 01/26/20 20:14 96 01/26/20 20:13 01/26/20 20:09 97 01/26/20 20:04 96 01/26/20 20:00 01/26/20 19:59 96 01/26/20 19:57 01/26/20 19:54 95 01/26/20 19:49 95 01/26/20 19:44 96 01/26/20 19:43 01/26/20 19:39 94 01/26/20 19:34 95 <Chava Dye MD - Last Filed: 01/27/20 07:57> Co-Signing Physician Notes Patient seen and evaluated and agree with the above findings and plan. Routine care Resident Activity Tracking <Stoney Sheth DO - Last Filed: 01/27/20 07:36> Resident Involvement: Resident Care Provided Care Provided: OB Delivery
[2020-01-27] MEDS: DOCUSATE SODIUM 100 MG CAP PO SCH ×2 (07:42→20:00)
[2020-01-27] MEDS: PRENATAL VITAMIN 1 TAB PO SCH (07:46)
[2020-01-27 08:12] LABS: Hematocrit (blood only) 32.6 % (37-47); Hemoglobin 10.6 g/dL (12.0-16.0); Mean Corpuscular Hemoglobin 29.6 pg (25-34); Mean Corpuscular Hgb Conc 32.5 g/dL (32-36); Mean Corpuscular Volume 91.1 fL (80-100); Mean Platelet Volume 10.1 fL (7.4-10.4); Platelet Count 245 K/uL (130-400); RDW Coefficient of Variation 14.2 % (11.5-14.5); RDW Standard Deviation 46.9 fL (36.4-46.3); Red Blood Count 3.58 M/uL (4.2-5.4); White Blood Count 20.12 K/uL (4.8-10.8)
--- NOTE | 2020-01-27 08:47 | Anesthesia Procedure Note ---
Date of Service January 27, 2020 Anesthesia Post Epidural Note Vital Signs Vital Signs: Temp Pulse Resp BP Pulse Ox 97.5 F L 90 16 130/74 95 01/27/20 04:00 01/27/20 04:00 01/27/20 04:00 01/27/20 04:00 01/26/20 23:34 Pain Intensity Lower Abdomen: Pain Intensity: 4 Notes Mental Status: alert / awake / arousable and participated in evaluation Nausea / Vomiting: adequately controlled Pain: adequately controlled Airway Patency, RR, SpO2: stable & adequate BP & HR: stable & adequate Hydration State: stable & adequate Neuraxial Anesthesia: was administered and sensory block is resolving Anesthetic Complications: no major complications apparent and Pt Satisfied with anesthetic care Epidural: Removed without complications and With tip intact
[2020-01-27] MEDS ORDERED: bisacodyL 5 MG TABEC PO SCH (20:00)
[2020-01-28] MEDS: IBUPROFEN 600 MG TAB PO PRN ×2 (03:52→08:12)
[2020-01-28] MEDS: ACETAMINOPHEN 325 MG TAB PO PRN (03:52)
[2020-01-28 06:16] LABS: Hematocrit (blood only) 31.6 % (37-47); Hemoglobin 10.3 g/dL (12.0-16.0)
--- NOTE | 2020-01-28 06:20 | Obstetrical Progress Note ---
Date of Service <Stoney Sheth DO - Last Filed: 01/28/20 06:20> January 28, 2020 Assessment & Plan <Stoeny Sheth DO - Last Filed: 01/28/20 06:20> (1) : -PPD#2 -Vitals reviewed, WNL - GBS -, Blood Type A+ - Clinically stable. - Feels well today. No nausea with clear liquids and interested in eating, voiding well, ambulating well. - Pain well controlled. - Routine post- care - Discharge instructions discussed with patient this AM - Patient notes she would want her tubes tied, will discuss with Dr. Dye at her 6 week follow up. - After discharge will have [address] Dye. Day #:: 2 Subjective <Stoney Sheth DO - Last Filed: 01/28/20 06:20> Ambulation: ambulating normally Voiding: no voiding problems Passing Gas:: Yes Diet Tolerance:: regular diet Lochia:: Moderate Feeding Type:: bottle feeding Current Pain Level(1-10): 4 (improved with analgesics) Patient is a 29 PPD#2. Patient states that she is feeling well today and that her pain is well controlled. She has no other complaints at this time. She notes that she has been refusing to wear SCDs since they "make my legs cramp." States she understands the needs for them but does not want to wear them regardless. Constitutional: no fever and no chills Respiratory: no cough, no dyspnea and no wheezing Cardiovascular: + edema; no chest pain, no dyspnea, no palpitations and no calf pain Breast: no breast pain Gastrointestinal: no abdominal pain, no nausea and no vomiting Genitourinary (female): no dysuria and no difficulty urinating Neurologic: no headache(s) Physical Exam <DO Lenny Dailey Last Filed: 01/28/20 06:20> Constitutional WD/WN, vitals as above Respiratory normal respiratory effort, lungs clear to auscultation Cardiovascular Rate/Rhythm: regular rate and regular rhythm Heart Sounds: normal S1 and normal S2; no click, no gallop, no murmur and no cardiac rub Extremities: + edema (+1-2); no calf tenderness Gastrointestinal (Abdomen) Inspection/Auscultation: abdomen normal to inspection and normal bowel sounds Percussion/Palpation: abdomen soft; abdomen nontender Genitourinary OB Exam Abdomen: + fundal height Fundus: + firm and + relation to umbilicus (3cm below ); not tender and not boggy Results & Data <Stoney Sheth DO - Last Filed: 01/28/20 06:20> Vital Signs (Past 12 Hours) Vital Signs Temp Pulse Resp BP 01/27/20 23:45 36.5 C 97 H 18 108/70 01/27/20 20:30 36.8 C 79 18 119/80 <Estela Lomas MD - Last Filed: 01/28/20 07:25> Co-Signing Physician Notes I have reviewed the resident's note and examined the patient myself, and agree with the note above. Resident Activity Tracking <Stoney Sheth DO - Last Filed: 01/28/20 06:20> Resident Involvement: Resident Care Provided Care Provided: OB Delivery
[2020-01-28] MEDS: PRENATAL VITAMIN 1 TAB PO SCH (08:12)
== END 2020-01-28 13:00 | disposition home or self-care (01) | DRG 806 ==
LOC: 4S1 07:38 → 4S2 01-27 02:05

== ENCOUNTER 2024-06-29 10:39 | Inpatient (IN) ==
--- OUTSIDE RECORDS SUMMARY | 2024-06-29 10:44 | External Medical Summary | Summary of Care ---
Author Name Unknown Organization [facility] Address [address] [place] [address] Phone [phone] Care Team Providers Care Commercial Horticulture Instructor Name Role Phone Jose Carroll PA-C Primary Care Provider [phone] Encounter Details Date Type Department Care Team (Late st Contact Info) Description 03/24/2024 Orders Only Outcomes Research Department [address] [place] [address] Nichole Alas CHRA MyCode Research Other*[id number] Allergies Active Allergy Reactions Criticality Noted Date Comments Penicillins 03/05/2018 Headache and nausea documented as of this encounter (statuses as of 03/24/2024) Medications Medication Sig Dispensed Refills Start Date End Date Status acetaminophen (TYLENOL) 325 MG Tablet Take 2 Tabs by mouth every 6 hours as needed for Pain or Fever. 30 Tab 11/02/2017 Active Sjvoacbv-Ain-Pk-FA (PRE- FORMULA) Tablet Take 1 Tab by mouth daily. Active fluticasone (FLONASE) 50 MCG/ACT nasal spray Administer 1 Eldred into nostril as needed. Active documented as of this encounter (statuses as of 03/24/2024) Active Problems Problem Noted Date Diagnosed Date Vertebral artery stenosis/occlusion, left 2017 Poor dentition 06/14/2018 Advance directive declined by patient 06/12/2018 Overview: No, Advance Directive brochure offered, patient declined. 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 PFO (patent foramen ovale) 11/02/2017 Obesity, Class I, BMI 30.0-34.9 (see actual BMI) 10/31/2017 Chronic ischemic multifocal multiple vascular territories stroke 10/16/2017 Microscopic hematuria 10/15/2017 Normocytic anemia 10/15/2017 documented as of this encounter (statuses as of 03/24/2024) Resolved Problems Problem Noted Date Diagnosed Date Resolved Date History of stroke 11/15/2017 06/12/2018 Bacterial meningitis 11/02/2017 018 Bacteremia due to other bacteria 10/28/2017 06/12/2018 Overview: Fusobacteria growing in blood cultures from [facility] Sep 2017 Delirium 10/28/2017 10/31/2017 Brain abscess 10/18/2017 06/12/2018 Thrombocytopenia 10/15/2017 10/28/2017 Glucosuria 10/15/2017 10/31/2017 OBESITY, PEDS, BMI 99TH PERCENTL OR GREATER 11/11/2009 10/31/2017 Overview: Per Obesity Taxonomy OBESITY, UNSPECIFIED 12/24/2002 010 Overview: Per Obesity Taxonomy documented as of this encounter (statuses as of 03/24/2024) Immunizations Name Administration Dates Next Due HPV Vaccine, 4-Valent 12/21/2010,07/08/2009,02/18 Meningococcal Conjugate Vacc ine (Menactra/Menveo) 10/14/2007 TDAP, Age 7 and older, IM (Adacel) 10/14/2007 Varicella Vaccine (Chicken Pox) 03/17/2009 documented as of this encounter Social History Tobacco Use Types Packs/Day Years Used Date Smoking Tobacco: Every Day Cigarettes 0.5 5 Smokeless Tobacco: Never Alcohol Use Standard Drinks/Week Comments No 0 (1 standard drink = 0.6 oz pur e alcohol) Utilities Answer Date Recorded Do you have trouble paying y our heating, water, or electric bill? (Adult - for ages 18 years and over) Not on file 02/05/2024 Is your family able to pay t he heat, water, or electric bill? (Household - for ages 0-17 years) Not on file 02/05/2024 Does your family have access to good internet? (Household - for ages 0-17 years) Not on file 02/05/2024 Social Connections Answer Date Recorded How often do you feel lonely or isolated from those around you? (Adult - for ages 18 years and over) Not on file 02/05/2024 Sex and Gender Information Value Date Recorded Sex Assigned at Not on file Gender Identity Not on file Sexual Orientation Not on file Job Start Date Occupation Industry Not on file Not on file Not on file documented as of this encounter Functional Status Functional Status Response Date of Assess ment Are you deaf or do you have serious difficulty h earing? No 11/15/2017 Are you blind or do you have serious difficulty seeing, even when wearing glasses? No 11/15/2017 Do you have serious difficul ty walking or climbing stairs? (5 years old or older) Yes 11/15/2017 Do you have difficulty dress ing or bathing? (5 years old or older) Yes 11/15/2017 Because of a physical, menta l, or emotional condition, do you have difficulty doing errands alone such as visiting a doctor s office or shopping? (15 years old or older) Yes 11/16/19 18 Cognitive Status Response Date of Assessm ent Because of a physical, menta l, or emotional condition, do you have serious difficulty concentrating, remembering, or making decisions? (5 years old or older) No 11/15/2017 documented as of this encounter Plan of Treatment Scheduled Orders Name Type Priority Associated Diagnoses Orde r Schedule MYCODE INITIAL ADULT Lab Routine MyCode Research Other*[id number] Expected: 03/24/2024 (Approximate), Expires: 04/13/2025 Health Maintenance Due Date Last Done Comments Pneumococcal Vaccine: Pediatrics (0 to 5 Years) and At-Risk Patients (6 to 64 Years) (1 of 2 - PCV) 12/11/1997 Depression Screening 2003 Hepatitis C Screening 12/11/2009 DTaP,Tdap,and Td Vaccines (7 - Td or Tdap) 10/14/2017 10/14/2007, 11/10/1996, 12/15/1993, Additional history exists Pap Smear 03/29/2019 03/29/2016, 03/20, 03/18/2014, Additional history exists Cervical Cancer Screening 12/11/2021 HPV/Co-Test 12/11/2021 COVID-19 Vaccine ( season) 2023 Influenza Vaccine (FLU shot) (#1) 2024 08/05/1996, 06/20/1996 Hepatitis B Vaccine Completed 09/14/1992, 04/15/1992, 02/13/1992 MENINGOCOCCAL (MENACTRA/MENVEO) Aged Out 10/14/2007 No longer eligible based on patient's age to complete this topic HPV (Gardasil) Vaccine Completed 1, 07/08/2009, 03/17/2009 documented as of this encounter Medical Devices Not on filedocumented as of this encounter Visit Diagnoses Diagnosis MyCode Research Other*[id number] documented in this encounter Advance Directives Documents on File Type Date Recorded Patient Customer Service Manager Expl anation Advance Directives and Living Will 11/16/2017 ADVANCE DIRECTIVE / LIVING WILL Power of Welder Assistant 11/16/2017 POWER OF A TTORNEY * Full Code (Latest Code Status on File) Date Activated Date Inactivated Comments 11/15/2017 7:18 PM 11/17/2017 6:08 PM This order r eflects the patients wishes and were consensually agreed upon. Question Answer Comments Discussion of Advance Directives occurred with: Patient/Family * Full Code Date Activated Date Inactivated Comments 10/14/2017 11:52 PM 11/03/2017 12:12 AM This order reflects the patients wishes and were consensually agreed upon. Question Answer Comments Discussion of Advance Directives occurred with: Not Discussed Care Teams Commercial Horticulture Instructor Relationship Specialty Start Date End Date Jose Carroll, JOSE ENRIQUE [address] [place] [address] [place] [address] PCP - General Physician Paint Supervisor 10/15/17 documented as of this encounter
[2024-06-29 11:27] LABS: Basophils # (auto) 0.05 K/uL (0.00-0.20); Basophils % (auto) 0.4 %; Eosinophils # (auto) 0.41 K/uL (0.00-0.50); Hematocrit (blood only) 44.8 % (37.0-47.0); Hemoglobin 15.4 g/dl (12.0-16.0); Immature Granulocytes # (auto) 0.06 K/uL (0.01-0.20); Immature Granulocytes % (auto) 0.4 %; Lymphocytes # (auto) 1.65 K/uL (1.20-3.40); Lymphocytes % (auto) 12.1 %; Mean Corpuscular Hemoglobin 29.6 pg (25.0-34.0); Mean Corpuscular Hgb Conc 34.4 g/dL (32.0-36.0); Mean Corpuscular Volume 86.2 fL (80.0-100.0); Mean Platelet Volume 10.3 fL (9.4-12.4); Monocytes # (auto) 0.98 K/uL (0.11-0.59); Monocytes % (auto) 7.2 %; Neutrophils # (auto) 10.44 K/uL (1.40-6.50); Neutrophils % (auto) 76.9 %; Platelet Count 356 K/uL (130-400); RDW Coefficient of Variation 12.4 % (11.5-14.5); RDW Standard Deviation 39.2 fL (36.4-46.3); White Blood Count 13.59 K/ul (4.8-10.8)
[2024-06-29 11:37] LABS: Albumin Globulin Ratio 1.2 (0.9-2); Albumin Level 4.3 gm/dl (3.4-5.0); BUN Creatinine Ratio 17.3 (10-20); Bilirubin,Total 0.3 mg/dl (0.2-1.0); Calcium 9.7 mg/dl (8.6-10.3); Creatinine Clr Calc Pharmacy 153.3 ml/min; Globulin 3.5 gm/dl (2.5-4.0); Potassium 4.5 mmol/L (3.5-5.1); Total Protein 7.8 gm/dl (6.0-8.3)
--- NOTE | 2024-06-29 11:56 | Emergency Department Note ---
Impression & Plan Abdominal pain, Nausea & vomiting, Abdominal hernia, Bowel obstruction, UTI (urinary tract infection) ED Provider Note ED Provider Note NAME: MAGDA SELLERS AGE:33 SEX: Female : 1990 ARRIVES VIA: Private vehicle INFORMANT: Patient ED PROVIDER(s): Mandy Toure DO CHIEF COMPLAINT: Abdominal pain, nausea and vomiting HPI: This is a 33-year-old female who presents emerged department complaining of abdominal pain, nausea and vomiting. Patient states symptoms began yesterday. She denies any recent travel, sick contact, change in medications, or change in diet. She states no prior similar episodes. States the pain is mostly in her central upper abdomen and slightly in the left upper abdomen and is otherwise nonradiating. No change with position or exertion. She states pain was worse this morning and she had 2 episodes of vomiting. No blood noted. Patient did have a normal bowel movement this morning and states she has passing gas. She denies fevers or chills. No significant family history of GI problems. She has had a prior cholecystectomy and appendectomy. PAST MEDICAL HISTORY:See Below PAST SURGICAL HISTORY:See Below FAMILY HISTORY:See Below SOCIAL HISTORY:See Below HOME MEDICATIONS:See Below ALLERGIES:See Below VITALS:See Below PHYSICAL EXAMINATION: GENERAL: alert, well appearing, well nourished, no distress, non-toxic EYE EXAM: normal conjunctiva, PERRL and EOM's grossly intact OROPHARYNX: no exudate, no erythema, lips, buccal mucosa, and tongue normal and mucous membranes are dry NECK: supple, no nuchal rigidity, no adenopathy, non-tender LUNGS: Clear to auscultation. Normal chest wall mechanics, no w/r/r HEART: no murmurs, S1 normal and S2 normal ABDOMEN: abdomen soft, ormo-active bowel sounds, no masses, no rebound or guarding. BACK: Back is symmetrical on inspection and there is no deformity, no midline tenderness, no CVA tenderness. SKIN: no rashes, petechiae, orbruising UPPER EXTREMITIES: upper extremities are grossly normal. FROM, nml pulses b/l. LOWER EXTREMITIES: No pitting edema. FROM, nml pulses b/l. NEURO EXAM: Normal sensorium, cranial nerves II-XII grossly intact, normal speech, no facial droop,nogross weakness of arms, no gross weakness of legs. Gross sensation intact. No ataxia. Vital Signs: reviewed and remarkable Differential Diagnosis: viral syndrome, PUD, pancreatitis, colitis, sbo, dehydration, food borne illness, as well as others were considered MEDICAL DECISION MAKING: THis is a 33 yo female who presents with upper abd pain, nausea and vomiting. She was afebrile and VS stable. Labs drawn and sent, IV established, and patient placed on telemetry. She was given IV tylenol, IV zofran, IV pepcid and sent for CT a/p. CT revealed abdominal wall hernia with loop of bowel. Patient given ice pack to the area after repeat exam and IV morphine. I attempted to reduce this at bedside and was unsuccessful. Patient also noted to have abnormal UA and likely UTI, she was given IV rocephin. Dr. Mendes came and was able to reduce it at bedside. Patient admitted to the hospitalist team with plan for surgical intervention tomorrow. VS stable throughout. Patient given additional IV morphine and IVF. Consultation(s): 1538: Discussed with Dr. Mendes, general surgery, via [facility] text. I was unable to reduce the hernia at bedside. He will come to bedside and attempt. 1550: Discussed with Dr. Ruiz, [facility] hospitalist team, for additional evaluation and management. 1615: Discussed with Dr. Mendes. He was able to successfully reduce the abdominal wall hernia at bedside. ER Treatment Provided: See below Diagnostics Interpreted By Me: -Cardiac Monitoring: An order was placed for continuous cardiac monitoring. The monitor shows a rate of 86 with normal sinus rhythm. -Laboratory studies: As stated above and show below. -Imaging studies: CT a/p: abd wall hernia Triage Nursing Note Reviewed Prior/Outside Records Reviewed Past Med/Surg History Problem List (Updated 06/30/24 @ 15:41 by Mandy Toure DO) UTI (urinary tract infection) (Acute) Ventral hernia with bowel obstruction Bowel obstruction (Acute) Abdominal hernia (Acute) UTI (urinary tract infection) Tobacco use SBO (small bowel obstruction) Nausea & vomiting (Acute) Abdominal pain (Acute) Vapes nicotine containing substance Morbid obesity Encounter for pre-operative examination SOBOE (shortness of breath on exertion) Symptomatic cholelithiasis History of chicken pox S/P cholecystectomy Obesity affecting , antepartum Supervision of high risk , antepartum Diet controlled gestational diabetes mellitus (GDM), antepartum Medical History (Updated 06/30/24 @ 15:41 by Mandy Toure DO) Extreme obesity Apnea PT REPORTS MOM TELLS HER SOMETIMES SHE STOPS BREATHING IN HER SLEEP - NO SLEEP STUDY Scoliosis No current issues Depression Anxiety PFO (patent foramen ovale) Per neurology 05/2018, "PFO likely incidental finding, may be related to her prior condition by allowing more bacteremic venous blood to reach arterial side leading to seeding of SPIKE MACHINE HEATER, would not recommend closure for stroke risk reduction." CVA (cerebral vascular accident) Per neurology 05/2018, "History of sepsis and meningitis likely secondary to dental abscess and relative immunosuppression with / post- status causing septic emboli / inflammatory vasculopathy with cerebral and spinal cord infarction and LV2 occlusion and LV4 stenosis." Residual L sided weakness, mild memory impairment- follows with neuro only PRN Meningitis spinal 09/2017 likely 2/2 dental abscess--> TREATED AT [facility]. Surgical History (Updated 06/30/24 @ 14:16 by Yue Rios RN) H/O ventral hernia repair (06/30/24) Robotic Assisted Laparoscopic Ventral and umbilical hernia Repair, total vertical distance 11 cm (Not Applicable) - Dax Mendes DO, FACS Hx of tubal ligation History of cholecystectomy History of tooth extraction WISDOM TEETH History of ERCP 02/19/2019 [facility] History of appendectomy Family History Father Diabetes mellitus, type 2 Hypertension Social History (System 06/18/23 @ 07:59 by Radha Foster) Smoking Status: Current every day smoker Tobacco Type: Cigarettes and E-cigarettes / Vaping Age Started Using Tobacco: 14; Cigarettes Per Day: used to smoke cig and now vape; Second Hand Exposure: No; Do You Dip or Chew Tobacco: Yes; Hx Alcohol Use: No Hx Substance Use: No Preferred Language: Scottish Communication Ability: Effective Visual Impairment: No Limitations Staff Climate Scientist Required: No Beliefs That Will Affect Care: None marital status: Single marital status details: citlali Feliz (22) Current Living Situation: Parent Current Living Situation Comment: PARENTS, DAUGHTER AND 2 SONS current occupational status: unemployed Feels Safe at Home: Yes Assistive Devices: None Allergies Allergies Allergy/AdvReac Type Severity Reaction Status Date / Time Penicillins AdvReac Intermediate Nausea/Vomi Verified 06/29/24 13:01 ting Home Meds Home Medications Medication Instructions Recorded Confirmed aspirin 81 mg tablet,delayed 81 mg PO DAILY 06/29/24 06/29/24 release Results & Data (ED) Vital Signs Vital Signs - 24 hr 06/29/24 12:04 06/29/24 13:07 06/29/24 14:23 Pulse Rate 92 H Pulse Rate [Apical] 96 H 89 Respiratory Rate 18 16 Respiratory Effort / Characteristics Non-Labored Non-Labored Respiratory Depth Normal Normal Respiratory Pattern Regular Regular Blood Pressure [Right Arm] 153/106 H 143/105 H Blood Pressure Mean [Right Arm] 121 117 Pulse Oximetry 97 95 Oxygen Delivery Method Room Air Room Air 06/29/24 14:26 06/29/24 15:16 Pulse Rate Pulse Rate [Apical] 89 85 Respiratory Rate 16 18 Respiratory Effort / Characteristics Non-Labored Non-Labored Spontaneous Respiratory Depth Normal Normal Respiratory Pattern Regular Regular Blood Pressure [Right Arm] 153/122 H 115/109 H Blood Pressure Mean [Right Arm] 132 111 Pulse Oximetry 95 95 Oxygen Delivery Method Room Air Room Air Laboratory Data 06/30/24 06:49 06/30/24 06:49 Lab Results 06/29/24 06/29/24 Range/Units 11:06 16:09 WBC 13.59 H (4.8-10.8) K/ul RBC 5.20 (4.20-5.40) M/uL Hgb 15.4 (12.0-16.0) g/dl Hct 44.8 (37.0-47.0) % MCV 86.2 (80.0-100.0) fL MCH 29.6 (25.0-34.0) pg MCHC 34.4 (32.0-36.0) g/dL RDW Std Deviation 39.2 (36.4-46.3) fL RDW Coeff of Maite 12.4 (11.5-14.5) % Plt Count 356 (130-400) K/uL MPV 10.3 (9.4-12.4) fL Immature Gran % (Auto) 0.4 % Neut % (Auto) 76.9 % Lymph % (Auto) 12.1 % [place] % (Auto) 7.2 % Eos % (Auto) 3.0 % Baso % (Auto) 0.4 % Neut # (Auto) 10.44 H (1.40-6.50) K/uL Lymph # (Auto) 1.65 (1.20-3.40) K/uL [place] # (Auto) 0.98 H (0.11-0.59) K/uL Eos # (Auto) 0.41 (0.00-0.50) K/uL Baso # (Auto) 0.05 (0.00-0.20) K/uL Immature Gran # (Auto) 0.06 (0.01-0.20) K/uL Sodium 139 (136-145) mmol/L Potassium 4.5 (3.5-5.1) mmol/L Chloride 104 (98-107) mmol/L Carbon Dioxide 30 (21-32) mmol/L Anion Gap 5 (3-11) BUN 13 (6-23) mg/dl Creatinine 0.75 (0.6-1.2) mg/dl Est Cr Clr Drug Dosing 153.3 ml/min eGFR 108.41 BUN/Creatinine Ratio 17.3 (10-20) Glucose 113 H (70-99(Fasting)) mg/dl Lactate 0.7 (0.4-2.0) mmol/L Calcium 9.7 (8.6-10.3) mg/dl Total Bilirubin 0.3 (0.2-1.0) mg/dl AST 13 (13-39) U/L ALT 15 (7-52) U/L Alkaline Phosphatase 87 (34-104) U/L Total Protein 7.8 (6.0-8.3) gm/dl Albumin 4.3 (3.4-5.0) gm/dl Globulin 3.5 (2.5-4.0) gm/dl Albumin/Globulin Ratio 1.2 (0.9-2) Lipase 20 (11-82) U/L Urine Color Yellow Urine Appearance Turbid A (Clear) Urine pH 7.5 (4.5-7.5) Ur Specific Bruno 1.026 (1.000-1.030) Urine Protein Trace H (Negative) Urine Glucose (UA) Negative (Negative) Urine Ketones Trace H (Negative) Urine Blood Negative (Negative) Urine Nitrite Positive A (Negative) Urine Bilirubin Negative (Negative) Urine Urobilinogen Negative (Negative) Ur Leukocyte Esterase Trace H (Negative) Urine WBC (Auto) 11-20 H (0-5) /hpf Urine RBC (Auto) 0-2 (0-2) /hpf U Hyaline Cast (Auto) 0-2 (0-2) /lpf U Epithel Cells (Auto) 11-20 H (0-2) /hpf Urine Bacteria (Auto) 4+ H (None Seen) Amorphous Sediment Present A (None Prsent) Urine Mucus Present A (None Prsent) POC Ur Test NEG (NEG) Administered Medications Acetaminophen (Ofirmev) 1,000 mg in 100 mls @ 400 mls/hr IV Q8H PRN PRN Reason: Fever/Mild Pain (Pain 1,2,3) Stop: 07/02/24 19:59 Last Infusion: 06/30/24 07:20 Dose: Infused Documented By: Admin: 06/30/24 06:46 Dose: 400 mls/hr Documented By: Infusion: 06/29/24 20:18 Dose: Infused Documented By: Admin: 06/29/24 19:53 Dose: 400 mls/hr Documented By: JCARLOS Lactated Ringer's (Lr) 1,000 mls @ 15 mls/hr IV .Q24H DALY Stop: 07/01/24 11:14 Last Infusion: 06/30/24 11:13 Dose: 0 mls/hr Documented By: Admin: 06/30/24 11:13 Dose: 15 mls/hr Documented By: RUBI Ondansetron HCl (Ondansetron Inj 2 Mg/Ml 2 Ml Vial) 4 mg IV Q4H PRN PRN Reason: Nausea Stop: 07/29/24 16:12 Last Admin: 06/29/24 18:36 Dose: 4 mg Documented By: SHY Discontinued Medications Sodium Chloride (Nss) 1,000 mls @ 999 mls/hr IV .Q1H1M ONE Stop: 06/29/24 12:52 Last Infusion: 06/29/24 12:59 Dose: Infused Documented By: Admin: 06/29/24 11:57 Dose: 999 mls/hr Documented By: RIGOBERTO Famotidine (Pepcid 20mg Iv Push) 20 mg in 5 mls @ 2.5 mls/min IV NOW STA Stop: 06/29/24 11:53 Last Admin: 06/29/24 11:57 Dose: 2.5 mls/min Documented By: RIGOBERTO Acetaminophen (Ofirmev) 1,000 mg in 100 mls @ 400 mls/hr IV NOW STA Stop: 06/29/24 12:06 Last Infusion: 06/29/24 12:39 Dose: Infused Documented By: Admin: 06/29/24 11:57 Dose: 400 mls/hr Documented By: RIGOBERTO Ceftriaxone Sodium (Rocephin) 2,000 mg in 50 mls @ 100 mls/hr IV NOW STA Stop: 06/29/24 12:57 Last Infusion: 06/29/24 13:38 Dose: Infused Documented By: Admin: 06/29/24 13:04 Dose: 100 mls/hr Documented By: RIGOBERTO Lactated Ringer's (Lr) 1,000 mls @ 125 mls/hr IV .Q8H DALY Stop: 06/30/24 00:14 Last Infusion: 06/29/24 19:42 Dose: Infused Documented By: Infusion: 06/29/24 18:48 Dose: 0 mls/hr Documented By: Admin: 06/29/24 18:37 Dose: 125 mls/hr Documented By: SHY Parenteral Electrolytes (Plasma-Lyte A Ph 7.4) 1,000 mls @ 125 mls/hr IV .Q8H DALY Stop: 06/30/24 00:14 Last Infusion: 06/30/24 03:45 Dose: Infused Documented By: Admin: 06/29/24 18:37 Dose: 125 mls/hr Documented By: SHY Ioversol (Optiray 320 100ml) 93 ml IV ONCE ONE Stop: 06/29/24 12:40 Last Admin: 06/29/24 12:40 Dose: 93 ml Documented By: AIDA Morphine Sulfate (Morphine Sulfate 4 Mg/Ml 1 Ml Carp\\Vial) 4 mg IV NOW STA Stop: 06/29/24 14:40 Last Admin: 06/29/24 14:43 Dose: 4 mg Documented By: RIGOBERTO Morphine Sulfate (Morphine Sulfate 2 Mg/Ml Carp) 2 mg IV NOW STA Stop: 06/29/24 15:38 Last Admin: 06/29/24 15:52 Dose: 2 mg Documented By: IWONA Morphine Sulfate (Morphine Sulfate 2 Mg/Ml Carp) 2 mg IV NOW STA Stop: 06/29/24 23:48 Last Admin: 06/29/24 23:54 Dose: 2 mg Documented By: JCARLOS Ondansetron HCl (Ondansetron Inj 2 Mg/Ml 2 Ml Vial) 4 mg IV NOW STA Stop: 06/29/24 11:53 Last Admin: 06/29/24 11:57 Dose: 4 mg Documented By: RIGOBERTO Imaging Data Radiologist's Impression: Abdomen/Pelvis CT 06/29/24 12:28 CT OF THE ABDOMEN AND PELVIS WITH CONTRAST CLINICAL HISTORY: Abdominal pain, nausea and vomiting. Urinary tract infection. COMPARISON STUDY: CT of the abdomen and pelvis February 02, 2020. TECHNIQUE: Following IV administration of 94 mL of Optiray, axial images of the abdomen and pelvis were obtained from the lung bases to the proximal femurs. Images were reviewed in the axial, sagittal, and coronal planes. IV contrast was administered without complication. Automated exposure control was utilized for the study. A dose lowering technique was utilized adhering to the principles of ALARA. CT DOSE: 1563.68 mGy.cm FINDINGS: No pneumatosis, free air or portal venous gas is present. Slight biliary ductal dilatation is likely related to cholecystectomy. Trace perihepatic fluid is present. There is hepatic steatosis. The adrenal glands, kidneys and pancreas are unremarkable. A small fat-containing umbilical hernia is noted. A supraumbilical hernia contains a loop of distal ileum and results in a small bowel obstruction. Small bowel feces sign is noted. The more proximal small bowel is moderately dilated and fluid-filled. The terminal ileum is decompressed. There is an apparent transition point within the hernia sac as well as at the abdominal wall defect. Associated ascites within the hernia sac is present. There is also associated mesenteric stranding and a small amount of interloop ascites. No bowel wall thickening is identified. Major vasculature is patent. There is no lymphadenopathy. There are no fluid collections. There is a small amount of fluid within the pelvis. Ingested contents and fluid within the stomach are noted. IMPRESSION: High-grade small bowel obstruction due to to a supraumbilical hernia which contains a loop of distal ileum. Associated ascites and mesenteric edema. Apparent transition point within the hernia sac as well as at the abdominal wall defect. Surgical consultation is recommended. ACT 112: Negative or not required by law. Electronically signed by: Pierre Foster M.D. 06/29/2024 1:08 PM Discharge Plan Visit Data Chief Complaint: Flu Like Symptoms Stated Complaint: ABD PAIN, VOMITING ED Provider: Mandy Toure Discharge Problem: Abdominal pain, Nausea & vomiting, Abdominal hernia, Bowel obstruction, UTI (urinary tract infection) Patient Disposition: Admitted As Inpatient Discharge Instructions Interventions: ED Discharge Assessment Last Done: 06/29/24 17:19
[2024-06-29] MEDS: ONDANSETRON INJ 2 MG/ML 2 ML VIAL IV STA (11:57)
[2024-06-29] MEDS: FAMOTIDINE 20MG IV PUSH 20 MG/5 ML SYR IV STA (11:57)
[2024-06-29] MEDS: ACETAMINOPHEN 1,000 MG/100 ML VIAL IV STA (11:57)
[2024-06-29] MEDS: SODIUM CHLORIDE 0.9% 1,000 ML IV ONE (11:57)
[2024-06-29 12:16] LABS: Amorphous Sediment Urine Present (None Prsent); Appearance Urine Turbid (Clear); Bacteria Urine Automated 4+ (None Seen); Bilirubin Urine Negative (Negative); Blood Urine Negative (Negative); Cast Urine Automated 0-2 /lpf (0-2); Color Urine Yellow; Glucose Urine UA Negative (Negative); Ketones Urine Trace (Negative); Leukocyte Esterase Urine Trace (Negative); Mucus Urine Present (None Prsent); Nitrite Urine Positive (Negative); Protein Urine Trace (Negative); RBC Urine Automated 0-2 /hpf (0-2); Specific Gravity Urine 1.026 (1.000-1.030); Urobilinogen Urine Negative (Negative); pH Urine 7.5 (4.5-7.5)
[2024-06-29] MEDS: OPTIRAY 320 100ml IV ONE (12:40)
[2024-06-29] MEDS: cefTRIAXone SODIUM 2,000 MG/50 ML BAG IV STA (13:04)
--- NOTE | 2024-06-29 13:10 | CT Scan Report ---
CT OF THE ABDOMEN AND PELVIS WITH CONTRAST CLINICAL HISTORY: Abdominal pain, nausea and vomiting. Urinary tract infection. COMPARISON STUDY: CT of the abdomen and pelvis February 02, 2020. TECHNIQUE: Following IV administration of 94 mL of Optiray, axial images of the abdomen and pelvis we re obtained from the lung bases to the proximal femurs. Images were reviewed in the axial, sagittal, and coronal planes. IV contrast was administered without complication. Automated exposure control wa s utilized for the study. A dose lowering technique was utilized adhering to the principles of ALARA . CT DOSE: 1563.68 mGy.cm FINDINGS: No pneumatosis, free air or portal venous gas is present. Slight biliary ductal dilatation is likely related to cholecystectomy. Trace perihepatic fluid is present. There is hepatic steatosis. The adrenal glands, kidneys and pancreas are unremarkable. A small fat-containing umbilical hernia i s noted. A supraumbilical hernia contains a loop of distal ileum and results in a small bowel obstruc tion. Small bowel feces sign is noted. The more proximal small bowel is moderately dilated and fluid- filled. The terminal ileum is decompressed. There is an apparent transition point within the hernia s ac as well as at the abdominal wall defect. Associated ascites within the hernia sac is present. Ther e is also associated mesenteric stranding and a small amount of interloop ascites. No bowel wall thic kening is identified. Major vasculature is patent. There is no lymphadenopathy. There are no fluid co llections. There is a small amount of fluid within the pelvis. Ingested contents and fluid within the stomach are noted. IMPRESSION: High-grade small bowel obstruction due to to a supraumbilical hernia which contains a loo p of distal ileum. Associated ascites and mesenteric edema. Apparent transition point within the laura ia sac as well as at the abdominal wall defect. Surgical consultation is recommended. ACT 112: Negative or not required by law. Electronically signed by: Pierre Foster M.D. 06/29/2024 1:08 PM
[2024-06-29] MEDS: MoRPHine SULFATE 4 MG/ML 1 ML CARP\\VIAL IV STA (14:43)
[2024-06-29] MEDS: MoRPHine SULFATE 2 MG/ML CARP IV STA ×2 (15:52→23:54)
--- NOTE | 2024-06-29 15:52 | History & Physical Report ---
Date of Service June 29, 2024 Assessment & Plan (1) SBO (small bowel obstruction): Plan: Small bowel obstruction CTA/P: High-grade SBO due to supraumbilical hernia containing a loop of distal ileum. Associated ascites and mesenteric edema. Transition point within the hernia sac as well as abdominal wall defect is noted. Surgical consultation recommended Leukocytosis of 13.5. Lactic pending General Surgery consulted Renal function is at baseline, 0.75 creatinine on admission Last 8 yesterday afternoon. She has had no meals or liquids today; ingested contents are noted within the stomach on CT read Seen by surgery at the bedside. Hernia was able to be reduced by surgery at the bedside. May have water/clears until midnight, anticipate operative repair of hernia tomorrow. N.p.o. at midnight. Appreciate care and recommendations Will continue Zofran, scaled Tylenol for pain control. Morphine held following hernia reduction (2) Tobacco use: Plan: History of tobacco use disorder Declines patch History of stimulant use disorder Methamphetamine use in the past, ecstasy use, and concern for narcotic use versus diversion Attentive last hospitalization with stroke was offered outpatient IOP, groups, meetings. Support services but she was not interested in these at the time. Was recommended to continue NRT therapy Also noted patient had been filling prescription remains since monthly but had denied using these, and was with concern for potential diversion at the time (3) PFO (patent foramen ovale): Plan: Noted, pending repair with no set operative date for this. Aspirin 81 mg daily is held perioperatively, this should be resumed soon as possible (4) CVA (cerebral vascular accident): Plan: History of CVA s/p thrombectomy 2022, with prior multiple CVA in 2017 2017, history of multiple CVA w/ concurrent meningitis at that time 2022 Left MCA stroke due to M1 occlusion, suspected cardioembolic with history of PFO. acute ischemic stroke requiring thrombectomy. Was found down near a drug house with admitted amphetamine use shortly prior Prior deficits with right sided hemineglect, right-sided hemiparalysis, left gaze preference improved at that time Was discharged on aspirin 81 mg Was not recommended for statin therapy at that time with suspected paradoxic CVA/nonatherosclerotic CVA and with cholesterol 81 and LDL 35 at time of that assessment. (5) Depression: Plan: Patient reports this is adequately controlled. No longer takes Lexapro (6) Apnea: Plan: With obesity OHS although no formal sleep study. CPAP at bedtime (7) UTI (urinary tract infection): Plan: Rocephin continued. Follow UCx. No pyelo Plan DVT prophylaxis: No surgical intervention anticipated until 06/30. 1 dose of Lovenox 5000 SQ given for pharmacal prophylaxis given high risk history, SCDs continued. CODE STATUS: Full code Disposition: MSO Diet: Clears, n.p.o. midnight History of Present Illness Primary Care Provider: NO PCP Naima is a 33-year-old female with past medical history of anxiety/depression, methamphetamine use, multiple CVA 2018, [place], dental abscesses presents the ER with nausea vomiting and abdominal pain x 24 hours. Pain grossly worsened today and with 2 episodes of nonbloody emesis. 2 episodes of nonbloody vomiting this morning, is found to have a bowel obstruction on imaging. She has a history of prior cholecystectomy and appendectomy. SBO suspected be due to associated supraumbilical hernia. Naima is seen at the bedside. She reports in the last day she has had progressively worsening pain mostly around her stomach but a little bit down by her bellybutton which has gradually worsened to an 8/10, slightly improved in the ER after morphine. She reports she had nausea with 2 episodes of vomiting this morning, no blood or black content in this. She had a bowel movement this morning which was normal and brown, denies history of bright red blood per rectum/melena. She denies chest pain, chest pressure, fever, chills, shortness of breath, lightheadedness, dizziness. She reports she gets a little short of breath if she walks uphill but nothing unusual and it does not stop her from activity. She reports she has no residual deficits from her strokes in 2018 or 2022. She does continue to take a baby aspirin. She is pending follow-up at some point to have her PFO repaired, there is no set timeline for this as of yet. She reports other than aspirin she is taking no prescription medications Reports she no longer takes any benzodiazepines and no longer takes Lexapro. Is currently taking only aspirin. Does continue to smoke cigarettes. Denies alcohol use recreational drug use and specifically denies benzodiazepine, methamphetamine, and narcotic use in the last 6 months Nausea/vomiting to penicillin otherwise denies medication allergies She took her aspirin yesterday. Did not take medicines this morning due to feeling nauseous Full code Allergies Allergy/AdvReac Type Severity Reaction Status Date / Time Penicillins AdvReac Intermediate Nausea/Vomi Verified 06/29/24 13:01 ting Home Medications Medication Instructions Recorded Confirmed Type aspirin 81 mg tablet,delayed 81 mg PO DAILY 06/29/24 06/29/24 History release Past Med/Surg History Problem List (Updated 06/29/24 @ 16:15 by Mandy Toure DO) Bowel obstruction (Acute) Abdominal hernia (Acute) UTI (urinary tract infection) Tobacco use SBO (small bowel obstruction) Nausea & vomiting (Acute) Abdominal pain (Acute) Vapes nicotine containing substance Morbid obesity Encounter for pre-operative examination SOBOE (shortness of breath on exertion) Symptomatic cholelithiasis History of chicken pox S/P cholecystectomy Obesity affecting , antepartum Supervision of high risk , antepartum Diet controlled gestational diabetes mellitus (GDM), antepartum Medical History Anxiety Apnea PT REPORTS MOM TELLS HER SOMETIMES SHE STOPS BREATHING IN HER SLEEP - NO SLEEP STUDY CVA (cerebral vascular accident) Per neurology 05/2018, "History of sepsis and meningitis likely secondary to dental abscess and relative immunosuppression with / post- status causing septic emboli / inflammatory vasculopathy with cerebral and spinal cord infarction and LV2 occlusion and LV4 stenosis." Residual L sided weakness, mild memory impairment- follows with neuro only PRN Depression Extreme obesity Meningitis spinal 09/2017 likely 2/2 dental abscess--> TREATED AT [facility]. PFO (patent foramen ovale) Per neurology 05/2018, "PFO likely incidental finding, may be related to her prior condition by allowing more bacteremic venous blood to reach arterial side leading to seeding of REHABILITATION CASE COORDINATOR, would not recommend closure for stroke risk reduction." Scoliosis No current issues Vapes nicotine containing substance Surgical History History of appendectomy History of cholecystectomy History of ERCP 02/19/2019 [facility] History of tooth extraction WISDOM TEETH Hx of tubal ligation Family History (System 06/18/23 @ 07:59 by Radha Foster) Father Diabetes mellitus, type 2 Hypertension Social History (System 06/18/23 @ 07:59 by Radha Foster) Smoking Status: Current every day smoker Tobacco Type: Cigarettes Age Started Using Tobacco: 14; Cigarettes Per Day: used to smoke cig and now vape; Second Hand Exposure: No; Do You Dip or Chew Tobacco: No; Hx Alcohol Use: No Hx Substance Use: No Preferred Language: Lao Communication Ability: Effective Visual Impairment: No Limitations Helpdesk Administrator Required: No Beliefs That Will Affect Care: None marital status: Single marital status details: citlali Feliz (22) Current Living Situation: Family Current Living Situation Comment: PARENTS, DAUGHTER AND 2 SONS current occupational status: unemployed Feels Safe at Home: Yes Assistive Devices: Denture - Upper and Denture - Lower Physical Exam Physical Exam: General: A&Ox3. NAD. Cooperative. HEENT: Atraumatic, normocephalic. Vision/hearing intact. PERLAA. Pulm: CTAB A&P. -wheezes, -rales, -rhonchi. Symmetrical chest rise. No increased work of breathing. No respiratory distress. Cardiac: RRR, -mrg. Radial pulses intact and symmetrical. Abdominal: Obese. TTP at epigastrum and supraumbulical abd, no rebound or involuntary guarding. Extremities: Moves all extremities equally. Chucker strength, ankle dorsiflexion/plantarflexion are intact and symmetrical, sensation of soft touch is intact in hands and feet Results & Data Results & Data Vital Signs (Past 12 Hours) Vital Signs Temp Pulse Pulse Resp BP BP Pulse Ox 06/29/24 15:16 85 18 115/109 H 95 06/29/24 14:26 89 16 153/122 H 95 06/29/24 14:23 92 H 06/29/24 13:07 89 16 143/105 H 95 06/29/24 12:04 96 H 18 153/106 H 97 06/29/24 10:58 36.0 C L 99 H 20 165/135 H 98 O2 Del Method 06/29/24 15:16 Room Air 06/29/24 14:26 Room Air 06/29/24 14:23 06/29/24 13:07 Room Air 06/29/24 12:04 Room Air 06/29/24 10:58 Room Air PG Care Time/CCT Total # of Minutes Spent Total Time Spent with Patient: Total time spent is greater than 50% in coordination of care (as documented) at patient's floor/unit and/or counseling patient: Coding Level of Care Code 02764 INT INP/OBS CARE MIN Diagnoses SBO (small bowel obstruction) K56.609 Tobacco use Z72.0 PFO (patent foramen ovale) Q21.1 CVA (cerebral vascular accident) I63.9 Depression F32.9 Apnea R06.81 UTI (urinary tract infection) N39.0
[2024-06-29] MEDS ORDERED: MoRPHine SULFATE 2 MG/ML CARP IV PRN (16:12)
--- NOTE | 2024-06-29 16:32 | Surgery Consultation ---
Date of Consultation June 29, 2024 Assessment & Plan (1) Ventral hernia with bowel obstruction: Presented with incarcerated ventral hernia with small bowel obstruction, able to reduce this at the bedside. Offered her admission with potential surgery tomorrow versus follow-up as an outpatient, the patient elects to have the surgery performed tomorrow if possible. Admit to medicine, appreciate their assistance with this patient Okay for clear liquids, n.p.o. after midnight plan for robotic ventral hernia repair tomorrow as time and space allows risks discussed to include but not limited to bleeding, infection, recurrence, chronic pain, damage to surrounding structures, need for future or more exten sive surgery, and risks of anesthesia educated on signs and symptoms of incarceration, obstruction, and strangulation return precautions given, call with questions or concerns (2) Morbid obesity: (3) Tobacco use: (4) S/P cholecystectomy: (5) CVA (cerebral vascular accident): (6) Apnea: History of Present Illness History of Present Illness Presented with flulike symptoms with nausea and vomiting and generally not feeling well some abdominal pain. CT scan revealed high-grade small bowel obstruction with an incarcerated ventral hernia containing small bowel with some fecalization. She has had a hernia there for some time but has not been an issue. She did pass gas and have a bowel movement this morning. Symptoms have been going on for a few days. Prior laparoscopic cholecystectomy and laparoscopic appendectomy. History of stroke likely from septic emboli, takes a baby aspirin. No other blood thinners. History of IV drug abuse. She smokes about a pack a day, current BMI 46. Allergies Allergy/AdvReac Type Severity Reaction Status Date / Time Penicillins AdvReac Intermediate Nausea/Vomi Verified 06/29/24 13:01 ting Home Medications Medication Instructions Recorded Confirmed Type aspirin 81 mg tablet,delayed 81 mg PO DAILY 06/29/24 06/29/24 History release Patient History Medical History Anxiety Apnea PT REPORTS MOM TELLS HER SOMETIMES SHE STOPS BREATHING IN HER SLEEP - NO SLEEP STUDY CVA (cerebral vascular accident) Per neurology 05/2018, "History of sepsis and meningitis likely secondary to dental abscess and relative immunosuppression with / post- status causing septic emboli / inflammatory vasculopathy with cerebral and spinal cord infarction and LV2 occlusion and LV4 stenosis." Residual L sided weakness, mild memory impairment- follows with neuro only PRN Depression Extreme obesity Meningitis spinal 09/2017 likely 2/2 dental abscess--> TREATED AT [facility]. PFO (patent foramen ovale) Per neurology 05/2018, "PFO likely incidental finding, may be related to her prior condition by allowing more bacteremic venous blood to reach arterial side leading to seeding of DESIGN TEACHER, would not recommend closure for stroke risk reduction." Scoliosis No current issues Vapes nicotine containing substance Surgical History History of appendectomy History of cholecystectomy History of ERCP 02/19/2019 [facility] History of tooth extraction WISDOM TEETH Hx of tubal ligation Family History (System 06/18/23 @ 07:59 by Radha Foster) Father Diabetes mellitus, type 2 Hypertension Social History (System 06/18/23 @ 07:59 by Radha Foster) Smoking Status: Current every day smoker Tobacco Type: Cigarettes Age Started Using Tobacco: 14; Cigarettes Per Day: used to smoke cig and now vape; Second Hand Exposure: No; Do You Dip or Chew Tobacco: No; Hx Alcohol Use: No Hx Substance Use: No Preferred Language: [place] Communication Ability: Effective Visual Impairment: No Limitations Brass Reclaimer Required: No Beliefs That Will Affect Care: None marital status: Single marital status details: citlali Feldmankine (22) Current Living Situation: Family Current Living Situation Comment: PARENTS, DAUGHTER AND 2 SONS current occupational status: unemployed Feels Safe at Home: Yes Assistive Devices: Denture - Upper and Denture - Lower Review of Systems Review of Systems: All systems reviewed & are unremarkable except as noted in HPI & below Physical Exam Constitutional: WD/WN, vitals as above + morbidly obese Respiratory: normal respiratory effort, lungs clear to auscultation Cardiovascular: RRR, no murmur, no edema Gastrointestinal (Abdomen): Percussion/Palpation: + abdomen tender (Mild tenderness few centimeters above the umbilicus at hernia site), abdomen soft and + hernia (Able to reduce the ventral hernia); no guarding and abdomen not rigid Results & Data Vital Signs (Past 12 Hours) Vital Signs Temp Pulse Pulse Resp BP BP Pulse Ox 06/29/24 15:16 85 18 115/109 H 95 06/29/24 14:26 89 16 153/122 H 95 06/29/24 14:23 92 H 06/29/24 13:07 89 16 143/105 H 95 06/29/24 12:04 96 H 18 153/106 H 97 06/29/24 10:58 36.0 C L 99 H 20 165/135 H 98 O2 Del Method 06/29/24 15:16 Room Air 06/29/24 14:26 Room Air 06/29/24 14:23 06/29/24 13:07 Room Air 06/29/24 12:04 Room Air 06/29/24 10:58 Room Air Laboratory Results Laboratory Results - last 24 hr 06/29/24 06/29/24 11:06 16:09 WBC 13.59 H RBC 5.20 Hgb 15.4 Hct 44.8 MCV 86.2 MCH 29.6 MCHC 34.4 RDW Std Deviation 39.2 RDW Coeff of Maite 12.4 Plt Count 356 MPV 10.3 Immature Gran % (Auto) 0.4 Neut % (Auto) 76.9 Lymph % (Auto) 12.1 Edgar % (Auto) 7.2 Eos % (Auto) 3.0 Baso % (Auto) 0.4 Neut # (Auto) 10.44 H Lymph # (Auto) 1.65 Edgar # (Auto) 0.98 H Eos # (Auto) 0.41 Baso # (Auto) 0.05 Immature Gran # (Auto) 0.06 Sodium 139 Potassium 4.5 Chloride 104 Carbon Dioxide 30 Anion Gap 5 BUN 13 Creatinine 0.75 Est Cr Clr Drug Dosing 153.3 eGFR 108.41 BUN/Creatinine Ratio 17.3 Glucose 113 H Lactate 0.7 Calcium 9.7 Total Bilirubin 0.3 AST 13 ALT 15 Alkaline Phosphatase 87 Total Protein 7.8 Albumin 4.3 Globulin 3.5 Albumin/Globulin Ratio 1.2 Lipase 20 Urine Color Yellow Urine Appearance Turbid A Urine pH 7.5 Ur Specific [place] 1.026 Urine Protein Trace H Urine Glucose (UA) Negative Urine Ketones Trace H Urine Blood Negative Urine Nitrite Positive A Urine Bilirubin Negative Urine Urobilinogen Negative Ur Leukocyte Esterase Trace H Urine WBC (Auto) 11-20 H Urine RBC (Auto) 0-2 U Hyaline Cast (Auto) 0-2 U Epithel Cells (Auto) 11-20 H Urine Bacteria (Auto) 4+ H Amorphous Sediment Present A Urine Mucus Present A POC Ur Test NEG Diagnostic Findings CT scan personally reviewed and interpreted and agree with the assessment of a ventral hernia a few centimeters above the umbilicus containing small bowel with some fecalization and a transition point showing a high-grade small bowel obstruction. Abdomen/Pelvis CT 06/29/24 12:28 CT OF THE ABDOMEN AND PELVIS WITH CONTRAST CLINICAL HISTORY: Abdominal pain, nausea and vomiting. Urinary tract infection. COMPARISON STUDY: CT of the abdomen and pelvis February 02, 2020. TECHNIQUE: Following IV administration of 94 mL of Optiray, axial images of the abdomen and pelvis were obtained from the lung bases to the proximal femurs. Images were reviewed in the axial, sagittal, and coronal planes. IV contrast was administered without complication. Automated exposure control was utilized for the study. A dose lowering technique was utilized adhering to the principles of ALARA. CT DOSE: 1563.68 mGy.cm FINDINGS: No pneumatosis, free air or portal venous gas is present. Slight b iliary ductal dilatation is likely related to cholecystectomy. Trace perihepatic fluid is present. There is hepatic steatosis. The adrenal glands, kidneys and pancreas are unremarkable. A small fat-containing umbilical hernia is noted. A supraumbilical hernia contains a loop of distal ileum and results in a small bowel obstruction. Small bowel feces sign is noted. The more proximal small bowel is moderately dilated and fluid-filled. The terminal ileum is decompressed. There is an apparent transition point within the hernia sac as well as at the abdominal wall defect. Associated ascites within the hernia sac is present. There is also associated mesenteric stranding and a small amount of interloop ascites. No bowel wall thickening is identified. Major vasculature is patent. There is no lymphadenopathy. There are no fluid collections. There is a small amount of fluid within the pelvis. Ingested contents and fluid within the stomach are noted. IMPRESSION: High-grade small bowel obstruction due to to a supraumbilical hernia which contains a loop of distal ileum. Associated ascites and mesenteric edema. Apparent transition point within the hernia sac as well as at the abdominal wall defect. Surgical consultation is recommended. ACT 112: Negative or not required by law. Electronically signed by: Pierre Foster M.D. 06/29/2024 1:08 PM PG Care Time/CCT Total # of Minutes Spent Total Time Spent with Patient: Total time spent is greater than 50% in coordination of care (as documented) at patient's floor/unit and/or counseling patient: Coding Level of Care Code 92043 OFFICE CONSULT LVL 4/40M Diagnoses Ventral hernia with bowel obstruction K43.6 Morbid obesity E66.01 Tobacco use Z72.0 S/P cholecystectomy Z90.49 CVA (cerebral vascular accident) I63.9 Apnea R06.81
[2024-06-29] MEDS: ONDANSETRON INJ 2 MG/ML 2 ML VIAL IV PRN (18:36)
[2024-06-29] MEDS: LACTATED RINGER'S 1,000 ML IV SCH (18:37)
[2024-06-29] MEDS: PLASMA-LYTE A 1,000 ML IV SCH (18:37)
[2024-06-29] MEDS: ACETAMINOPHEN 1,000 MG/100 ML VIAL IV PRN (19:53)
[2024-06-30 07:19] LABS: Basophils # (auto) 0.04 K/uL (0.00-0.20); Basophils % (auto) 0.4 %; Eosinophils # (auto) 0.56 K/uL (0.00-0.50); Eosinophils % (auto) 5.1 %; Hematocrit (blood only) 37.4 % (37.0-47.0); Hemoglobin 12.7 g/dl (12.0-16.0); Immature Granulocytes # (auto) 0.05 K/uL (0.01-0.20); Immature Granulocytes % (auto) 0.5 %; Lymphocytes % (auto) 15.6 %; Mean Corpuscular Hemoglobin 29.5 pg (25.0-34.0); Mean Platelet Volume 10.3 fL (9.4-12.4); Monocytes # (auto) 1.08 K/uL (0.11-0.59); Monocytes % (auto) 9.9 %; Neutrophils # (auto) 7.47 K/uL (1.40-6.50); Neutrophils % (auto) 68.5 %; Platelet Count 278 K/uL (130-400); RDW Coefficient of Variation 12.9 % (11.5-14.5); RDW Standard Deviation 40.9 fL (36.4-46.3)
[2024-06-30 07:31] LABS: BUN Creatinine Ratio 16.2 (10-20); Calcium 8.1 mg/dl (8.6-10.3); Potassium 3.9 mmol/L (3.5-5.1)
--- NOTE | 2024-06-30 10:03 | Communication Note ---
Date of Service: June 30, 2024 Patient seen at bedside , resting comfortably no complaints. Updated that surgical procedure would take place in early afternoon pending OR availability. All questions answered.
[2024-06-30] MEDS ORDERED: DEXAMETHASONE SOD INJ 4 MG/ML VIAL ONE (10:12)
[2024-06-30] MEDS ORDERED: PROPOFOL IV EMULSION 10 MG/ML 20 ML VIAL IV ONE (10:12)
[2024-06-30] MEDS ORDERED: MIDAZOLAM HCL 1 MG/ML 2ML VIAL ONE (10:12)
[2024-06-30] MEDS ORDERED: fentaNYL citrate PF 100 MCG/2 ML VIAL ONE ×2 (10:12→12:01)
[2024-06-30] MEDS ORDERED: ONDANSETRON INJ 2 MG/ML 2 ML VIAL ONE (10:12)
[2024-06-30] MEDS ORDERED: LIDOCAINE 2% 2 ML VIAL/AMP(20MG/ML) INFIL ONE ×2 (10:12→10:13)
[2024-06-30] MEDS ORDERED: ROCURONIUM BROMIDE 10 MG/ML 5 ML VIAL IV ONE ×2 (10:13→11:56)
[2024-06-30] MEDS ORDERED: ATROPINE SULFATE 0.1 MG/ML 10ML SYR IV PRN (10:42)
[2024-06-30] MEDS ORDERED: ACETAMINOPHEN 1,000 MG/100 ML VIAL IV STA (10:42)
[2024-06-30] MEDS ORDERED: ONDANSETRON INJ 2 MG/ML 2 ML VIAL IV PRN (10:42)
[2024-06-30] MEDS ORDERED: fentaNYL citrate PF 100 MCG/2 ML VIAL IV PRN (10:42)
[2024-06-30] MEDS ORDERED: ePHEDrine sulfate 50 MG/ML AMP IV PRN (10:42)
[2024-06-30] MEDS ORDERED: HYDROmorphone INJ 2 MG/ML SYR/VIAL IV PRN (10:42)
[2024-06-30] MEDS ORDERED: DROPERIDOL 5 MG/2 ML VIAL IV PRN (10:42)
--- NOTE | 2024-06-30 10:42 | Anesthesiology Consultation ---
Date of Service June 30, 2024 Assessment & Plan Chart Review Chart Review: Acceptable Risk for Surgery Consults Requested none ASA ASA3 Proposed Anesthesia Anesthesia Type: General Risk / Benefits Reviewed With: PT / POA / Parent / Guardian, Accepts Plan and Informed Consent Obtained History Surgery Operation Date: 06/30/24 07:00 Proposed Procedures p Robotic Laparoscopic Ventral Hernia Repair - Dax Mendes, DO, FACS Height/Weight Height: 5 ft 7 in Weight: 133 kg Allergies Allergy/AdvReac Type Severity Reaction Status Date / Time Penicillins AdvReac Intermediate Nausea/Vomi Verified 06/29/24 13:01 ting Medications Home Medications Medication Instructions Recorded Confirmed Last Taken aspirin 81 mg tablet,delayed 81 mg PO DAILY 06/29/24 06/29/24 06/29/24 release Active Medications Generic Name Dose Route Start Last Admin Trade Name Freq PRN Reason Stop Dose Admin Acetaminophen 1,000 mg in 100 mls @ 400 mls/hr 06/29/24 20:00 06/30/24 07:20 Ofirmev IV 07/02/24 19:59 Infused Q8H PRN Infusion Fever/Mild Pain (Pain 1,2,3) Ondansetron HCl 4 mg 06/29/24 16:13 06/29/24 18:36 Ondansetron Inj 2 Mg/Ml 2 Ml Vial IV 07/29/24 16:12 4 mg Q4H PRN Administration Nausea NPO Date Last Intake of Fluids: 06/29/24 Time Last Intake of Fluids: 23:00 Date Last Intake of Solids: 06/28/24 Time Last Intake of Solids: 12:00 Past Medical History Medical History Anxiety Apnea PT REPORTS MOM TELLS HER SOMETIMES SHE STOPS BREATHING IN HER SLEEP - NO SLEEP STUDY CVA (cerebral vascular accident) Per neurology 05/2018, "History of sepsis and meningitis likely secondary to dental abscess and relative immunosuppression with / post- status causing septic emboli / inflammatory vasculopathy with cerebral and spinal cord infarction and LV2 occlusion and LV4 stenosis." Residual L sided weakness, mild memory impairment- follows with neuro only PRN Depression Extreme obesity Meningitis spinal 09/2017 likely 2/2 dental abscess--> TREATED AT [facility]. 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, would not recommend closure for stroke risk reduction." Scoliosis No current issues Vapes nicotine containing substance Exercise / Class Metabolic Activity II 4-5 Yardwork/Stairs/Walk up hill Past Family History Family History Father Diabetes mellitus, type 2 Hypertension Past Surgical History Surgical History Hx of tubal ligation History of cholecystectomy History of tooth extraction WISDOM TEETH History of ERCP 02/19/2019 [facility] History of appendectomy Past Anesthesia History No Hx of Anesthesia Complications History of PONV No Hx of PONV Social History Smoking Status: Current every day smoker tobacco type: e-cigarettes Smoking cigarettes per day: used to smoke cig and now vape Do You Dip or Chew Tobacco: Yes Hx Alcohol Use: No Hx Substance Use: No substance use type: does not use Review of Systems ROS Unobtainable: All systems reviewed & are unremarkable except as noted in HPI & below Physical Exam Vital Signs Last Vital Signs Temp 36.7 C 06/30/24 07:21 Pulse 80 06/30/24 07:21 Resp 18 06/30/24 07:21 BP 109/73 06/30/24 07:21 Pulse Ox 98 06/30/24 07:21 O2 Del Method Room Air 06/30/24 07:21 ENMT Mouth: + poor dentition Mallampati Class: II Respiratory Auscultation: lungs clear to auscultation bilaterally Cardiovascular Rate/Rhythm: regular rate and regular rhythm Psychiatric Orientation: alert and oriented x 3 Testing Laboratory Results 06/30/24 06:49 06/30/24 06:49 Urine Color Yellow 06/29/24 11:06 Urine Appearance Turbid (Clear) A 06/29/24 11:06 Urine pH 7.5 (4.5-7.5) 06/29/24 11:06 Ur Specific [place] 1.026 (1.000-1.030) 06/29/24 11:06 Urine Protein Trace (Negative) H 06/29/24 11:06 Urine Glucose (UA) Negative (Negative) 06/29/24 11:06 Urine Ketones Trace (Negative) H 06/29/24 11:06 Urine Nitrite Positive (Negative) A 06/29/24 11:06 Ur Leukocyte Esterase Trace (Negative) H 06/29/24 11:06 Urine WBC (Auto) 11-20 /hpf (0-5) H 06/29/24 11:06 Urine RBC (Auto) 0-2 /hpf (0-2) 06/29/24 11:06 U Hyaline Cast (Auto) 0-2 /lpf (0-2) 06/29/24 11:06 U Epithel Cells (Auto) 11-20 /hpf (0-2) H 06/29/24 11:06 Urine Bacteria (Auto) 4+ (None Seen) H 06/29/24 11:06 06/29/24 11:06 Urine Culture - Preliminary Urine,Clean Catch Escherichia coli 06/29/24 11:06 POC Ur Test NEG
--- NOTE | 2024-06-30 11:06 | Surgery Progress Note ---
Date of Service June 30, 2024 Assessment & Plan (1) Ventral hernia with bowel obstruction: Plan: Presented with incarcerated ventral hernia with small bowel obstruction, able to reduce this at the bedside yesterday. plan for robotic assisted ventral hernia repair, possible open risks discussed to include but not limited to bleeding, infection, recurrence, chronic pain, damage to surrounding structures, need for future or more extensive surgery, and risks of anesthesia educated on signs and symptoms of incarceration, obstruction, and strangulation return precautions given, call with questions or concerns Likely discharge tomorrow (2) Morbid obesity: (3) Tobacco use: (4) S/P cholecystectomy: (5) CVA (cerebral vascular accident): (6) Apnea: Admission and Anticipated Discharge Date Admission Date: June 29, 2024 Subjective Still had some abdominal discomfort overnight but much better than on arrival. No pain at the hernia site Physical Exam Constitutional: WD/WN, vitals as above + morbidly obese Respiratory: normal respiratory effort, lungs clear to auscultation Cardiovascular: RRR, no murmur, no edema Gastrointestinal (Abdomen): Percussion/Palpation: + abdomen tender (Minimal tenderness), abdomen soft and + hernia (Reducible ventral hernia); no guarding and abdomen not rigid Results & Data Vital Signs (Past 12 Hours) Vital Signs Temp Pulse Resp BP Pulse Ox O2 Del Method 06/30/24 07:21 36.7 C 80 18 109/73 98 Room Air PG Care Time/CCT Total # of Minutes Spent Total Time Spent with Patient: Total time spent is greater than 50% in coordination of care (as documented) at patient's floor/unit and/or counseling patient: Coding Level of Care Code 50884 SUB INP/OBS CARE 2/35MIN Diagnoses Ventral hernia with bowel obstruction K43.6 Morbid obesity E66.01 Tobacco use Z72.0 S/P cholecystectomy Z90.49 CVA (cerebral vascular accident) I63.9 Apnea R06.81
[2024-06-30] MEDS: LACTATED RINGER'S 1,000 ML IV SCH (11:13)
[2024-06-30] MEDS: ceFAZolin 3000MG/72.5 ML BAG IV ONE (11:22)
[2024-06-30] MEDS ORDERED: ePHEDrine sulfate 50 MG/5 ML SYR ONE (11:41)
[2024-06-30] MEDS ORDERED: SUGAMMADEX SODIUM 200 MG/2 ML VIAL IV ONE (11:57)
[2024-06-30] MEDS ORDERED: diphenhydrAMINE 50 MG/ML VIAL ONE (12:02)
[2024-06-30] MEDS: BUPIVACAINE LIPOSOME 1.3% 266 MG/20 ML VIAL ONE (13:28)
[2024-06-30] MEDS: BUPIVACAINE 0.5 % 5 MG/1 ML MPF 30ML VIAL ONE (13:28)
--- NOTE | 2024-06-30 13:34 | Operative Report ---
PG Post Operative Report Pre & Post Diagnosis Operation Date: 06/30/24 07:00 Pre-Op Diagnosis: (1) Ventral hernia with bowel obstruction Post-Op Diagnosis: (1) Ventral hernia with bowel obstruction, umbilical hernia I identified the patient and participated in the time-out.: Yes Procedure Operation Date: 06/30/24 07:00 Actual Procedures p Robotic Assisted Laparoscopic Ventral and umbilical hernia Repair, total vertical distance 11 cm (Not Applicable) - Dax Mendes DO, DAYSI Surgeon Dax Mendes DO, DAYSI Keyboard Instrument Repairer Marc Franks Estimated Blood Loss 5 Findings Consistent with Post-Op Diagnosis Small bowel appeared viable without obstruction. Preperitoneal repair performed. Ventral hernia several centimeters above the umbilicus measuring 3 x 3 cm in size. Additional umbilical hernia measuring 1 cm. Diastases with additional small defect between the 2. Closed with a running #1 permanent V-Loc suture x 2. Total vertical distance 11 cm. ProGrip mesh cut to 13 x 4 cm in, tacked into place with 3-0 Vicryl suture. Peritoneum closed with 2 oh V-Loc absorbable suture. Exparel injected, binder placed. Specimens None Anesthesia Type General Complications none Disposition Accompanied Patient To Recovery: No Disposition: Recovery Room Indications 33-year-old morbidly obese female presented with incarcerated ventral hernia with obstruction. I was able to reduce the hernia in the emergency department. The patient was admitted and plan for robotic ventral hernia repair, possible open the following day. The risks of the procedure were discussed, all questions were answered, and the patient agreed to proceed with surgery as planned. Description of Procedure The patient was properly identified, consented, and taken to the operating room where she was placed in the supine position. General endotracheal anesthesia was induced. SCDs and a safety belt were placed. A bump was placed under the patient's left side and the bed was extended. Preoperative antibiotics were administered. The patient's abdomen were prepped and draped in the standard sterile fashion. Surgical timeout was performed and all parties were in agreement that this was the correct patient and procedure to be performed and we continued as planned. An incision was made in the left upper abdomen. The Veress needle was inserted and saline drop test confirmed entry into the abdomen. The abdomen was insufflated with carbon dioxide which the patient tolerated without incident. The Veress needle was removed and the abdomen was entered using the Optiview technique and a 5 mm camera. The introducer was removed and the camera reinserted. No damage from initial trocar placement or Veress needle placement was identified. There were no abnormalities in the 4 quadrants of the abdomen. The bowel had already been reduced prior to the procedure. It was examined and appeared healthy except for some ecchymosis but no evidence of continued obstruction, perforation, or ischemia. A 3 x 3 cm ventral hernia defect was identified several centimeters above the umbilicus. There was an additional apparent umbilical hernia measuring approxi-1 cm in size.. 8 mm robotic ports were then placed in the left lower quadrant and left left lateral abdomen. The robot was docked, and the camera and instruments were inserted. The ventral hernia defect measured approximately 3 x 3 cm in size. I then chose to perform a transabdominal preperitoneal repair. The peritoneum was incised a few centimeters lateral to the defect. The peritoneal flap was created. The hernia sac and peritoneum was reduced. The hernia sac was quite scarred into the subcutaneous tissue and though I reduced the majority of it, I was not able to reduce all of it. A portion of the hernia sac was divided and the hernia reduced. I continued the dissection down of the umbilicus as there was an additional 1 cm defect containing preperitoneal fat located there. This was reduced. The fascial defect was then closed with a running #1 nonabsorbable barbed suture in a vertical fashion x 2, incorporating an additional small 1 cm defect between the 2. The total distance of the repair measured 11 cm. A piece of ProGrip mesh was cut to a 13 x 4 cm ellipse and placed into the preperitoneal space and fit the pocket well. This was secured the 4 cardinal locations with a 3-0 Vicryl suture. The peritoneal flap was then closed with a running absorbable barbed suture. The divided and redundant hernia sac was sutured to the anterior abdominal wall during this closure. Exparel was injected. The robot was undocked and the ports were removed. The skin of all port sites were closed with 4-0 Monocryl subcuticular suture, and Dermabond was placed over the incisions. An abdominal binder was placed The patient was extubated in the operating room and taken to the PACU for recovery without apparent incident. All sponge, instrument, and needle counts were correct at the conclusion of the procedure. The patient tolerated the procedure well. The nurse practitioner was present and scrubbed for the entirety of the procedure, and was critical in positioning the patient, prepping and draping, retraction and exposure, driving the laparoscope, assistance with exchange of the robotic instruments, closure of the incisions, and placement of the dressings. I attest to the content of the Intraoperative Record and any orders documented therein. Any exceptions are noted below.
[2024-06-30] MEDS: cefTRIAXone SODIUM 2,000 MG/50 ML BAG IV SCH (14:43)
--- NOTE | 2024-06-30 15:11 | Anesthesiology Progress Note ---
Date of Service June 30, 2024 Anesthesia Post Procedure Vital Signs Vital Signs: Temp Pulse Pulse Resp BP Pulse Ox O2 Del Method 06/30/24 15:03 36.8 C 88 18 122/72 94 Nasal Cannula 06/30/24 14:34 36.8 C 92 H 18 133/85 93 Nasal Cannula 06/30/24 14:15 36.5 C 90 15 128/78 95 Room Air 06/30/24 14:05 36.5 C 87 18 114/75 97 Room Air 06/30/24 13:55 92 H 19 133/90 97 Oxymask 06/30/24 13:45 95 H 20 127/87 96 Oxymask 06/30/24 13:39 36.5 C 104 H 16 131/77 96 Oxymask 06/30/24 10:58 37.1 C 84 16 102/68 93 Room Air 06/30/24 07:21 36.7 C 80 18 109/73 98 Room Air 06/29/24 20:32 92 H 18 135/89 95 Room Air 06/29/24 19:36 36.8 C 100 H 18 159/119 H 94 Room Air 06/29/24 18:03 Room Air 06/29/24 18:03 36.5 C 20 157/112 H 96 Room Air 06/29/24 18:02 36.7 C 89 18 157/112 H 96 Room Air 06/29/24 15:16 85 18 115/109 H 95 Room Air O2 Flow Rate 06/30/24 15:03 2 06/30/24 14:34 2 06/30/24 14:15 06/30/24 14:05 06/30/24 13:55 3 06/30/24 13:45 3 06/30/24 13:39 5 06/30/24 10:58 06/30/24 07:21 06/29/24 20:32 06/29/24 19:36 06/29/24 18:03 06/29/24 18:03 06/29/24 18:02 06/29/24 15:16 Pain Intensity Abdomen: Pain Intensity: 10 Transfer of Care Handoff Completed per policy Notes Mental Status: alert / awake / arousable and participated in evaluation Nausea / Vomiting: adequately controlled Pain: adequately controlled Airway Patency, RR, SpO2: stable & adequate BP & HR: stable & adequate Hydration State: stable & adequate Anesthetic Complications: no major complications apparent and Pt Satisfied with anesthetic care
--- NOTE | 2024-06-30 15:30 | Hospitalist Progress Note ---
Date of Service June 30, 2024 Assessment & Plan (1) SBO (small bowel obstruction): Plan: Patient presented to the ED on 06/29/2024 with nausea, vomiting, abdominal pain. CTAP: high grade SBO due to supraumbilical hernia containing loop of distal ileum. assoc. ascites & mesenteric edema. transition point within hernia sac as well as abdominal wall defect note. surgical consultation recommended. CBC reviewed 06/30: leukocytosis downtrending 10.90 BMP reviewed 06/30: stable General surgery consulted 06/29. reduced hernia at bedside 06/29 s/p robotic assisted lap ventral/umbilical hernia repair with Dr. Mendes 06/30. Tylenol and Morphine prn for pain Zofran prn for nausea/vomiting AM CBC, BMP (2) UTI (urinary tract infection): Plan: Rocephin continued. -UC + for E coli. -Follow up sensitivites. (3) Tobacco use: Plan: History of tobacco use disorder Declines patch History of stimulant use disorder Methamphetamine use in the past, ecstasy use, and concern for narcotic use versus diversion Attentive last hospitalization with stroke was offered outpatient IOP, groups, meetings. Support services but she was not interested in these at the time. Was recommended to continue NRT therapy Also noted patient had been filling prescription remains since monthly but had denied using these, and was with concern for potential diversion at the time (4) CVA (cerebral vascular accident): Plan: History of CVA s/p thrombectomy 2022, with prior multiple CVA in 2017 2017, history of multiple CVA w/ concurrent meningitis at that time 2022 Left MCA stroke due to M1 occlusion, suspected cardioembolic with history of PFO. acute ischemic stroke requiring thrombectomy. Was found down near a drug house with admitted amphetamine use shortly prior Prior deficits with right sided hemineglect, right-sided hemiparalysis, left gaze preference improved at that time Was discharged on aspirin 81 mg Was not recommended for statin therapy at that time with suspected paradoxic CVA/nonatherosclerotic CVA and with cholesterol 81 and LDL 35 at time of that assessment. Plan Chronic conditions: Depression: adequately controlled, no longer takes lexapro Apnea: CPAP at bedtime PFO: pending repair, no set operative date ASA 81mg PO held post-op, resume VETO following surgery DVT prophylaxis: SCDs. CODE STATUS: Full code Disposition: MSO Diet: regular Admission and Anticipated Discharge Date Admission Date: June 29, 2024 Subjective Patient seen and examined this afternoon following her surgery. patient reported abdominal pain at time of encounter. stated she was thirsty. she denied any urination or passing gas thus far. Physical Exam 2 Constitutional: WD/WN, vitals as above Eyes: PERRL, conjunctivae normal, anicteric sclerae Respiratory: breathing unlabored Cardiovascular: well perfused Psychiatric: A+Ox3, euthymic affect Results & Data Results & Data Vital Signs (Past 12 Hours) Vital Signs Temp Pulse Pulse Resp BP Pulse Ox O2 Del Method 06/30/24 15:03 36.8 C 88 18 122/72 94 Nasal Cannula 06/30/24 14:34 36.8 C 92 H 18 133/85 93 Nasal Cannula 06/30/24 14:15 36.5 C 90 15 128/78 95 Room Air 06/30/24 14:05 36.5 C 87 18 114/75 97 Room Air 06/30/24 13:55 92 H 19 133/90 97 Oxymask 06/30/24 13:45 95 H 20 127/87 96 Oxymask 06/30/24 13:39 36.5 C 104 H 16 131/77 96 Oxymask 06/30/24 10:58 37.1 C 84 16 102/68 93 Room Air 06/30/24 07:21 36.7 C 80 18 109/73 98 Room Air O2 Flow Rate 06/30/24 15:03 2 06/30/24 14:34 2 06/30/24 14:15 06/30/24 14:05 06/30/24 13:55 3 06/30/24 13:45 3 06/30/24 13:39 5 06/30/24 10:58 06/30/24 07:21 Laboratory Results 06/30/24 06:49 06/30/24 06:49 PG Care Time/CCT Total # of Minutes Spent Total Time Spent with Patient: Total time spent is greater than 50% in coordination of care (as documented) at patient's floor/unit and/or counseling patient: Coding Level of Care Code 30685 SUB INP/OBS CARE 2/35MIN Diagnoses SBO (small bowel obstruction) K56.609 UTI (urinary tract infection) N39.0 Tobacco use Z72.0 CVA (cerebral vascular accident) I63.9
[2024-06-30] MEDS: MoRPHine SULFATE 4 MG/ML 1 ML CARP\\VIAL IV PRN (17:41)
[2024-07-01] MEDS ORDERED: ceFAZolin 3000MG 3,000 MG/72.5 ML BAG IV SCH (06:00)
[2024-07-01 07:31] LABS: Basophils # (auto) 0.03 K/uL (0.00-0.20); Basophils % (auto) 0.3 %; Eosinophils # (auto) 0.21 K/uL (0.00-0.50); Eosinophils % (auto) 1.8 %; Immature Granulocytes # (auto) 0.07 K/uL (0.01-0.20); Immature Granulocytes % (auto) 0.6 %; Lymphocytes # (auto) 1.92 K/uL (1.20-3.40); Lymphocytes % (auto) 16.7 %; Mean Corpuscular Hemoglobin 29.1 pg (25.0-34.0); Mean Corpuscular Hgb Conc 32.4 g/dL (32.0-36.0); Mean Corpuscular Volume 89.8 fL (80.0-100.0); Mean Platelet Volume 10.2 fL (9.4-12.4); Monocytes # (auto) 1.23 K/uL (0.11-0.59); Monocytes % (auto) 10.7 %; Neutrophils # (auto) 8.07 K/uL (1.40-6.50); Neutrophils % (auto) 69.9 %; Platelet Count 263 K/uL (130-400); RDW Standard Deviation 42.5 fL (36.4-46.3); Red Blood Count 4.12 M/uL (4.20-5.40); White Blood Count 11.53 K/ul (4.8-10.8)
[2024-07-01 07:37] VITALS: RESP 18; O2SAT 92
[2024-07-01 07:39] LABS: BUN Creatinine Ratio 12.2 (10-20); Calcium 8.3 mg/dl (8.6-10.3); Creatinine Clr Calc Pharmacy 155.3 ml/min; Potassium 4.2 mmol/L (3.5-5.1)
[2024-07-01] MEDS ORDERED: oxyCODONE HCL IR 5 MG TAB (IMMEDIATE RELEASE) PO PRN (07:50)
[2024-07-01] MEDS: ACETAMINOPHEN 500 MG TAB PO PRN (07:59)
--- NOTE | 2024-07-01 07:59 | Surgery Progress Note ---
Date of Service July 01, 2024 Assessment & Plan (1) Ventral hernia with bowel obstruction: Plan: POD 1 ventral hernia repair with Dr. Mendes VSS, WBC 11.5 , afebrile tolerating diet , passing flatus pain control discussed with patient, adding orals and decreasing IV analgesics Continue abd binder for comfort port sites CDI, dermabond Pt is stable for d/c from a surgical standpoint if pain is controlled with oral medication F/u in 2 weeks o/p Admission and Anticipated Discharge Date Admission Date: June 29, 2024 Subjective Pt denies f/c , cp, sob urinating without difficulty, + flatus post operative pain 05/29 with medication 10/27 Review of Systems Constitutional: no fever and no chills Respiratory: no dyspnea Cardiovascular: no chest pain Gastrointestinal: + abdominal pain; no nausea and no vomit ing Genitourinary: no dysuria Musculoskeletal: no muscle weakness Physical Exam Constitutional: cooperative and comfortable; no acute distress Respiratory: normal respiratory effort; no respiratory distress Cardiovascular: Rate/Rhythm: regular rate Gastrointestinal (Abdomen): Inspection/Auscultation: + abdominal surgical incision (CDI dermabond) Percussion/Palpation: abdomen soft Psychiatric: A+Ox3, euthymic affect Results & Data Vital Signs (Past 12 Hours) Vital Signs Temp Pulse Resp BP Pulse Ox O2 Del Method 07/01/24 07:36 98.1 F 81 18 111/72 92 Room Air 07/01/24 04:37 97.9 F 93 H 16 105/65 91 Room Air 07/01/24 00:26 98.2 F 99 H 16 109/68 93 Room Air 06/30/24 20:11 98.2 F 94 H 18 115/76 93 Room Air Results CBC w Diff Results: RBC 4.12 M/uL (4.20-5.40) L 07/01/24 WBC 11.53 K/ul (4.8-10.8) H 07/01/24 Hgb 12.0 g/dl (12.0-16.0) 07/01/24 Hct 37.0 % (37.0-47.0) 07/01/24 MCV 89.8 fL (80.0-100.0) 07/01/24 MCH 29.1 pg (25.0-34.0) 07/01/24 MCHC 32.4 g/dL (32.0-36.0) 07/01/24 RDW Standard Deviation 42.5 fL (36.4-46.3) 07/01/24 RDW Coefficient of Variation 13.0 % (11.5-14.5) 07/01/24 Plt Count 263 K/uL (130-400) 07/01/24 MPV 10.2 fL (9.4-12.4) 07/01/24 Neutrophils (%) (Auto) 69.9 % 07/01/24 Lymphocytes (%) (Auto) 16.7 % 07/01/24 Monocytes # (Auto) 1.23 K/uL (0.11-0.59) H 07/01/24 Eosinophils # (Auto) 0.21 K/uL (0.00-0.50) 07/01/24 Immature Granulocyte % (Auto) 0.6 % 07/01/24 Neutrophils # (Auto) 8.07 K/uL (1.40-6.50) H 07/01/24 Lymphocytes # (Auto) 1.92 K/uL (1.20-3.40) 07/01/24 Monocytes # (Auto) 1.23 K/uL (0.11-0.59) H 07/01/24 Eosinophils # (Auto) 0.21 K/uL (0.00-0.50) 07/01/24 Basophils # (Auto) 0.03 K/uL (0.00-0.20) 07/01/24 Immature Granulocyte # (Auto) 0.07 K/uL (0.01-0.20) 4 Toxic Granulation 1+ 10/14/17 Toxic Vacuolation 2+ 10/14/17 Dohle Bodies 1+ 10/14/17 PG Care Time/CCT Total # of Minutes Spent Total Time Spent with Patient: Total time spent is greater than 50% in coordination of care (as documented) at patient's floor/unit and/or counseling patient: Coding Level of Care Code 26130 Post Operative Follow-Up Diagnoses Ventral hernia with bowel obstruction K43.6
[2024-07-01] MEDS: oxyCODONE HCL IR 5 MG TAB (IMMEDIATE RELEASE) PO PRN (08:00)
--- NOTE | 2024-07-01 09:56 | Discharge Summary ---
Discharge Summary Date of Service July 01, 2024 Principal Dx & Hospital Course #1 = Principal Diagnosis (1) SBO (small bowel obstruction): Patient presented to the ED on 06/29/2024 with nausea, vomiting, abdominal pain. CTAP: high grade SBO due to supraumbilical hernia containing loop of distal ileum. assoc. ascites & mesenteric edema. transition point within hernia sac as well as abdominal wall defect note. surgical consultation recommended. CBC reviewed 07/01: WBC 11.53 BMP reviewed 07/01: stable General surgery consulted 06/29. reduced hernia at bedside 06/29 s/p robotic assisted lap ventral/umbilical hernia repair with Dr. Mendes . follow up outpatient 2 weeks. Patient on regular diet. Tylenol/NSAIDs on discharge for pain. Oxycodone for breakthrough pain Work excuse given on discharge. (2) UTI (urinary tract infection): Rocephin inpatient -UC + for pansensitive E coli. -discharged on cefpodoxime 200mg twice daily for additional 3 days. (3) Tobacco use: History of tobacco use disorder Declined patch History of stimulant use disorder Methamphetamine use in the past, ecstasy use, and concern for narcotic use versus diversion Attentive last hospitalization with stroke was offered outpatient IOP, groups, meetings. Support services but she was not interested in these at the time. Was recommended to continue NRT therapy Also noted patient had been filling prescription remains since monthly but had denied using these, and was with concern for potential diversion at the time (4) CVA (cerebral vascular accident): History of CVA s/p thrombectomy 2022, with prior multiple CVA in 2017 2017, history of multiple CVA w/ concurrent meningitis at that time 2022 Left MCA stroke due to M1 occlusion, suspected cardioembolic with history of PFO. acute ischemic stroke requiring thrombectomy. Was found down near a drug house with admitted amphetamine use shortly prior Prior deficits with right sided hemineglect, right-sided hemiparalysis, left gaze preference improved at that time Was discharged on aspirin 81 mg Was not recommended for statin therapy at that time with suspected paradoxic CVA/nonatherosclerotic CVA and with cholesterol 81 and LDL 35 at time of that assessment. Plan Chronic conditions: Depression: adequately controlled, no longer takes lexapro Apnea: CPAP at bedtime PFO: pending repair, no set operative date ASA 81mg Admission HPI Per Admitting Provider Naima is a 33-year-old female with past medical history of anxiety/depression, methamphetamine use, multiple CVA 2018, [place], dental abscesses presents the ER with nausea vomiting and abdominal pain x 24 hours. Pain grossly worsened today and with 2 episodes of nonbloody emesis. 2 episodes of nonbloody vomiting this morning, is found to have a bowel obstruction on imaging. She has a history of prior cholecystectomy and appendectomy. SBO suspected be due to associated supraumbilical hernia. Naima is seen at the bedside. She reports in the last day she has had progressively worsening pain mostly around her stomach but a little bit down by her bellybutton which has gradually worsened to an 8/10, slightly improved in the ER after morphine. She reports she had nausea with 2 episodes of vomiting this morning, no blood or black content in this. She had a bowel movement this morning which was normal and brown, denies history of bright red blood per rectum/melena. She denies chest pain, chest pressure, fever, chills, shortness of breath, lightheadedness, dizziness. She reports she gets a little short of breath if she walks uphill but nothing unusual and it does not stop her from activity. She reports she has no residual deficits from her strokes in 2018 or 2022. She does continue to take a baby aspirin. She is pending follow-up at some point to have her PFO repaired, there is no set timeline for this as of yet. She reports other than aspirin she is taking no prescription medications Reports she no longer takes any benzodiazepines and no longer takes Lexapro. Is currently taking only aspirin. Does continue to smoke cigarettes. Denies alcohol use recreational drug use and specifically denies benzodiazepine, methamphetamine, and narcotic use in the last 6 months Nausea/vomiting to penicillin otherwise denies medication allergies She took her aspirin yesterday. Did not take medicines this morning due to feeling nauseous Full code Discharge Exam Constitutional WD/WN, vitals as above Eyes PERRL, conjunctivae normal, anicteric sclerae Respiratory breathing unlabored Cardiovascular well perfused Psychiatric A+Ox3, euthymic affect Discharge Plan Discharge Items Patient Disposition: Home - Self-Care Reason For Visit: SBO Discharge Diagnosis: Ventral hernia repair Activity: As commented below Lifting: No more than 10 pounds Bathing Comment: you can shower 07/01, no soaking in pools or bath for 2 weeks Exercise/Sports: Wait until after follow-up appointment Driving/Machine Use: no driving for one week Non-emergency contact: Surgeon Call non-emergency contact if: you have any medication questions, your symptoms worsen, your temperature is above 101.5, your wound has increased redness, your wound has increased drainage and your wound pain has increased Follow-up/Referrals: Dax Mendes, DAYSI JAIMES [Physician] - 07/15/24 11:30 am (call office for a follow up in 2 weeks ) PCP,NO [Primary Care Provider] - Diet: Regular Addtl Attending Provider Instructions: You have surgical glue called dermabond on your surgical site incisions. You may shower with this on. This will tend to come off within a couple of weeks. Do not pick at it. You may apply ice over your incision area, 20 minutes on , 20 minutes over the next week for comfort. You may purchase Tylenol also called Acetaminophen and or Ibuprofen over the counter if needed for addition pain control over the next few days. Take per manufacturers instructions, Do not take more than 3 grams of Tylenol/ Acetaminophen in 24 hours. Please use Oxycodone 5mg every 6hours for breakthrough pain. Please take Cefpodoxime 200mg twice daily for the next 3 days to treat your urinary tract infection. your first dose will be today 07/01. please take with food to avoid GI upset. No driving for 1 week and no driving if taking narcotic pain medication Pending Studies at Discharge: No Stand-Alone Forms: My [facility] [employer], Work/School Release, Smoking Cessation Medications and DC Order Prescriptions: New cefpodoxime 200 mg tablet 200 mg PO BID Qty: 6 0RF Rx Instructions: must administer with a meal/food oxycodone 5 mg tablet 5 mg PO Q6H PRN (Reason: pain) Qty: 10 0RF Continued aspirin [Aspirin Low-Strength] 81 mg Tablet,Delayed Release (Dr/Ec) 81 mg PO DAILY Discharge Orders: Discharge Order (Routine); Ordered 07/01/24 Ordered By: Maria De Jesus Kumar Admission Data Admit Date/Time: 06/29/24 16:12 Attending Provider: Mook Fox Admit Provider: Zafar Reid Primary Care Provider: PCP,NO Other Providers: Dax Mendes Hospital Stay Data Consultations 06/29/24 15:39 Consult General Surgery Stat Procedures Performed Operation Date: 06/30/24 07:00 Actual Procedures p Robotic Assisted Laparoscopic Ventral Hernia Repair with Mesh(Not Applicable) - Dax Mendes DO, FACS Diagnostic Imagining Performed 06/29/24 12:28 CT abd pelvis IV con only Stat Pending Results Patient Have Any Pending Studies at Discharge: No Discharge Instructions Given to Patient (Per Discharging Provider) You have surgical glue called dermabond on your surgical site incisions. You may shower with this on. This will tend to come off within a couple of weeks. Do not pick at it. You may apply ice over your incision area, 20 minutes on , 20 minutes over the next week for comfort. You may purchase Tylenol also called Acetaminophen and or Ibuprofen over the counter if needed for addition pain control over the next few days. Take per manufacturers instructions, Do not take more than 3 grams of Tylenol/ Acetaminophen in 24 hours. Please use Oxycodone 5mg every 6hours for breakthrough pain. Please take Cefpodoxime 200mg twice daily for the next 3 days to treat your urinary tract infection. your first dose will be today 07/01. please take with food to avoid GI upset. No driving for 1 week and no driving if taking narcotic pain medication Total Time Total Time Spent Total Time Spent (In Minutes): 40 Total Time Includes: Examination of the Patient, Discharge Planning and Medication Reconciliation Coding Level of Care Code 74794 INP/OBS DISCH >30 MIN Diagnoses SBO (small bowel obstruction) K56.609 UTI (urinary tract infection) N39.0 Tobacco use Z72.0 CVA (cerebral vascular accident) I63.9
[2024-07-01 11:19] VITALS: BP 142/87; PULSE 84; TEMP 98.6
== END 2024-07-01 12:11 | disposition home or self-care (01) | DRG 354 ==
LOC: ED 10:39 → 3W 16:12 → SUATTDRO 16:12 → 3W 17:19